=== PATIENT | female | born 1945 | race Caucasian/White ===

== ENCOUNTER → 2017-03-03 | Outpatient (CLI) | payer MEDICARE, BC ==
--- NOTE | 2017-03-04 10:37 | MM ---
Reason for exam: screening (asymptomatic). Last mammogram was performed 1 year and 1 month ago. History: Patient is postmenopausal and is nulliparous. Family history of breast cancer in mother. Physical Findings: A clinical breast exam by your physician is recommended on an annual basis and results should be correlated with mammographic findings. MG 3D Screening Mammo W/Cad Bilateral CC and MLO view(s) were taken. Prior study comparison: January 29, 2016, bilateral MG 3d screening mammo w/cad. August 22, 2009, bilateral diagnostic digital mammog. The breast tissue is heterogeneously dense. This may lower the sensitivity of mammography. Finding: There are typically benign linear calcifications in both breasts. There is no discrete abnormality. ASSESSMENT: Benign, BI-RAD 2 RECOMMENDATION: Routine screening mammogram of both breasts in 1 year.
== END | disposition home or self-care (01) ==
LOC: RADMAMWWP 10:02
PROVIDERS: ATTEND Family Medicine
DX: Z12.31 Encounter for screening mammogram for malignant neoplasm of breast (principal)
CPT/HCPCS: 77063; 77067

== ENCOUNTER → 2017-07-25 | Outpatient (CLI) | payer MEDICARE, BC ==
--- NOTE | 2017-07-27 12:07 | PE ---
EXAMINATION TYPE: PET CT fusion skull to thigh DATE OF EXAM: 07/25/2017 COMPARISON: Prior PET/CT March 15, 2016 and older studies HISTORY: GIST progress study suspected recurrence on biopsy July 20, 2017. TECHNIQUE: Following the intravenous administration of 13.74 mCi of F-18 FDG, whole body images are performed from the top of skull to the midthigh. Images are reviewed on the computer in the coronal, axial, and sagittal planes. Reconstructed rotating images are created on independent workstation an d reviewed on the computer. A noncontrast CT is performed in conjunction with the PET scan. SCAN: Subsequent Scan FINDINGS: SKULL BASE AND NECK: There is hypermetabolic right occipital scalp lesion measuring 2.5 x 0.6 cm axi al image 13, max SUV is 11.69. There is hypermetabolic approaching 1 cm focus axial image 82 posterior left thyroid, max SUV is 3.2. CHEST, MEDIASTINUM, AND HILAR REGION: No additional suspicious hypermetabolic uptake is identified. E xternal contamination suspected right lateral chest wall axial image 97. ABDOMEN AND PELVIS: There is severe right-sided hydronephrosis with right ureter stent in place. No s uspicious hypermetabolic uptake is present. OSSEOUS STRUCTURES: No suspicious hypermetabolic uptake is seen. OTHER CT: Heterogeneous thyroid gland is present. Cardiomegaly with is identified. Three-vessel coronary artery calcification is seen. There is tiny pe ricardial effusion. Lobulated partially calcified fibroid uterus is felt present. There are few diverticula in the sigmoid colon. There are surgical sutures seen in left mid bowel loo p axial image 162. There is facet arthropathy lower lumbar levels. IMPRESSION: No suspicious focal hypermetabolic uptake in stomach 2 correlate with history of recent b iopsy identified. Unusual high right occipital hypermetabolic scalp subcutaneous lesion in which jeannie ot exclude metastatic focus though unusual location, consider surgical excision to investigate. Advis e thyroid ultrasound to further assess slightly hypermetabolic posterior lower pole left thyroid nodu le.
== END | disposition home or self-care (01) ==
LOC: RADPETMAIN 07:17
PROVIDERS: ATTEND Internal Medicine Hematology & Oncology
DX: C49.A3 Gastrointestinal stromal tumor of small intestine (principal); E04.1 Nontoxic single thyroid nodule; L98.9 Disorder of the skin and subcutaneous tissue, unspecified
CPT/HCPCS: 78815; A9552

== ENCOUNTER 2017-09-12 10:44 | Emergency (ER) | payer MEDICARE, BC ==
--- NOTE | 2017-09-12 11:55 | ED ---
General Adult HPI - General Chief complaint: Skin/Abscess/Foreign Body Stated complaint: Basal cell cancer burst during the night/Bleeding Time Seen by Provider: 09/12/17 11:51 Source: patient, RN notes reviewed, old records reviewed Mode of arrival: ambulatory Limitations: no limitations - History of Present Illness Initial comments: This is a 71-year-old female the ER for evaluation of wound. Patient has no history of basal cell carcinoma on her scalp. She is been followed by dermatology has scheduled surgery in 2 months. Patient was seen today and the [facility] office for follow-up appointment, sent are very to maggots being in the wound. Patient states she does shower regularly. She denies any specific pain or complaint - Related Data Home Medications Medication Instructions Recorded Confirmed Atorvastatin [Lipitor] 10 mg PO HS 09/11/14 01/19/15 Calcium Carbonate/Vitamin D3 600 mg PO BID 09/11/14 01/19/15 [Calcium 600 + Vit D Tablet] Metoprolol Tartrate [Lopressor] 25 mg PO BID 09/11/14 01/19/15 Ranitidine HCl 150 mg PO HS 09/11/14 01/19/15 Potassium Chloride [K-Tab ER] 20 meq PO BID 10/10/14 01/19/15 Allopurinol [Zyloprim] 100 mg PO BID 01/17/15 01/19/15 Furosemide [Lasix] 40 mg PO QAM 01/17/15 01/19/15 Gleevec 100 mg PO BID 01/17/15 01/19/15 Spironolactone [Aldactone] 25 mg PO HS 01/17/15 01/19/15 Previous Rx's Medication Instructions Recorded Hydrocodone/Acetaminophen [Golden 1 - 2 each PO Q4HR PRN #30 tab 01/19/15 5-325] Allergies Allergy/AdvReac Type Severity Reaction Status Date / Time No Known Allergies Allergy Verified 01/17/15 17:37 Review of Systems ROS Statement: Those systems with pertinent positive or pertinent negative responses have been documented in the HPI. ROS Other: All systems not noted in ROS Statement are negative. Past Medical History Past Medical History: Cancer, Hyperlipidemia, Hypertension, Renal Disease Additional Past Medical History / Comment(s): GETTING PERITONEAL CATHETER IN ANTICIPATION OF CAPD. HIGH URIC ACID LEVELS. HX POLYP BURST IN SMALL INTETSTINE 2010 (CANCER PER PATIENT). History of Any Multi-Drug Resistant Organisms: None Reported Past Surgical History: Bowel Resection, Orthopedic Surgery, Tonsillectomy Additional Past Surgical History / Comment(s): LAPARATOMY. PARATHYROID SURGERY. ORIF LEFT ANKLE., biopsy of scalp 07/27 Past Anesthesia/Blood Transfusion Reactions: No Reported Reaction Past Psychological History: No Psychological Hx Reported Smoking Status: Never smoker Past Alcohol Use History: None Reported Past Drug Use History: None Reported - Past Family History Mother Family Medical History: Cancer, Coronary Artery Disease (CAD) Father Family Medical History: Coronary Artery Disease (CAD) Brother(s) Family Medical History: Coronary Artery Disease (CAD) General Exam - General Exam Comments Initial Comments: Devin Pace size lesion to posterior scalp, positive maggots Limitations: no limitations General appearance: alert, in no apparent distress Head exam: Present: atraumatic, normocephalic, normal inspection Eye exam: Present: normal appearance, PERRL, EOMI. Absent: scleral icterus, conjunctival injection, periorbital swelling ENT exam: Present: normal exam, mucous membranes moist Neck exam: Present: normal inspection. Absent: tenderness, meningismus, lymphadenopathy Respiratory exam: Present: normal lung sounds bilaterally. Absent: respiratory distress, wheezes, rales, rhonchi, stridor Cardiovascular Exam: Present: regular rate, normal rhythm, normal heart sounds. Absent: systolic murmur, diastolic murmur, rubs, gallop, clicks GI/Abdominal exam: Present: soft, normal bowel sounds. Absent: distended, tenderness, guarding, rebound, rigid Extremities exam: Present: normal inspection, full ROM, normal capillary refill. Absent: tenderness, pedal edema, joint swelling, calf tenderness Back exam: Present: normal inspection Neurological exam: Present: alert, oriented X3, CN II-XII intact Psychiatric exam: Present: normal affect, normal mood Skin exam: Present: warm, dry, intact, normal color. Absent: rash Course Vital Signs 09/12/17 10:53 Temperature 97.5 F L Pulse Rate 67 Respiratory 16 Rate Blood Pressure 168/68 O2 Sat by Pulse 98 Oximetry - Reevaluation(s) Reevaluation #1: 09/12/17 14:21 Wound is a ride maggots removed, cleaned Medical Decision Making - Medical Decision Making 71 female the ER with wound breathing maggots, maggots removed here in the emergency room, patient will be discharged home Disposition Clinical Impression: Visit for wound check, Infestation, maggots Disposition: HOME SELF-CARE Condition: Good Instructions: Acute Wound Care (ED) Is patient prescribed a controlled substance at d/c from ED?: No Referrals: Tori Pena III, MD [Primary Care Provider] - 1-2 days
[2017-09-12 14:39] VITALS: BP 157/72; PULSE 66; RESP 18; TEMP 97.8
== END 2017-09-12 14:36 | disposition home or self-care (01) ==
LOC: EC 10:44
DX: B87.1 Wound myiasis (principal); E78.5 Hyperlipidemia, unspecified; I10 Essential (primary) hypertension; Z79.899 Other long term (current) drug therapy; Z85.828 Personal history of other malignant neoplasm of skin
CPT/HCPCS: 99283

== ENCOUNTER → 2017-12-01 | Outpatient (CLI) | payer MEDICARE, BC ==
--- NOTE | 2017-12-01 12:53 | US ---
EXAMINATION TYPE: US kidneys/renal and bladder DATE OF EXAM: 12/01/2017 COMPARISON: 07/25/2017 CLINICAL HISTORY: N18.4 chronic kidney disease stage 4. Right renal stent, history of right hydroneph rosis EXAM MEASUREMENTS: Right Kidney: 10.8 x 5.0 x 4.1 cm Left Kidney: 9.0 x 4.8 x 4.6 cm Right Kidney: Redemonstration of similar-appearing right-sided hydronephrosis visualized. Echogenic f ocus visualized with posterior shadowing measuring 0.5 cm Left Kidney: Left sided pelvic prominence is seen without hydronephrosis. Bladder: Stent visualized, wnl Bilateral Jets seen: Left jet visualized IMPRESSION: 1. Redemonstration of similar-appearing severe right hydronephrosis despite ureteral stent placement. 2. No vera left-sided hydronephrosis is seen. 3. 5 mm nonobstructing right renal calculus.
== END | disposition home or self-care (01) ==
LOC: RADUSWWP 10:48
PROVIDERS: ATTEND Internal Medicine Nephrology
DX: N13.2 Hydronephrosis with renal and ureteral calculous obstruction (principal); N18.4 Chronic kidney disease, stage 4 (severe)
CPT/HCPCS: 76770

== ENCOUNTER → 2018-03-06 | Outpatient (CLI) | payer MEDICARE, BC ==
--- NOTE | 2018-03-08 08:04 | PE ---
EXAMINATION TYPE: PET CT fusion skull to thigh DATE OF EXAM: 03/07/2018 CLINICAL HISTORY: 72-year-old female with malignant gastrointestinal tumor, restaging. TECHNIQUE: Following the intravenous administration of 14.0 mCi of F-18 FDG, whole body images are performed from the skull base to the midthigh. Images are reviewed on the computer in the coronal, a xial, and sagittal planes. Reconstructed rotating images are created on independent workstation and reviewed on the computer. A localization and attenuation correction CT is performed in conjunction with the PET scan. Glucose level: 107 mg/dL CTDI: 3.71 mGy DLP: 286.12 mGy/cm COMPARISON: 07/25/2017 FINDINGS: PET: The previous high right posterior scalp region of hypermetabolic uptake is excluded from view on the current exam. However, there is intensely hypermetabolic scalp mass now seen along the right posterio r skull base, new from prior measuring 2.8 cm, max SUV 11.7. New intensely hypermetabolic, centrally necrotic right supraclavicular mass measuring 5.4 cm, max SUV 10.3. There is slightly decreased, now mild uptake within the thyroid gland, max SUV 2.7 versus 3.2, previo usly, possibly physiologic. Correlation can be made with thyroid ultrasound and thyroid function test ing as indicated. Otherwise, physiologic FDG uptake within the chest. Average liver SUV 2.5. Focal borderline moderate uptake at the level of the descending colon shows no clear CT correlate and could be physiologic. Additional scattered mild to moderate physiologic bowel activity is present th roughout. Redemonstrated small bowel resection and anastomotic staple line in the left midabdomen. No suspiciou s hypermetabolism in this region. Otherwise, physiologic FDG uptake within the abdomen and pelvis. Additional mild increased uptake at the bilateral gluteal insertions suggesting insertional tendinopa thy. ATTENUATION CORRECTION CT: Visualized paranasal sinuses are clear. Hypoplastic right mastoid air cells. Heart mildly enlarged without pericardial effusion. Coronary vessel calcifications. Bovine configurat ion to the aortic arch. No thoracic lymphadenopathy. Evaluation of the lungs show strandy areas of at electasis and some mild biapical pleural parenchymal scarring and mild underlying emphysema. No conso lidation or pleural effusion. Right-sided nephrolithiasis measuring 1.3 cm and 9 mm with persistent hydronephrosis despite the righ t ureteral stent. No dilated small bowel, free fluid, or free air. Small hiatal hernia. No mesenteric or retroperitoneal lymphadenopathy identified. Redemonstrated bulky fibroid uterus. No abnormal fluid collection in the pelvis or pelvic lymphadenop athy. 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 Accentuated lumbar lordosis and accentuated thoracic kyphosis. Trace grade 1 anterolisthesis at L5-S1 and L4-L5. No osseous destructive process. IMPRESSION: 1. Disease progression. Note that the previous high right posterior scalp lesion is not evaluated as it is outside the field of view. However, there is a new hypermetabolic 2.8 cm subcutaneous soft tiss ue mass along the posterior right skull base and a new centrally necrotic right supraclavicular mass measuring 5.4 cm. 2. Focal uptake at the level of the lower descending colon shows no CT correlate and is probably phys iologic muscular uptake. Correlate with direct visualization if the patient is not undergoing routine screening colonoscopy. 3. Incidental: Bulky fibroid uterus, small hiatal hernia, cardiomegaly, CAD, right-sided nephrolithia sis and persistent right-sided hydronephrosis despite the ureteral stent.
== END | disposition home or self-care (01) ==
LOC: RADPETMAIN 07:20
PROVIDERS: ATTEND Internal Medicine Hematology & Oncology
DX: C49.A0 Gastrointestinal stromal tumor, unspecified site (principal); M79.89 Other specified soft tissue disorders; R22.31 Localized swelling, mass and lump, right upper limb; D25.9 Leiomyoma of uterus, unspecified; K44.9 Diaphragmatic hernia without obstruction or gangrene; I51.7 Cardiomegaly; I25.10 Atherosclerotic heart disease of native coronary artery without angina pectoris; N20.0 Calculus of kidney; N13.30 Unspecified hydronephrosis; Z96.0 Presence of urogenital implants
CPT/HCPCS: 78815; A9552

== ENCOUNTER 2018-03-09 09:15 | Day surgery (SDC) | payer BC, MEDICARE ==
[2018-03-09 09:28] VITALS: TEMP 98.2
[2018-03-09 10:18] VITALS: BP 153/67; PULSE 61; RESP 16
--- NOTE | 2018-03-09 10:41 | US ---
ULTRASOUND GUIDED FNA AND CORE BIOPSY RIGHT NECK MASS BIOPSY: CLINICAL HISTORY: Large right necrotic neck mass FINDINGS: The procedure was explained to the patient. The risks, complications, benefits and alternatives were discussed and any questions were answered. Informed consent was obtained. Patient was placed supin e on the ultrasound table and prepped and draped in the usual sterile fashion. Utilizing a 25 gauge needle, two passes were made into the right neck mass. Additionally 3 18-gauge core samples were obt ained. Patient was stable throughout the procedure. Pathology is pending. All elements of maximal barrier and sterile technique were utilized. IMPRESSION: 1. Successful ultrasound guided FNA and core biopsy right neck mass. Note is made the mass was large ly necrotic. This may lower diagnostic yield of the core biopsy.
== END 2018-03-09 10:30 | disposition home or self-care (01) ==
LOC: RADPROMAIN 09:15
PROVIDERS: ATTEND Internal Medicine Hematology & Oncology
DX: C77.0 Secondary and unspecified malignant neoplasm of lymph nodes of head, face and neck (principal)
CPT/HCPCS: 10005; 38505; 76942; 88173; 88305; 88341; 88342

== ENCOUNTER → 2018-11-27 | Outpatient (CLI) | payer MEDICARE ==
--- NOTE | 2018-11-29 10:02 | PE ---
Nuclear medicine PET/CT HISTORY: Malignant neoplasm of connective and soft tissue, gastrointestinal stromal tumor, subsequent Patient received 11.6 mCi F-18 FDG intravenously in delayed scanning was performed from the skull bas e to the mid thighs. Localization and attenuation correction CT scan was performed. Correlation to prior nuclear medicine PET/CT 03/06/2018. Neck and chest: The large low dense focus at the posterior right neck is again seen measuring 5.7 cm in AP dimension, there is peripheral rim of soft tissue similar to prior exam however the previously noted hypermetabolic uptake at this level as well as circumferential mild uptake, SUV is approximatel y 2.2. The posterior right skull base previously identified focus of hypermetabolic uptake is no rocío elizabeth seen, question postop change at this level, focal scalp defect is present. At the aorticopulmonar y window there is a node with SUV 3.6, retrocaval pretracheal node shows SUV 2.7. There is no evident lung mass. No pleural or pericardial effusion. Heart is enlarged, there are coronary artery calcific ations present. ABDOMEN: No evident liver mass. No retroperitoneal adenopathy. Right-sided hydronephrosis is present and has progressed with a double-J catheter in place. There are right-sided renal calculi. There is p ostop change noted in the left hemiabdomen, some wall thickening is present at the site of patient's prior surgery and areas an air-fluid level present. There is some associated hypermetabolic uptake in this level, SUV is 8.8. There is no ascites. Lobular enlarged uterus likely due to fibroids. Osseous structures: Similar findings, large Tarlov cyst noted within the sacrum. Degenerative disc ch anges and facet arthropathy noted in the lumbar spine. IMPRESSION: Interval improvement in hypermetabolic uptake in the large focus of soft tissue in the po sterior right neck as described. There is hypermetabolic uptake involving the surgical site as descri bed in the left hemiabdomen, local recurrence is difficult to exclude. Question interval surgery. Add itional findings above.
== END | disposition home or self-care (01) ==
LOC: RADPETMAIN 08:52
PROVIDERS: ATTEND Internal Medicine Hematology & Oncology
DX: I51.7 Cardiomegaly (principal); I25.10 Atherosclerotic heart disease of native coronary artery without angina pectoris; N13.30 Unspecified hydronephrosis; Z96.0 Presence of urogenital implants; N20.0 Calculus of kidney; Z98.890 Other specified postprocedural states; N85.2 Hypertrophy of uterus; M53.3 Sacrococcygeal disorders, not elsewhere classified; M47.816 Spondylosis without myelopathy or radiculopathy, lumbar region; M46.96 Unspecified inflammatory spondylopathy, lumbar region; C49.A0 Gastrointestinal stromal tumor, unspecified site
CPT/HCPCS: 78815; A9552

== ENCOUNTER → 2019-05-27 | Outpatient (CLI) | payer MEDICARE ==
--- NOTE | 2019-05-30 08:54 | PE ---
EXAMINATION TYPE: PET CT fusion skull to thigh DATE OF EXAM: 05/27/2019 COMPARISON: Prior PET/CT November 27, 2018 and older PET CTs HISTORY: Head and neck cancer progress study. Surgery September 2018 in head/neck . Completed chemother apy April 28, 2019. TECHNIQUE: Following the intravenous administration of 8.4 mCi of F-18 FDG, whole body images are pe rformed from the skull base to the midthigh. Images are reviewed on the computer in the coronal, axi al, and sagittal planes. Reconstructed rotating images are created on independent workstation and re viewed on the computer. A noncontrast CT is performed in conjunction with the PET scan. SCAN: Subsequent Scan FINDINGS: SKULL BASE AND NECK: Persistent surgical change posterior right cerebellar scalp region near axial i mage 36 without definitive recurrent hypermetabolic soft tissue mass. The right supraclavicular low dense lesion now has more ovoid versus rounded shape measuring 3.5 x 2. 4 cm axial image 61 and is currently ametabolic. No new areas of abnormal hypermetabolic uptake. CHEST, MEDIASTINUM, AND HILAR REGION: No new areas of abnormal hypermetabolic uptake. No definitive a bnormal hypermetabolic thoracic lymph nodes on current study. ABDOMEN AND PELVIS: Persistent severe right-sided hydronephrosis despite right double-J ureter stent. Nonspecific areas of mild bowel uptake. Normal excretion. No new areas of suspicious hypermetabolic uptake. No residual hypermetabolic uptake near sutures left upper to mid abdomen excellent 137 on cu rrent study. OSSEOUS STRUCTURES: Mild uptake left shoulder level presumed inflammatory. No new areas of suspicious hypermetabolic uptake. OTHER CT: Mild emphysematous changes are present. Cardiomegaly with moderate three-vessel coronary ar lisa calcification redemonstrated. Occasional calcifications throughout the liver and spleen, findings consistent with product of old gr anulomatous disease. Heterogeneous enlarged uterus with lobulation probable fibroid uterus. Small umb ilical hernia below umbilicus image 167. Exaggerated kyphosis in the spine. Multilevel spurring in the spine. 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 IMPRESSION: No active hypermetabolic neoplasm currently. Persistent low dense right supraclavicular l esion more elongated in appearance currently ametabolic. Persistent severe right-sided hydronephrosis despite double-J ureter stent. No new areas of suspicious hypermetabolic uptake.
== END | disposition home or self-care (01) ==
LOC: RADPETMAIN 13:15
PROVIDERS: ATTEND Internal Medicine Hematology & Oncology
DX: M75.91 Shoulder lesion, unspecified, right shoulder (principal); N13.30 Unspecified hydronephrosis; C44.82 Squamous cell carcinoma of overlapping sites of skin; Z92.21 Personal history of antineoplastic chemotherapy
CPT/HCPCS: 78815; A9552

== ENCOUNTER → 2019-08-04 | Outpatient (CLI) | payer MEDICARE ==
--- NOTE | 2019-08-04 13:39 | BD ---
EXAMINATION TYPE: Axial Bone Density DATE OF EXAM: 08/04/2019 COMPARISON: 01.29.2016 CLINICAL HISTORY: 73 YR OLD FEMALE....ICD-10 CODE: M81.0 AGE RELATED OSTEOPOROSIS Height: 58.5 Weight: 140 FRAX RISK QUESTIONS: Secondary Osteoporosis: YES 2. Hyperthyroidism: HYPERPARATHYROIDISM 3. Menopause before 45: YES AT AGE 40 RISK FACTORS HISTORY OF: Postmenopausal woman: YES AT ABOUT 40 YRS OLD NATURALLY Lost more than 2 inches in height since high school: YES Hyperparathyroidism: YES Adrenal Insufficiency: NO MEDICATIONS: Thyroid Medications: YES, SYNTHROID FOR ABOUT 1 YR Osteoporosis Medications: YES, FOSAMAX FOR ABOUT 10 YRS, OFF NOW FOR 4-5 YRS Additional Medications: HX OF CHEMO, SKIN CA, HX OF RADIATION, REFLUX MEDS, CHOLESTEROL MEDS, VIT D, BP MEDS, Additional History: HX OF SKIN CANCER, HYPERTENSION, REFLUX AND CHOLESTEROL EXAM MEASUREMENTS: Bone mineral densitometry was performed using the [employer] System. Bone mineral density as measured about the Lumbar spine is: ----- L1-L4(G/cm2): 1.136 T Score Values are as follows: ----- L1: -0.2 ----- L2: -1.5 ----- L3: -1.5 ----- L4: 2.8 ----- L1-L4: -0.4 Bone mineral density has: Increased 7.0% since study of: 01.29.2016 Bone mineral density about the R hip (g/cm2): 0.933 Bone mineral density about the L hip (g/cm2): 0.891 T Score values are as follows: -----R Neck: -1.3 -----L Neck: -1.9 -----R Total: -0.6 -----L Total: -0.9 Bone mineral density has: Decreased -0.7% since study of: 01.29.2016 FRAX%s: THERE IS A 12.4% CHANCE FOR A MAJOR OSTEOPOROTIC FX AND A 2.9% FOR A HIP......PROBABILITY FOR FX IN 10 YRS TIME IMPRESSION: Osteopenia (T Score between -2.5 and -1). There is slightly increased risk of fracture and the patient may be considered for treatment. Re-Screen 2-5 years. NOTE: T-SCORE=SD OF THE YOUNG ADULT MEAN.
== END | disposition home or self-care (01) ==
LOC: RADBDWWP 09:53
PROVIDERS: ATTEND Family Medicine
DX: M81.0 Age-related osteoporosis without current pathological fracture (principal)
CPT/HCPCS: 77080

== ENCOUNTER → 2020-01-13 | Outpatient (CLI) | payer MEDICARE ==
--- NOTE | 2020-01-16 06:27 | PE ---
EXAMINATION TYPE: PET CT fusion skull to thigh DATE OF EXAM: 01/13/2020 COMPARISON: Prior PET/CT May 27, 2019 HISTORY: Squamous cell cancer progress study. Originally diagnosed posterior scalp on excision 2018. Completed chemotherapy January 03 2020. TECHNIQUE: Following the intravenous administration of 8.37 mCi of F-18 FDG, whole body images are p erformed from the mid skull to the midthigh. Images are reviewed on the computer in the coronal, axi al, and sagittal planes. Reconstructed rotating images are created on independent workstation and re viewed on the computer. A localization and attenuation correction CT is performed in conjunction wi th the PET scan. Dedicated PET/CT imaging of the neck is performed. SCAN: Subsequent Scan FINDINGS: SKULL BASE AND NECK: Persistent surgical change posterior right cerebellar scalp region near axial i mage 34 without definitive recurrent hypermetabolic soft tissue mass. Right upper cervical posterior deep paraspinal musculature presumed postinflammatory near axial image 42. The right supraclavicular low dense lesion now has more ovoid versus rounded shape measuring 3.5 x 2. 4 cm axial image 61 and remains ametabolic. No new areas of abnormal hypermetabolic uptake. CHEST, MEDIASTINUM, AND HILAR REGION: No new areas of abnormal hypermetabolic uptake. Mild hypermetab olic uptake right proximal upper extremity muscle presumed inflammatory. No definitive abnormal hyper metabolic thoracic lymph nodes on current study. ABDOMEN AND PELVIS: Persistent severe right-sided hydronephrosis despite right double-J ureter stent. Nonspecific areas of mild bowel uptake. No new areas of suspicious hypermetabolic uptake. No residu al hypermetabolic uptake near sutures left upper to mid abdomen axial image 148 on current study. OSSEOUS STRUCTURES: No new areas of suspicious hypermetabolic uptake. OTHER CT: Mild emphysematous changes are present. Cardiomegaly with moderate three-vessel coronary ar lisa calcification redemonstrated. Occasional punctate calcifications throughout the liver and spleen, findings consistent with product of old granulomatous disease. Heterogeneous enlarged partially calcified uterus with lobulation proba ble fibroid uterus. Small ventral wall hernia below umbilicus axial image 178. Exaggerated kyphosis in the spine. Multilevel spurring in the spine. 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 IMPRESSION: No active hypermetabolic neoplasm currently. Stable low dense right supraclavicular lesio n remains ametabolic. Persistent severe right-sided hydronephrosis despite double-J ureter stent. No new areas of suspicious hypermetabolic uptake.
== END | disposition home or self-care (01) ==
LOC: RADPETMAIN 10:59
PROVIDERS: ATTEND Internal Medicine Hematology & Oncology
DX: C44.82 Squamous cell carcinoma of overlapping sites of skin (principal); N13.30 Unspecified hydronephrosis; M89.8X8 Other specified disorders of bone, other site; Z96.0 Presence of urogenital implants; Z92.21 Personal history of antineoplastic chemotherapy
CPT/HCPCS: 78815; A9552

== ENCOUNTER → 2020-04-24 | Outpatient (CLI) | payer MEDICARE ==
--- NOTE | 2020-04-25 10:36 | MM ---
Reason for exam: screening (asymptomatic). Last mammogram was performed 3 years and 2 months ago. History: Patient is postmenopausal, history of other cancer, and is nulliparous. Family history of breast cancer in mother. Physical Findings: A clinical breast exam by your physician is recommended on an annual basis and results should be correlated with mammographic findings. MG 3D Screening Mammo W/Cad Bilateral CC and MLO view(s) were taken. Prior study comparison: March 03, 2017, bilateral MG 3d screening mammo w/cad. January 29, 2016, bilateral MG 3d screening mammo w/cad. The breast tissue is heterogeneously dense. This may lower the sensitivity of mammography. There are benign appearing linear calcifications bilaterally. There is no discrete abnormality. ASSESSMENT: Benign, BI-RAD 2 RECOMMENDATION: Routine screening mammogram of both breasts in 1 year.
== END ==
LOC: RADMAMWWP 13:52
PROVIDERS: ATTEND Family Medicine
DX: Z12.31 Encounter for screening mammogram for malignant neoplasm of breast (principal); Z78.0 Asymptomatic menopausal state; Z80.3 Family history of malignant neoplasm of breast
CPT/HCPCS: 77063; 77067

== ENCOUNTER 2020-06-15 07:42 | Day surgery (SDC) | payer MEDICARE ==
[2020-06-13 13:18] VITALS: BMI 26.4
[~2020-06-15 07:42] MED LIST: LACTATED RINGERS 1,000 ML IV SCH
[2020-06-15 08:40] VITALS: RESP 16; TEMP 97
[2020-06-15] MEDS ORDERED: LIDOCAINE 1% INJ 10MG/ML (20 ML MDV) ONE (09:42)
[2020-06-15] MEDS ORDERED: PROPOFOL 10 MG/ML 20 ML VIAL IV ONE (09:42)
--- NOTE | 2020-06-15 09:58 | P.PCN ---
Date of Procedure: 06/15/20 Procedure(s) Performed: BRIEF HISTORY: Patient is a 74-year-old pleasant 8 female scheduled for an elective colonoscopy as a part of positive cologuard. Her last colonoscopy was 15 years ago. PROCEDURE PERFORMED: Colonoscopy with snare polypectomy . PREOPERATIVE DIAGNOSIS: Positive:cologuard. IV sedation per Anesthesia. PROCEDURE: After informed consent was obtained, the patient, was brought into the endoscopy unit. IV sedation was administered by Anesthesia under continuous monitoring. Digital rectal examination was normal. Initially the Olympus CF-160 flexible video colonoscope was then inserted in the rectum, gradually advanced into the cecum without any difficulty. Careful examination was performed as the scope was gradually being withdrawn. Ileocecal valve and the appendiceal orifice were visualized and appeared normal. Prep was excellent. Mucosa of the cecum, ascending colon, transverse colon, descending colon, appeared normal. In the proximal sigmoid colon at 40 cm to the anal was there was a 1.5 cm pedunculated polyp that was removed by snare polypectomy. Scattered sigmoid diverticulosis seen. Rest of the sigmoid colon, and rectum appeared normal. Retroflexion was performed in the rectua 2 internal hemorrhoids were seen. The patient tolerated the procedure well. IMPRESSION: 1.5 cm pedunculated sigmoid colon polyp status post polypectomy Scattered sigmoid diverticulosis Small internal hemorrhoids RECOMMENDATIONS: Findings of this examination were discussed with thpatient as well as her family. She was advised to follow with the biopsy results. If the biopsy reveals adenoma she can have a repeat colonoscopy in 3 years.
[2020-06-15 10:20] VITALS: BP 127/61; PULSE 62
== END 2020-06-15 10:47 | disposition home or self-care (01) ==
LOC: ORWHC2ENDO 07:42
PROVIDERS: ATTEND Internal Medicine Gastroenterology
DX: K63.5 Polyp of colon (principal); K57.30 Diverticulosis of large intestine without perforation or abscess without bleeding; K64.8 Other hemorrhoids; I10 Essential (primary) hypertension; N28.9 Disorder of kidney and ureter, unspecified; K21.9 Gastro-esophageal reflux disease without esophagitis; Z90.49 Acquired absence of other specified parts of digestive tract; E89.2 Postprocedural hypoparathyroidism; Z90.89 Acquired absence of other organs; Z79.899 Other long term (current) drug therapy; Z79.890 Hormone replacement therapy
CPT/HCPCS: 88305; 45385; J2001; J2704

== ENCOUNTER → 2020-07-20 | Outpatient (CLI) | payer MEDICARE ==
--- NOTE | 2020-07-23 09:36 | PE ---
EXAMINATION TYPE: PET CT fusion skull to thigh DATE OF EXAM: 07/20/2020 COMPARISON: Prior PET/CT January 13, 2020 and older studies. HISTORY: Squamous cell cancer progress study. Originally diagnosed posterior scalp on excision 2018. Completed chemotherapy January 03 2020. TECHNIQUE: Following the intravenous administration of 8.98 mCi of F-18 FDG, whole body images are p erformed from the skull base to the midthigh. Images are reviewed on the computer in the coronal, ax ial, and sagittal planes. Reconstructed rotating images are created on independent workstation and r eviewed on the computer. A localization and attenuation correction CT is performed in conjunction w ith the PET scan. Dedicated PET/CT imaging of the neck. Blood glucose level equals 111. SCAN: Subsequent Scan FINDINGS: SKULL BASE AND NECK: Persistent surgical change posterior right cerebellar scalp region near axial i mage 1 only partially imaged on this study. The right supraclavicular low dense lesion now has is more defined measuring 3 0.8 x 1.4 cm 4 cm axia l image 52 current study and remains ametabolic. No new areas of abnormal hypermetabolic uptake. CHEST, MEDIASTINUM, AND HILAR REGION: No new areas of abnormal hypermetabolic uptake. Mild hypermetab olic uptake right proximal upper extremity muscle presumed postinflammatory similar to prior. No defi nitive abnormal hypermetabolic thoracic lymph nodes on current study. ABDOMEN AND PELVIS: Persistent severe right-sided hydronephrosis despite right double-J ureter stent. Nonspecific areas of mild bowel uptake. No new areas of suspicious hypermetabolic uptake. Mild hypermetabolic uptake near sutures left upper to mid abdomen axial image 141 on current study without definitive soft tissue lesion. Nonspecific finding. OSSEOUS STRUCTURES: No new areas of suspicious hypermetabolic uptake. OTHER CT: Mild emphysematous changes are present. Cardiomegaly with moderate three-vessel coronary ar lisa calcification redemonstrated. Occasional punctate calcifications throughout the liver and spleen, findings consistent with product of old granulomatous disease. Heterogeneous enlarged partially calcified uterus with lobulation proba ble fibroid uterus. Small ventral wall hernia below umbilicus axial image 169. Exaggerated kyphosis in the spine. Multilevel spurring in the spine. 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 IMPRESSION: Diminished size right supraclavicular lesion remains ametabolic. Persistent severe right -sided hydronephrosis despite double-J ureter stent. No new areas of suspicious hypermetabolic uptake .
== END | disposition home or self-care (01) ==
LOC: RADPETMAIN 09:24
PROVIDERS: ATTEND Internal Medicine Hematology & Oncology
DX: C44.92 Squamous cell carcinoma of skin, unspecified (principal); N13.30 Unspecified hydronephrosis
CPT/HCPCS: 78815; A9552

== ENCOUNTER → 2021-03-28 | Outpatient (CLI) | payer MEDICARE ==
--- NOTE | 2021-03-28 10:03 | US ---
EXAMINATION TYPE: US kidneys/renal and bladder DATE OF EXAM: 03/28/2021 COMPARISON: PET/CT 07/20/2020 CLINICAL HISTORY: 75-year-old female N18.4 chronic kidney stage 4. TECHNIQUE: Multiple sonographic images of the kidneys and bladder are obtained. FINDINGS: EXAM MEASUREMENTS: Right Kidney: 11.4 x 3.8 x 5.9 cm Left Kidney: 8.2 x 4.9 x 3.1 cm Right Kidney: Anechoic area of fluid mid pole seen measuring 6.8 x 4.3 x 6.8 cm with echogenic areas measuring up to 5 mm likely portions of the right ureteral stent. Left Kidney: Anechoic area centrally measuring 2.8 x 1.8 x 2.7 cm probably extrarenal pelvis. No emir ceal dilatation to suggest hydronephrosis. Bladder: Distal loop of the ureteral stent visualized. Bilateral Jets seen: yes The urinary bladder is anechoic. Bilateral ureteral jets are seen. IMPRESSION: 1. Unchanged pronounced dilatation of the right renal collecting system. 2. Distal loop of the patient's right ureteral stent seen within the bladder. 3. Unchanged extra renal pelvis left kidney.
== END | disposition home or self-care (01) ==
LOC: RADUSWWP 08:56
PROVIDERS: ATTEND Internal Medicine Nephrology
DX: N18.4 Chronic kidney disease, stage 4 (severe) (principal); N28.89 Other specified disorders of kidney and ureter
CPT/HCPCS: 76770

== ENCOUNTER → 2021-07-19 | Outpatient (CLI) | payer MEDICARE ==
--- NOTE | 2021-07-22 10:21 | PE ---
Nuclear medicine PET/CT HISTORY: Head and neck cancer, subsequent, C 44.82 squamous cell carcinoma Patient received 8.3 mCi F-18 FDG intravenously and delayed scanning was performed from the skull bas e to the mid thighs. A localization and attenuation correction CT scan was performed. Small field-of- view images obtained through the head and neck. Correlation to prior nuclear medicine PET/CT 07/20/2020 Average mediastinal uptake SUV 2.6, average liver uptake SUV 3.3 Head and neck: There is no cervical or supraclavicular adenopathy. No suspicious uptake. chest: No pleural or pericardial effusion. No evident lung mass. No suspicious uptake. Some interstit ial changes are suspected within the lungs. Coronary artery calcifications are present. There is meta llic density at the root of aorta. Heart is enlarged. ABDOMEN: There likely indicative of underlying fibroids. Double-J stent is present within the right k idney and ureter extending into the bladder. There are calcifications which are nonobstructive within the right kidney, possible extrarenal pelvis bilaterally. Postop changes are noted to the bowel. The re is no evident liver mass. No ascites. No retroperitoneal adenopathy or suspicious uptake. There is a bulky appearance of the uterus is some associated calcification. Mild uptake noted within what may be a large fibroid on the left, indeterminate, SUV 3.2. Osseous structures: No suspicious uptake. IMPRESSION: Possible uptake within left fibroid but indeterminate
== END | disposition home or self-care (01) ==
LOC: RADXRMAIN 10:24
PROVIDERS: ATTEND Internal Medicine Hematology & Oncology
DX: C44.82 Squamous cell carcinoma of overlapping sites of skin (principal)
CPT/HCPCS: 78815; A9552

== ENCOUNTER 2022-04-21 11:05 | Inpatient (IN) | payer MEDICARE ==
[2022-04-21 12:12] LABS: Anisocytosis Slight; Basophils # (A) 0.1 k/uL (0-0.2); Basophils % (A) 1 %; Eosinophils # (A) 0.1 k/uL (0-0.7); Eosinophils % (A) 1 %; HCT 50.1 % (34.0-46.0); HGB 16.5 gm/dL (11.4-16.0); Lymphocytes # (A) 0.5 k/uL (1.0-4.8); Lymphocytes % (A) 5 %; MCH 30.9 pg (25.0-35.0); MCHC 32.9 g/dL (31.0-37.0); MCV 93.8 fL (80.0-100.0); Mean Platelet Volume 8.5; Monocytes # (A) 0.3 k/uL (0-1.0); Monocytes % (A) 3 %; Neutrophils # (A) 9.1 k/uL (1.3-7.7); Neutrophils % (A) 88 %; Platelet Count 198 k/uL (150-450); RBC 5.34 m/uL (3.80-5.40); RDW 17.2 % (11.5-15.5); WBC 10.2 k/uL (3.8-10.6)
--- NOTE | 2022-04-21 12:26 | XR ---
EXAMINATION TYPE: XR chest 2V DATE OF EXAM: 04/21/2022 12:22 PM COMPARISON: Head CT 07/19/2021, chest radiograph 07/31/2010 TECHNIQUE: XR chest 2V Frontal and lateral views of the chest. CLINICAL INDICATION:Female, 76 years old with history of difficulty breathing; FINDINGS: Lungs/Pleura: Hyperinflation. Blunting of the right costophrenic angle. Pulmonary vascular congestion . No pneumothorax. Heart/mediastinum: Cardiomediastinal silhouette is enlarged and stable. Atherosclerotic calcificatio ns are seen in the aorta. Musculoskeletal: No acute osseous pathology. Increased kyphotic curvature of thoracic spine. IMPRESSION: 1. Cardiomegaly, pulmonary vascular congestion and small right pleural effusions. Correlate with BNP for congestive heart failure. 2. COPD changes.
[2022-04-21 13:14] LABS: VBG PH 7.41 (7.31-7.41)
[2022-04-21 13:59] LABS: INR 1.1 (<1.2); Prothrombin Time 11.4 sec (9.0-12.0)
[2022-04-21 14:13] LABS: Calcium 9.7 mg/dL (8.4-10.2); Magnesium 2.5 mg/dL (1.6-2.3); Potassium 5.2 mmol/L (3.5-5.1); Total Bilirubin 1.7 mg/dL (0.2-1.3); Total Protein 8.4 g/dL (6.3-8.2)
[2022-04-21] MEDS ORDERED: FUROSEMIDE 10 MG/ML 4 ML VIAL IV STA (14:41)
[2022-04-21] MEDS ORDERED: ASPIRIN 81 MG PO STA (14:43)
--- NOTE | 2022-04-21 14:44 | ED ---
General Adult HPI - General Chief complaint: Shortness of Breath Stated complaint: hypoxemia Time Seen by Provider: 04/21/22 11:35 Source: patient, RN notes reviewed, old records reviewed Mode of arrival: wheelchair Limitations: no limitations - History of Present Illness Initial comments: Patient is a 76 year old female with past medical history remarkable for stomach cancer, skin cancer, hypertension, thyroid disease, CK D who presents emergency Department complaining of shortness of breath that is progressively been getting worse over the last month. States it is worse with exertion. In presents with rest. Somewhat worse when laying down and in the middle night she does get up to go sit in a recliner. Denies any paroxysmal nocturnal dyspnea. Does endorse some chronic lower extremity swelling, and is on Lasix but only takes it as she feels she needs it. States she does not take it often. Denies any fevers, cough. Denies any chest pain. Denies any abdominal pain, nausea, vomiting. No history of blood clots. Both legs are both equally swollen. Presents for further evaluation at this time. - Related Data Home Medications Medication Instructions Recorded Confirmed Atorvastatin [Lipitor] 10 mg PO HS 09/11/14 04/21/22 Metoprolol Tartrate [Lopressor] 25 mg PO BID 09/11/14 04/21/22 allopurinoL [Zyloprim] 100 mg PO BID 01/17/15 04/21/22 Ferrous Sulfate [Feosol] 325 mg PO BID 03/03/18 04/21/22 Folic Acid 0.8 mg PO DAILY 03/03/18 04/21/22 Magnesium 400 mg PO HS 03/03/18 04/21/22 Cholecalciferol [Vitamin D3 (25 25 mcg PO DAILY 06/13/20 04/21/22 Mcg = 1000 Iu)] Famotidine 20 mg PO HS 06/13/20 04/21/22 Furosemide [Lasix] 20 mg PO Q2D PRN 04/21/22 04/21/22 Levothyroxine Sodium [Synthroid] 75 mcg PO DAILY 04/21/22 04/21/22 amLODIPine [Norvasc] 7.5 mg PO DAILY 04/21/22 04/21/22 calcitrioL [Calcitriol] 0.25 mcg PO MOWEFR 04/21/22 04/21/22 Allergies Allergy/AdvReac Type Severity Reaction Status Date / Time No Known Allergies Allergy Verified 04/21/22 12:26 Review of Systems ROS Statement: Those systems with pertinent positive or pertinent negative responses have been documented in the HPI. Review of Systems: CONST: Denies fever EYES: Denies blurry vision ENT: Denies nasal congestion C/V: Denies Chest pain RESP: Endorse's shortness of breath GI: Denies abdominal pain : Denies dysuria SKIN: Denies rash. MSK: Denies joint pain. NEURO: Denies headache ROS Other: All systems not noted in ROS Statement are negative. Past Medical History Past Medical History: Cancer, GERD/Reflux, Hyperlipidemia, Hypertension, Renal Disease, Thyroid Disorder Additional Past Medical History / Comment(s): stage 4 kidney disease-has not needed dialysis yet 2 point away of stage 3, still has urine production, anemia, HIGH URIC ACID LEVELS. HX CANCEROUS POLYP BURST IN SMALL INTESTINE 2010-being tx. w/chemo, skin cancer scalp July 2017 History of Any Multi-Drug Resistant Organisms: None Reported Past Surgical History: Bowel Resection, Orthopedic Surgery, Tonsillectomy Additional Past Surgical History / Comment(s): LAPARATOMY, PARATHYROID SURGERY, ORIF LEFT ANKLE., biopsy of scalp 07/27,AV fistula left arm,peritoneal dialysis attempt Past Anesthesia/Blood Transfusion Reactions: No Reported Reaction Past Psychological History: No Psychological Hx Reported Smoking Status: Never smoker - Past Family History Mother Family Medical History: Cancer, Coronary Artery Disease (CAD) Father Family Medical History: Coronary Artery Disease (CAD) Brother(s) Family Medical History: Coronary Artery Disease (CAD) General Exam - General Exam Comments Initial Comments: General: Appears in no acute distress. HEAD: Normal with no signs of head trauma. EYES: PERRLA, EOMI, conjunctiva normal, no discharge. ENT: Hearing grossly intact, normal oropharynx. RESPIRATORY: Positive clear breath sounds bilaterally without any obvious wheezes or rhonchi. Hypoxic on room air to 82%. Improved on 2-4 L nasal cannula at 292-95%. Mildly increased work of breathing. C/V: Regular rate and rhythm. S1 and S2 auscultated, bilateral symmetrical abhijit ing edema in lower extremities. Peripheral pulses 2+ and intact throughout ABD: Abd is soft, nontender, nondistended EXT: Normal range of motion, no obvious deformity SKIN: No rashes or lesions observed on exposed skin. NEURO: Alert and oriented 4. Limitations: no limitations Course Vital Signs 04/21/22 04/21/22 04/21/22 11:30 13:00 13:30 Temperature 97.4 F L Pulse Rate 60 54 L 53 L Respiratory 24 19 20 Rate Blood Pressure 120/72 135/79 135/79 O2 Sat by Pulse 84 L 95 94 L Oximetry 04/21/22 04/21/22 04/21/22 14:00 14:30 16:00 Temperature Pulse Rate 49 L 57 L 53 L Respiratory 19 20 18 Rate Blood Pressure 144/73 141/76 153/85 O2 Sat by Pulse 95 95 95 Oximetry Medical Decision Making - Medical Decision Making Was pt. sent in by a medical professional or institution (, PA, YARDAGE CONTROL CLERK, urgent care, hospital, or long term...) When possible be specific @ -Yes, sent from cancer facility for hypoxia Did you speak to anyone other than the patient for history (EMS, parent, family, police, friend...)? What history was obtained from this source @ -No Did you review nursing and triage notes (agree or disagree)? Why? @ -I reviewed and agree with nursing and triage notes Were old charts reviewed (outside hosp., previous admission, EMS record, old EKG, old radiological studies, urgent care reports/EKG's, long term records)? Report findings @ -No old charts were reviewed Differential Diagnosis (chest pain, altered mental status, abdominal pain women, abdominal pain men, vaginal bleeding, weakness, fever, dyspnea, syncope, headache, dizziness, GI bleed, back pain, seizure, CVA, palpatations, mental health, musculoskeletal)? @ -Differential Dyspnea: Coronary syndrome, arrhythmia, tamponade, asthma, COPD, pulmonary embolism, pneumonia, pneumothorax, pulmonary effusion, anaphylaxis, diabetic ketoacidosis, flailed chest, pulmonary contusion, diaphragmatic rupture, anemia, neuromuscular, this is not meant to be an all-inclusive list. EKG interpreted by me (3pts min.). @ -As above X-rays interpreted by me (1pt min.). @ -Chest x-ray reveals cardiomegaly and pulmonary vascular congestion concerning for CHF. CT interpreted by me (1pt min.). @ -None done U/S interpreted by me (1pt. min.). @ -None done What testing was considered but not performed or refused? (CT, X-rays, U/S, labs)? Why? @ -None What meds were considered but not given or refused? Why? @ -None Did you discuss the management of the patient with other professionals (professionals i.e. , PA, YARDAGE CONTROL CLERK, lab, RT, psych nurse, social service coordinator, medical technologist microbiology, teacher, artillery officer, pillowcase cleaner)? Give summary @ -No Was smoking cessation discussed for >3mins.? @ -No Was critical care preformed (if so, how long)? @ -No Were there social determinants of health that impacted care today? How? ( Homelessness, low income, unemployed, alcoholism, drug addiction, transportation, low edu. Level, literacy, decrease access to med. care, fdc, rehab)? @ -No Was there de-escalation of care discussed even if they declined (Discuss DNR or withdrawal of care, Hospice)? DNR status @ -No What co-morbidities impacted this encounter? (DM, HTN, Smoking, COPD, CAD, Cancer, CVA, ARF, Chemo, Hep., AIDS, mental health diagnosis, sleep apnea, morbid obesity)? @ -CK D Was patient admitted / discharged? Hospital course, mention meds given and route, prescriptions, significant lab abnormalities, going to OR and other pertinent info. @ -Based on the patient's presentation and physical exam, I'm concerned for cardiopulmonary etiology for her current dyspnea. Differential includes possible PE versus CHF. Patient does have worsening orthopnea, exertional dyspnea, lower extremity swelling. She is on Lasix but does not take it often. Patient has hypoxic respiratory failure. We will obtain a pulmonary labs, chest x-ray, EKG. Screening d-dimer also be obtained. She was in agreement with this plan. Vital signs within acceptable limits on 2-4 L nasal cannula oxygen. She was given an aspirin 324 mg. EKG shows T-wave inversions about an STD in the inferior and lateral leads with mild ST segment depressions in leads III and aVF. No prior EKG for comparison. Chest x-ray shows findings concerning for CHF. Laboratory studies are remarkable for a normal d-dimer of 0.3. BNP is elevated to 12,700. Troponin is indeterminate. Remainder of the labs are within acceptable limits for the patient and she does have a history of CK D appears to be at her baseline. I discussed the results with the patient. I would like to admit the hospital over concern for CHF. She was in agreement this plan. She was started on IV Lasix. Echo was ordered. Cardiology was consulted. I spoke with the admitting physician, Dr. Mcallister who accepted the patient. She is resting comfortably at time of admission. Undiagnosed new problem with uncertain prognosis? @ -No Drug Therapy requiring intensive monitoring for toxicity (Heparin, Nitro, Insulin, Cardizem)? @ -No Were any procedures done? @ -No Diagnosis/symptom? @ -Hypoxic respiratory failure secondary to CHF Acute, or Chronic, or Acute on Chronic? @ -Acute Uncomplicated (without systemic symptoms) or Complicated (systemic symptoms)? @ -Complicated Side effects of treatment? @ -No Exacerbation, Progression, or Severe Exacerbation? @ -No Poses a threat to life or bodily function? How? (Chest pain, USA, DC, pneumonia, PE, COPD, DKA, ARF, appy, cholecystitis, CVA, Diverticulitis, Homicidal, Suicidal, threat to staff... and all critical care pts) @ -Yes, if untreated can result in significant morbidity and mortality Diagnosis/symptom? @ -CK D Acute, or Chronic, or Acute on Chronic? @ -Chronic Uncomplicated (without systemic symptoms) or Complicated (systemic symptoms)? @ -Uncomplicated Side effects of treatment? @ -none Exacerbation, Progression, or Severe Exacerbation] @ -no Poses a threat to life or bodily function? @ -no - Lab Data Result diagrams: 04/21/22 11:42 04/21/22 13:42 Lab Results 04/21/22 04/21/22 04/21/22 Range/Units 11:42 11:42 11:42 WBC 10.2 (3.8-10.6) k/uL RBC 5.34 (3.80-5.40) m/uL Hgb 16.5 H (11.4-16.0) gm/dL Hct 50.1 H (34.0-46.0) % MCV 93.8 (80.0-100.0) fL MCH 30.9 (25.0-35.0) pg MCHC 32.9 (31.0-37.0) g/dL RDW 17.2 H (11.5-15.5) % Plt Count 198 (150-450) k/uL MPV 8.5 Neutrophils % 88 % Lymphocytes % 5 % Monocytes % 3 % Eosinophils % 1 % Basophils % 1 % Neutrophils # 9.1 H (1.3-7.7) k/uL Lymphocytes # 0.5 L (1.0-4.8) k/uL Monocytes # 0.3 (0-1.0) k/uL Eosinophils # 0.1 (0-0.7) k/uL Basophils # 0.1 (0-0.2) k/uL Anisocytosis Slight PT (9.0-12.0) sec INR (<1.2) APTT (22.0-30.0) sec D-Dimer (<0.60) mg/L FEU VBG pH (7.31-7.41) VBG pCO2 (37-51) mmHg VBG HCO3 (24-28) mmol/L Sodium (137-145) mmol/L Potassium (3.5-5.1) mmol/L Chloride (98-107) mmol/L Carbon Dioxide (22-30) mmol/L Anion Gap mmol/L BUN (7-17) mg/dL Creatinine (0.52-1.04) mg/dL Est GFR (CKD-EPI)AfAm (>60 ml/min/1.73 sqM) Est GFR (CKD-EPI)NonAf (>60 ml/min/1.73 sqM) Glucose (74-99) mg/dL Calcium (8.4-10.2) mg/dL Magnesium (1.6-2.3) mg/dL Total Bilirubin (0.2-1.3) mg/dL AST (14-36) U/L ALT (4-34) U/L Alkaline Phosphatase (38-126) U/L Troponin I (0.000-0.034) ng/mL NT-Pro-B Natriuret Pep 89317 pg/mL Total Protein (6.3-8.2) g/dL Albumin (3.5-5.0) g/dL Influenza Type A (PCR) Not Detected (Not Detectd) Influenza Type B (PCR) Not Detected (Not Detectd) RSV (PCR) Not Detected (Not Detectd) SARS-CoV-2 (PCR) Not Detected (Not Detectd) 04/21/22 04/21/22 04/21/22 Range/Units 12:53 13:42 13:42 WBC (3.8-10.6) k/uL RBC (3.80-5.40) m/uL Hgb (11.4-16.0) gm/dL Hct (34.0-46.0) % MCV (80.0-100.0) fL MCH (25.0-35.0) pg MCHC (31.0-37.0) g/dL RDW (11.5-15.5) % Plt Count (150-450) k/uL MPV Neutrophils % % Lymphocytes % % Monocytes % % Eosinophils % % Basophils % % Neutrophils # (1.3-7.7) k/uL Lymphocytes # (1.0-4.8) k/uL Monocytes # (0-1.0) k/uL Eosinophils # (0-0.7) k/uL Basophils # (0-0.2) k/uL Anisocytosis PT (9.0-12.0) sec INR (<1.2) APTT (22.0-30.0) sec D-Dimer (<0.60) mg/L FEU VBG pH 7.41 (7.31-7.41) VBG pCO2 30 L (37-51) mmHg VBG HCO3 19 L (24-28) mmol/L Sodium 141 (137-145) mmol/L Potassium 5.2 H (3.5-5.1) mmol/L Chloride 108 H (98-107) mmol/L Carbon Dioxide 20 L (22-30) mmol/L Anion Gap 13 mmol/L BUN 34 H (7-17) mg/dL Creatinine 1.97 H (0.52-1.04) mg/dL Est GFR (CKD-EPI)AfAm 28 (>60 ml/min/1.73 sqM) Est GFR (CKD-EPI)NonAf 24 (>60 ml/min/1.73 sqM) Glucose 105 H (74-99) mg/dL Calcium 9.7 (8.4-10.2) mg/dL Magnesium 2.5 H (1.6-2.3) mg/dL Total Bilirubin 1.7 H (0.2-1.3) mg/dL AST 34 (14-36) U/L ALT 35 H (4-34) U/L Alkaline Phosphatase 68 (38-126) U/L Troponin I 0.017 (0.000-0.034) ng/mL NT-Pro-B Natriuret Pep pg/mL Total Protein 8.4 H (6.3-8.2) g/dL Albumin 5.0 (3.5-5.0) g/dL Influenza Type A (PCR) (Not Detectd) Influenza Type B (PCR) (Not Detectd) RSV (PCR) (Not Detectd) SARS-CoV-2 (PCR) (Not Detectd) 04/21/22 Range/Units 13:42 WBC (3.8-10.6) k/uL RBC (3.80-5.40) m/uL Hgb (11.4-16.0) gm/dL Hct (34.0-46.0) % MCV (80.0-100.0) fL MCH (25.0-35.0) pg MCHC (31.0-37.0) g/dL RDW (11.5-15.5) % Plt Count (150-450) k/uL MPV Neutrophils % % Lymphocytes % % Monocytes % % Eosinophils % % Basophils % % Neutrophils # (1.3-7.7) k/uL Lymphocytes # (1.0-4.8) k/uL Monocytes # (0-1.0) k/uL Eosinophils # (0-0.7) k/uL Basophils # (0-0.2) k/uL Anisocytosis PT 11.4 (9.0-12.0) sec INR 1.1 (<1.2) APTT 24.0 (22.0-30.0) sec D-Dimer 0.30 (<0.60) mg/L FEU VBG pH (7.31-7.41) VBG pCO2 (37-51) mmHg VBG HCO3 (24-28) mmol/L Sodium (137-145) mmol/L Potassium (3.5-5.1) mmol/L Chloride (98-107) mmol/L Carbon Dioxide (22-30) mmol/L Anion Gap mmol/L BUN (7-17) mg/dL Creatinine (0.52-1.04) mg/dL Est GFR (CKD-EPI)AfAm (>60 ml/min/1.73 sqM) Est GFR (CKD-EPI)NonAf (>60 ml/min/1.73 sqM) Glucose (74-99) mg/dL Calcium (8.4-10.2) mg/dL Magnesium (1.6-2.3) mg/dL Total Bilirubin (0.2-1.3) mg/dL AST (14-36) U/L ALT (4-34) U/L Alkaline Phosphatase (38-126) U/L Troponin I (0.000-0.034) ng/mL NT-Pro-B Natriuret Pep pg/mL Total Protein (6.3-8.2) g/dL Albumin (3.5-5.0) g/dL Influenza Type A (PCR) (Not Detectd) Influenza Type B (PCR) (Not Detectd) RSV (PCR) (Not Detectd) SARS-CoV-2 (PCR) (Not Detectd) - EKG Data -: EKG Interpreted by Me EKG Comments: 12-lead Electrocardiogram Interpretation Note EKG was reviewed and interpreted by myself. 12-lead ECG performed at 1144 is interpreted by me as revealing normal sinus rhythm at a rate of 58 beats per minute. Left axis deviation. TX interval is 184 ms, QRS duration is 109 ms, QTc is 474 ms.. There are T-wave inversions in the inferior lateral distribution which are of unknown chronicity as we do not have prior EKGs for comparison. Mild ST segment depressions in lead aVF and III as well. No reciprocal changes.. R wave progression across the precordium was satisfactory. This EKG is concerning for some ischemia as the patient has T-wave inversion seen in the inferior lateral distribution of unknown can see. Disposition Clinical Impression: Acute respiratory failure with hypoxia, Congestive heart failure, CKD (chronic kidney disease) Disposition: ADMITTED IP TO THIS HOSP Condition: Serious Time of Disposition: 14:10
[2022-04-21] MEDS ORDERED: NALOXONE 0.4 MG/ML 1 ML VIAL IV PRN (15:44)
[2022-04-21 18:21] LABS: Appearance,Urine Clear (Clear); Bilirubin,Urine Negative (Negative); Blood,Urine Large (Negative); Color,Urine Light Yellow; Glucose,Urine (UA) Negative (Negative); Ketones,Urine Negative (Negative); Leukocyte Esterase,Urine Trace (Negative); Mucus,Urine Rare /hpf; Nitrite,Urine Negative (Negative); Protein,Urine 1+ (Negative); RBC,Urine 152 /hpf (0-5); Specific Gravity,Urine 1.009 (1.001-1.035); Squamous Epithelial Cell,Urine 1 /hpf (0-4); Urobilinogen,Urine <2.0 mg/dL (<2.0); WBC,Urine 9 /hpf (0-5)
[2022-04-21] MEDS: MAGNESIUM OXIDE 400 MG TAB PO SCH (22:29)
[2022-04-21] MEDS: ATORVASTATIN 10 MG TAB PO SCH (22:32)
[2022-04-21] MEDS: HEPARIN SODIUM,PORCINE/PF 5,000 UNIT/0.5 ML SYRINGE SQ SCH (22:32)
[2022-04-21] MEDS: FUROSEMIDE 10 MG/ML 4 ML VIAL IV SCH (22:32)
[2022-04-21] MEDS: FERROUS SULFATE 325 MG TAB PO SCH (22:33)
[2022-04-21] MEDS: allopurinoL 100 MG TAB PO SCH (22:33)
[2022-04-21] MEDS: FAMOTIDINE 20 MG TAB PO SCH (22:33)
[2022-04-21] MEDS: METOPROLOL TARTRATE 25 MG TAB PO SCH ×2 (22:33→22:37)
--- NOTE | 2022-04-22 00:06 | P.HPIM ---
History of Present Illness H&P Date: 04/21/22 Chief Complaint: Hypoxia Patient is a 76-year-old female with a known history of hypertension, hyperlipidemia, hypothyroidism, chronic kidney disease stage IV, history of ale sosa cancer, history of skin cancer status postchemotherapy about 2 years ago and other medical problems was sent to ER from Dr. Lacy's office. Patient went to clinic and was found to be hypoxic and was sent to ER for evaluation. Patient is also having shortness of breath getting worse for the past 1 month. Worsens with exertion and also lying flat. Patient sometimes goes to recliner in the mi ddle of the night. Patient does have chronic bilateral lower extremity swelling is also on Lasix as needed. No complaints of cough or sputum production. No fever no chills. No nausea vomiting abdominal pain or diarrhea. Chest x-ray showed cardiomegaly, pulmonary vascular congestion and small right pleural effusions. Correlate with BNP for congestive heart failure. COPD changes. EKG showed sinus bradycardia with heart rate 58. Laboratory data showed WBC 10.2 hemoglobin 16.5 and platelets 198 and neutrophils 9.1 D-dimer is not elevated at 0.30 Sodium 141 potassium 5.2 with slight hemolysis, chloride 108 bicarb is 20 BUN 34 and creatinine 1.97. Total bilirubin level is 1.7 AST 34 ALT 35 alk phos 68 and troponin x2 [place] [address] Urinalysis showed large blood nitrite negative and trace leukocyte esterase with elevated RBCs. Influenza A, B and PCR and COVID-19 not detected. Review of Systems Constitutional: Patient denies any fever or chills . No generalized weakness or weight loss. Abdomen: Patient denied nausea vomiting and diarrhea and abdominal pain. Cardiovascular: Patient denies any chest pain. Does have short of breath no palpitations. Respiratory: patient denied any cough is from production. Patient does have shortness of breath Neurologic: Patient denied any numbness or tingling headache. Musculoskeletal: Patient denies any complaints of joint swelling or deformity. Skin: Negative Psychiatric: Negative Endocrine: No heat or cold intolerance. No recent weight gain. Genitourinary: No dysuria or hematuria. All other 14 point ROS negative except the above Past Medical History Past Medical History: Cancer, GERD/Reflux, Hyperlipidemia, Hypertension, Renal Disease, Thyroid Disorder Additional Past Medical History / Comment(s): stage 4 kidney disease-has not needed dialysis yet 2 point away of stage 3, still has urine production, anemia, HIGH URIC ACID LEVELS. HX CANCEROUS POLYP BURST IN SMALL INTESTINE 2010-being tx. w/chemo, skin cancer scalp July 2017 History of Any Multi-Drug Resistant Organisms: None Reported Past Surgical History: Bowel Resection, Orthopedic Surgery, Tonsillectomy Additional Past Surgical History / Comment(s): LAPARATOMY, PARATHYROID SURGERY, ORIF LEFT ANKLE., biopsy of scalp 07/27,AV fistula left arm,peritoneal dialysis attempt Past Anesthesia/Blood Transfusion Reactions: No Reported Reaction Past Psychological History: No Psychological Hx Reported Smoking Status: Never smoker Past Alcohol Use History: None Reported Past Drug Use History: None Reported - Past Family History Mother Family Medical History: Cancer, Coronary Artery Disease (CAD) Father Family Medical History: Coronary Artery Disease (CAD) Brother(s) Family Medical History: Coronary Artery Disease (CAD) Medications and Allergies Home Medications Medication Instructions Recorded Confirmed Type Atorvastatin [Lipitor] 10 mg PO HS 09/11/14 04/21/22 History Metoprolol Tartrate [Lopressor] 25 mg PO BID 09/11/14 04/21/22 History allopurinoL [Zyloprim] 100 mg PO BID 01/17/15 04/21/22 History Ferrous Sulfate [Feosol] 325 mg PO BID 03/03/18 04/21/22 History Folic Acid 0.8 mg PO DAILY 03/03/18 04/21/22 History Magnesium 400 mg PO HS 03/03/18 04/21/22 History Cholecalciferol [Vitamin D3 (25 25 mcg PO DAILY 06/13/20 04/21/22 History Mcg = 1000 Iu)] Famotidine 20 mg PO HS 06/13/20 04/21/22 History Furosemide [Lasix] 20 mg PO Q2D PRN 04/21/22 04/21/22 History Levothyroxine Sodium [Synthroid] 75 mcg PO DAILY 04/21/22 04/21/22 History amLODIPine [Norvasc] 7.5 mg PO DAILY 04/21/22 04/21/22 History calcitrioL [Calcitriol] 0.25 mcg PO MOWEFR 04/21/22 04/21/22 History Allergies Allergy/AdvReac Type Severity Reaction Status Date / Time No Known Allergies Allergy Verified 04/21/22 12:26 Physical Exam Vitals: Vital Signs Temp Pulse Pulse Resp BP BP Pulse Ox 04/21/22 18:27 98.0 F 55 L 18 133/71 92 L 04/21/22 16:00 53 L 18 153/85 95 04/21/22 14:30 57 L 20 141/76 95 04/21/22 14:00 49 L 19 144/73 95 04/21/22 13:30 53 L 20 135/79 94 L 04/21/22 13:00 54 L 19 135/79 95 04/21/22 11:30 97.4 F L 60 24 120/72 84 L Intake and Output 04/21/22 04/21/22 04/21/22 06:59 14:59 22:59 Other: Weight 58.06 kg 58.06 kg PHYSICAL EXAMINATION: Patient is lying in the bed comfortably, no acute distress, awake alert and oriented.. HEENT: Normocephalic. Neck is supple. Pupils reactive. Nostrils clear. Oral cavity is moist. Neck reveals no JVD, carotid bruits, or thyromegaly. CHEST EXAMINATION: Trachea is central. Symmetrical expansion. Bibasilar dementia sounds. No wheezing or rhonchi.. CARDIAC: Normal S1, S2 with no gallops. No murmurs ABDOMEN: Soft. Bowel sounds normal. No organomegaly. No abdominal bruits. Extremities: Bilateral lower extremity 2+ edema. No clubbing or cyanosis Neurologically awake, alert, oriented x3 with well-coordinated movements. No focal deficits noted Skin: No rash or skin lesions. Psychiatric: Coperative. Nonsuicidal Musculoskeletal: No joint swelling or deformity. Normal range of motion. Results CBC & Chem 7: 04/22/22 06:45 04/22/22 06:45 Labs: Abnormal Lab Results - Last 24 Hours (Table) 04/21/22 04/21/22 04/21/22 Range/Units 11:42 12:53 13:42 Hgb 16.5 H (11.4-16.0) gm/dL Hct 50.1 H (34.0-46.0) % RDW 17.2 H (11.5-15.5) % Neutrophils # 9.1 H (1.3-7.7) k/uL Lymphocytes # 0.5 L (1.0-4.8) k/uL VBG pCO2 30 L (37-51) mmHg VBG HCO3 19 L (24-28) mmol/L Potassium 5.2 H (3.5-5.1) mmol/L Chloride 108 H (98-107) mmol/L Carbon Dioxide 20 L (22-30) mmol/L BUN 34 H (7-17) mg/dL Creatinine 1.97 H (0.52-1.04) mg/dL Glucose 105 H (74-99) mg/dL Magnesium 2.5 H (1.6-2.3) mg/dL Total Bilirubin 1.7 H (0.2-1.3) mg/dL ALT 35 H (4-34) U/L Total Protein 8.4 H (6.3-8.2) g/dL Urine Protein (Negative) Urine Blood (Negative) Ur Leukocyte Esterase (Negative) Urine RBC (0-5) /hpf Urine WBC (0-5) /hpf Urine Mucus (None) /hpf 04/21/22 Range/Units 17:40 Hgb (11.4-16.0) gm/dL Hct (34.0-46.0) % RDW (11.5-15.5) % Neutrophils # (1.3-7.7) k/uL Lymphocytes # (1.0-4.8) k/uL VBG pCO2 (37-51) mmHg VBG HCO3 (24-28) mmol/L Potassium (3.5-5.1) mmol/L Chloride (98-107) mmol/L Carbon Dioxide (22-30) mmol/L BUN (7-17) mg/dL Creatinine (0.52-1.04) mg/dL Glucose (74-99) mg/dL Magnesium (1.6-2.3) mg/dL Total Bilirubin (0.2-1.3) mg/dL ALT (4-34) U/L Total Protein (6.3-8.2) g/dL Urine Protein 1+ H (Negative) Urine Blood Large H (Negative) Ur Leukocyte Esterase Trace H (Negative) Urine RBC 152 H (0-5) /hpf Urine WBC 9 H (0-5) /hpf Urine Mucus Rare H (None) /hpf Thrombosis Risk Factor Assmnt - DVT/VTE Prophylaxis DVT/VTE Prophylaxis: Pharmacologic Prophylaxis ordered - Choose All That Apply Any of the Below Risk Factors Present?: No Other Risk Factors: Yes Each Risk Factor Represents 3 Points: Age 75 years or older Other congenital or acquired thrombophilia - If yes, enter type in comment: No Thrombosis Risk Factor Assessment Total Risk Factor Score: 3 Thrombosis Risk Factor Assessment Level: Moderate Risk Assessment and Plan Assessment: Acute hypoxic respiratory failure due to CHF/volume overload. Requiring oxygen at 4 L via nasal cannula. Acute CHF. New onset. Ejection fraction not known. Chronic kidney disease stage IV. Patient had fistula placement. History of skin cancer. Status postchemotherapy 2 years ago History of gastric cancer status post surgery Hypertension Hyperlipidemia Hypothyroidism GI and DVT prophylaxis with Pepcid and heparin subcu Plan: Patient will be continued on oxygen supplementation. Continue with IV Lasix 40 mg twice daily and monitor renal function closely. Continue with home medications. 2D echocardiogram was ordered. Cardiology and nephrology will be consulted. Prognosis is guarded with multiple medical problems and comorbid conditions. Time with Patient: Greater than 30
[2022-04-22] MEDS ORDERED: LEVOTHYROXINE 75 MCG TAB PO SCH (06:30)
[2022-04-22 07:17] LABS: Anisocytosis Slight; Basophils # (A) 0.1 k/uL (0-0.2); Basophils % (A) 1 %; Eosinophils # (A) 0.1 k/uL (0-0.7); Eosinophils % (A) 2 %; HCT 50.7 % (34.0-46.0); HGB 16.1 gm/dL (11.4-16.0); Lymphocytes # (A) 0.5 k/uL (1.0-4.8); Lymphocytes % (A) 6 %; MCH 30.4 pg (25.0-35.0); MCHC 31.7 g/dL (31.0-37.0); MCV 95.9 fL (80.0-100.0); Mean Platelet Volume 8.2; Monocytes # (A) 0.5 k/uL (0-1.0); Monocytes % (A) 6 %; Neutrophils # (A) 6.6 k/uL (1.3-7.7); Neutrophils % (A) 84 %; Platelet Count 187 k/uL (150-450); RBC 5.29 m/uL (3.80-5.40); RDW 16.6 % (11.5-15.5); WBC 7.9 k/uL (3.8-10.6)
[2022-04-22 07:25] LABS: African American GFR (CKD) 27 (>60 ml/min/1.73 sqM); Anion Gap 11 mmol/L; Blood Urea Nitrogen 37 mg/dL (7-17); Calcium 9.4 mg/dL (8.4-10.2); Carbon Dioxide 23 mmol/L (22-30); Chloride 105 mmol/L (98-107); Glucose 100 mg/dL (74-99); Non-African American GFR(CKD) 24 (>60 ml/min/1.73 sqM); Potassium 4.2 mmol/L (3.5-5.1); Sodium 139 mmol/L (137-145)
[2022-04-22] MEDS: FUROSEMIDE 10 MG/ML 4 ML VIAL IV SCH ×2 (09:00→19:54)
[2022-04-22] MEDS: HEPARIN SODIUM,PORCINE/PF 5,000 UNIT/0.5 ML SYRINGE SQ SCH ×2 (09:00→19:55)
[2022-04-22] MEDS: amLODIPine 2.5 MG TAB PO SCH (09:01)
[2022-04-22] MEDS: FERROUS SULFATE 325 MG TAB PO SCH ×2 (09:02→19:54)
[2022-04-22] MEDS: allopurinoL 100 MG TAB PO SCH ×2 (09:02→19:54)
[2022-04-22] MEDS: CHOLECALCIFEROL 25 MCG (1000 IU) TABLET PO SCH (09:02)
[2022-04-22] MEDS: METOPROLOL TARTRATE 25 MG TAB PO SCH (09:02)
--- NOTE | 2022-04-22 10:20 | CA ---
Transthoracic Echo Report Name: Lcuia Omalley Age: 76 Gender: F : 1945 Exam Date: 04/21/2022 15:04 Exam Location: [facility] Ht (in): 60 Wt (lb): 128 Ordering Physician: Catracho Tse MD Attending/Referring Phys: [employer] Abundio Murphy RDCS Procedure CPT: Indications: chf exacerbation Cardiac Hx: Technical Quality: Poor Contrast 1: Lumason Total Dose (mL): 4 Contrast 2: Total Dose (mL): MEASUREMENTS (Male / Female) Normal Values 2D ECHO LV Diastolic Diameter PLAX 3.6 cm 4.2 - 5.9 / 3.9 - 5.3 cm LV Systolic Diameter PLAX 2.8 cm IVS Diastolic Thickness 1.2 cm 0.6 - 1.0 / 0.6 - 0.9 cm LVPW Diastolic Thickness 1.2 cm 0.6 - 1.0 / 0.6 - 0.9 cm LV Relative Wall Thickness 0.7 RV Internal Dim ED PLAX 2.6 cm LVOT Diameter 1.9 cm LA Systolic Diameter LX 3.2 cm 3.0 - 4.0 / 2.7 - 3.8 cm LV Diastolic Volume MOD BP 98.2 cm??? 67 - 155 / 56 - 104 cm??? LV Systolic Volume MOD BP 52.0 cm??? 22 - 58 / 19 - 49 cm??? LV Ejection Fraction MOD BP 47.0 % >= 55 % LV Diastolic Volume MOD 4C 75.5 cm??? LV Systolic Volume MOD 4C 41.9 cm??? LV Ejection Fraction MOD 4C 44.5 % LV Diastolic Length 4C 7.2 cm LV Systolic Length 4C 5.8 cm LV Diastolic Volume MOD 2C 109.2 cm??? LV Systolic Volume MOD 2C 58.6 cm??? LV Ejection Fraction MOD 2C 46.3 % LV Diastolic Length 2C 8.5 cm LV Systolic Length 2C 6.4 cm M-MODE Aortic Root Diameter MM 2.5 cm LA Systolic Diameter MM 3.4 cm LA Ao Ratio MM 1.4 AV Cusp Separation MM 1.5 cm DOPPLER AV Peak Velocity 142.2 cm/s AV Peak Gradient 8.1 mmHg MV Peak Velocity 113.2 cm/s MV Peak Gradient 5.1 mmHg MV Mean Velocity 64.8 cm/s MV Mean Gradient 2.0 mmHg MV Velocity Time Integral 40.7 cm Mitral E Point Velocity 56.2 cm/s Mitral A Point Velocity 100.5 cm/s Mitral E to A Ratio 0.6 MV Deceleration Time 180.2 ms MV E' Velocity 6.4 cm/s Mitral E to MV E' Ratio 8.8 TR Peak Velocity 449.4 cm/s TR Peak Gradient 80.8 mmHg Right Ventricular Systolic Press 88.8 mmHg PV Peak Velocity 69.2 cm/s PV Peak Gradient 1.9 mmHg FINDINGS Left Ventricle Left ventricular ejection fraction is estimated at 50%. Mild concentric left ventricular hypertrophy. Grade 1 diastolic dysfunction. Right Ventricle Mild right ventricular dilatation. RVSP- 88 mm Hg Right Atrium Mild right atrial dilatation. Left Atrium Normal left atrial size. Mitral Valve Mitral valve thickened. Mitral annular calcification. Minimal mitral stenosis. Trace mitral regurgitation. Aortic Valve Trileaflet aortic valve. Diffuse thickening (sclerosis) of the aortic valve cusps without reduced excursion. Tricuspid Valve Moderate tricuspid regurgitation. Pulmonic Valve Mild pulmonic regurgitation. Pericardium Normal pericardium. No pericardial effusion. Aorta Normal size aortic root and proximal ascending aorta. CONCLUSIONS Technically very difficult study for interpretation Low normal left ventricular systolic function was EF around 50% Previewed by: Dr. Nolan Kaye MD (Electronically Signed) Final Date: 22 April 2022 10:19
[2022-04-22 10:27] LABS: T4, Free (Free Thyroxine) 1.18 ng/dL (0.78-2.19)
--- NOTE | 2022-04-22 13:39 | CONS ---
CONSULTATION HISTORY OF PRESENT ILLNESS: This is a lady who has a known history of hypothyroidism, hyperlipidemia, chronic kidney disease, who came into the hospital with increasing shortness of breath. She was hospitalized mainly with concern that she may have some congestive heart failure. She states that she has progressively worsening fatigue and shortness of breath and for the last month, she has not been taking her Synthroid. She also complains of palpitations. She has no chest discomfort to suggest angina. Her activity is actually quite limited. She has a history of some renal dysfunction, had a shunt placed in the left arm and had a couple of times of dialysis but since then has done well. She has advanced kidney disease, probably stage 4. However, she has not required additional dialysis after initial 1 or 2 episodes. She does have history of hypertension, hypothyroidism and chronic kidney disease. At the time of my evaluation, she is resting comfortably without symptoms. Her TSH is more than 70. PAST MEDICAL HISTORY: Remarkable for hypertension, hyperlipidemia, chronic kidney disease, hypothyroidism and also a dialysis that was done for a couple of times. She is status post parathyroid surgery, orthopedic surgery as well. MEDICATIONS: Medications at home include Levothroid 75 mcg daily but she has not been taking for 3 to 4 weeks, amlodipine 7.5 mg daily, iron supplements, folic acid, Lasix 20 mg every other day, atorvastatin 10 mg daily, vitamin D supplements. LABORATORY DATA: Suggests her troponins are normal. TSH is about 70, creatinine is about 1.97. Her BNP is 12,700. PHYSICAL EXAMINATION: VITAL SIGNS: On examination, blood pressure is 118/70, pulse rate is about 55 per minute. NECK: Supple. There is no JVD. I do not hear any carotid bruit. HEART: Reveals S1, S2 heard normally. There are no significant murmurs. LUNGS: Reveal bilateral decent air entry. ABDOMEN: Soft, nontender. MUSCULOSKELETAL: Lower extremities reveal diminished pulses. CENTRAL NERVOUS SYSTEM: Grossly no focal deficits but there is mild generalized weakness. DIAGNOSTIC DATA: EKG, however, revealed sinus mechanism with precordial nonspecific ST and T-wave changes. IMPRESSION: 1. Severe hypothyroidism. 2. Elevated BNP could be related to multiple factors but cannot exclude mild congestive heart failure. The patient is not clinically in congestive heart failure. 3. Hypertension. 4. Chronic kidney disease. RECOMMENDATIONS: I recommend the increase of Synthroid to 100 mcg daily, advised to be compliant with it. Decrease the aspirin to 81 mg daily, reduce the metoprolol to 25 mg in the morning only. Check echocardiogram. Increase activity. If she has no further symptoms, we can discharge her tomorrow. I discussed my thoughts in detail with the patient. I explained to her the importance of taking her thyroid supplements regularly. MMODL / IJN: [id number] /
[2022-04-22] MEDS: FAMOTIDINE 20 MG TAB PO SCH (19:54)
[2022-04-22] MEDS: ATORVASTATIN 10 MG TAB PO SCH (19:54)
[2022-04-22] MEDS: MAGNESIUM OXIDE 400 MG TAB PO SCH ×2 (19:57→20:04)
[2022-04-23] MEDS: LEVOTHYROXINE 100 MCG TAB PO SCH (06:13)
--- NOTE | 2022-04-23 06:53 | XR ---
EXAMINATION TYPE: XR chest 1V DATE OF EXAM: 04/23/2022 CLINICAL HISTORY: Difficulty breathing and CHF progress study. TECHNIQUE: Single AP portable upright view of the chest is obtained. COMPARISON: Chest x-ray from 2 days earlier FINDINGS: Diminished inspiration on current study. Persistent cardiomegaly with mild central vascula r congestion. No new focal airspace opacity, pleural effusion, or pneumothorax seen. Underlying scoli osis centered in the lumbar spine is redemonstrated. IMPRESSION: Chronic changes and cardiomegaly with mild central vascular congestion remains present. N o new focal infiltrate.
[2022-04-23] MEDS: CHOLECALCIFEROL 25 MCG (1000 IU) TABLET PO SCH (07:59)
[2022-04-23] MEDS: HEPARIN SODIUM,PORCINE/PF 5,000 UNIT/0.5 ML SYRINGE SQ SCH ×2 (07:59→20:35)
[2022-04-23] MEDS: amLODIPine 2.5 MG TAB PO SCH (07:59)
[2022-04-23] MEDS: FERROUS SULFATE 325 MG TAB PO SCH ×2 (07:59→20:35)
[2022-04-23] MEDS: ASPIRIN 81 MG PO SCH (07:59)
[2022-04-23] MEDS: allopurinoL 100 MG TAB PO SCH ×2 (07:59→20:35)
[2022-04-23] MEDS: METOPROLOL TARTRATE 25 MG TAB PO SCH (07:59)
[2022-04-23] MEDS ORDERED: FUROSEMIDE 40 MG TAB PO SCH (09:00)
[2022-04-23 10:37] LABS: Anisocytosis Slight; Basophils # (A) 0.1 k/uL (0-0.2); Basophils % (A) 0 %; Eosinophils # (A) 0.1 k/uL (0-0.7); Eosinophils % (A) 1 %; HGB 16.5 gm/dL (11.4-16.0); Lymphocytes # (A) 0.6 k/uL (1.0-4.8); Lymphocytes % (A) 5 %; MCH 30.7 pg (25.0-35.0); MCHC 31.8 g/dL (31.0-37.0); MCV 96.5 fL (80.0-100.0); Macrocytosis Slight; Mean Platelet Volume 8.6; Monocytes # (A) 0.4 k/uL (0-1.0); Monocytes % (A) 4 %; Neutrophils % (A) 88 %; Platelet Count 185 k/uL (150-450); RBC 5.39 m/uL (3.80-5.40); RDW 16.9 % (11.5-15.5); WBC 11.4 k/uL (3.8-10.6)
[2022-04-23 10:51] LABS: Potassium 3.9 mmol/L (3.5-5.1)
--- NOTE | 2022-04-23 10:55 | P.NPCON ---
History of Present Illness - Reason for Consult chronic renal failure - History of Present Illness Patient is a 76-year-old female with history of chronic kidney disease NKF stage IV with baseline creatinine around 2 mg/dL secondary to nephrosclerosis. Patient is admitted to the hospital with complaints of increased shortness of breath and increased lower extremity swelling. Patient states that she had not been taking her diuretics regularly as she had been working much more than her usual and was unable to take the diuretics. Patient denied any history of fever chills nausea vomiting or diarrhea or cough. Chest x-ray on admission showed evidence of CHF and pulmonary vascular congestion and pleural effusions. Patient has been diuresed. Lasix currently switched to oral. Patient states she is feeling better Serum creatinine is at baseline staying at 1.9-2 mg/dL. Currently with an external catheter. 24 hour urine output at 1300 mL Review of Systems As per HPI Past Medical History Past Medical History: Cancer, GERD/Reflux, Hyperlipidemia, Hypertension, Renal Disease, Thyroid Disorder Additional Past Medical History / Comment(s): stage 4 kidney disease-has not needed dialysis yet 2 point away of stage 3, still has urine production, anemia, HIGH URIC ACID LEVELS. HX CANCEROUS POLYP BURST IN SMALL INTESTINE 2010-being tx. w/chemo, skin cancer scalp July 2017 History of Any Multi-Drug Resistant Organisms: None Reported Past Surgical History: Bowel Resection, Orthopedic Surgery, Tonsillectomy Additional Past Surgical History / Comment(s): LAPARATOMY, PARATHYROID SURGERY, ORIF LEFT ANKLE., biopsy of scalp 07/27,AV fistula left arm,peritoneal dialysis attempt Past Anesthesia/Blood Transfusion Reactions: No Reported Reaction Past Psychological History: No Psychological Hx Reported Smoking Status: Never smoker Past Alcohol Use History: None Reported Past Drug Use History: None Reported - Past Family History Mother Family Medical History: Cancer, Coronary Artery Disease (CAD) Father Family Medical History: Coronary Artery Disease (CAD) Brother(s) Family Medical History: Coronary Artery Disease (CAD) Medications and Allergies Home Medications Medication Instructions Recorded Confirmed Type Atorvastatin [Lipitor] 10 mg PO HS 09/11/14 04/21/22 History Metoprolol Tartrate [Lopressor] 25 mg PO BID 09/11/14 04/21/22 History allopurinoL [Zyloprim] 100 mg PO BID 01/17/15 04/21/22 History Ferrous Sulfate [Feosol] 325 mg PO BID 03/03/18 04/21/22 History Folic Acid 0.8 mg PO DAILY 03/03/18 04/21/22 History Magnesium 400 mg PO HS 03/03/18 04/21/22 History Cholecalciferol [Vitamin D3 (25 25 mcg PO DAILY 06/13/20 04/21/22 History Mcg = 1000 Iu)] Famotidine 20 mg PO HS 06/13/20 04/21/22 History Furosemide [Lasix] 20 mg PO Q2D PRN 04/21/22 04/21/22 History Levothyroxine Sodium [Synthroid] 75 mcg PO DAILY 04/21/22 04/21/22 History amLODIPine [Norvasc] 7.5 mg PO DAILY 04/21/22 04/21/22 History calcitrioL [Calcitriol] 0.25 mcg PO MOWEFR 04/21/22 04/21/22 History Allergies Allergy/AdvReac Type Severity Reaction Status Date / Time No Known Allergies Allergy Verified 04/21/22 12:26 Physical Exam Vitals: Vital Signs Temp Pulse Resp BP Pulse Ox 04/23/22 10:23 18 93 L 04/23/22 10:20 18 83 L 04/23/22 07:56 16 04/23/22 07:55 97.7 F 56 L 16 107/57 93 L 04/23/22 04:00 97.8 F 54 L 16 119/62 93 L 04/23/22 02:00 52 L 16 04/23/22 00:00 52 L 16 110/64 94 L 04/22/22 20:00 97.5 F L 54 L 18 111/68 93 L 04/22/22 17:02 97.7 F 53 L 16 125/58 94 L 04/22/22 11:41 97.3 F L 50 L 16 118/54 94 L Intake and Output 04/22/22 04/23/22 04/23/22 22:59 06:59 14:59 Intake Total 128 Output Total 700 600 300 Balance -572 -600 -300 Intake: IV 10 Invasive Line 1 10 Oral 118 Output: Urine 700 600 300 Other: Voiding Method External Catheter External Catheter External Catheter Weight 55 kg Patient is awake, comfortable, no acute distress Examination of the heart S1 and S2 Left upper arm AV fistula is intact Examination of the lungs bilateral breath sounds are heard with decreased breath sounds at the bases Abdomen is soft nontender Examination of the lower extremities shows chronic skin changes recent decrease in chronic edema with some wrinkling of the skin noted. GRAPE GROWER exam grossly intact Results - Lab Results Most recent lab results Calcium 9.4 mg/dL (8.4-10.2) 04/22/22 06:45 Magnesium 2.5 mg/dL (1.6-2.3) H 04/21/22 13:42 04/23/22 10:27 04/22/22 06:45 Assessment and Plan Assessment: 1. Chronic kidney disease NKF stage IV secondary to nephrosclerosis with baseline creatinine around 1.9-2 mg/dL 2. Volume overload currently improved 3. CK D mineral bone disorder maintained on calcitriol, calcium is 9.4 4. Hyperkalemia associated with chronic kidney disease currently improved with diuresis. 5. CHF with preserved ejection fraction, echocardiogram shows ejection fraction at 50% with moderate tricuspid regurgitation. Plan: Continue to diurese patient Check bladder scan to rule out. Urine retention Continue calcitriol
--- NOTE | 2022-04-23 11:48 | PN ---
PROGRESS NOTE SUBJECTIVE: This is a lady with severe hypothyroidism who came in with nondescript symptoms. She has chronic kidney disease as well. Her troponin profile does not suggest myocardial injury. Although BNP is elevated, she is not in overt heart failure. I am recommending that we can continue current medications, and after further input from Nephrology, the patient can be discharged and follow up with her PCP. She is comfortable, resting, has no chest pain, shortness of breath, or palpitation at the time of my evaluation. Chest x-ray this morning revealed mostly chronic changes with some mild vascular congestion. Her Synthroid dose has been increased to 100 mcg, she is advised to be compliant with the medication. Echo revealed fairly well preserved systolic function with ejection fraction in the 50% range. No significant abnormality on the Doppler. We will continue current medications, and patient can be discharged. I will see her as needed from a cardiac standpoint. MMODL / IJN: [id number] /
[2022-04-23] MEDS: ATORVASTATIN 10 MG TAB PO SCH (20:35)
[2022-04-23] MEDS: FAMOTIDINE 20 MG TAB PO SCH (20:35)
[2022-04-23] MEDS: MAGNESIUM OXIDE 400 MG TAB PO SCH (20:35)
--- NOTE | 2022-04-23 23:36 | P.PN ---
Subjective Progress Note Date: 04/22/22 Patient is a 76-year-old female with a known history of hypertension, hyperlipidemia, hypothyroidism, chronic kidney disease stage IV, history of gastric cancer, history of skin cancer status postchemotherapy about 2 years ago and other medical problems was sent to ER from Dr. Lacy's office. Patient went to clinic and was found to be hypoxic and was sent to ER for evaluation. Patient is also having shortness of breath getting worse for the past 1 month. Worsens with exertion and also lying flat. Patient sometimes goes to recliner in the middle of the night. Patient does have chronic bilateral lower extremity swelling is also on Lasix as needed. No complaints of cough or sputum production. No fever no chills. No nausea vomiting abdominal pain or diarrhea. Chest x-ray showed cardiomegaly, pulmonary vascular congestion and small right pleural effusions. Correlate with BNP for congestive heart failure. COPD changes. EKG showed sinus bradycardia with heart rate 58. Laboratory data showed WBC 10.2 hemoglobin 16.5 and platelets 198 and neutrophils 9.1 D-dimer is not elevated at 0.30 Sodium 141 potassium 5.2 with slight hemolysis, chloride 108 bicarb is 20 BUN 34 and creatinine 1.97. Total bilirubin level is 1.7 AST 34 ALT 35 alk phos 68 and troponin x2 [place] [address] Urinalysis showed large blood nitrite negative and trace leukocyte esterase with elevated RBCs. Influenza A, B and PCR and COVID-19 not detected. 04/22/2022 Patient is currently resting in bed today awake alert and oriented x3. Requiring 4 L oxygen via nasal cannula. No complaints of chest pain or worsening shortness of breath. Patient is being continued on Lasix IV 40 mg twice daily. Otherwise patient was found to have elevated TSH level and free T4 level is within normal limits. Levothyroxine dose increased to 10 0 mcg daily. Other laboratory data showed BUN 37 creatinine 2.01. Nephrology was consulted. Cardiology is on board. 2D echocardiogram was done which showed low normal left ventricular systolic function with ejection fraction 50%. Current medications reviewed. Objective - Vital Signs Vital signs: Vital Signs Temp 97.7 F 04/22/22 17:02 Pulse 53 L 04/22/22 17:02 Resp 16 04/22/22 17:02 BP 125/58 04/22/22 17:02 Pulse Ox 94 L 04/22/22 17:02 FiO2 Intake & Output 04/22/22 04/22/22 04/23/22 06:59 18:59 06:59 Intake Total 364 Output Total 1250 700 Balance -1250 -336 Weight 55.5 kg Intake: IV 10 Invasive Line 1 10 Oral 354 Output: Urine 1250 700 Other: Voiding Method External Catheter External Catheter - Exam PHYSICAL EXAMINATION: Patient is lying in the bed comfortably, no acute distress, awake alert and oriented.. HEENT: Normocephalic. Neck is supple. Pupils reactive. Nostrils clear. Oral cavity is moist. Neck reveals no JVD, carotid bruits, or thyromegaly. CHEST EXAMINATION: Trachea is central. Symmetrical expansion. Bibasilar dementia sounds. No wheezing or rhonchi.. CARDIAC: Normal S1, S2 with no gallops. No murmurs ABDOMEN: Soft. Bowel sounds normal. No organomegaly. No abdominal bruits. Extremities: Bilateral lower extremity 2+ edema. No clubbing or cyanosis Neurologically awake, alert, oriented x3 with well-coordinated movements. No focal deficits noted Skin: No rash or skin lesions. Psychiatric: Coperative. Nonsuicidal Musculoskeletal: No joint swelling or deformity. Normal range of motion. - Labs CBC & Chem 7: 04/23/22 10:27 04/23/22 10:27 Labs: Abnormal Lab Results - Last 24 Hours (Table) 04/21/22 04/22/22 04/22/22 Range/Units 22:31 06:45 06:45 Hgb 16.1 H (11.4-16.0) gm/dL Hct 50.7 H (34.0-46.0) % RDW 16.6 H (11.5-15.5) % Lymphocytes # 0.5 L (1.0-4.8) k/uL Potassium 5.7 H (3.5-5.1) mmol/L BUN 37 H (7-17) mg/dL Creatinine 2.01 H (0.52-1.04) mg/dL Glucose 100 H (74-99) mg/dL TSH 70.000 H (0.465-4.680) mIU/L Assessment and Plan Assessment: Acute hypoxic respiratory failure due to CHF/volume overload. Requiring oxygen at 4 L via nasal cannula. Mild acute CHF with ejection fraction slightly reduced at 50%. Hypothyroidism with TSH level 70 and free T4 level is 1.18 Chronic kidney disease stage IV. Patient had fistula placement. History of skin cancer. Status postchemotherapy 2 years ago History of gastric cancer status post surgery Hypertension Hyperlipidemia GI and DVT prophylaxis with Pepcid and heparin subcu Plan: Patient will be continued on oxygen supplementation. Continue with IV Lasix 40 mg twice daily and monitor renal function closely. Continue with home medications. 2D echocardiogram showed EF 50%. Cardiology and nephrology was consulted. Prognosis is guarded with multiple medical problems and comorbid conditions. Time with Patient: Greater than 30
[2022-04-23] MEDS ORDERED: DEXTROSE 50% SYRINGE 50 ML IVP PRN ×2 (23:38)
--- NOTE | 2022-04-23 23:40 | P.PN ---
Subjective Progress Note Date: 04/23/22 Patient is a 76-year-old female with a known history of hypertension, hyperlipidemia, hypothyroidism, chronic kidney disease stage IV, history of gastric cancer, history of skin cancer status postchemotherapy about 2 years ago and other medical problems was sent to ER from Dr. Lacy's office. Patient went to clinic and was found to be hypoxic and was sent to ER for evaluation. Patient is also having shortness of breath getting worse for the past 1 month. Worsens with exertion and also lying flat. Patient sometimes goes to recliner in the middle of the night. Patient does have chronic bilateral lower extremity swelling is also on Lasix as needed. No complaints of cough or sputum production. No fever no chills. No nausea vomiting abdominal pain or diarrhea. Chest x-ray showed cardiomegaly, pulmonary vascular congestion and small right pleural effusions. Correlate with BNP for congestive heart failure. COPD changes. EKG showed sinus bradycardia with heart rate 58. Laboratory data showed WBC 10.2 hemoglobin 16.5 and platelets 198 and neutrophils 9.1 D-dimer is not elevated at 0.30 Sodium 141 potassium 5.2 with slight hemolysis, chloride 108 bicarb is 20 BUN 34 and creatinine 1.97. Total bilirubin level is 1.7 AST 34 ALT 35 alk phos 68 and troponin x2 [place] [id number] Urinalysis showed large blood nitrite negative and trace leukocyte esterase with elevated RBCs. Influenza A, B and PCR and COVID-19 not detected. 04/22/2022 Patient is currently resting in bed today awake alert and oriented x3. Requiring 4 L oxygen via nasal cannula. No complaints of chest pain or worsening shortness of breath. Patient is being continued on Lasix IV 40 mg twice daily. Otherwise patient was found to have elevated TSH level and free T4 level is within normal limits. Levothyroxine dose increased to 10 0 mcg daily. Other laboratory data showed BUN 37 creatinine 2.01. Nephrology was consulted. Cardiology is on board. 2D echocardiogram was done which showed low normal left ventricular systolic function with ejection fraction 50%. 04/23/2022 Patient is currently able to walk to the bathroom with assistance. No complaints of chest pain or worsening shortness of breath. Still on 4 L oxygen via nasal cannula. Continue with IV diuresis and titrate down oxygen. Patient may need home oxygen evaluation tomorrow. Chest x-ray showed chronic changes and cardiomegaly with mild central vascular congestion remains present. No new infiltrate. Otherwise denies any complaints of chest pain. No fever no chills. No nausea vomiting abdominal pain or diarrhea. Cardiology and nephrology is on board. Laboratory data showed WBC 11.4 hemoglobin 16.5 and platelets 185 sodium 137 potassium 3.9 chloride 101 bicarb is 23 BUN 49 and creatinine 2.3. Blood sugar is 215 Current medications reviewed. Objective - Vital Signs Vital signs: Vital Signs Temp 97.5 F L 04/23/22 20:33 Pulse 56 L 04/23/22 20:33 Resp 18 04/23/22 20:33 BP 105/58 04/23/22 20:33 Pulse Ox 92 L 04/23/22 20:33 FiO2 Intake & Output 04/23/22 04/23/22 04/24/22 06:59 18:59 06:59 Intake Total 10 500 Output Total 600 300 Balance -590 200 Weight 55 kg Intake: IV 10 Invasive Line 1 10 Oral 500 Output: Urine 600 300 Other: Voiding Method External Catheter External Catheter External Catheter # Voids 1 1 - Exam PHYSICAL EXAMINATION: Patient is lying in the bed comfortably, no acute distress, awake alert and oriented.. HEENT: Normocephalic. Neck is supple. Pupils reactive. Nostrils clear. Oral cavity is moist. Neck reveals no JVD, carotid bruits, or thyromegaly. CHEST EXAMINATION: Trachea is central. Symmetrical expansion. Bibasilar dementia sounds. No wheezing or rhonchi.. CARDIAC: Normal S1, S2 with no gallops. No murmurs ABDOMEN: Soft. Bowel sounds normal. No organomegaly. No abdominal bruits. Extremities: Bilateral lower extremity 2+ edema. No clubbing or cyanosis Neurologically awake, alert, oriented x3 with well-coordinated movements. No focal deficits noted Skin: No rash or skin lesions. Psychiatric: Coperative. Nonsuicidal Musculoskeletal: No joint swelling or deformity. Normal range of motion. - Labs CBC & Chem 7: 04/23/22 10:27 04/23/22 10:27 Labs: Abnormal Lab Results - Last 24 Hours (Table) 04/23/22 04/23/22 Range/Units 10:27 10:27 WBC 11.4 H (3.8-10.6) k/uL Hgb 16.5 H (11.4-16.0) gm/dL Hct 52.0 H (34.0-46.0) % RDW 16.9 H (11.5-15.5) % Neutrophils # 10.0 H (1.3-7.7) k/uL Lymphocytes # 0.6 L (1.0-4.8) k/uL BUN 49 H (7-17) mg/dL Creatinine 2.30 H (0.52-1.04) mg/dL Glucose 215 H (74-99) mg/dL Assessment and Plan Assessment: Acute hypoxic respiratory failure due to CHF/volume overload. Requiring oxygen at 4 L via nasal cannula. Mild acute CHF with ejection fraction slightly reduced at 50%. Hypothyroidism with TSH level 70 and free T4 level is 1.18 Chronic kidney disease stage IV. Patient had fistula placement. History of skin cancer. Status postchemotherapy 2 years ago History of gastric cancer status post surgery Hypertension Hyperlipidemia GI and DVT prophylaxis with Pepcid and heparin subcu Plan: Patient will be continued on oxygen supplementation.Titrate down oxygen Home oxygen evaluation. Continue with IV Lasix 40 mg daily and monitor renal function closely. Continue with home medications. 2D echocardiogram showed EF 50%. Cardiology and nephrology is on board. Prognosis is guarded with multiple medical problems and comorbid conditions. Time with Patient: Greater than 30
[2022-04-24] MEDS: LEVOTHYROXINE 100 MCG TAB PO SCH (05:31)
[2022-04-24] MEDS: INSULIN ASPART (NovoLOG) 100 UNIT/ML VIAL SQ SCH ×2 (06:37→12:26)
[2022-04-24 06:38] LABS: Glucose,Whole Blood 112 mg/dL (70-110)
[2022-04-24 08:05] LABS: Anisocytosis Slight; Basophils # (A) 0.1 k/uL (0-0.2); Basophils % (A) 1 %; Eosinophils # (A) 0.1 k/uL (0-0.7); Eosinophils % (A) 1 %; HCT 50.8 % (34.0-46.0); HGB 16.1 gm/dL (11.4-16.0); Lymphocytes # (A) 0.8 k/uL (1.0-4.8); Lymphocytes % (A) 8 %; MCH 30.4 pg (25.0-35.0); MCHC 31.7 g/dL (31.0-37.0); Mean Platelet Volume 8.8; Monocytes # (A) 0.6 k/uL (0-1.0); Monocytes % (A) 6 %; Neutrophils # (A) 8.3 k/uL (1.3-7.7); Neutrophils % (A) 83 %; Platelet Count 182 k/uL (150-450); RBC 5.29 m/uL (3.80-5.40); RDW 16.4 % (11.5-15.5)
[2022-04-24 08:28] LABS: Calcium 8.8 mg/dL (8.4-10.2); Potassium 4.3 mmol/L (3.5-5.1)
[2022-04-24] MEDS ORDERED: FUROSEMIDE 10 MG/ML 4 ML VIAL IV SCH (09:00)
[2022-04-24] MEDS: amLODIPine 2.5 MG TAB PO SCH (09:17)
[2022-04-24] MEDS: ASPIRIN 81 MG PO SCH (09:17)
[2022-04-24] MEDS: CHOLECALCIFEROL 25 MCG (1000 IU) TABLET PO SCH (09:18)
[2022-04-24] MEDS: METOPROLOL TARTRATE 25 MG TAB PO SCH (09:18)
[2022-04-24] MEDS: FERROUS SULFATE 325 MG TAB PO SCH (09:18)
[2022-04-24] MEDS: HEPARIN SODIUM,PORCINE/PF 5,000 UNIT/0.5 ML SYRINGE SQ SCH (09:18)
[2022-04-24] MEDS: allopurinoL 100 MG TAB PO SCH (09:18)
[2022-04-24 09:24] VITALS: PULSE 60; TEMP 98
[2022-04-24 11:42] LABS: Glucose,Whole Blood 116 mg/dL (70-110)
[2022-04-24 12:15] VITALS: BP 112/61; RESP 16
--- NOTE | 2022-04-24 12:39 | P.PN ---
Subjective Patient is seen for follow-up for chronic kidney disease and volume overload. Overall patient states she is feeling better. She has been diuresed. Renal function is stable. There are plans for possible discharge today. Objective - Vital Signs Vital signs: Vital Signs Temp 98.0 F 04/24/22 09:23 Pulse 60 04/24/22 12:15 Resp 16 04/24/22 12:15 BP 112/61 04/24/22 12:15 Pulse Ox 91 L 04/24/22 12:15 FiO2 Intake & Output 04/23/22 04/24/22 04/24/22 18:59 06:59 18:59 Intake Total 500 10 Output Total 300 Balance 200 10 Weight 56.7 kg Intake: IV 10 Invasive Line 1 10 Oral 500 Output: Urine 300 Other: Voiding Method External Catheter External Catheter External Catheter # Voids 1 1 1 # Bowel Movements 1 - Exam Patient is awake, comfortable, no acute distress Examination of the heart S1 and S2 Examination of the lungs decreased breath sounds at the bases Abdomen is soft nontender Examination of the lower extremity shows trace edema bilaterally [employer] exam grossly intact - Labs CBC & Chem 7: 04/24/22 07:51 04/24/22 07:51 Labs: Abnormal Lab Results - Last 24 Hours (Table) 04/24/22 04/24/22 04/24/22 Range/Units 06:36 07:51 07:51 Hgb 16.1 H (11.4-16.0) gm/dL Hct 50.8 H (34.0-46.0) % RDW 16.4 H (11.5-15.5) % Neutrophils # 8.3 H (1.3-7.7) k/uL Lymphocytes # 0.8 L (1.0-4.8) k/uL BUN 55 H (7-17) mg/dL Creatinine 2.36 H (0.52-1.04) mg/dL Glucose 124 H (74-99) mg/dL POC Glucose (mg/dL) 112 H (70-110) mg/dL Hemoglobin A1c (0.0-6.0) % 04/24/22 04/24/22 Range/Units 07:54 11:37 Hgb (11.4-16.0) gm/dL Hct (34.0-46.0) % RDW (11.5-15.5) % Neutrophils # (1.3-7.7) k/uL Lymphocytes # (1.0-4.8) k/uL BUN (7-17) mg/dL Creatinine (0.52-1.04) mg/dL Glucose (74-99) mg/dL POC Glucose (mg/dL) 116 H (70-110) mg/dL Hemoglobin A1c 6.5 H (0.0-6.0) % Assessment and Plan Assessment: 1. Chronic kidney disease NKF stage IV secondary to nephrosclerosis with baseline creatinine around 1.9-2 mg/dL 2. Volume overload currently improved 3. CK D mineral bone disorder maintained on calcitriol, calcium is 9.4 4. Hyperkalemia associated with chronic kidney disease currently improved with diuresis. 5. CHF with preserved ejection fraction, echocardiogram shows ejection fraction at 50% with moderate tricuspid regurgitation. Plan: Continue to diurese patient Okay to discharge on home dose of diuretics Continue calcitriol
== END 2022-04-24 14:33 | disposition home or self-care (01) | DRG 291 ==
LOC: EC 11:05 → 3SCARD 15:45
PROVIDERS: ADMIT Internal Medicine; ATTEND Internal Medicine
DX: I13.0 Hypertensive heart and chronic kidney disease with heart failure and stage 1 through stage 4 chronic kidney disease, or unspecified chronic kidney disease (principal); I50.31 Acute diastolic (congestive) heart failure; J96.01 Acute respiratory failure with hypoxia; N18.4 Chronic kidney disease, stage 4 (severe); T50.1X6A Underdosing of loop [high-ceiling] diuretics, initial encounter; T38.1X6A Underdosing of thyroid hormones and substitutes, initial encounter; Z91.128 Patient's intentional underdosing of medication regimen for other reason; Z20.822 Contact with and (suspected) exposure to COVID-19; M89.8X9 Other specified disorders of bone, unspecified site; R00.1 Bradycardia, unspecified; I77.0 Arteriovenous fistula, acquired; J44.9 Chronic obstructive pulmonary disease, unspecified; I07.1 Rheumatic tricuspid insufficiency; E87.5 Hyperkalemia; E78.5 Hyperlipidemia, unspecified; K21.9 Gastro-esophageal reflux disease without esophagitis; E03.9 Hypothyroidism, unspecified; Z85.828 Personal history of other malignant neoplasm of skin; Z85.028 Personal history of other malignant neoplasm of stomach; Z79.899 Other long term (current) drug therapy; Z79.890 Hormone replacement therapy; Z92.21 Personal history of antineoplastic chemotherapy
CPT/HCPCS: 36415; 71045; 71046; 80048; 80053; 81001; 82803; 83036; 83735; 83880; 84132; 84439; 84443; 84484; 85025; 85379; 85610; 85730; 87636; 93005; 93306; 94760; 96374; 96376; 99285

== ENCOUNTER 2022-07-03 14:29 | Inpatient (IN) | payer MEDICARE ==
--- NOTE | 2022-07-03 15:50 | ED ---
SOB HPI - General Chief Complaint: Shortness of Breath Stated Complaint: bilateral leg wound Time Seen by Provider: 07/03/22 15:48 Source: patient, RN notes reviewed, old records reviewed, Caregiver Mode of arrival: wheelchair Limitations: no limitations - History of Present Illness Initial Comments: This is a 76 show female to the emergency department today. Patient does present for evaluation regards to multiple complaints significant shortness of breath hypoxia here in the emergency department oxygen in the low to mid 80s despite supportive supplemental oxygen. Patient also complaining of significant lower extremity swelling and edema. No current chest pain, likely more significantly swollen than normal with significant redness of the left lower extremity. No change in medications or other complaint. MD Complaint: shortness of breath, cough -: days(s) Severity: moderate Severity scale (1-10): 7 Quality: throbbing Improves With: oxygen, rest, upright position Worsens With: lying flat, exertion, movement Known History Of: congestive heart failure Context: recent URI, recent illness Associated Symptoms: chest pain (No chest pain), orthopnea, lower abdominal swelling (Bilateral) Treatments Prior to Arrival: none, oxygen (Patient is on home O2) - Related Data Home Medications Medication Instructions Recorded Confirmed Atorvastatin [Lipitor] 10 mg PO HS 09/11/14 07/03/22 allopurinoL [Zyloprim] 100 mg PO BID 01/17/15 07/03/22 Ferrous Sulfate [Iron (65 MG 325 mg PO BID 03/03/18 07/03/22 Elemental)] Folic Acid 0.8 mg PO DAILY 03/03/18 07/03/22 Magnesium 400 mg PO HS 03/03/18 07/03/22 Cholecalciferol [Vitamin D3 (25 25 mcg PO DAILY 06/13/20 07/03/22 Mcg = 1000 Iu)] Famotidine 20 mg PO HS 06/13/20 07/03/22 Furosemide [Lasix] 20 mg PO Q2D PRN 04/21/22 07/03/22 amLODIPine [Norvasc] 7.5 mg PO DAILY 04/21/22 07/03/22 calcitrioL [Calcitriol] 0.25 mcg PO MOWEFR 04/21/22 07/03/22 Levothyroxine Sodium [Synthroid] 100 mcg PO AC-BRKFST 07/03/22 07/03/22 Metoprolol Tartrate [Lopressor] 25 mg PO BID 07/03/22 07/03/22 Previous Rx's Medication Instructions Recorded Aspirin 81 mg PO DAILY #30 tab 04/24/22 Allergies Allergy/AdvReac Type Severity Reaction Status Date / Time No Known Allergies Allergy Verified 07/03/22 17:31 Review of Systems ROS Statement: Those systems with pertinent positive or pertinent negative responses have been documented in the HPI. ROS Other: All systems not noted in ROS Statement are negative. Past Medical History Past Medical History: Cancer, GERD/Reflux, Hyperlipidemia, Hypertension, Renal Disease, Thyroid Disorder Additional Past Medical History / Comment(s): stage 4 kidney disease-has not needed dialysis yet 2 point away of stage 3, still has urine production, anemia, HIGH URIC ACID LEVELS. HX CANCEROUS POLYP BURST IN SMALL INTESTINE 2010-being tx. w/chemo, skin cancer scalp July 2017 History of Any Multi-Drug Resistant Organisms: None Reported Past Surgical History: Bowel Resection, Orthopedic Surgery, Tonsillectomy Additional Past Surgical History / Comment(s): LAPARATOMY, PARATHYROID SURGERY, ORIF LEFT ANKLE., biopsy of scalp 07/27,AV fistula left arm,peritoneal dialysis attempt Past Anesthesia/Blood Transfusion Reactions: No Reported Reaction Past Psychological History: No Psychological Hx Reported Smoking Status: Never smoker Past Alcohol Use History: None Reported Past Drug Use History: None Reported - Past Family History Mother Family Medical History: Cancer, Coronary Artery Disease (CAD) Father Family Medical History: Coronary Artery Disease (CAD) Brother(s) Family Medical History: Coronary Artery Disease (CAD) General Exam Limitations: no limitations General appearance: alert, in no apparent distress, anxious, in distress Head exam: Present: atraumatic, normocephalic, normal inspection Eye exam: Present: normal appearance, PERRL, EOMI. Absent: scleral icterus, conjunctival injection, periorbital swelling ENT exam: Present: normal exam, mucous membranes moist Neck exam: Present: normal inspection. Absent: tenderness, meningismus, lymphadenopathy Respiratory exam: Present: normal lung sounds bilaterally, respiratory distress, rales, rhonchi, accessory muscle use, decreased breath sounds, prolonged expi ratory. Absent: wheezes, stridor Cardiovascular Exam: Present: regular rate, normal rhythm, normal heart sounds. Absent: systolic murmur, diastolic murmur, rubs, gallop, clicks GI/Abdominal exam: Present: soft, normal bowel sounds. Absent: distended, tenderness, guarding, rebound, rigid Extremities exam: Present: full ROM, normal capillary refill, other (3+ pitting edema). Absent: normal inspection (Significant bilateral lower extremity edema left lower extremity cellulitis erythema or redness and warmth), tenderness, pedal edema, joint swelling, calf tenderness Back exam: Present: normal inspection Neurological exam: Present: alert, oriented X3, CN II-XII intact Psychiatric exam: Present: normal affect, normal mood Skin exam: Present: warm, dry, intact, normal color. Absent: rash Course Vital Signs 07/03/22 07/03/22 07/03/22 15:10 17:00 18:00 Temperature 96.7 F L Pulse Rate 50 L 51 L 52 L Respiratory 22 20 14 Rate Blood Pressure 104/64 126/112 116/71 O2 Sat by Pulse 91 L 90 L 88 L Oximetry 07/03/22 07/03/22 07/03/22 18:47 19:50 20:17 Temperature 97.5 F L Pulse Rate 52 L 55 L Respiratory 20 16 Rate Blood Pressure 104/63 O2 Sat by Pulse 88 L 87 L 94 L Oximetry 07/03/22 07/03/22 07/04/22 22:01 23:17 00:36 Temperature Pulse Rate 54 L 51 L 54 L Respiratory 15 16 17 Rate Blood Pressure 104/63 117/99 O2 Sat by Pulse 93 L 92 L Oximetry 07/04/22 07/04/22 07/04/22 02:56 05:00 06:54 Temperature Pulse Rate 51 L 52 L 52 L Respiratory 15 15 13 Rate Blood Pressure 120/66 103/66 111/72 O2 Sat by Pulse 95 93 L 94 L Oximetry 07/04/22 07/04/22 08:59 11:07 Temperature 98 F Pulse Rate 58 L 58 L Respiratory 18 18 Rate Blood Pressure 111/72 113/61 O2 Sat by Pulse 93 L 94 L Oximetry - Reevaluation(s) Reevaluation #1: 07/03/22 19:24 Medical records reviewed Reevaluation #2: 07/03/22 19:24 Patient symptoms are worsening here in the ER with lower oxygen currently than when she started Reevaluation #3: 07/03/22 19:24 Patient informed results questions answered Reevaluation #4: 07/03/22 19:24 Was pt. sent in by a medical professional or institution? @ -no Did you speak to anyone other than the patient for history? @ -no Did you review nursing and triage notes? @ -agree Were old charts reviewed? @ -Yes prior ER visits as well as inpatient hospitalizations, echo Differential Diagnosis? @ -prior EKG interpreted by me (3pts min.)? @ -yes X-rays interpreted by me (1pt min.)? @ -yes CT interpreted by me (1pt min.)? @ -no U/S interpreted by me (1pt. min.)? @ -no What testing was considered but not performed? (CT, X-rays, U/S, labs)? Why? @ -no What meds were considered but not given? Why? @ -no Did you discuss the management of the patient with other professionals? @ -no Did you reconcile home meds? @ -no Was smoking cessation discussed for >3mins.? @ -no Was critical care preformed (if so, how long)? @ -no Were there social determinants of health that impacted care today? How? (Homelessness, low income, unemployed, alcoholism, drug addiction, transportation, low edu. Level, literacy, decrease access to med. care, senior living, rehab)? @ -no Was there de-escalation of care discussed even if they declined? (Discuss DNR or withdrawal of care, Hospice)? @ -no What co-morbidities impacted this encounter? (DM, HTN, Smoking, COPD, CAD, Cancer, CVA, Hep., AIDS, mental health diagnosis, sleep apnea, morbid obesity)? @ -none Was patient admitted / discharged? @ -76 female to the emergency department with hypoxia and pleural effusions respiratory failure, patient be admitted for supportive care Admitted Undiagnosed new problem with uncertain prognosis? @ -no Drug Therapy requiring intensive monitoring for toxicity (Heparin, Nitro, Insulin, Cardizem)? @ -no Were any procedures done? @ -no Diagnosis/symptom? @ -Hypoxia from respiratory failure Acute, or Chronic, or Acute on Chronic? @ -Acute on chronic Uncomplicated (without systemic symptoms) or Complicated (systemic symptoms)? @ -uncomplicated Side effects of treatment? @ -no Exacerbation, Progression, or Severe Exacerbation] @ -no Poses a threat to life or bodily function? @ -yes hypoxia Reevaluation #5: 05/25/23 19:24 Differential Dyspnea: Coronary syndrome, arrhythmia, tamponade, asthma, COPD, pulmonary embolism, pneumonia, pneumothorax, pulmonary effusion, anaphylaxis, diabetic ketoacidosis, flailed chest, pulmonary contusion, diaphragmatic rupture, anemia, neuromuscular, this is not meant to be an all-inclusive list. - Consultations Consultation #1: Spoke with patient's admitting physicians who agree to admit the patient Medical Decision Making - Medical Decision Making 76 female to the emergency department for evaluation. Patient has significant CHF with pleural effusions bilateral lower extremity edema left lower Shorty fay lulitis elevated troponin and acute kidney injury, patient will be admitted for supportive care cardiology and nephrology consultation. - Lab Data Result diagrams: 07/17/22 04:02 07/17/22 04:02 Lab Results 07/03/22 07/03/22 07/03/22 Range/Units 15:30 15:30 15:30 WBC 7.2 (3.8-10.6) k/uL RBC 5.55 H (3.80-5.40) m/uL Hgb 16.6 H (11.4-16.0) gm/dL Hct 53.9 H (34.0-46.0) % MCV 97.2 (80.0-100.0) fL MCH 29.9 (25.0-35.0) pg MCHC 30.7 L (31.0-37.0) g/dL RDW 19.5 H (11.5-15.5) % Plt Count 176 (150-450) k/uL MPV 9.2 Neutrophils % 84 % Lymphocytes % 9 % Monocytes % 5 % Eosinophils % 1 % Basophils % 0 % Neutrophils # 6.1 (1.3-7.7) k/uL Lymphocytes # 0.6 L (1.0-4.8) k/uL Monocytes # 0.3 (0-1.0) k/uL Eosinophils # 0.0 (0-0.7) k/uL Basophils # 0.0 (0-0.2) k/uL Hypochromasia Moderate Anisocytosis Slight Macrocytosis Slight PT 12.3 H (9.0-12.0) sec INR 1.2 H (<1.2) APTT 23.5 (22.0-30.0) sec Sodium 134 L (137-145) mmol/L Potassium 5.2 H (3.5-5.1) mmol/L Chloride 99 (98-107) mmol/L Carbon Dioxide 20 L (22-30) mmol/L Anion Gap 15 mmol/L BUN 76 H (7-17) mg/dL Creatinine 3.03 H (0.52-1.04) mg/dL Est GFR (CKD-EPI)AfAm 17 (>60 ml/min/1.73 sqM) Est GFR (CKD-EPI)NonAf 14 (>60 ml/min/1.73 sqM) Glucose 127 H (74-99) mg/dL Lactic Ac Sepsis Rflx Plasma Lactic Acid Emir (0.7-2.0) mmol/L Calcium 9.4 (8.4-10.2) mg/dL Phosphorus 5.2 H (2.5-4.5) mg/dL Magnesium 2.9 H (1.6-2.3) mg/dL Total Bilirubin 1.5 H (0.2-1.3) mg/dL AST 30 (14-36) U/L ALT 35 H (4-34) U/L Alkaline Phosphatase 86 (38-126) U/L Troponin I (0.000-0.034) ng/mL NT-Pro-B Natriuret Pep pg/mL Total Protein 7.3 (6.3-8.2) g/dL Albumin 4.4 (3.5-5.0) g/dL 07/03/22 07/03/22 07/03/22 Range/Units 15:30 15:30 15:30 WBC (3.8-10.6) k/uL RBC (3.80-5.40) m/uL Hgb (11.4-16.0) gm/dL Hct (34.0-46.0) % MCV (80.0-100.0) fL MCH (25.0-35.0) pg MCHC (31.0-37.0) g/dL RDW (11.5-15.5) % Plt Count (150-450) k/uL MPV Neutrophils % % Lymphocytes % % Monocytes % % Eosinophils % % Basophils % % Neutrophils # (1.3-7.7) k/uL Lymphocytes # (1.0-4.8) k/uL Monocytes # (0-1.0) k/uL Eosinophils # (0-0.7) k/uL Basophils # (0-0.2) k/uL Hypochromasia Anisocytosis Macrocytosis PT (9.0-12.0) sec INR (<1.2) APTT (22.0-30.0) sec Sodium (137-145) mmol/L Potassium (3.5-5.1) mmol/L Chloride (98-107) mmol/L Carbon Dioxide (22-30) mmol/L Anion Gap mmol/L BUN (7-17) mg/dL Creatinine (0.52-1.04) mg/dL Est GFR (CKD-EPI)AfAm (>60 ml/min/1.73 sqM) Est GFR (CKD-EPI)NonAf (>60 ml/min/1.73 sqM) Glucose (74-99) mg/dL Lactic Ac Sepsis Rflx Plasma Lactic Acid Emir 2.5 H* (0.7-2.0) mmol/L Calcium (8.4-10.2) mg/dL Phosphorus (2.5-4.5) mg/dL Magnesium (1.6-2.3) mg/dL Total Bilirubin (0.2-1.3) mg/dL AST (14-36) U/L ALT (4-34) U/L Alkaline Phosphatase (38-126) U/L Troponin I 0.125 H* (0.000-0.034) ng/mL NT-Pro-B Natriuret Pep 91681 pg/mL Total Protein (6.3-8.2) g/dL Albumin (3.5-5.0) g/dL 07/03/ Range/Units 16:30 WBC (3.8-10.6) k/uL RBC (3.80-5.40) m/uL Hgb (11.4-16.0) gm/dL Hct (34.0-46.0) % MCV (80.0-100.0) fL MCH (25.0-35.0) pg MCHC (31.0-37.0) g/dL RDW (11.5-15.5) % Plt Count (150-450) k/uL MPV Neutrophils % % Lymphocytes % % Monocytes % % Eosinophils % % Basophils % % Neutrophils # (1.3-7.7) k/uL Lymphocytes # (1.0-4.8) k/uL Monocytes # (0-1.0) k/uL Eosinophils # (0-0.7) k/uL Basophils # (0-0.2) k/uL Hypochromasia Anisocytosis Macrocytosis PT (9.0-12.0) sec INR (<1.2) APTT (22.0-30.0) sec Sodium (137-145) mmol/L Potassium (3.5-5.1) mmol/L Chloride (98-107) mmol/L Carbon Dioxide (22-30) mmol/L Anion Gap mmol/L BUN (7-17) mg/dL Creatinine (0.52-1.04) mg/dL Est GFR (CKD-EPI)AfAm (>60 ml/min/1.73 sqM) Est GFR (CKD-EPI)NonAf (>60 ml/min/1.73 sqM) Glucose (74-99) mg/dL Lactic Ac Sepsis Rflx Y Plasma Lactic Acid Emir (0.7-2.0) mmol/L Calcium (8.4-10.2) mg/dL Phosphorus (2.5-4.5) mg/dL Magnesium (1.6-2.3) mg/dL Total Bilirubin (0.2-1.3) mg/dL AST (14-36) U/L ALT (4-34) U/L Alkaline Phosphatase (38-126) U/L Troponin I (0.000-0.034) ng/mL NT-Pro-B Natriuret Pep pg/mL Total Protein (6.3-8.2) g/dL Albumin (3.5-5.0) g/dL - EKG Data -: EKG Interpreted by Me (EKG shows sinus bradycardia 50 NE 193 QRS 104 QTC 452) - Radiology Data Radiology results: report reviewed (Chest x-rays positive for significant bilateral pleural effusions, pulmonary edema), image reviewed Critical Care Time Critical Care Time: Yes Total Critical Care Time: 31 Disposition Clinical Impression: Congestive heart failure, CKD (chronic kidney disease), AG (acute kidney injury), NSTEMI (non-ST elevated myocardial infarction), Bilateral leg edema, Acute pulmonary edema, Acute respiratory failure with hypoxia, Bilateral lower leg cellulitis Disposition: ADMITTED IP TO THIS HOSP Condition: Serious Is patient prescribed a controlled substance at d/c from ED?: No Time of Disposition: 17:20
[2022-07-03 16:11] LABS: Anisocytosis Slight; Basophils % (A) 0 %; Eosinophils % (A) 1 %; HCT 53.9 % (34.0-46.0); HGB 16.6 gm/dL (11.4-16.0); Hypochromasia Moderate; Lymphocytes # (A) 0.6 k/uL (1.0-4.8); Lymphocytes % (A) 9 %; MCH 29.9 pg (25.0-35.0); MCHC 30.7 g/dL (31.0-37.0); MCV 97.2 fL (80.0-100.0); Macrocytosis Slight; Mean Platelet Volume 9.2; Monocytes # (A) 0.3 k/uL (0-1.0); Monocytes % (A) 5 %; Neutrophils # (A) 6.1 k/uL (1.3-7.7); Neutrophils % (A) 84 %; Platelet Count 176 k/uL (150-450); RBC 5.55 m/uL (3.80-5.40); RDW 19.5 % (11.5-15.5); WBC 7.2 k/uL (3.8-10.6)
[2022-07-03 16:19] LABS: INR 1.2 (<1.2); Partial Thromboplastin Time 23.5 sec (22.0-30.0); Prothrombin Time 12.3 sec (9.0-12.0)
[2022-07-03 16:26] LABS: Albumin 4.4 g/dL (3.5-5.0); Calcium 9.4 mg/dL (8.4-10.2); Magnesium 2.9 mg/dL (1.6-2.3); Phosphorus 5.2 mg/dL (2.5-4.5); Potassium 5.2 mmol/L (3.5-5.1); Total Bilirubin 1.5 mg/dL (0.2-1.3); Total Protein 7.3 g/dL (6.3-8.2)
[2022-07-03] MEDS ORDERED: MORPHINE SULFATE 4 MG/ML SYRINGE IV PRN (17:17)
[2022-07-03] MEDS ORDERED: NALOXONE 0.4 MG/ML 1 ML VIAL IV PRN (17:17)
[2022-07-03] MEDS ORDERED: ONDANSETRON 4 MG/2 ML VIAL IVP PRN (17:17)
[2022-07-03] MEDS ORDERED: FUROSEMIDE 10 MG/ML 10 ML VIAL IV STA (17:22)
--- NOTE | 2022-07-03 23:47 | XR ---
EXAMINATION TYPE: XR chest 2V DATE OF EXAM: 07/03/2022 COMPARISON: 04/23/2022 INDICATION: Difficulty breathing TECHNIQUE: Frontal and lateral views of the chest are obtained. Prior dictation could not be located . FINDINGS: The heart size is enlarged. The pulmonary vasculature is normal. Posterior right pleural effusion is present.. Mild subsegmental atelectasis may be at the left base. Minimal posterior left pleural effusion may be present. IMPRESSION: 1. Cardiomegaly. 2. Small posterior right and minimal left pleural effusions. 3. Some minimal subsegmental atelectasis left base may be present. Mild subsegmental atelectasis at t he right base.
[2022-07-04 08:36] LABS: Anisocytosis Slight; Basophils % (A) 0 %; Eosinophils # (A) 0.1 k/uL (0-0.7); Eosinophils % (A) 1 %; HCT 46.3 % (34.0-46.0); HGB 14.3 gm/dL (11.4-16.0); Hypochromasia Moderate; Lymphocytes # (A) 0.8 k/uL (1.0-4.8); Lymphocytes % (A) 9 %; MCH 30.3 pg (25.0-35.0); MCHC 30.9 g/dL (31.0-37.0); MCV 98.2 fL (80.0-100.0); Macrocytosis Slight; Mean Platelet Volume 9.7; Monocytes # (A) 0.5 k/uL (0-1.0); Monocytes % (A) 6 %; Neutrophils % (A) 82 %; Platelet Count 165 k/uL (150-450); RBC 4.71 m/uL (3.80-5.40); RDW 19.2 % (11.5-15.5); WBC 8.6 k/uL (3.8-10.6)
[2022-07-04 08:56] LABS: Albumin 3.7 g/dL (3.5-5.0); Calcium 8.9 mg/dL (8.4-10.2); Magnesium 2.6 mg/dL (1.6-2.3); Phosphorus 5.6 mg/dL (2.5-4.5); Potassium 4.8 mmol/L (3.5-5.1); Total Bilirubin 1.4 mg/dL (0.2-1.3); Total Protein 6.3 g/dL (6.3-8.2)
--- NOTE | 2022-07-04 10:39 | P.CRDCN ---
History of Present Illness Consult date: 07/04/22 Consult reason: non-Q-wave [place] History of present illness: History of present illness: This is a 76-year-old female patient of Dr. ALISHA Obregon with past medical history of hypertension, hyperlipidemia, hypothyroidism, chronic kidney disease, family history of early coronary artery disease, chronic diastolic heart failure. She was last seen in the office on 05/13/2022 with plan for patient to be scheduled for Lexiscan stress test down the road following pulmonary evaluation. We have been asked to evaluate the patient for non-ST elevated myocardial infarction. Patient states that she came in the hospital due to bilateral lower extremity redness and weeping. She states she is a little short of breath and has orthopnea. No chest pain. She denies lightheadedness, dizziness, syncopal episodes. She has a little bit of a cough that has resolved. No fever or chills. Patient is seen today in the emergency center as she is waiting for a bed on the cardiac stepdown unit. Patient is status post 1 dose of IV Lasix 80 mg and 1 dose of IV ceftriaxone. EKG sinus bradycardia at 50 bpm Chest x-ray: Cardiomegaly. Small posterior right and minimal left pleural effusions. Some minimal subsegmental atelectasis left base may represent mild subsegmental atelectasis at the right base. WBC 8.6, hemoglobin 14.3, platelet count 165. Sodium 135, potassium 4.8, BUN 77 creatinine 2.99 patient presented with a BUN is 76 and creatinine of 3.03. T roponin 0.125, 0.105, 0.116. Lactic acid 2.5. Phosphorus 5.6, magnesium 2.6, total bilirubin 1. or otherwise liver function tests are normal. Home cardiac medications: Amlodipine 7.5 mg daily, aspirin 81 mg daily, atorvastatin 10 mg at bedtime, Lasix 20 mg every 2 days as needed, Lopressor 25 mg twice daily, levothyroxine 100 g daily Echocardiogram performed 04/2022 revealed a difficult study, EF 50%, aortic sclerosis, mild mitral and moderate tricuspid insufficiency. Review Of Systems: At the time of my evaluation: Constitutional: No fever, no chills. No weakness, fatigue or lethargy. EENT: No headache. No dizziness. Lungs: Reports mild shortness of breath, cough, no sputum production. No wheezing. Cardiovascular: No chest pain, reports significant lower extremity edema. No palpitations. No paroxysmal nocturnal dyspnea. Reports orthopnea. No lightheadedness or dizziness. No syncopal episodes. Abdominal: No abdominal pain. No nausea, vomiting. No diarrhea. No constipat ion. No bloody or tarry stools. Musculoskeletal: No myalgias. No muscle weakness, no frequent falls. Integumentary: Lower extremity redness and weeping. Neurologic: No aphasia. No facial droop. No change in mentation. No head injury. No headache. Physical examination: Gen: This is a frail-appearing 76-year-old female. She is resting on the ER stretcher head of the bed is up 90 she appears to be comfortable at rest. VS: reviewed HEENT: Head is atraumatic, normocephalic. Pupils equal, round. Sclerae is anicteric. NECK: Supple. + JVD. LUNGS: Crackles at bilateral bases. No intercostal retractions. HEART: Regular rate and rhythm. No murmur. ABDOMEN: Soft No tenderness. EXTREMITIES: 23 plus edema to the bilateral lower extremities with erythema. NEUROLOGICAL: Patient is awake, alert and oriented x3. Assessment: Acute on chronic diastolic heart failure Acute cellulitis bilateral lower extremities Hypertension Hyperlipidemia Hypothyroidism Acute kidney injury Chronic kidney disease stage IV Plan: Start patient on Lasix 40 mg IV daily Resume patient's home cardiac medications Obtain limited echocardiogram Monitor I&O, daily weights, electrolytes and renal function Treatment for cellulitis managed by attending Further recommendations to follow based upon clinical course Thank you kindly for this consultation. Nurse practitioner note has been reviewed, I agree with documented findings and plan of care. Patient was seen and examined. Past Medical History Past Medical History: Cancer, GERD/Reflux, Hyperlipidemia, Hypertension, Renal Disease, Thyroid Disorder Additional Past Medical History / Comment(s): stage 4 kidney disease-has not needed dialysis yet 2 point away of stage 3, still has urine production, anemia, HIGH URIC ACID LEVELS. HX CANCEROUS POLYP BURST IN SMALL INTESTINE 2010-being tx. w/chemo, skin cancer scalp July 2017 History of Any Multi-Drug Resistant Organisms: None Reported Past Surgical History: Bowel Resection, Orthopedic Surgery, Tonsillectomy Additional Past Surgical History / Comment(s): LAPARATOMY, PARATHYROID SURGERY, ORIF LEFT ANKLE., biopsy of scalp 07/27,AV fistula left arm,peritoneal dialysis attempt Past Anesthesia/Blood Transfusion Reactions: No Reported Reaction Past Psychological History: No Psychological Hx Reported Smoking Status: Never smoker Past Alcohol Use History: None Reported Past Drug Use History: None Reported - Past Family History Mother Family Medical History: Cancer, Coronary Artery Disease (CAD) Father Family Medical History: Coronary Artery Disease (CAD) Brother(s) Family Medical History: Coronary Artery Disease (CAD) Medications and Allergies Home Medications Medication Instructions Recorded Confirmed Type Atorvastatin [Lipitor] 10 mg PO HS 09/11/14 07/03/22 History allopurinoL [Zyloprim] 100 mg PO BID 01/17/15 07/03/22 History Ferrous Sulfate [Iron (65 MG 325 mg PO BID 03/03/18 07/03/22 History Elemental)] Folic Acid 0.8 mg PO DAILY 03/03/18 07/03/22 History Magnesium 400 mg PO HS 03/03/18 07/03/22 History Cholecalciferol [Vitamin D3 (25 25 mcg PO DAILY 06/13/20 07/03/22 History Mcg = 1000 Iu)] Famotidine 20 mg PO HS 06/13/20 07/03/22 History Furosemide [Lasix] 20 mg PO Q2D PRN 04/21/22 07/03/22 History amLODIPine [Norvasc] 7.5 mg PO DAILY 04/21/22 07/03/22 History calcitrioL [Calcitriol] 0.25 mcg PO MOWEFR 04/21/22 07/03/22 History Aspirin 81 mg PO DAILY #30 tab 04/24/22 07/03/22 Rx Levothyroxine Sodium [Synthroid] 100 mcg PO AC-BRKFST 07/03/22 07/03/22 History Metoprolol Tartrate [Lopressor] 25 mg PO BID 07/03/22 07/03/22 History Allergies Allergy/AdvReac Type Severity Reaction Status Date / Time No Known Allergies Allergy Verified 07/03/22 17:31 Physical Exam Vitals: Vital Signs Temp Pulse Resp BP Pulse Ox 07/04/22 08:59 58 L 18 111/72 93 L 07/04/22 06:54 52 L 13 111/72 94 L 07/04/22 05:00 52 L 15 103/66 93 L 07/04/22 02:56 51 L 15 120/66 95 07/04/22 00:36 54 L 17 117/99 92 L 07/03/22 23:17 51 L 16 07/03/22 22:01 54 L 15 104/63 93 L 07/03/22 20:17 94 L 07/03/22 19:50 55 L 16 104/63 87 L 07/03/22 18:47 97.5 F L 52 L 20 88 L 07/03/22 18:00 52 L 14 116/71 88 L 07/03/22 17:00 51 L 20 126/112 90 L 07/03/22 15:10 96.7 F L 50 L 22 104/64 91 L Intake and Output 07/03/22 07/04/22 07/04/22 22:59 06:59 14:59 Other: Weight 60.781 kg Results 07/04/22 08:19 07/04/22 08:19 Cardiac Enzymes 07/03/22 07/03/22 07/03/22 Range/Units 15:30 15:30 18:20 AST 30 (14-36) U/L Troponin I 0.125 H* 0.105 H* (0.000-0.034) ng/mL 07/03/22 07/04/22 Range/Units 21:39 08:19 AST 25 (14-36) U/L Troponin I 0.116 H* (0.000-0.034) ng/mL Coagulation 07/03/22 Range/Units 15:30 PT 12.3 H (9.0-12.0) sec APTT 23.5 (22.0-30.0) sec CBC 07/03/22 07/04/22 Range/Units 15:30 08:19 WBC 7.2 8.6 (3.8-10.6) k/uL RBC 5.55 H 4.71 (3.80-5.40) m/uL Hgb 16.6 H 14.3 (11.4-16.0) gm/dL Hct 53.9 H 46.3 H (34.0-46.0) % Plt Count 176 165 (150-450) k/uL Comprehensive Metabolic Panel 07/03/22 07/04/22 Range/Units 15:30 08:19 Sodium 134 L 135 L (137-145) mmol/L Potassium 5.2 H 4.8 (3.5-5.1) mmol/L Chloride 99 103 (98-107) mmol/L Carbon Dioxide 20 L 20 L (22-30) mmol/L BUN 76 H 77 H (7-17) mg/dL Creatinine 3.03 H 2.99 H (0.52-1.04) mg/dL Glucose 127 H 103 H (74-99) mg/dL Calcium 9.4 8.9 (8.4-10.2) mg/dL AST 30 25 (14-36) U/L ALT 35 H 29 (4-34) U/L Alkaline Phosphatase 86 75 (38-126) U/L Total Protein 7.3 6.3 (6.3-8.2) g/dL Albumin 4.4 3.7 (3.5-5.0) g/dL Current Medications Generic Name Dose Route Start Last Admin Trade Name Freq PRN Reason Stop Dose Admin Ceftriaxone Sodium 2 gm/ 50 mls @ 100 mls/hr 07/04/22 18:00 Sodium Chloride IVPB Q24H MARIAH Protocol Morphine Sulfate 4 mg 07/03/22 17:17 Morphine Sulfate 4 Mg/Ml Syringe IV Q4HR PRN Severe Pain (Scale 7 to 10) Naloxone HCl 0.2 mg 07/03/22 17:17 Naloxone 0.4 Mg/Ml 1 Ml Vial IV Q2M PRN Opioid Reversal Ondansetron HCl 4 mg 07/03/22 17:17 Ondansetron 4 Mg/2 Ml Vial IVP Q8HR PRN Nausea And Vomiting Intake and Output 07/03/22 07/04/22 07/04/22 22:59 06:59 14:59 Other: Weight 60.781 kg 07/04/22 08:19 07/04/22 08:19
[2022-07-04] MEDS ORDERED: FUROSEMIDE 10 MG/ML 4 ML VIAL IV SCH (10:45)
--- NOTE | 2022-07-04 10:50 | P.NPCON ---
History of Present Illness - Reason for Consult chronic renal failure - History of Present Illness Patient is a 76-year-old female with history of chronic kidney disease NKF stage IV secondary to nephrosclerosis with baseline creatinine around 2.3 mg/dL. Patient is admitted to the hospital with worsening shortness of breath over the past few weeks with increased lower extremity swelling. Patient states she's tried to increase her Lasix at home but her shortness of breath continued to worsen. No history of fever chills cough chest pain. No history of nausea vomiting or diarrhea. Serum creatinine at 2.9 mg/dL. Patient states she is voiding. Systolic blood pressure around 104-1 16 mmHg. Review of Systems As per HPI Past Medical History Past Medical History: Cancer, GERD/Reflux, Hyperlipidemia, Hypertension, Renal Disease, Thyroid Disorder Additional Past Medical History / Comment(s): stage 4 kidney disease-has not needed dialysis yet 2 point away of stage 3, still has urine production, anemia, HIGH URIC ACID LEVELS. HX CANCEROUS POLYP BURST IN SMALL INTESTINE 2010-being tx. w/chemo, skin cancer scalp July 2017 History of Any Multi-Drug Resistant Organisms: None Reported Past Surgical History: Bowel Resection, Orthopedic Surgery, Tonsillectomy Additional Past Surgical History / Comment(s): LAPARATOMY, PARATHYROID SURGERY, ORIF LEFT ANKLE., biopsy of scalp 07/27,AV fistula left arm,peritoneal dialysis attempt Past Anesthesia/Blood Transfusion Reactions: No Reported Reaction Past Psychological History: No Psychological Hx Reported Smoking Status: Never smoker Past Alcohol Use History: None Reported Past Drug Use History: None Reported - Past Family History Mother Family Medical History: Cancer, Coronary Artery Disease (CAD) Father Family Medical History: Coronary Artery Disease (CAD) Brother(s) Family Medical History: Coronary Artery Disease (CAD) Medications and Allergies Home Medications Medication Instructions Recorded Confirmed Type Atorvastatin [Lipitor] 10 mg PO HS 09/11/14 07/03/22 History allopurinoL [Zyloprim] 100 mg PO BID 01/17/15 07/03/22 History Ferrous Sulfate [Iron (65 MG 325 mg PO BID 03/03/18 07/03/22 History Elemental)] Folic Acid 0.8 mg PO DAILY 03/03/18 07/03/22 History Magnesium 400 mg PO HS 03/03/18 07/03/22 History Cholecalciferol [Vitamin D3 (25 25 mcg PO DAILY 06/13/20 07/03/22 History Mcg = 1000 Iu)] Famotidine 20 mg PO HS 06/13/20 07/03/22 History Furosemide [Lasix] 20 mg PO Q2D PRN 04/21/22 07/03/22 History amLODIPine [Norvasc] 7.5 mg PO DAILY 04/21/22 07/03/22 History calcitrioL [Calcitriol] 0.25 mcg PO MOWEFR 04/21/22 07/03/22 History Aspirin 81 mg PO DAILY #30 tab 04/24/22 07/03/22 Rx Levothyroxine Sodium [Synthroid] 100 mcg PO AC-BRKFST 07/03/22 07/03/22 History Metoprolol Tartrate [Lopressor] 25 mg PO BID 07/03/22 07/03/22 History Allergies Allergy/AdvReac Type Severity Reaction Status Date / Time No Known Allergies Allergy Verified 07/03/22 17:31 Physical Exam Vitals: Vital Signs Temp Pulse Resp BP Pulse Ox 07/04/22 08:59 58 L 18 111/72 93 L 07/04/22 06:54 52 L 13 111/72 94 L 07/04/22 05:00 52 L 15 103/66 93 L 07/04/22 02:56 51 L 15 120/66 95 07/04/22 00:36 54 L 17 117/99 92 L 07/03/22 23:17 51 L 16 07/03/22 22:01 54 L 15 104/63 93 L 07/03/22 20:17 94 L 07/03/22 19:50 55 L 16 104/63 87 L 07/03/22 18:47 97.5 F L 52 L 20 88 L 07/03/22 18:00 52 L 14 116/71 88 L 07/03/22 17:00 51 L 20 126/112 90 L 07/03/22 15:10 96.7 F L 50 L 22 104/64 91 L Intake and Output 07/03/22 07/04/22 07/04/22 22:59 06:59 14:59 Other: Weight 60.781 kg Patient is awake, comfortable, in no acute distress mildly short of breath Examination of the heart S1 and S2 Examination lungs bilateral breath sounds are heard. Basal crackles are heard Abdomen is soft nontender Examination of the lower extremities shows 3+ edema bilaterally with erythema of the skin noted bilaterally and [place] [employer] exam grossly intact Results - Lab Results Most recent lab results Calcium 8.9 mg/dL (8.4-10.2) 07/04/22 08:19 Phosphorus 5.6 mg/dL (2.5-4.5) H 07/04/22 08:19 Magnesium 2.6 mg/dL (1.6-2.3) H 07/04/22 08:19 07/04/22 08:19 07/04/22 08:19 Assessment and Plan Assessment: 1. Chronic kidney disease NKF stage IV secondary to nephrosclerosis NKF stage IV with baseline creatinine around 2 mg/dL 2. Acute kidney injury cardiorenal 3. Volume overload 4. CK D mineral bone disorder maintained on calcitriol was serum calcium 8.9 5. Acute on chronic CHF exacerbation with preserved ejection fraction. Echocardiogram on 04/22/2022 shows EF of 50% with moderate tricuspid regurgitation. 6. Hypervolemic hyponatremia Plan: Diurese patient Increase Lasix Repeat labs in a.m. Accurate I's and O's with daily weights DC [facility] as blood pressure is borderline next Thank you for the consultation. We will continue to follow the patient with you during her hospitalization.
--- NOTE | 2022-07-04 11:58 | CA ---
Transthoracic Echo Report Name: Lucia Omalley Age: 76 Gender: F : 1945 Exam Date: 07/04/2022 08:01 Exam Location: [facility] Ht (in): 60 Wt (lb): 134 Ordering Physician: Dara Tobar Attending/Referring Phys: Storage Receipt Poster Shona De Leon RDCS Procedure CPT: Indications: LVH Cardiac Hx: Technical Quality: Fair Contrast 1: Total Dose (mL): Contrast 2: Total Dose (mL): MEASUREMENTS (Male / Female) Normal Values 2D ECHO LV Diastolic Diameter PLAX 3.2 cm 4.2 - 5.9 / 3.9 - 5.3 cm LV Systolic Diameter PLAX 1.7 cm IVS Diastolic Thickness 1.4 cm 0.6 - 1.0 / 0.6 - 0.9 cm LVPW Diastolic Thickness 1.2 cm 0.6 - 1.0 / 0.6 - 0.9 cm LV Relative Wall Thickness 0.8 DOPPLER TR Peak Velocity 416.9 cm/s TR Peak Gradient 69.5 mmHg Right Ventricular Systolic Press 71.5 mmHg FINDINGS Left Ventricle Limited study. Moderately increased left ventricular wall thickness. Preserved LV systolic function. Left ventricular ejection fraction is estimated at 50 %. Flattened septum in systole and diastole consistent with right ventricle pressure and volume overload. Right Ventricle Right ventricular dilatation. Severe pulmonary hypertension. Right ventricular systolic pressure estimated at 72 mm hg. Right Atrium Left Atrium Mitral Valve Aortic Valve Tricuspid Valve Severe tricuspid regurgitation. Pulmonic Valve Pericardium No pericardial effusion. Aorta CONCLUSIONS Right ventricular enlargement with severe right ventricular hypertrophy with global RV hypokinesis Compressed left ventricle on account of elevated right-sided pressures Flattening of the interventricular septum insistent with severe pulmonary hypertension Left ventricular ejection fraction 50% Previewed by: Dr. Celestino Liang MD (Electronically Signed) Final Date: 04 Jul 2022 11:57
[2022-07-04] MEDS: FUROSEMIDE 10 MG/ML 4 ML VIAL IV SCH ×2 (15:24→20:17)
[2022-07-04] MEDS: ASPIRIN 81 MG PO SCH (15:24)
[2022-07-04] MEDS: FAMOTIDINE 20 MG TAB PO SCH (20:18)
[2022-07-04] MEDS: FERROUS SULFATE 325 MG TAB PO SCH (20:18)
[2022-07-04] MEDS: ATORVASTATIN 10 MG TAB PO SCH (20:18)
[2022-07-04] MEDS: METOPROLOL TARTRATE 25 MG TAB PO SCH (20:18)
[2022-07-04] MEDS: MAGNESIUM OXIDE 400 MG TAB PO SCH (20:18)
[2022-07-04] MEDS: allopurinoL 100 MG TAB PO SCH (20:18)
[2022-07-05] MEDS: LEVOTHYROXINE 100 MCG TAB PO SCH (06:14)
[2022-07-05] MEDS: CHOLECALCIFEROL 25 MCG (1000 IU) TABLET PO SCH (08:31)
[2022-07-05] MEDS: FOLIC ACID 1 MG TAB PO SCH (08:31)
[2022-07-05] MEDS: METOPROLOL TARTRATE 25 MG TAB PO SCH ×2 (08:31→19:54)
[2022-07-05] MEDS: FERROUS SULFATE 325 MG TAB PO SCH ×2 (08:31→19:54)
[2022-07-05] MEDS: FUROSEMIDE 10 MG/ML 4 ML VIAL IV SCH (08:31)
[2022-07-05] MEDS: ASPIRIN 81 MG PO SCH (08:31)
[2022-07-05] MEDS: allopurinoL 100 MG TAB PO SCH ×2 (08:31→19:53)
[2022-07-05] MEDS ORDERED: amLODIPine 2.5 MG TAB PO SCH (09:00)
[2022-07-05 09:27] LABS: Calcium 8.7 mg/dL (8.4-10.2)
--- NOTE | 2022-07-05 10:05 | P.PN ---
Subjective Progress Note Date: 07/05/22 Principal diagnosis: This is a 76-year-old female seen in consultation because of chronic kidney disease stage IV secondary to nephrosclerosis came in because of shortness of breath and is on Lasix She continues to have shortness of breath but improved she has 3+ edema with some significant erythema of her left leg has no pain. Her appetite is fair no dizziness. With 40 mg of IV Lasix, she had urine output of 105 0 mL. Objective - Vital Signs Vital signs: Vital Signs Temp 97.3 F L 07/05/22 08:26 Pulse 59 L 07/05/22 08:26 Resp 22 07/05/22 08:26 BP 107/58 07/05/22 08:26 Pulse Ox 92 L 07/05/22 08:26 FiO2 Intake & Output 07/04/22 07/05/22 07/05/22 18:59 06:59 18:59 Intake Total 240 20 120 Output Total 450 600 Balance -210 -580 120 Weight 60.781 kg 63.5 kg Intake: IV 20 20 10 Invasive Line 1 20 20 10 Oral 220 110 Output: Urine 450 600 Other: Voiding Method Toilet Toilet Toilet Bedside Commode Bedside Commode Bedside Commode # Voids 300 Examination she is awake alert oriented but short of breath A chin exam no JVP noted neck is supple no facial asymmetry Lungs are clear to auscultation fair air entry Heart sounds unremarkable. Abdomen slightly protuberant and nontender Extremity exam 3+ edema with redness and erythema of the left leg. Neurologically awake alert oriented - Labs CBC & Chem 7: 07/04/22 08:19 07/05/22 08:34 Labs: Abnormal Lab Results - Last 24 Hours (Table) 07/05/22 Range/Units 08:34 Carbon Dioxide 20 L (22-30) mmol/L BUN 77 H (7-17) mg/dL Creatinine 2.75 H (0.52-1.04) mg/dL Glucose 186 H (74-99) mg/dL Microbiology - Last 24 Hours (Table) 07/03/22 18:05 Blood Culture - Preliminary Blood 07/03/22 18:21 Blood Culture - Preliminary Blood Assessment and Plan Assessment: Impression 1. Chronic kidney disease stage IV secondary to nephrosclerosis stage IV, baseline creatinine 2.3 on 04/24/2022, 1.97 on 04/21/2022 2. Admitted with acute kidney injury with creatinine of 3.03 on admission secondary to volume overload and improved to 2.75 this morning. 3. Significant edema and shortness of breath on Lasix 40 every 8 with an inadequate urine output Recommendation 1. Will increase her Lasix to 80 twice a day IV. 2. Pending labs and watch blood pressure
[2022-07-05] MEDS: FUROSEMIDE 10 MG/ML 10 ML VIAL IV SCH ×2 (11:03→19:53)
--- NOTE | 2022-07-05 12:14 | P.PN ---
Subjective Progress Note Date: 07/05/22 This is Alejandro Forbes NP, I'm dictating on behalf of Dr. Liang's H&P and A&P. Patient was interviewed and examined. Patient is a pleasant 76-year-old female who presented to the hospital with leg swelling and weeping as well as shortness of breath. Patient was found to be in acute exacerbation of congestive heart failure. Patient reports that she is breathing better today, the swelling in her lower legs is improved. Patient continues to demonstrate 2+ pitting edema in her bilateral lower extremities. However her lungs are clear at this time. She has no complaints of chest pain, shortness of breath, or heart palpitations. Limited echo completed demonstrates a right ventricular enlargement with severe right ventricular hypertrophy with global RV hypokinesis, compressed left ventricle on account of elevated right- sided pressures, flattening of interventricular septum and consistent with severe pulmonary hypertension, and a left ventricular ejection fraction of 50%. Ejection fraction is consistent with prior studies. GENERAL: Well-appearing, well-nourished and in no acute distress. NECK: Supple without JVD or thyromegaly. LUNGS: Breath sounds clear to auscultation bilaterally. Respiration equal and unlabored. No wheezes, rales or rhonchi. HEART: Regular rate and rhythm without murmurs, rubs or gallops. S1 and S2 heard. EXTREMITIES: Normal range of motion, 2+ pitting edema in the bilateral lower extremities, below the knee. No clubbing or cyanosis. Peripheral pulses intact and strong. VITALS: Temp 97.3, pulse 59, respirations 22, blood pressure 107/58, O2 saturation 92% on 8 L TELEMETRY: Normal sinus rhythm LABS: Sodium 137, potassium 4.0, B1 77, creatinine 2.75, calcium 8.7 IMPRESSION: 1. Acute on chronic diastolic heart failure 2. Acute cellulitis bilateral lower extremities 3. Hypertension 4. Hyperlipidemia 5. Hypothyroidism 6. Acute kidney injury 7. Chronic kidney disease stage IV PLAN: Continue Lasix at 80 mg IV push twice a day. If creatinine continues to worsen, will consider decrease. Continue intake and output, daily weights, electrolytes and renal function testing. Further recommendations based on patient's clinical course. Objective - Vital Signs Vital signs: Vital Signs Temp 97.4 F L 07/05/22 11:06 Pulse 57 L 07/05/22 11:06 Resp 22 07/05/22 11:06 BP 106/59 07/05/22 11:06 Pulse Ox 93 L 07/05/22 11:06 FiO2 Intake & Output 07/04/22 07/05/22 07/05/22 18:59 06:59 18:59 Intake Total 240 20 120 Output Total 450 600 Balance -210 -580 120 Weight 60.781 kg 63.5 kg Intake: IV 20 20 10 Invasive Line 1 20 20 10 Oral 220 110 Output: Urine 450 600 Other: Voiding Method Toilet Toilet Toilet Bedside Commode Bedside Commode Bedside Commode # Voids 300 - Labs CBC & Chem 7: 07/04/22 08:19 07/05/22 08:34 Labs: Abnormal Lab Results - Last 24 Hours (Table) 07/05/22 Range/Units 08:34 Carbon Dioxide 20 L (22-30) mmol/L BUN 77 H (7-17) mg/dL Creatinine 2.75 H (0.52-1.04) mg/dL Glucose 186 H (74-99) mg/dL Microbiology - Last 24 Hours (Table) 07/03/22 18:05 Blood Culture - Preliminary Blood 07/03/22 18:21 Blood Culture - Preliminary Blood
--- NOTE | 2022-07-05 17:38 | P.HPIM ---
History of Present Illness H&P Date: 07/04/22 Chief Complaint: Shortness of breath/has bilateral lower extremities 76 show female DF today. Patient Dese for evaluation regards to multiple complaints significant shortness of breath hypoxia here in the emergency department oxygen in the low to mid 80s despite supportive supplemental oxygen. Patient also complaining of significant lower extremity swelling and edema. No current chest pain, likely more significantly swollen than normal with significant redness of the left lower extremity. No change in medications or other complaint. EKG sinus bradycardia at 50 bpm Chest x-ray: Cardiomegaly. Small posterior right and minimal left pleural effusions. Some minimal subsegmental atelectasis left base may represent mild subsegmental atelectasis at the right base. WBC 8.6, hemoglobin 14.3, platelet count 165. Sodium 135, potassium 4.8, BUN 77 creatinine 2.99 patient presented with a BUN is 76 and creatinine of 3.03. Troponin 0.125, 0.105, 0.116. Lactic acid 2.5. Phosphorus 5.6, magnesium 2.6, total bilirubin 1. or otherwise liver function tests are normal. Home cardiac medications: Amlodipine 7.5 mg daily, aspirin 81 mg daily, atorvastatin 10 mg at bedtime, Lasix 20 mg every 2 days as needed, Lopressor 25 mg twice daily, levothyroxine 100 g daily Echocardiogram performed 04/2022 revealed a difficult study, EF 50%, aortic sclerosis, mild mitral and moderate tricuspid insufficiency. Review of Systems Constitutional: No fever, no chills. No weakness, fatigue or lethargy. EENT: No headache. No dizziness. Lungs: Reports mild shortness of breath, cough, no sputum production. No wheezing. Cardiovascular: No chest pain, reports significant lower extremity edema. No palpitations. No paroxysmal nocturnal dyspnea. Reports orthopnea. No lightheadedness or dizziness. No syncopal episodes. Abdominal: No abdominal pain. No nausea, vomiting. No diarrhea. No constipation. No bloody or tarry stools. Musculoskeletal: No myalgias. No muscle weakness, no frequent falls. Integumentary: Lower extremity redness and weeping. Neurologic: No aphasia. No facial droop. No change in mentation. No head injury. No headache. Past Medical History Past Medical History: Cancer, GERD/Reflux, Hyperlipidemia, Hypertension, Renal Disease, Thyroid Disorder Additional Past Medical History / Comment(s): stage 4 kidney disease-has not needed dialysis yet 2 point away of stage 3, still has urine production, anemia, HIGH URIC ACID LEVELS. HX CANCEROUS POLYP BURST IN SMALL INTESTINE 2010-being tx. w/chemo, skin cancer scalp July 2017 History of Any Multi-Drug Resistant Organisms: None Reported Past Surgical History: Bowel Resection, Orthopedic Surgery, Tonsillectomy Additional Past Surgical History / Comment(s): LAPARATOMY, PARATHYROID SURGERY, ORIF LEFT ANKLE., biopsy of scalp 07/27,AV fistula left arm,peritoneal dialysis attempt Past Anesthesia/Blood Transfusion Reactions: No Reported Reaction Past Psychological History: No Psychological Hx Reported Smoking Status: Never smoker Past Alcohol Use History: None Reported Past Drug Use History: None Reported - Past Family History Mother Family Medical History: Cancer, Coronary Artery Disease (CAD) Father Family Medical History: Coronary Artery Disease (CAD) Brother(s) Family Medical History: Coronary Artery Disease (CAD) Medications and Allergies Home Medications Medication Instructions Recorded Confirmed Type Atorvastatin [Lipitor] 10 mg PO HS 09/11/14 07/03/22 History allopurinoL [Zyloprim] 100 mg PO BID 01/17/15 07/03/22 History Ferrous Sulfate [Iron (65 MG 325 mg PO BID 03/03/18 07/03/22 History Elemental)] Folic Acid 0.8 mg PO DAILY 03/03/18 07/03/22 History Magnesium 400 mg PO HS 03/03/18 07/03/22 History Cholecalciferol [Vitamin D3 (25 25 mcg PO DAILY 06/13/20 07/03/22 History Mcg = 1000 Iu)] Famotidine 20 mg PO HS 06/13/20 07/03/22 History Furosemide [Lasix] 20 mg PO Q2D PRN 04/21/22 07/03/22 History amLODIPine [Norvasc] 7.5 mg PO DAILY 04/21/22 07/03/22 History calcitrioL [Calcitriol] 0.25 mcg PO MOWEFR 04/21/22 07/03/22 History Aspirin 81 mg PO DAILY #30 tab 04/24/22 07/03/22 Rx Levothyroxine Sodium [Synthroid] 100 mcg PO AC-BRKFST 07/03/22 07/03/22 History Metoprolol Tartrate [Lopressor] 25 mg PO BID 07/03/22 07/03/22 History Allergies Allergy/AdvReac Type Severity Reaction Status Date / Time No Known Allergies Allergy Verified 07/03/22 17:31 Physical Exam Vitals: Vital Signs Temp Pulse Resp BP Pulse Ox 07/04/22 11:07 98 F 58 L 18 113/61 94 L 07/04/22 08:59 58 L 18 111/72 93 L 07/04/22 06:54 52 L 13 111/72 94 L 07/04/22 05:00 52 L 15 103/66 93 L 07/04/22 02:56 51 L 15 120/66 95 07/04/22 00:36 54 L 17 117/99 92 L 07/03/22 23:17 51 L 16 07/03/22 22:01 54 L 15 104/63 93 L 07/03/22 20:17 94 L 07/03/22 19:50 55 L 16 104/63 87 L 07/03/22 18:47 97.5 F L 52 L 20 88 L 07/03/22 18:00 52 L 14 116/71 88 L 07/03/22 17:00 51 L 20 126/112 90 L 07/03/22 15:10 96.7 F L 50 L 22 104/64 91 L Intake and Output 07/03/22 07/04/22 07/04/22 22:59 06:59 14:59 Other: Weight 60.781 kg Gen: This is a frail-appearing 76-year-old female. She is resting on the ER stretcher head of the bed is up 90 she appears to be comfortable at rest. VS: reviewed HEENT: Head is atraumatic, normocephalic. Pupils equal, round. Sclerae is anicteric. NECK: Supple. + JVD. LUNGS: Crackles at bilateral bases. No intercostal retractions. HEART: Regular rate and rhythm. No murmur. ABDOMEN: Soft No tenderness. EXTREMITIES: 23 plus edema to the bilateral lower extremities with erythema. NEUROLOGICAL: Patient is awake, alert and oriented x3. Results CBC & Chem 7: 07/04/22 08:19 07/05/22 08:34 Labs: Abnormal Lab Results - Last 24 Hours (Table) 07/03/22 07/03/22 07/03/22 Range/Units 15:30 15:30 15:30 RBC 5.55 H (3.80-5.40) m/uL Hgb 16.6 H (11.4-16.0) gm/dL Hct 53.9 H (34.0-46.0) % MCHC 30.7 L (31.0-37.0) g/dL RDW 19.5 H (11.5-15.5) % Lymphocytes # 0.6 L (1.0-4.8) k/uL PT 12.3 H (9.0-12.0) sec INR 1.2 H (<1.2) Sodium 134 L (137-145) mmol/L Potassium 5.2 H (3.5-5.1) mmol/L Carbon Dioxide 20 L (22-30) mmol/L BUN 76 H (7-17) mg/dL Creatinine 3.03 H (0.52-1.04) mg/dL Glucose 127 H (74-99) mg/dL Plasma Lactic Acid Emir (0.7-2.0) mmol/L Phosphorus 5.2 H (2.5-4.5) mg/dL Magnesium 2.9 H (1.6-2.3) mg/dL Total Bilirubin 1.5 H (0.2-1.3) mg/dL ALT 35 H (4-34) U/L Troponin I (0.000-0.034) ng/mL 07/03/22 07/03/22 07/03/22 Range/Units 15:30 15:30 18:20 RBC (3.80-5.40) m/uL Hgb (11.4-16.0) gm/dL Hct (34.0-46.0) % MCHC (31.0-37.0) g/dL RDW (11.5-15.5) % Lymphocytes # (1.0-4.8) k/uL PT (9.0-12.0) sec INR (<1.2) Sodium (137-145) mmol/L Potassium (3.5-5.1) mmol/L Carbon Dioxide (22-30) mmol/L BUN (7-17) mg/dL Creatinine (0.52-1.04) mg/dL Glucose (74-99) mg/dL Plasma Lactic Acid Emir 2.5 H* (0.7-2.0) mmol/L Phosphorus (2.5-4.5) mg/dL Magnesium (1.6-2.3) mg/dL Total Bilirubin (0.2-1.3) mg/dL ALT (4-34) U/L Troponin I 0.125 H* 0.105 H* (0.000-0.034) ng/mL 07/03/22 07/04/22 07/04/22 Range/Units 21:39 08:19 08:19 RBC (3.80-5.40) m/uL Hgb (11.4-16.0) gm/dL Hct 46.3 H (34.0-46.0) % MCHC 30.9 L (31.0-37.0) g/dL RDW 19.2 H (11.5-15.5) % Lymphocytes # 0.8 L (1.0-4.8) k/uL PT (9.0-12.0) sec INR (<1.2) Sodium 135 L (137-145) mmol/L Potassium (3.5-5.1) mmol/L Carbon Dioxide 20 L (22-30) mmol/L BUN 77 H (7-17) mg/dL Creatinine 2.99 H (0.52-1.04) mg/dL Glucose 103 H (74-99) mg/dL Plasma Lactic Acid Emir (0.7-2.0) mmol/L Phosphorus 5.6 H (2.5-4.5) mg/dL Magnesium 2.6 H (1.6-2.3) mg/dL Total Bilirubin 1.4 H (0.2-1.3) mg/dL ALT (4-34) U/L Troponin I 0.116 H* (0.000-0.034) ng/mL Assessment and Plan Assessment: Acute on chronic diastolic heart failure Acute cellulitis bilateral lower extremities Hypertension Hyperlipidemia Hypothyroidism Acute kidney injury Chronic kidney disease stage IV Plan: Start patient on Lasix 40 mg IV daily Resume patient's home cardiac medications Obtain limited echocardiogram Monitor I&O, daily weights, electrolytes and renal function -- Patient has been placed on IV Rocephin for cellulitis bilateral lower extremities; blood cultures and ordered and pending - We will continue with current home medication therapy - Consult ID
--- NOTE | 2022-07-05 17:39 | P.PN ---
Subjective Progress Note Date: 07/05/22 76 show female DF today. Patient Dese for evaluation regards to multiple complaints significant shortness of breath hypoxia here in the emergency department oxygen in the low to mid 80s despite supportive supplemental oxygen. Patient also complaining of significant lower extremity swelling and edema. No current chest pain, likely more significantly swollen than normal with significant redness of the left lower extremity. No change in medications or other complaint. EKG sinus bradycardia at 50 bpm Chest x-ray: Cardiomegaly. Small posterior right and minimal left pleural effusions. Some minimal subsegmental atelectasis left base may represent mild subsegmental atelectasis at the right base. WBC 8.6, hemoglobin 14.3, platelet count 165. Sodium 135, potassium 4.8, BUN 77 creatinine 2.99 patient presented with a BUN is 76 and creatinine of 3.03. Troponin 0.125, 0.105, 0.116. Lactic acid 2.5. Phosphorus 5.6, magnesium 2.6, total bilirubin 1. or otherwise liver function tests are normal. Home cardiac medications: Amlodipine 7.5 mg daily, aspirin 81 mg daily, atorvastatin 10 mg at bedtime, Lasix 20 mg every 2 days as needed, Lopressor 25 mg twice daily, levothyroxine 100 g daily Echocardiogram performed 04/2022 revealed a difficult study, EF 50%, aortic sclerosis, mild mitral and moderate tricuspid insufficiency. Objective - Vital Signs Vital signs: Vital Signs Temp 97.4 F L 07/05/22 11:06 Pulse 57 L 07/05/22 11:06 Resp 22 07/05/22 11:06 BP 106/59 07/05/22 11:06 Pulse Ox 93 L 07/05/22 11:06 FiO2 Intake & Output 07/04/22 07/05/22 07/05/22 18:59 06:59 18:59 Intake Total 240 20 120 Output Total 450 600 Balance -210 -580 120 Weight 60.781 kg 63.5 kg Intake: IV 20 20 10 Invasive Line 1 20 20 10 Oral 220 110 Output: Urine 450 600 Other: Voiding Method Toilet Toilet Toilet Bedside Commode Bedside Commode Bedside Commode # Voids 300 - Exam Gen: This is a frail-appearing 76-year-old female. She is resting on the ER stretcher head of the bed is up 90 she appears to be comfortable at rest. VS: reviewed HEENT: Head is atraumatic, normocephalic. Pupils equal, round. Sclerae is anicteric. NECK: Supple. + JVD. LUNGS: Crackles at bilateral bases. No intercostal retractions. HEART: Regular rate and rhythm. No murmur. ABDOMEN: Soft No tenderness. EXTREMITIES: 23 plus edema to the bilateral lower extremities with erythema. NEUROLOGICAL: Patient is awake, alert and oriented x3. - Labs CBC & Chem 7: 07/04/22 08:19 07/05/22 08:34 Labs: Abnormal Lab Results - Last 24 Hours (Table) 07/05/22 Range/Units 08:34 Carbon Dioxide 20 L (22-30) mmol/L BUN 77 H (7-17) mg/dL Creatinine 2.75 H (0.52-1.04) mg/dL Glucose 186 H (74-99) mg/dL Microbiology - Last 24 Hours (Table) 07/03/22 18:05 Blood Culture - Preliminary Blood 07/03/22 18:21 Blood Culture - Preliminary Blood Assessment and Plan Assessment: Acute on chronic diastolic heart failure Acute cellulitis bilateral lower extremities Hypertension Hyperlipidemia Hypothyroidism Acute kidney injury Chronic kidney disease stage IV Plan: Start patient on Lasix 40 mg IV daily Resume patient's home cardiac medications Obtain limited echocardiogram Monitor I&O, daily weights, electrolytes and renal function -- Patient has been placed on IV Rocephin for cellulitis bilateral lower extremities; blood cultures and ordered and pending - We will continue with current home medication therapy - Consult ID
[2022-07-05] MEDS: MAGNESIUM OXIDE 400 MG TAB PO SCH (19:54)
[2022-07-05] MEDS: ATORVASTATIN 10 MG TAB PO SCH (19:54)
[2022-07-05] MEDS: FAMOTIDINE 20 MG TAB PO SCH (19:54)
[2022-07-06] MEDS: LEVOTHYROXINE 100 MCG TAB PO SCH (06:28)
[2022-07-06 08:33] LABS: Anisocytosis Slight; HCT 45.7 % (34.0-46.0); HGB 14.1 gm/dL (11.4-16.0); Hypochromasia Moderate; MCH 30.4 pg (25.0-35.0); MCHC 30.9 g/dL (31.0-37.0); MCV 98.3 fL (80.0-100.0); Macrocytosis Slight; Mean Platelet Volume 9.3; Platelet Count 149 k/uL (150-450); RBC 4.65 m/uL (3.80-5.40); RDW 19.5 % (11.5-15.5); WBC 8.3 k/uL (3.8-10.6)
[2022-07-06 08:57] LABS: Calcium 8.8 mg/dL (8.4-10.2); Potassium 3.9 mmol/L (3.5-5.1)
[2022-07-06] MEDS: FERROUS SULFATE 325 MG TAB PO SCH ×2 (09:08→20:48)
[2022-07-06] MEDS: ASPIRIN 81 MG PO SCH (09:08)
[2022-07-06] MEDS: FUROSEMIDE 10 MG/ML 10 ML VIAL IV SCH (09:08)
[2022-07-06] MEDS: allopurinoL 100 MG TAB PO SCH ×2 (09:08→20:48)
[2022-07-06] MEDS: METOPROLOL TARTRATE 25 MG TAB PO SCH ×2 (09:08→20:48)
[2022-07-06] MEDS: CHOLECALCIFEROL 25 MCG (1000 IU) TABLET PO SCH (09:08)
[2022-07-06] MEDS: FOLIC ACID 1 MG TAB PO SCH (09:08)
--- NOTE | 2022-07-06 09:39 | P.PN ---
Subjective Progress Note Date: 07/06/22 Principal diagnosis: This is a 76-year-old female seen in consultation because of chronic kidney disease stage IV secondary to nephrosclerosis came in because of shortness of breath and is on Lasix She continues to have shortness of breath but improved she has 3+ edema with some significant erythema of her left leg has no pain. Her appetite is fair no dizziness. Her Lasix dose was increased yesterday to 80 twice a day as on 40 mg of IV Lasix, as herurine output was 1050 mL. urine output remains only thousand cc in spite of this. Blood pressure in the 90s to 105/61, she is on metoprolol 25 twice a day Echocardiogram shows ejection fraction about 50%, right ventricular hypertrophy with likely pulmonary hypertension. With the extra dose of Lasix she feels little less short of breath and feels her urine output has improved, and her creatinine improved from 3.03-2.65 this morning She does have significant edema bilaterally, currently on nasal cannula oxygen which she uses at home as Objective - Vital Signs Vital signs: Vital Signs Temp 96.7 F L 07/06/22 07:33 Pulse 57 L 07/06/22 07:33 Resp 22 07/06/22 07:33 BP 105/61 07/06/22 09:07 Pulse Ox 88 L 07/06/22 07:33 FiO2 Intake & Output 07/05/22 07/06/22 07/06/22 18:59 06:59 18:59 Intake Total 350 20 10 Output Total 400 600 Balance -50 -580 10 Weight 62.9 kg Intake: IV 20 20 10 Invasive Line 1 20 20 10 Oral 330 Output: Urine 400 600 Other: Voiding Method Toilet Toilet Toilet Bedside Commode Bedside Commode Bedside Commode # Voids 1 # Bowel Movements 1 1 On oxygen nasal cannula is slightly short of breath HEENT exam no JVP neck is supple no facial asymmetry Heart sounds unremarkable. Lungs are clear to auscultation fair air entry Abdomen soft nontender Extremity exam was 3+ edema with some redness Neurologically awake alert oriented - Labs CBC & Chem 7: 07/06/22 07:22 07/06/22 07:22 Labs: Abnormal Lab Results - Last 24 Hours (Table) 07/06/22 07/06/22 Range/Units 07:22 07:22 MCHC 30.9 L (31.0-37.0) g/dL RDW 19.5 H (11.5-15.5) % Plt Count 149 L (150-450) k/uL Carbon Dioxide 21 L (22-30) mmol/L BUN 74 H (7-17) mg/dL Creatinine 2.65 H (0.52-1.04) mg/dL Glucose 108 H (74-99) mg/dL Microbiology - Last 24 Hours (Table) 07/03/22 18:05 Blood Culture - Preliminary Blood 07/03/22 18:21 Blood Culture - Preliminary Blood Assessment and Plan Assessment: Impression 1. Chronic kidney disease stage IV secondary to nephrosclerosis stage IV, baseline creatinine 2.3 on 04/24/2022, 1.97 on 04/21/2022 2. Admitted with acute kidney injury with creatinine of 3.03 on admission secondary to volume overload and improved to 2.65 this morning, on Lasix 80 every 12 hours. 3. Significant edema and shortness of breath on Lasix 80 every 12 IV 4. Mild degree of gap acidosis bicarb is 21, gap is 16, etiology is acute ki dney injury and chronic kidney disease Recommendation 1. Will maintain her Lasix to 80 twice a day IV. 2. Pending labs and watch blood pressure
--- NOTE | 2022-07-06 11:58 | P.PN ---
Subjective Progress Note Date: 07/06/22 The patient is a 76-year-old female who presented to the hospital with shortness of breath and lower extremity edema. She was found to be in acute exacerbation of congestive heart failure. Over the course of her admission she was diuresed with high doses of IV Lasix. Limited echocardiogram shows LV function of 50%. RV enlargement with severe right ventricular hypertrophy. RVSP 72 mmHg She states her breathing today is better. She states she was avoiding at least 3 times overnight, however only once this morning with her IV dose of Lasix. No chest pain or chest pressure. GENERAL: Well-appearing, well-nourished and in no acute distress. NECK: Supple without JVD or thyromegaly. LUNGS: Breath sounds diminished to auscultation bilaterally. Respiration equal. Mildly labored No wheezes, rales or rhonchi. HEART: Regular rate and rhythm without murmurs, rubs or gallops. S1 and S2 heard. EXTREMITIES: Normal range of motion, mild edema. No clubbing or cyanosis. Peripheral pulses intact and strong. TELEMETRY: Sinus rhythm overnight IMPRESSION: Acute on chronic diastolic heart failure Acute cellulitis bilateral lower extremities Hypertension Hyperlipidemia Hypothyroidism Acute kidney injury Chronic kidney disease stage IV PLAN: Transitioned to oral Lasix Consider adding Aldactone tomorrow Strict I's and O's Continue electrolyte monitoring Further recommendations. Based on clinical course I am dictating on behalf of Dr Celestino Liang's history/physical and assessment/plan. Objective - Vital Signs Vital signs: Vital Signs Temp 96.7 F L 07/06/22 07:33 Pulse 57 L 07/06/22 07:33 Resp 22 07/06/22 07:33 BP 105/61 07/06/22 09:07 Pulse Ox 91 L 07/06/22 09:37 FiO2 Intake & Output 07/05/22 07/06/22 07/06/22 18:59 06:59 18:59 Intake Total 350 20 370 Output Total 400 600 Balance -50 -580 370 Weight 62.9 kg Intake: IV 20 20 10 Invasive Line 1 20 20 10 Oral 330 360 Output: Urine 400 600 Other: Voiding Method Toilet Toilet Toilet Bedside Commode Bedside Commode Bedside Commode # Voids 1 # Bowel Movements 1 1 - Labs CBC & Chem 7: 07/06/22 07:22 07/06/22 07:22 Labs: Abnormal Lab Results - Last 24 Hours (Table) 07/06/22 07/06/22 Range/Units 07:22 07:22 MCHC 30.9 L (31.0-37.0) g/dL RDW 19.5 H (11.5-15.5) % Plt Count 149 L (150-450) k/uL Carbon Dioxide 21 L (22-30) mmol/L BUN 74 H (7-17) mg/dL Creatinine 2.65 H (0.52-1.04) mg/dL Glucose 108 H (74-99) mg/dL Microbiology - Last 24 Hours (Table) 07/03/22 18:05 Blood Culture - Preliminary Blood 07/03/22 18:21 Blood Culture - Preliminary Blood
[2022-07-06] MEDS: FUROSEMIDE 80 MG TAB PO SCH (15:22)
--- NOTE | 2022-07-06 17:00 | P.PN ---
Subjective Progress Note Date: 07/06/22 76 show female DF today. Patient Dese for evaluation regards to multiple complaints significant shortness of breath hypoxia here in the emergency department oxygen in the low to mid 80s despite supportive supplemental oxygen. Patient also complaining of significant lower extremity swelling and edema. No current chest pain, likely more significantly swollen than normal with significant redness of the left lower extremity. No change in medications or other complaint. EKG sinus bradycardia at 50 bpm Chest x-ray: Cardiomegaly. Small posterior right and minimal left pleural effusions. Some minimal subsegmental atelectasis left base may represent mild subsegmental atelectasis at the right base. WBC 8.6, hemoglobin 14.3, platelet count 165. Sodium 135, potassium 4.8, BUN 77 creatinine 2.99 patient presented with a BUN is 76 and creatinine of 3.03. Troponin 0.125, 0.105, 0.116. Lactic acid 2.5. Phosphorus 5.6, magnesium 2.6, total bilirubin 1. or otherwise liver function tests are normal. Home cardiac medications: Amlodipine 7.5 mg daily, aspirin 81 mg daily, atorvastatin 10 mg at bedtime, Lasix 20 mg every 2 days as needed, Lopressor 25 mg twice daily, levothyroxine 100 g daily Echocardiogram performed 04/2022 revealed a difficult study, EF 50%, aortic sclerosis, mild mitral and moderate tricuspid insufficiency. 24 hour interval change 07/06/2022 Patient is seen and evaluated in room at bedside; reports feeling better today; denies any complaint of chest shortness of breath Over the course of her admission she was diuresed with high doses of IV Lasix. Limited echocardiogram shows LV function of 50%. RV enlargement with severe right ventricular hypertrophy. RVSP 72 mmHg -- Cardiology on board and recommending to transition to oral Lasix with plans to add Aldactone tomorrow if patient able to tolerate -- Continue to monitor strict JERRY's, daily weights, low salt and fluid restricted diet - Patient has been evaluated by ID for lower extremity cellulitis; has been/from IV Rocephin to sepsis or 2 g IV every 12 hours; we will continue to monitor CBC, CRP and pro-calcitonin Objective - Vital Signs Vital signs: Vital Signs Temp 96.7 F L 07/06/22 07:33 Pulse 55 L 07/06/22 12:00 Resp 22 07/06/22 12:00 BP 93/57 07/06/22 12:00 Pulse Ox 92 L 07/06/22 12:00 FiO2 Intake & Output 07/05/22 07/06/22 07/06/22 18:59 06:59 18:59 Intake Total 350 20 430 Output Total 400 600 Balance -50 -580 430 Weight 62.9 kg Intake: IV 20 20 20 Invasive Line 1 20 20 20 Intake, IV Titration 50 Amount ceFAZolin 2 gm In Sodium 50 Chloride 0.9% 50 ml @ 100 mls/hr IVPB Q12HR [facility] Rx #:[id number] Oral 330 360 Output: Urine 400 600 Other: Voiding Method Toilet Toilet Toilet Bedside Commode Bedside Commode Bedside Commode # Voids 1 # Bowel Movements 1 1 1 - Exam Gen: This is a frail-appearing 76-year-old female. She is resting on the ER stretcher head of the bed is up 90 she appears to be comfortable at rest. VS: reviewed HEENT: Head is atraumatic, normocephalic. Pupils equal, round. Sclerae is anicteric. NECK: Supple. + JVD. LUNGS: Crackles at bilateral bases. No intercostal retractions. HEART: Regular rate and rhythm. No murmur. ABDOMEN: Soft No tenderness. EXTREMITIES: 23 plus edema to the bilateral lower extremities with erythema. NEUROLOGICAL: Patient is awake, alert and oriented x3. - Labs CBC & Chem 7: 07/06/22 07:22 07/06/22 07:22 Labs: Abnormal Lab Results - Last 24 Hours (Table) 07/06/22 07/06/22 Range/Units 07:22 07:22 MCHC 30.9 L (31.0-37.0) g/dL RDW 19.5 H (11.5-15.5) % Plt Count 149 L (150-450) k/uL Carbon Dioxide 21 L (22-30) mmol/L BUN 74 H (7-17) mg/dL Creatinine 2.65 H (0.52-1.04) mg/dL Glucose 108 H (74-99) mg/dL Microbiology - Last 24 Hours (Table) 07/03/22 18:05 Blood Culture - Preliminary Blood 07/03/22 18:21 Blood Culture - Preliminary Blood Assessment and Plan Assessment: Acute on chronic diastolic heart failure Acute cellulitis bilateral lower extremities Hypertension Hyperlipidemia Hypothyroidism Acute kidney injury Chronic kidney disease stage IV Plan: Start patient on Lasix 40 mg IV daily Resume patient's home cardiac medications Obtain limited echocardiogram Monitor I&O, daily weights, electrolytes and renal function -- Patient has been placed on IV Rocephin for cellulitis bilateral lower extremities; blood cultures and ordered and pending - We will continue with current home medication therapy - Consult ID
--- NOTE | 2022-07-06 20:38 | P.CONS ---
History of Present Illness - Reason for Consult Consult date: 07/06/22 - History of Present Illness Patient is a 76-year-old female with a past medical history significant for hypertension hyperlipidemia chronic renal insufficiency presenting to the hospital 07/03/2022 for evaluation of increasing shortness of breath symptom has been going on for last few days patient denies having any chest pain or cough did have evidence of increasing bilateral lower extremity swelling along with the redness patient did have some dull aching pain 3-4 out of 10 no radiation no obvious open wound or any drainage on presentation to the hospital patient was afebrile and no fever has been recorded subsequently patient was hypoxic requiring supplemental oxygen currently on 13 L high flow oxygen patient did have a normal white count creatinine was mildly elevated troponins was mildly elevated, patient was started on Rocephin infectious disease was consulted for further management of antibiotic therapy Past Medical History Past Medical History: Cancer, GERD/Reflux, Hyperlipidemia, Hypertension, Renal Disease, Thyroid Disorder Additional Past Medical History / Comment(s): stage 4 kidney disease-has not needed dialysis yet 2 point away of stage 3, still has urine production, anemia, HIGH URIC ACID LEVELS. HX CANCEROUS POLYP BURST IN SMALL INTESTINE 2010-being tx. w/chemo, skin cancer scalp July 2017 History of Any Multi-Drug Resistant Organisms: None Reported Past Surgical History: Bowel Resection, Orthopedic Surgery, Tonsillectomy Additional Past Surgical History / Comment(s): LAPARATOMY, PARATHYROID SURGERY, ORIF LEFT ANKLE., biopsy of scalp 07/27,AV fistula left arm,peritoneal dialysis attempt Past Anesthesia/Blood Transfusion Reactions: No Reported Reaction Past Psychological History: No Psychological Hx Reported Smoking Status: Never smoker Past Alcohol Use History: None Reported Past Drug Use History: None Reported - Past Family History Mother Family Medical History: Cancer, Coronary Artery Disease (CAD) Father Family Medical History: Coronary Artery Disease (CAD) Brother(s) Family Medical History: Coronary Artery Disease (CAD) Medications and Allergies Home Medications Medication Instructions Recorded Confirmed Type Atorvastatin [Lipitor] 10 mg PO HS 09/11/14 07/03/22 History allopurinoL [Zyloprim] 100 mg PO BID 01/17/15 07/03/22 History Ferrous Sulfate [Iron (65 MG 325 mg PO BID 03/03/18 07/03/22 History Elemental)] Folic Acid 0.8 mg PO DAILY 03/03/18 07/03/22 History Magnesium 400 mg PO HS 03/03/18 07/03/22 History Cholecalciferol [Vitamin D3 (25 25 mcg PO DAILY 06/13/20 07/03/22 History Mcg = 1000 Iu)] Famotidine 20 mg PO HS 06/13/20 07/03/22 History Furosemide [Lasix] 20 mg PO Q2D PRN 04/21/22 07/03/22 History amLODIPine [Norvasc] 7.5 mg PO DAILY 04/21/22 07/03/22 History calcitrioL [Calcitriol] 0.25 mcg PO MOWEFR 04/21/22 07/03/22 History Aspirin 81 mg PO DAILY #30 tab 04/24/22 07/03/22 Rx Levothyroxine Sodium [Synthroid] 100 mcg PO AC-[id number] 07/03/22 07/03/22 History Metoprolol Tartrate [Lopressor] 25 mg PO BID 07/03/22 07/03/22 History Allergies Allergy/AdvReac Type Severity Reaction Status Date / Time No Known Allergies Allergy Verified 07/03/22 17:31 Physical Exam Vitals: Vital Signs Temp Pulse Resp BP Pulse Ox 07/06/22 09:37 91 L 07/06/22 09:07 105/61 07/06/22 07:33 96.7 F L 57 L 22 98/57 88 L 07/06/22 06:25 93 L 07/06/22 04:02 90 L 07/06/22 04:00 97.9 F 52 L 21 109/62 87 L 07/05/22 23:57 97.9 F 58 L 19 117/70 90 L 07/05/22 20:00 97.9 F 59 L 19 110/66 90 L 07/05/22 15:13 55 L 24 98/62 90 L 07/05/22 11:06 97.4 F L 57 L 22 106/59 93 L Intake and Output 07/05/22 07/06/22 07/06/22 22:59 06:59 14:59 Intake Total 120 10 370 Output Total 500 300 Balance -380 -290 370 Intake: IV 10 10 10 Invasive Line 1 10 10 10 Oral 110 360 Output: Urine 500 300 Other: Voiding Method Toilet Toilet Toilet Bedside Commode Bedside Commode Bedside Commode # Voids 1 # Bowel Movements 1 Weight 62.9 kg Results CBC & Chem 7: 07/06/22 07:22 07/06/22 07:22 Labs: Abnormal Lab Results - Last 24 Hours (Table) 07/06/22 07/06/22 Range/Units 07:22 07:22 MCHC 30.9 L (31.0-37.0) g/dL RDW 19.5 H (11.5-15.5) % Plt Count 149 L (150-450) k/uL Carbon Dioxide 21 L (22-30) mmol/L BUN 74 H (7-17) mg/dL Creatinine 2.65 H (0.52-1.04) mg/dL Glucose 108 H (74-99) mg/dL Microbiology - Last 24 Hours (Table) 07/03/22 18:05 Blood Culture - Preliminary Blood 07/03/22 18:21 Blood Culture - Preliminary Blood Assessment and Plan Plan: 1patient with bilateral lower extremity cellulitis in this patient admitted to the hospital with the fluid overload did have diffuse swelling to bilateral lower extremity likely from gram-positive skin shailesh such as strep, patient with renal insufficiency high risk of nephrotoxicity 2-marked area of the redness 3-apply Jimbo wrap from just above the toe to below the knee 4-discontinue Rocephin 5-start empiric cefazolin 2 g every 12 dose adjusted to kidney function We will follow on clinical condition and cultures to further adjust medication if needed Thank you for this consultation we will follow the patient along with you Time with Patient: Greater than 30
[2022-07-06] MEDS: MAGNESIUM OXIDE 400 MG TAB PO SCH (20:48)
[2022-07-06] MEDS: FAMOTIDINE 20 MG TAB PO SCH (20:48)
[2022-07-06] MEDS: ATORVASTATIN 10 MG TAB PO SCH (20:48)
[2022-07-07] MEDS: LEVOTHYROXINE 100 MCG TAB PO SCH (06:21)
[2022-07-07] MEDS: FERROUS SULFATE 325 MG TAB PO SCH ×2 (08:38→20:16)
[2022-07-07] MEDS: FOLIC ACID 1 MG TAB PO SCH (08:38)
[2022-07-07] MEDS: ASPIRIN 81 MG PO SCH (08:38)
[2022-07-07] MEDS: CHOLECALCIFEROL 25 MCG (1000 IU) TABLET PO SCH (08:38)
[2022-07-07] MEDS: allopurinoL 100 MG TAB PO SCH ×2 (08:38→20:16)
[2022-07-07] MEDS: FUROSEMIDE 80 MG TAB PO SCH (08:38)
[2022-07-07] MEDS: METOPROLOL TARTRATE 25 MG TAB PO SCH ×2 (08:39→20:16)
--- NOTE | 2022-07-07 09:17 | P.PN ---
Subjective Progress Note Date: 07/07/22 Principal diagnosis: This is a 76-year-old female seen in consultation because of acute kidney injury secondary to congestive heart failure cardiorenal syndrome as well as chronic kidney disease stage IV secondary to nephrosclerosis came in because of shortness of breath. She was started on Lasix 80 IV every 12 hours with urine output only in the 1000 range. Today she was started on Lasix 80 mg by mouth twice a day and this may not be adequate. I'll change it to torsemide 100 mg today and see if we sufficient Echocardiogram shows ejection fraction about 50%, right ventricular hypertrophy with likely pulmonary hypertension. She continues to have shortness of breath but improved she has 3+ edema with some significant erythema of her left leg has no pain. Her appetite is fair no dizziness. Objective - Vital Signs Vital signs: Vital Signs Temp 97.1 F L 07/07/22 03:51 Pulse 54 L 07/07/22 03:51 Resp 20 07/07/22 03:51 BP 116/57 07/07/22 03:51 Pulse Ox 92 L 07/07/22 08:33 FiO2 Intake & Output 07/06/22 07/07/22 07/07/22 18:59 06:59 18:59 Intake Total 790 360 Output Total 1250 Balance 790 -1250 360 Weight 62.8 kg Intake: IV 20 Invasive Line 1 20 Intake, IV Titration 50 Amount ceFAZolin 2 gm In Sodium 50 Chloride 0.9% 50 ml @ 100 mls/hr IVPB Q12HR [facility] Rx #:[id number] Oral 720 360 Output: Urine 1250 Other: Voiding Method Toilet Bedside Commode Bedside Commode # Voids 1 # Bowel Movements 1 On oxygen nasal cannula is slightly short of breath HEENT exam no JVP neck is supple no facial asymmetry Heart sounds unremarkable. Lungs are clear to auscultation fair air entry Abdomen soft nontender Extremity exam was 3+ edema with some redness Neurologically awake alert oriented - Labs CBC & Chem 7: 07/06/22 07:22 07/06/22 07:22 Labs: Microbiology - Last 24 Hours (Table) 07/03/22 18:05 Blood Culture - Preliminary Blood 07/03/22 18:21 Blood Culture - Preliminary Blood Assessment and Plan Assessment: Impression 1. Chronic kidney disease stage IV secondary to nephrosclerosis stage IV, baseline creatinine 2.3 on 04/24/2022, 1.97 on 04/21/2022 2. Admitted with acute kidney injury with creatinine of 3.03 on admission secondary to volume overload and improved to 2.65 yesterday morning, on Lasix 80 every 12 hours. Change to by mouth Lasix this morning but because her diuretic response was in adequate on a 80 mg intravenous Lasix I will change it to torsemide 100 mg a day as well as add Zaroxolyn 5 mg a day. 3. Significant edema and shortness of breath 4. Mild degree acidosis, etiology is acute kidney injury and chronic kidney disease Recommendation 1. Will change to by mouth Lasix that was started this morning to torsemide 100 mg daily as well as Zaroxolyn 5 mg a day 2. Pending labs and watch blood pressure
[2022-07-07] MEDS: metOLazone 5 MG TAB PO SCH (11:04)
[2022-07-07] MEDS: TORSEMIDE 20 MG TAB PO SCH (11:04)
--- NOTE | 2022-07-07 11:58 | P.PN ---
Subjective Progress Note Date: 07/07/22 The patient is a 76-year-old female who presented to the hospital with shortness of breath and lower extremity edema. She was found to be in acute exacerbation of congestive heart failure. Over the course of her admission she was diuresed with high doses of IV Lasix. Limited echocardiogram shows LV function of 50%. RV enlargement with severe right ventricular hypertrophy. RVSP 72 mmHg She states her breathing continues to gradually get better. Yesterday she was transitioned to oral diuretics. No chest pain or chest pressure. GENERAL: Well-appearing, well-nourished and in no acute distress. NECK: Supple without JVD or thyromegaly. LUNGS: Breath sounds diminished to auscultation bilaterally. Respiration equal. Mildly labored. No wheezes, rales or rhonchi. HEART: Regular rate and rhythm without murmurs, rubs or gallops. S1 and S2 heard. EXTREMITIES: Normal range of motion, mild edema. No clubbing or cyanosis. Peripheral pulses intact and strong. TELEMETRY: Sinus rhythm overnight IMPRESSION: Acute on chronic diastolic heart failure Acute cellulitis bilateral lower extremities Hypertension Hyperlipidemia Hypothyroidism Acute kidney injury Chronic kidney disease stage IV PLAN: Continue current medication regimen Strict I's and O's Continue electrolyte monitoring Further recommendations to be based on clinical course I am dictating on behalf of Dr Celestino Liang's history/physical and assessment/plan. Objective - Vital Signs Vital signs: Vital Signs Temp 97.8 F 07/07/22 11:53 Pulse 57 L 07/07/22 11:53 Resp 20 07/07/22 11:53 BP 103/63 07/07/22 11:53 Pulse Ox 91 L 07/07/22 11:53 FiO2 Intake & Output 07/06/22 07/07/22 07/07/22 18:59 06:59 18:59 Intake Total 790 360 Output Total 1250 Balance 790 -1250 360 Weight 62.8 kg Intake: IV 20 Invasive Line 1 20 Intake, IV Titration 50 Amount ceFAZolin 2 gm In Sodium 50 Chloride 0.9% 50 ml @ 100 mls/hr IVPB Q12HR [facility] Rx #:[id number] Oral 720 360 Output: Urine 1250 Other: Voiding Method Toilet Bedside Commode Bedside Commode Bedside Commode # Voids 1 # Bowel Movements 1 - Labs CBC & Chem 7: 07/06/22 07:22 07/06/22 07:22 Labs: Microbiology - Last 24 Hours (Table) 07/03/22 18:21 Blood Culture - Preliminary Blood 07/03/22 18:05 Blood Culture - Preliminary Blood
[2022-07-07 12:22] LABS: Calcium 8.6 mg/dL (8.4-10.2)
--- NOTE | 2022-07-07 13:13 | P.PN ---
Subjective Progress Note Date: 07/07/22 Principal diagnosis: Bilateral lower extremity cellulitis Patient is a 76-year-old female with a past medical history significant for hypertension hyperlipidemia chronic renal insufficiency presenting to the hospital 07/03/2022 for evaluation of increasing shortness of b reath, patient was have diffuse swelling and erythema to bilateral extremities concerning for cellulitis. On today's evaluation had that is 07/07/2022, the patient denies having any fever or chills, the patient is breathing slightly comfortably no chest pain some discomfort lower extremity however swelling redness is slightly decreased denies having any drainage no vomiting or diarrhea Objective - Vital Signs Vital signs: Vital Signs Temp 97.8 F 07/07/22 11:53 Pulse 57 L 07/07/22 11:53 Resp 20 07/07/22 11:53 BP 103/63 07/07/22 11:53 Pulse Ox 91 L 07/07/22 11:53 FiO2 Intake & Output 07/06/22 07/07/22 07/07/22 18:59 06:59 18:59 Intake Total 790 600 Output Total 1250 200 Balance 790 -1250 400 Weight 62.8 kg Intake: IV 20 Invasive Line 1 20 Intake, IV Titration 50 Amount ceFAZolin 2 gm In Sodium 50 Chloride 0.9% 50 ml @ 100 mls/hr IVPB Q12HR [facility] Rx #:[id number] Oral 720 600 Output: Urine 1250 200 Other: Voiding Method Toilet Bedside Commode Bedside Commode Bedside Commode # Voids 1 # Bowel Movements 1 - Exam GENERAL DESCRIPTION: An elderly female up in the chair in no distress RESPIRATORY SYSTEM: Unlabored breathing , decreased breath sounds at bases HEART: S1 S2 regular rate and rhythm , ABDOMEN: Soft , no tenderness EXTREMITIES: Diffuse swelling to bilateral lower extremity erythema has slightly decreased no drainage - Labs CBC & Chem 7: 07/06/22 07:22 07/07/22 11:35 Labs: Abnormal Lab Results - Last 24 Hours (Table) 07/07/22 Range/Units 11:35 BUN 73 H (7-17) mg/dL Creatinine 2.44 H (0.52-1.04) mg/dL Glucose 188 H (74-99) mg/dL Microbiology - Last 24 Hours (Table) 07/03/22 18:21 Blood Culture - Preliminary Blood 07/03/22 18:05 Blood Culture - Preliminary Blood Assessment and Plan (1) Bilateral lower leg cellulitis Current Visit: Yes Status: Acute Code(s): L03.116 - CELLULITIS OF LEFT LOWER LIMB; L03.115 - CELLULITIS OF RIGHT LOWER LIMB SNOMED Code(s): 907488475 Plan: 1patient with bilateral lower extremity cellulitis in this patient admitted to the hospital with the fluid overload did have diffuse swelling to bilateral lower extremity likely from gram-positive skin shailesh such as strep, patient with renal insufficiency high risk of nephrotoxicity 2Patient to continue with Jimbo wrap from just above the toe to below the knee, to keep the swelling down 3patient to continue with cefazolin 2 g every 12 and monitor clinical course closely Time with Patient: Less than 30
--- NOTE | 2022-07-07 15:32 | P.PN ---
Subjective Progress Note Date: 07/07/22 Principal diagnosis: Acute on chronic diastolic CHF Acute cellulitis bilateral lower extremities Acute on chronic kidney disease 76 show female DF today. Patient Dese for evaluation regards to multiple complaints significant shortness of breath hypoxia here in the emergency department oxygen in the low to mid 80s despite supportive supplemental oxygen. Patient also complaining of significant lower extremity swelling and edema. No current chest pain, likely more significantly swollen than normal with significant redness of the left lower extremity. No change in medications or other complaint. EKG sinus bradycardia at 50 bpm Chest x-ray: Cardiomegaly. Small posterior right and minimal left pleural effusions. Some minimal subsegmental atelectasis left base may represent mild subsegmental atelectasis at the right base. WBC 8.6, hemoglobin 14.3, platelet count 165. Sodium 135, potassium 4.8, BUN 77 creatinine 2.99 patient presented with a BUN is 76 and creatinine of 3.03. Troponin 0.125, 0.105, 0.116. Lactic acid 2.5. Phosphorus 5.6, magnesium 2.6, total bilirubin 1. or otherwise liver function tests are normal. Home cardiac medications: Amlodipine 7.5 mg daily, aspirin 81 mg daily, atorvastatin 10 mg at bedtime, Lasix 20 mg every 2 days as needed, Lopressor 25 mg twice daily, levothyroxine 100 g daily Echocardiogram performed 04/2022 revealed a difficult study, EF 50%, aortic sclerosis, mild mitral and moderate tricuspid insufficiency. 24 hour interval change 07/07/2022 Patient is seen and evaluated in room at bedside; reports feeling better today; denies any complaint of chest shortness of breath Over the course of her admission she was diuresed with high doses of IV Lasix. Limited echocardiogram shows LV function of 50%. RV enlargement with severe right ventricular hypertrophy. RVSP 72 mmHg -- Cardiology on board and recommending to transition to oral Lasix with plans to add Aldactone tomorrow if patient able to tolerate -- Continue to monitor strict JERRY's, daily weights, low salt and fluid restricted diet patient with bilateral lower extremity cellulitis in this patient admitted to the hospital with the fluid overload did have diffuse swelling to bilateral lower extremity likely from gram-positive skin shailesh such as strep, patient with renal insufficiency high risk of nephrotoxicity Patient to continue with Jimbo wrap from just above the toe to below the knee, to keep the swelling down patient to continue with cefazolin 2 g every 12 and monitor clinical course closely Objective - Vital Signs Vital signs: Vital Signs Temp 97.1 F L 07/07/22 03:51 Pulse 54 L 07/07/22 03:51 Resp 20 07/07/22 03:51 BP 116/57 07/07/22 03:51 Pulse Ox 92 L 07/07/22 08:33 FiO2 Intake & Output 07/06/22 07/07/22 07/07/22 18:59 06:59 18:59 Intake Total 790 360 Output Total 1250 Balance 790 -1250 360 Weight 62.8 kg Intake: IV 20 Invasive Line 1 20 Intake, IV Titration 50 Amount ceFAZolin 2 gm In Sodium 50 Chloride 0.9% 50 ml @ 100 mls/hr IVPB Q12HR [facility] Rx #:[id number] Oral 720 360 Output: Urine 1250 Other: Voiding Method Toilet Bedside Commode Bedside Commode # Voids 1 # Bowel Movements 1 - Exam Gen: This is a frail-appearing 76-year-old female. She is resting on the ER stretcher head of the bed is up 90 she appears to be comfortable at rest. VS: reviewed HEENT: Head is atraumatic, normocephalic. Pupils equal, round. Sclerae is anicteric. NECK: Supple. + JVD. LUNGS: Crackles at bilateral bases. No intercostal retractions. HEART: Regular rate and rhythm. No murmur. ABDOMEN: Soft No tenderness. EXTREMITIES: 23 plus edema to the bilateral lower extremities with erythema. NEUROLOGICAL: Patient is awake, alert and oriented x3. - Labs CBC & Chem 7: 07/06/22 07:22 07/07/22 11:35 Labs: Microbiology - Last 24 Hours (Table) 07/03/22 18:05 Blood Culture - Preliminary Blood 07/03/22 18:21 Blood Culture - Preliminary Blood Assessment and Plan Assessment: Acute on chronic diastolic heart failure Acute cellulitis bilateral lower extremities Hypertension Hyperlipidemia Hypothyroidism Acute kidney injury Chronic kidney disease stage IV Plan: Start patient on Lasix 40 mg IV daily Resume patient's home cardiac medications Obtain limited echocardiogram Monitor I&O, daily weights, electrolytes and renal function -- Patient has been placed on IV Rocephin for cellulitis bilateral lower extremities; blood cultures and ordered and pending - We will continue with current home medication therapy - Consult ID
[2022-07-07] MEDS: MAGNESIUM OXIDE 400 MG TAB PO SCH (20:16)
[2022-07-07] MEDS: ATORVASTATIN 10 MG TAB PO SCH (20:16)
[2022-07-07] MEDS: FAMOTIDINE 20 MG TAB PO SCH (20:16)
[2022-07-08] MEDS: LEVOTHYROXINE 100 MCG TAB PO SCH (06:08)
[2022-07-08] MEDS: metOLazone 5 MG TAB PO SCH (08:24)
[2022-07-08] MEDS: METOPROLOL TARTRATE 25 MG TAB PO SCH ×2 (08:24→21:14)
[2022-07-08] MEDS: FERROUS SULFATE 325 MG TAB PO SCH ×2 (08:24→21:14)
[2022-07-08] MEDS: FOLIC ACID 1 MG TAB PO SCH (08:24)
[2022-07-08] MEDS: TORSEMIDE 20 MG TAB PO SCH (08:24)
[2022-07-08] MEDS: CHOLECALCIFEROL 25 MCG (1000 IU) TABLET PO SCH (08:24)
[2022-07-08] MEDS: allopurinoL 100 MG TAB PO SCH ×2 (08:24→21:14)
[2022-07-08] MEDS: ASPIRIN 81 MG PO SCH (08:24)
--- NOTE | 2022-07-08 10:49 | P.PN ---
Subjective Patient is seen in follow-up for acute kidney injury on chronic kidney disease. Renal function improving. Maintained on oral torsemide. Has external catheter. Nonoliguric. Currently on high flow nasal cannula. No vomiting or diarrhea. Denies chest pain or shortness of breath. Vital signs are stable. General: No acute distress. HEENT: Head exam is unremarkable. On high flow cannula. LUNGS: No audible rhonchi or wheezes. HEART: Rate and Rhythm are regular. ABDOMEN: Soft, nontender. EXTREMITITES: 2+ edema. Lower extremities wrapped. Left upper extremity AV fistula thrill noted. Objective - Vital Signs Vital signs: Vital Signs Temp 96.5 F L 07/08/22 08:00 Pulse 55 L 07/08/22 08:00 Resp 22 07/08/22 08:10 BP 96/61 07/08/22 08:00 Pulse Ox 92 L 07/08/22 08:10 FiO2 Intake & Output 07/07/22 07/08/22 07/08/22 18:59 06:59 18:59 Intake Total 1318 240 Output Total 1100 150 400 Balance 218 -150 -160 Weight 63.5 kg Intake: Oral 1318 240 Output: Urine 1100 150 400 Other: Voiding Method Bedside Commode Bedside Commode External Catheter # Voids 2 - Labs CBC & Chem 7: 07/06/22 07:22 07/07/22 11:35 Labs: Abnormal Lab Results - Last 24 Hours (Table) 07/07/22 Range/Units 11:35 BUN 73 H (7-17) mg/dL Creatinine 2.44 H (0.52-1.04) mg/dL Glucose 188 H (74-99) mg/dL Microbiology - Last 24 Hours (Table) 07/03/22 18:05 Blood Culture - Preliminary Blood 07/03/22 18:21 Blood Culture - Preliminary Blood Assessment and Plan Plan: Assessment: 1. Acute kidney injury secondary to ATN secondary to cardiorenal syndrome. Renal function gradually improving. Creatinine 2.44 today. 2. Chronic kidney disease stage IV with baseline creatinine near 2. Etiology is nephrosclerosis and cardiorenal syndrome. 3. Volume overload. 4. Severe pulmonary hypertension. 5. Chronic kidney disease mineral bone disease maintained on calcitriol. 6. Metabolic acidosis secondary to acute kidney injury/chronic kidney disease. Better. Plan: Maintain oral torsemide and Zaroxolyn. Low-salt diet and 1500 mL fluid restriction. Continue to monitor renal function and urine output. Patient has a left upper extremity AV fistula that can be used for renal replacement therapy if needed. Continue to assess on a daily basis.
--- NOTE | 2022-07-08 12:55 | P.PN ---
Subjective Progress Note Date: 07/08/22 Principal diagnosis: Bilateral lower extremity cellulitis Patient is a 76-year-old female with a past medical history significant for hypertension hyperlipidemia chronic renal insufficiency presenting to the hospital 07/03/2022 for evaluation of increasing shortness of b reath, patient was have diffuse swelling and erythema to bilateral extremities concerning for cellulitis. On today's evaluation had that is 07/08/2022, the patient remains to be afebrile, the patient mentioned did have a problem with breathing last night however is breathing slightly comfortably this morning, no chest pain some discomfort lower extremity however swelling redness is slightly decreased denies having any drainage no vomiting or diarrhea Objective - Vital Signs Vital signs: Vital Signs Temp 96.5 F L 07/08/22 08:00 Pulse 55 L 07/08/22 08:00 Resp 22 07/08/22 08:10 BP 96/61 07/08/22 08:00 Pulse Ox 92 L 07/08/22 08:10 FiO2 Intake & Output 07/07/22 07/08/22 07/08/22 18:59 06:59 18:59 Intake Total 1318 240 Output Total 1100 150 400 Balance 218 -150 -160 Weight 63.5 kg Intake: Oral 1318 240 Output: Urine 1100 150 400 Other: Voiding Method Bedside Commode Bedside Commode External Catheter # Voids 2 - Exam GENERAL DESCRIPTION: An elderly female up in the chair in no distress RESPIRATORY SYSTEM: Unlabored breathing , decreased breath sounds at bases HEART: S1 S2 regular rate and rhythm , ABDOMEN: Soft , no tenderness EXTREMITIES: Diffuse swelling to bilateral lower extremity erythema has slightly decreased no drainage - Labs CBC & Chem 7: 07/06/22 07:22 07/07/22 11:35 Labs: Abnormal Lab Results - Last 24 Hours (Table) 07/07/22 Range/Units 11:35 BUN 73 H (7-17) mg/dL Creatinine 2.44 H (0.52-1.04) mg/dL Glucose 188 H (74-99) mg/dL Microbiology - Last 24 Hours (Table) 07/03/22 18:05 Blood Culture - Preliminary Blood 07/03/22 18:21 Blood Culture - Preliminary Blood Assessment and Plan (1) Bilateral lower leg cellulitis Current Visit: Yes Status: Acute Code(s): L03.116 - CELLULITIS OF LEFT LOWER LIMB; L03.115 - CELLULITIS OF RIGHT LOWER LIMB SNOMED Code(s): 816956855 Plan: 1patient with bilateral lower extremity cellulitis in this patient admitted to the hospital with the fluid overload did have diffuse swelling to bilateral lower extremity likely from gram-positive skin shailesh such as strep, patient with renal insufficiency high risk of nephrotoxicity 2Patient to continue with Jimbo wrap from just above the toe to below the knee, to keep the swelling down 3patient did have a minimal clinical improvement as for his cellulitis and will continue with cefazolin and monitor clinical course closely Time with Patient: Less than 30
[2022-07-08 14:10] VITALS: BMI 27.3
--- NOTE | 2022-07-08 14:19 | P.PN ---
Subjective HISTORY OF PRESENT ILLNESS: Patient examined this morning at the bedside. Patient is admitted to the hospital secondary to CHF exacerbation. Patient continues to report shortness of breath. She is on 12 L high flow nasal cannula. She denies chest pain or pressure. She is receiving Demadex 80 mg daily along with Zaroxolyn 5 mg daily. She is being followed by nephrology. Patient's creatinine yesterday was 2.44 which is improving from admission at 3.03. Vital signs are stable. PHYSICAL EXAM: VITAL SIGNS: Reviewed. GENERAL: Well-developed in no acute distress. NECK: Supple. No JVD or thyromegaly LUNGS: Respirations even and unlabored. Lungs diminished bilaterally HEART: Regular rate and rhythm. S1 and S2 heard. EXTREMITIES: Normal range of motion. No clubbing or cyanosis. Peripheral pulses intact. 2+ bilateral lower extremity edema with erythema noted. Jimbo wraps noted to bilateral lower extremities. ASSESSMENT: Shortness of breath Acute exacerbation of congestive heart failure with preserved EF, 50% Bilateral lower extremity cellulitis Acute hypoxic respiratory failure requiring supplemental oxygen Hypertension Hyperlipidemia Acute kidney injury Chronic kidney disease PLAN: Continue current cardiac medications Continue oral diuretics per nephrology Continue to monitor kidney function Further recommendations pending patient's course Nurse practitioner note has been reviewed by physician. Signing provider agrees with the documented findings, assessment, and plan of care. Objective - Vital Signs Vital signs: Vital Signs Temp 96.4 F L 07/08/22 12:00 Pulse 53 L 07/08/22 12:00 Resp 20 07/08/22 13:31 BP 103/60 07/08/22 12:00 Pulse Ox 95 07/08/22 13:31 FiO2 Intake & Output 07/07/22 07/08/22 07/08/22 18:59 06:59 18:59 Intake Total 1318 600 Output Total 1100 150 750 Balance 218 -150 -150 Weight 63.5 kg 63.5 kg Intake: Oral 1318 600 Output: Urine 1100 150 750 Other: Voiding Method Bedside Commode Bedside Commode External Catheter # Voids 2 - Labs CBC & Chem 7: 07/06/22 07:22 07/07/22 11:35 Labs: Microbiology - Last 24 Hours (Table) 07/03/22 18:05 Blood Culture - Preliminary Blood 07/03/22 18:21 Blood Culture - Preliminary Blood
[2022-07-08] MEDS: MAGNESIUM OXIDE 400 MG TAB PO SCH (21:14)
[2022-07-08] MEDS: FAMOTIDINE 20 MG TAB PO SCH (21:14)
[2022-07-08] MEDS: ATORVASTATIN 10 MG TAB PO SCH (21:14)
--- NOTE | 2022-07-08 22:25 | P.PN ---
Subjective 76 show female DF today. Patient Dese for evaluation regards to multiple complaints significant shortness of breath hypoxia here in the emergency d epartment oxygen in the low to mid 80s despite supportive supplemental oxygen. Patient also complaining of significant lower extremity swelling and edema. No current chest pain, likely more significantly swollen than normal with significant redness of the left lower extremity. No change in medications or other complaint. EKG sinus bradycardia at 50 bpm Chest x-ray: Cardiomegaly. Small posterior right and minimal left pleural effusions. Some minimal subsegmental atelectasis left base may represent mild subsegmental atelectasis at the right base. WBC 8.6, hemoglobin 14.3, platelet count 165. Sodium 135, potassium 4.8, BUN 77 creatinine 2.99 patient presented with a BUN is 76 and creatinine of 3.03. Troponin 0.125, 0.105, 0.116. Lactic acid 2.5. Phosphorus 5.6, magnesium 2.6, total bilirubin 1. or otherwise liver function tests are normal. Home cardiac medications: Amlodipine 7.5 mg daily, aspirin 81 mg daily, atorvastatin 10 mg at bedtime, Lasix 20 mg every 2 days as needed, Lopressor 25 mg twice daily, levothyroxine 100 g daily Echocardiogram performed 04/2022 revealed a difficult study, EF 50%, aortic sclerosis, mild mitral and moderate tricuspid insufficiency. 24 hour interval change 07/07/2022 Patient is seen and evaluated in room at bedside; reports feeling better today; denies any complaint of chest shortness of breath Over the course of her admission she was diuresed with high doses of IV Lasix. Limited echocardiogram shows LV function of 50%. RV enlargement with severe right ventricular hypertrophy. RVSP 72 mmHg -- Cardiology on board and recommending to transition to oral Lasix with plans to add Aldactone tomorrow if patient able to tolerate -- Continue to monitor strict JERRY's, daily weights, low salt and fluid restricted diet patient with bilateral lower extremity cellulitis in this patient admitted to the hospital with the fluid overload did have diffuse swelling to bilateral lower extremity likely from gram-positive skin shailesh such as strep, patient with renal insufficiency high risk of nephrotoxicity Patient to continue with Jimbo wrap from just above the toe to below the knee, to keep the swelling down patient to continue with cefazolin 2 g every 12 and monitor clinical course closely Resume the care of the patient on 07/08/2022 Patient is a pleasant 76 years old female was admitted with diastolic CHF and a cute hypoxic respiratory failure, her oxygen requirement went up significantly today to 15 L/m however through the day that came down to 12 L/m because of her significant hypoxia we consulted pulmonary, however clinically she looks not that bad, she is sitting up in bed and able to complicated with no difficulty talking due to hypoxia, she is mildly tachypneic with no use of accessory muscles. She is currently on Demadex as well as metolazone. She's continued on cefazolin for bilateral leg cellulitis, both legs with Jimbo wrap, they are slightly improved as per patient. We will keep monitoring Check chest x-ray in the morning Objective - Vital Signs Vital signs: Vital Signs Temp 96.4 F L 07/08/22 12:00 Pulse 53 L 07/08/22 12:00 Resp 20 07/08/22 13:31 BP 103/60 07/08/22 12:00 Pulse Ox 95 07/08/22 13:31 FiO2 Intake & Output 07/07/22 07/08/22 07/08/22 18:59 06:59 18:59 Intake Total 1318 600 Output Total 1100 150 750 Balance 218 -150 -150 Weight 63.5 kg Intake: Oral 1318 600 Output: Urine 1100 150 750 Other: Voiding Method Bedside Commode Bedside Commode External Catheter # Voids 2 - Exam GENERAL: The patient is alert and oriented x3, not in any acute distress. Well developed, well nourished. HEENT: Pupils are round and equally reacting to light. EOMI. No scleral icterus. No conjunctival pallor. Normocephalic, atraumatic. No pharyngeal erythema. No thyromegaly. CARDIOVASCULAR: S1 and S2 present. No murmurs, rubs, or gallops. -PULMONARY: Chest is clear to auscultation, no wheezing . Mild bilateral basal crackles. ABDOMEN: Soft, nontender, nondistended, normoactive bowel sounds. No palpable organomegaly. MUSCULOSKELETAL: No joint swelling or deformity. -EXTREMITIES: No cyanosis, clubbing, or pedal edema. Bilateral leg redness and swellin suspicious for cellulitis and fluid retention NEUROLOGICAL: Gross neurological examination did not reveal any focal deficits. SKIN: No rashes. no petechiae. - Labs CBC & Chem 7: 05/28/23 07:22 07/07/22 11:35 Labs: Microbiology - Last 24 Hours (Table) 07/03/22 18:05 Blood Culture - Preliminary Blood 07/03/22 18:21 Blood Culture - Preliminary Blood Assessment and Plan Assessment: Acute on chronic diastolic heart failure Acute cellulitis bilateral lower extremities Hypertension Hyperlipidemia Hypothyroidism Acute kidney injury Chronic kidney disease stage IV Plan: Continue with Imitrex and torsemide Continue with cefazolin Continue with oxygen and titrated down slowly Several consultants on the case including handstitching machine armhole feller, infectious disease and retail account executive We'll consult pulmonary services Labs and medication were reviewed.. Continue same treatment. Continue with symptomatic treatment. Resume home medication. Monitor labs and vitals. DVT and GI prophylaxis. Further recommendations as per clinical course of the patient DVT prophylaxis: Subcutaneous heparin GI Prophylaxis: Pepcid PT/OT: Pending Prognosis is guarded
[2022-07-08] MEDS: HEPARIN SODIUM,PORCINE/PF 5,000 UNIT/0.5 ML SYRINGE SQ SCH (23:01)
--- NOTE | 2022-07-09 01:31 | P.CNPUL ---
History of Present Illness Consult date: 07/09/22 Requesting physician: Bob Trivedi Reason for consult: dyspnea Chief complaint: Nancy breath and increased lower extremity swelling History of present illness: I am seeing this patient in new consultation today 07/09/2022 for acute hypoxic respiratory failure likely secondary to exacerbation of congestive heart failure. Patient is a 76-year-old white female with past medical history signif icant for recent admission for congestive heart failure back in April of this year, chronic kidney disease stage IV with left-sided fistula, hypertension, hyperlipidemia, hypothyroidism, metastatic squamous cell skin cancer status post chemotherapy. Denies any significant history of lung disease, and denies ever smoking. Patient presented to the emergency room back on July 03 with chief complaint of shortness of breath, significant lower extremity edema, and redness. Patient denies any fever, chills, cough, chest pain. She does state that she suffers for chronic lower extremity edema, and takes Lasix on an as- needed basis at home. She has been oxygen dependent on 4 L/m nasal cannula sin ce her recent hospital stay in April for exacerbation of congestive heart failure. Chest x-ray on arrival showed cardiomegaly, small right pleural effusion and trace left pleural, there was also some minimal subsegmental atelectasis bilaterally. She has been treated for heart failure over the last couple days. She is currently on Demadex and Zaroxolyn. Patient does still produce urine, and has a -780 mL fluid balance over last 24 hours. She is on a fluid restriction of 1500 ML's per 24 hours. She also has extensive bilateral lower extremity erythema which is outlined. Legs are wrapped with compression bandages. Suspected cellulitis is being treated with cefazolin. Patient is currently lying in bed, on 12 L high flow cannula, and not much distress. No repeat chest x-ray since admission. Echocardiogram this admission shows right ventricular dilation with severe pulmonary hypertension and RVSP of 72. Ejection fraction was estimated at 50%. Most recent CBC shows a WBC count 3.3, hemoglobin 14, hematocrit 45, platelets 149. Most recent BMP shows a sodium 138, potassium 4, chloride 103, serum CO2 22, BUN 73, creatinine 2.44, glucose 188. Troponins were also elevated on admission 0.125, 0.105, 0.116 respectively. No acute ischemic changes seen on ECG. NT proBNP was 47,500. Vital signs are stable. Review of Systems REVIEW OF SYSTEMS: CONSTITUTIONAL: Denies any recent significant weight loss or weight gain. EYES: Denies change in vision. EARS, NOSE, MOUTH, THROAT: Denies headaches, denies sore throat. CARDIOVASCULAR: Denies chest pain, palpitations or syncopal episodes. Admits orthopnea RESPIRATORY: See HPI GASTROINTESTINAL: Denies change in appetite, abdominal pain, nausea and vomiting, or diarrhea GENITOURINARY: Denies hematuria, denies infections. MUSKULOSKELETAL: Denies pain. admits increased lower extremity swelling INTEGUMENTARY: Denies rash, denies eczema. Admits lower extremity redness NEUROLOGICAL: Denies recent memory loss, no recent seizure activity. PSYCHIATRIC: Denies anxiety, denies depression. HEMATOLOGIC/LYMPHATIC: Denies anemia, denies enlarged lymph node Past Medical History Past Medical History: Cancer, GERD/Reflux, Hyperlipidemia, Hypertension, Renal Disease, Thyroid Disorder Additional Past Medical History / Comment(s): stage 4 kidney disease-has not needed dialysis yet 2 point away of stage 3, still has urine production, anemia, HIGH URIC ACID LEVELS. HX CANCEROUS POLYP BURST IN SMALL INTESTINE 2010-being tx. w/chemo, skin cancer scalp July 2017 History of Any Multi-Drug Resistant Organisms: None Reported Past Surgical History: Bowel Resection, Orthopedic Surgery, Tonsillectomy Additional Past Surgical History / Comment(s): LAPARATOMY, PARATHYROID SURGERY, ORIF LEFT ANKLE., biopsy of scalp 07/27,AV fistula left arm,peritoneal dialysis attempt Past Anesthesia/Blood Transfusion Reactions: No Reported Reaction Past Psychological History: No Psychological Hx Reported Smoking Status: Never smoker Past Alcohol Use History: None Reported Past Drug Use History: None Reported - Past Family History Mother Family Medical History: Cancer, Coronary Artery Disease (CAD) Father Family Medical History: Coronary Artery Disease (CAD) Brother(s) Family Medical History: Coronary Artery Disease (CAD) Medications and Allergies Home Medications Medication Instructions Recorded Confirmed Type Atorvastatin [Lipitor] 10 mg PO HS 09/11/14 07/03/22 History allopurinoL [Zyloprim] 100 mg PO BID 01/17/15 07/03/22 History Ferrous Sulfate [Iron (65 MG 325 mg PO BID 03/03/18 07/03/22 History Elemental)] Folic Acid 0.8 mg PO DAILY 03/03/18 07/03/22 History Magnesium 400 mg PO HS 03/03/18 07/03/22 History Cholecalciferol [Vitamin D3 (25 25 mcg PO DAILY 06/13/20 07/03/22 History Mcg = 1000 Iu)] Famotidine 20 mg PO HS 06/13/20 07/03/22 History Furosemide [Lasix] 20 mg PO Q2D PRN 04/21/22 07/03/22 History amLODIPine [Norvasc] 7.5 mg PO DAILY 04/21/22 07/03/22 History calcitrioL [Calcitriol] 0.25 mcg PO MOWEFR 04/21/22 07/03/22 History Aspirin 81 mg PO DAILY #30 tab 04/24/22 07/03/22 Rx Levothyroxine Sodium [Synthroid] 100 mcg PO AC-BRKFST 07/03/22 07/03/22 History Metoprolol Tartrate [Lopressor] 25 mg PO BID 07/03/22 07/03/22 History Allergies Allergy/AdvReac Type Severity Reaction Status Date / Time No Known Allergies Allergy Verified 07/03/22 17:31 Physical Exam Vitals: Vital Signs Temp Pulse Resp BP Pulse Ox 07/08/22 23:05 97.6 F 55 L 20 90/58 91 L 07/08/22 19:44 96.9 F L 58 L 106/64 91 L 07/08/22 16:00 96.7 F L 20 105/65 92 L 07/08/22 13:31 20 95 07/08/22 12:10 20 94 L 07/08/22 12:00 96.4 F L 53 L 20 103/60 95 07/08/22 08:10 22 92 L 07/08/22 08:00 96.5 F L 55 L 22 96/61 97 07/08/22 04:21 92 L 07/08/22 04:00 58 L 18 104/58 86 L 07/08/22 02:00 57 L 22 Intake and Output 07/08/22 07/08/22 07/09/22 14:59 22:59 06:59 Intake Total 600 120 50 Output Total 750 400 400 Balance -150 -280 -350 Intake: Intake, IV Titration 50 Amount ceFAZolin 2 gm In Sodium 50 Chloride 0.9% 50 ml @ 100 mls/hr IVPB Q12HR [facility] Rx #:[id number] Oral 600 120 Output: Urine 750 400 400 Other: Voiding Method External Catheter External Catheter Weight 63.5 kg GENERAL EXAM: Alert, 76-year-old white female, comfortable in no apparent distress. HEAD: Normocephalic and atraumatic EYES: Normal reaction of pupils, equal size. NOSE: Clear with pink turbinates. THROAT: No erythema or exudates. NECK: No masses, no JVD. CHEST: No chest wall deformity. LUNGS: Equal air entry with no crackles, wheeze, rhonchi or dullness. On 12 L high flow cannula. No conversational dyspnea or accessory muscle use.. CVS: S1 and S2 normal with no audible murmur, regular rhythm. No extra heart sounds ABDOMEN: No hepatosplenomegaly, active bowel sounds, no guarding or rigidity. SPINE: No scoliosis or deformity SKIN: Bilateral lower extremity erythema outlined CENTRAL NERVOUS SYSTEM: No focal deficits, tone is normal in all 4 extremities. EXTREMITIES: There is moderate lower extremity edema, currently wrapped in compression bandages. No clubbing, or cyanosis. Peripheral pulses are intact. Results - Laboratory Findings CBC and BMP: 07/09/22 07:14 07/09/22 07:14 PT/INR, D-dimer PT 12.3 sec (9.0-12.0) H 07/03/22 15:30 INR 1.2 (<1.2) H 07/03/22 15:30 Abnormal lab findings: Abnormal Labs 07/03/22 07/03/22 07/03/22 15:30 15:30 15:30 RBC 5.55 H Hgb 16.6 H Hct 53.9 H MCHC 30.7 L RDW 19.5 H Plt Count Lymphocytes # 0.6 L PT 12.3 H INR 1.2 H Sodium 134 L Potassium 5.2 H Carbon Dioxide 20 L BUN 76 H Creatinine 3.03 H Glucose 127 H Plasma Lactic Acid Emir Phosphorus 5.2 H Magnesium 2.9 H Total Bilirubin 1.5 H ALT 35 H Troponin I 07/03/22 07/03/22 07/03/22 15:30 15:30 18:20 RBC Hgb Hct MCHC RDW Plt Count Lymphocytes # PT INR Sodium Potassium Carbon Dioxide BUN Creatinine Glucose Plasma Lactic Acid Emir 2.5 H* Phosphorus Magnesium Total Bilirubin ALT Troponin I 0.125 H* 0.105 H* 07/03/22 07/04/22 07/04/22 21:39 08:19 08:19 RBC Hgb Hct 46.3 H MCHC 30.9 L RDW 19.2 H Plt Count Lymphocytes # 0.8 L PT INR Sodium 135 L Potassium Carbon Dioxide 20 L BUN 77 H Creatinine 2.99 H Glucose 103 H Plasma Lactic Acid Emir Phosphorus 5.6 H Magnesium 2.6 H Total Bilirubin 1.4 H ALT Troponin I 0.116 H* 07/05/22 07/06/22 07/06/22 08:34 07:22 07:22 RBC Hgb Hct MCHC 30.9 L RDW 19.5 H Plt Count 149 L Lymphocytes # PT INR Sodium Potassium Carbon Dioxide 20 L 21 L BUN 77 H 74 H Creatinine 2.75 H 2.65 H Glucose 186 H 108 H Plasma Lactic Acid Emir Phosphorus Magnesium Total Bilirubin ALT Troponin I 07/07/22 11:35 RBC Hgb Hct MCHC RDW Plt Count Lymphocytes # PT INR Sodium Potassium Carbon Dioxide BUN 73 H Creatinine 2.44 H Glucose 188 H Plasma Lactic Acid Emir Phosphorus Magnesium Total Bilirubin ALT Troponin I - Diagnostic Findings Chest x-ray: image reviewed Assessment and Plan Assessment: Acute hypoxemic respiratory failure likely related to an exacerbation of diastolic congestive heart failure. Chest x-ray on arrival showed cardiomegaly, small right pleural effusion and trace left pleural, there was also some minimal subsegmental atelectasis bilaterally. Currently on a combination of Demadex and Zaroxolyn. Also, on 1500 ML fluid restriction per 24 hours. Fluid balance -780 ML's over last 24 hours. Severe pulmonary hypertension Elevated troponins, possibly related to supply demand mismatch Suspected bilateral lower extremity cellulitis Chronic kidney disease stage IV with left arm fistula, not currently receiving hemodialysis Chronic lower extremity edema Hypertension Hyperlipidemia Hypothyroidism Never smoker Plan: Patient's medications, labs, chest x-ray reviewed Continue supplemental oxygen Continue diuretics Continue fluid restrictions Repeat chest x-ray Repeat labs in the morning Cefazolin for suspected cellulitis We will continue to follow I have personally seen and examined the patient, performed the documentation and the assessment and plan as written. Number of minutes spent on the visit:20 This is a joint evaluation that was done along with the nurse practitioner. I performed a separate consultation on this patient. The patient is currently on a combination of Demadex and Zaroxolyn. We'll continue the diuresis. Gradually wean down FiO2. Agree on the current antibiotic coverage. Please refer to the other details of stated above. The situation was done along with the nurse practitioner more than 30 minutes. Time with Patient: Greater than 30
[2022-07-09] MEDS: LEVOTHYROXINE 100 MCG TAB PO SCH (06:31)
--- NOTE | 2022-07-09 07:58 | XR ---
EXAMINATION TYPE: XR chest 1V DATE OF EXAM: 07/09/2022 CLINICAL HISTORY: Difficulty breathing progress study. TECHNIQUE: Single AP portable upright view of the chest is obtained. COMPARISON: Chest x-ray from July 03, 2022 FINDINGS: Osseous structures remain demineralized. Persistent cardiomegaly with atherosclerotic thor acic aorta. Low lung volumes with increased central opacities bilaterally. Persistent right basilar i ncreased opacity. IMPRESSION: Mild cardiomegaly with mild central vascular congestion along with small right pleural ef fusion and bibasilar atelectasis and/or infiltrate all redemonstrated. No significant change from mos t recent study.
[2022-07-09 08:36] LABS: Anisocytosis Slight; Basophils % (A) 1 %; Eosinophils # (A) 0.1 k/uL (0-0.7); Eosinophils % (A) 1 %; HCT 46.5 % (34.0-46.0); HGB 14.3 gm/dL (11.4-16.0); Hypochromasia Moderate; Lymphocytes # (A) 0.6 k/uL (1.0-4.8); Lymphocytes % (A) 6 %; MCH 29.9 pg (25.0-35.0); MCHC 30.7 g/dL (31.0-37.0); MCV 97.3 fL (80.0-100.0); Macrocytosis Slight; Mean Platelet Volume 9.3; Monocytes # (A) 0.6 k/uL (0-1.0); Monocytes % (A) 6 %; Neutrophils # (A) 7.9 k/uL (1.3-7.7); Neutrophils % (A) 85 %; Platelet Count 140 k/uL (150-450); RBC 4.78 m/uL (3.80-5.40); RDW 19.2 % (11.5-15.5); WBC 9.4 k/uL (3.8-10.6)
[2022-07-09 09:07] LABS: Calcium 8.7 mg/dL (8.4-10.2)
[2022-07-09 09:42] LABS: Potassium 3.5 mmol/L (3.5-5.1)
[2022-07-09] MEDS: HEPARIN SODIUM,PORCINE/PF 5,000 UNIT/0.5 ML SYRINGE SQ SCH ×2 (09:45→20:36)
[2022-07-09] MEDS: METOPROLOL TARTRATE 25 MG TAB PO SCH ×2 (09:45→20:37)
[2022-07-09] MEDS: TORSEMIDE 20 MG TAB PO SCH (09:45)
[2022-07-09] MEDS: CHOLECALCIFEROL 25 MCG (1000 IU) TABLET PO SCH (09:46)
[2022-07-09] MEDS: FOLIC ACID 1 MG TAB PO SCH (09:46)
[2022-07-09] MEDS: ASPIRIN 81 MG PO SCH (09:46)
[2022-07-09] MEDS: allopurinoL 100 MG TAB PO SCH ×2 (09:46→20:37)
[2022-07-09] MEDS: metOLazone 5 MG TAB PO SCH (09:46)
[2022-07-09] MEDS: FERROUS SULFATE 325 MG TAB PO SCH ×2 (09:46→20:37)
--- NOTE | 2022-07-09 10:08 | P.CNPUL ---
History of Present Illness Consult date: 07/08/22 Reason for consult: hypoxemia History of present illness: 76-year-old female patient hospitalized for shortness of breath and lower extremity edema and decompensated heart failure. The patient is known to have diastolic failure with right sided failure and pulmonary hypertension. The patient also was noted to have increased lower oximetry cellulitis along with edema. Other comorbid conditions include hypertension, hyperlipidemia, stage IV chronic kidney disease and hypothyroidism. The patient is being seen by various consultants including cardiology and nephrology and a pulmonary consultation was also requested as the patient oxygen requirements progressively went up and the patient is currently on 15 L high flow oxygen. Note that last week, the patient was only at 8 L of oxygen by nasal cannula. The patient also has not had a recent chest x-ray. Most recent chest x-rays from 07/03/2022 showing thyromegaly and bilateral pleural effusion, more so on the right and minimal posterior left-sided pleural effusion is also present. The patient is currently on IV cefazolin Re: Bass the cellulitis. The patient is also on Zaroxolyn 5 mg by mouth daily and Demadex 80 mg by mouth daily. The blood work shows a WBC count of 8.3, hemoglobin 14 and platelet count of 149, BUN is 70 with a creatinine of 2.4 and a sodium level is at 138. Review of Systems Constitutional: No fever, no chills. No weakness, fatigue or lethargy. EENT: No headache. No dizziness. Lungs: Reports mild shortness of breath, cough, no sputum production. No wheezing. Cardiovascular: No chest pain, reports significant lower extremity edema. No palpitations. No paroxysmal nocturnal dyspnea. Reports orthopnea. No ligh theadedness or dizziness. No syncopal episodes. Abdominal: No abdominal pain. No nausea, vomiting. No diarrhea. No constipation. No bloody or tarry stools. Musculoskeletal: No myalgias. No muscle weakness, no frequent falls. Integumentary: Lower extremity redness and weeping. Neurologic: No aphasia. No facial droop. No change in mentation. No head injury. No headache. Past Medical History Past Medical History: Cancer, GERD/Reflux, Hyperlipidemia, Hypertension, Renal Disease, Thyroid Disorder Additional Past Medical History / Comment(s): stage 4 kidney disease-has not needed dialysis yet 2 point away of stage 3, still has urine production, anemia, HIGH URIC ACID LEVELS. HX CANCEROUS POLYP BURST IN SMALL INTESTINE 2010-being tx. w/chemo, skin cancer scalp July 2017 History of Any Multi-Drug Resistant Organisms: None Reported Past Surgical History: Bowel Resection, Orthopedic Surgery, Tonsillectomy Additional Past Surgical History / Comment(s): LAPARATOMY, PARATHYROID SURGERY, ORIF LEFT ANKLE., biopsy of scalp 07/27,AV fistula left arm,peritoneal dialysis attempt Past Anesthesia/Blood Transfusion Reactions: No Reported Reaction Past Psychological History: No Psychological Hx Reported Smoking Status: Never smoker Past Alcohol Use History: None Reported Past Drug Use History: None Reported - Past Family History Mother Family Medical History: Cancer, Coronary Artery Disease (CAD) Father Family Medical History: Coronary Artery Disease (CAD) Brother(s) Family Medical History: Coronary Artery Disease (CAD) Medications and Allergies Home Medications Medication Instructions Recorded Confirmed Type Atorvastatin [Lipitor] 10 mg PO HS 09/11/14 07/03/22 History allopurinoL [Zyloprim] 100 mg PO BID 01/17/15 07/03/22 History Ferrous Sulfate [Iron (65 MG 325 mg PO BID 03/03/18 07/03/22 History Elemental)] Folic Acid 0.8 mg PO DAILY 03/03/18 07/03/22 History Magnesium 400 mg PO HS 03/03/18 07/03/22 History Cholecalciferol [Vitamin D3 (25 25 mcg PO DAILY 06/13/20 07/03/22 History Mcg = 1000 Iu)] Famotidine 20 mg PO HS 06/13/20 07/03/22 History Furosemide [Lasix] 20 mg PO Q2D PRN 04/21/22 07/03/22 History amLODIPine [Norvasc] 7.5 mg PO DAILY 04/21/22 07/03/22 History calcitrioL [Calcitriol] 0.25 mcg PO MOWEFR 04/21/22 07/03/22 History Aspirin 81 mg PO DAILY #30 tab 04/24/22 07/03/22 Rx Levothyroxine Sodium [Synthroid] 100 mcg PO AC-BRKFST 07/03/22 07/03/22 History Metoprolol Tartrate [Lopressor] 25 mg PO BID 07/03/22 07/03/22 History Allergies Allergy/AdvReac Type Severity Reaction Status Date / Time No Known Allergies Allergy Verified 07/03/22 17:31 Physical Exam Vitals: Vital Signs Temp Pulse Resp BP Pulse Ox 07/08/22 08:10 22 92 L 07/08/22 08:00 96.5 F L 55 L 22 96/61 97 07/08/22 04:21 92 L 07/08/22 04:00 58 L 18 104/58 86 L 07/08/22 02:00 57 L 22 07/08/22 00:00 57 L 22 101/65 94 L 07/07/22 20:00 98 F 59 L 26 H 96/56 90 L 07/07/22 16:00 97.2 F L 57 L 20 103/57 91 L Intake and Output 07/07/22 07/08/22 07/08/22 22:59 06:59 14:59 Intake Total 600 360 Output Total 800 150 400 Balance -200 -150 -40 Intake: Oral 600 360 Output: Urine 800 150 400 Other: Voiding Method Bedside Commode Bedside Commode External Catheter # Voids 2 Weight 63.5 kg Gen: This is a frail-appearing 76-year-old female. She is resting , the patient is currently on 15 L of oxygen nasal cannula Head exam was generally normal. There was no scleral icterus or corneal arcus. Mucous membranes were moist. HEENT: Head is atraumatic, normocephalic. Pupils equal, round. Sclerae is anicteric. NECK: Supple. + JVD. LUNGS: Crackles at bilateral bases. No intercostal retractions. There is diminished breath on lung base bilaterally HEART: Regular rate and rhythm. No murmur. There is accentuation of the second heart sounds consistent with pulmonary hypertension. ABDOMEN: Abdominal exam revealed normal bowel sounds. The abdomen was soft, non- tender, and without masses, organomegaly, or appreciable enlargement of the abdominal aorta. EXTREMITIES: 23 plus edema to the bilateral lower extremities with erythema. NEUROLOGICAL: Neurologically, the patient is awake and alert and the patient does not have any focal neurological deficit. Cranial nerves are essentially intact. Results - Laboratory Findings CBC and BMP: 07/06/22 07:22 07/07/22 11:35 PT/INR, D-dimer PT 12.3 sec (9.0-12.0) H 07/03/22 15:30 INR 1.2 (<1.2) H 07/03/22 15:30 Abnormal lab findings: Abnormal Labs 07/03/22 07/03/22 07/03/22 15:30 15:30 15:30 RBC 5.55 H Hgb 16.6 H Hct 53.9 H MCHC 30.7 L RDW 19.5 H Plt Count Lymphocytes # 0.6 L PT 12.3 H INR 1.2 H Sodium 134 L Potassium 5.2 H Carbon Dioxide 20 L BUN 76 H Creatinine 3.03 H Glucose 127 H Plasma Lactic Acid Emir Phosphorus 5.2 H Magnesium 2.9 H Total Bilirubin 1.5 H ALT 35 H Troponin I 07/03/22 07/03/22 07/03/22 15:30 15:30 18:20 RBC Hgb Hct MCHC RDW Plt Count Lymphocytes # PT INR Sodium Potassium Carbon Dioxide BUN Creatinine Glucose Plasma Lactic Acid Emir 2.5 H* Phosphorus Magnesium Total Bilirubin ALT Troponin I 0.125 H* 0.105 H* 07/03/22 07/04/22 07/04/22 21:39 08:19 08:19 RBC Hgb Hct 46.3 H MCHC 30.9 L RDW 19.2 H Plt Count Lymphocytes # 0.8 L PT INR Sodium 135 L Potassium Carbon Dioxide 20 L BUN 77 H Creatinine 2.99 H Glucose 103 H Plasma Lactic Acid Emir Phosphorus 5.6 H Magnesium 2.6 H Total Bilirubin 1.4 H ALT Troponin I 0.116 H* 07/05/22 07/06/22 07/06/22 08:34 07:22 07:22 RBC Hgb Hct MCHC 30.9 L RDW 19.5 H Plt Count 149 L Lymphocytes # PT INR Sodium Potassium Carbon Dioxide 20 L 21 L BUN 77 H 74 H Creatinine 2.75 H 2.65 H Glucose 186 H 108 H Plasma Lactic Acid Emir Phosphorus Magnesium Total Bilirubin ALT Troponin I 07/07/22 11:35 RBC Hgb Hct MCHC RDW Plt Count Lymphocytes # PT INR Sodium Potassium Carbon Dioxide BUN 73 H Creatinine 2.44 H Glucose 188 H Plasma Lactic Acid Emir Phosphorus Magnesium Total Bilirubin ALT Troponin I - Diagnostic Findings Chest x-ray: image reviewed Assessment and Plan Plan: Acute on chronic hypoxic respiratory failure, currently on 15 L of oxygen by nasal cannula Chronic diastolic heart failure with right-sided heart failure the patient has severe pulmonary hypertension with chronic lower extremity edema cellulitis of the lower extremities Chronic kidney disease, stage IV with acute kidney injury, the patient is known to chronic hydronephrosis with previous double J ureteral stent insertion on the right Hypertension Hyperlipidemia Hypothyroidism History of skin cancer Squamous cell carcinoma of the head and neck
--- NOTE | 2022-07-09 11:37 | P.PN ---
Subjective Progress Note Date: 07/09/22 HISTORY OF PRESENT ILLNESS: Patient examined this morning at the bedside. Patient is admitted to the hospital secondary to CHF exacerbation. Patient continues to report shortness of breath. She is on 12 L high flow nasal cannula. She denies chest pain or pressure. She is receiving Demadex 80 mg daily along with Zaroxolyn 5 mg daily. She is being followed by nephrology. Patient's creatinine yesterday was 2.44 which is improving from admission at 3.03. Vital signs are stable. 07/09/2022 Patient examined this morning to bedside. Patient denies chest pain or pressure. She currently denies shortness of breath. She remains on 10 L high flow nasal cannula. She reports improvement in her lower extremity edema. She remains on oral diuretics. Creatinine remained stable at 2.40. PHYSICAL EXAM: VITAL SIGNS: Reviewed. GENERAL: Well-developed in no acute distress. NECK: Supple. No JVD or thyromegaly LUNGS: Respirations even and unlabored. Lungs diminished bilaterally HEART: Regular rate and rhythm. S1 and S2 heard. EXTREMITIES: Normal range of motion. No clubbing or cyanosis. Peripheral pulses intact. 1-2+ bilateral lower extremity edema with erythema noted. Jimbo wraps noted to bilateral lower extremities. ASSESSMENT: Shortness of breath Acute exacerbation of congestive heart failure with preserved EF, 50% Bilateral lower extremity cellulitis Acute hypoxic respiratory failure requiring supplemental oxygen Hypertension Hyperlipidemia Acute kidney injury Chronic kidney disease PLAN: Continue current cardiac medications Continue oral diuretics per nephrology Continue to monitor kidney function Stable from a cardiac standpoint Further recommendations pending patient's course Nurse practitioner note has been reviewed by physician. Signing provider agrees with the documented findings, assessment, and plan of care. Objective - Vital Signs Vital signs: Vital Signs Temp 97.3 F L 07/09/22 08:43 Pulse 56 L 07/09/22 08:43 Resp 20 07/09/22 08:43 BP 94/61 07/09/22 08:43 Pulse Ox 94 L 07/09/22 08:43 FiO2 Intake & Output 07/08/22 07/09/22 07/09/22 18:59 06:59 18:59 Intake Total 720 50 236 Output Total 1150 1400 500 Balance -673 -0977 -321 Weight 63.5 kg 64.5 kg Intake: Intake, IV Titration 50 Amount ceFAZolin 2 gm In Sodium 50 Chloride 0.9% 50 ml @ 100 mls/hr IVPB Q12HR [facility] Rx #:[id number] Oral 720 0 236 Output: Urine 1150 1400 500 Other: Voiding Method External Catheter External Catheter External Catheter - Labs CBC & Chem 7: 07/09/22 07:14 07/09/22 07:14 Labs: Abnormal Lab Results - Last 24 Hours (Table) 07/09/22 07/09/22 07/09/22 Range/Units 01:53 07:14 07:14 Hct (34.0-46.0) % MCHC (31.0-37.0) g/dL RDW (11.5-15.5) % Plt Count (150-450) k/uL Neutrophils # (1.3-7.7) k/uL Lymphocytes # (1.0-4.8) k/uL D-Dimer 0.64 H (<0.60) mg/L FEU Sodium 135 L (137-145) mmol/L Chloride 95 L (98-107) mmol/L BUN 79 H (7-17) mg/dL Creatinine 2.40 H (0.52-1.04) mg/dL Glucose 130 H (74-99) mg/dL Magnesium 2.4 H (1.6-2.3) mg/dL 07/09/22 Range/Units 07:14 Hct 46.5 H (34.0-46.0) % MCHC 30.7 L (31.0-37.0) g/dL RDW 19.2 H (11.5-15.5) % Plt Count 140 L (150-450) k/uL Neutrophils # 7.9 H (1.3-7.7) k/uL Lymphocytes # 0.6 L (1.0-4.8) k/uL D-Dimer (<0.60) mg/L FEU Sodium (137-145) mmol/L Chloride (98-107) mmol/L BUN (7-17) mg/dL Creatinine (0.52-1.04) mg/dL Glucose (74-99) mg/dL Magnesium (1.6-2.3) mg/dL Microbiology - Last 24 Hours (Table) 07/03/22 18:05 Blood Culture - Preliminary Blood 07/03/22 18:21 Blood Culture - Preliminary Blood
--- NOTE | 2022-07-09 12:09 | P.PN ---
Subjective Progress Note Date: 07/09/22 76-year-old female patient hospitalized for shortness of breath and lower extremity edema and decompensated heart failure. The patient is known to have diastolic failure with right sided failure and pulmonary hypertension. The patient also was noted to have increased lower oximetry cellulitis along with edema. Other comorbid conditions include hypertension, hyperlipidemia, stage IV chronic kidney disease and hypothyroidism. The patient is being seen by various consultants including cardiology and nephrology and a pulmonary consultation was also requested as the patient oxygen requirements progressively went up and the patient is currently on 15 L high flow oxygen. Note that last week, the patient was only at 8 L of oxygen by nasal cannula. The patient also has not had a recent chest x-ray. Most recent chest x-rays from 07/03/2022 showing thyromegaly and bilateral pleural effusion, more so on the right and minimal posterior left-sided pleural effusion is also present. The patient is currently on IV cefazolin Re: Bass the cellulitis. The patient is also on Zaroxolyn 5 mg by mouth daily and Demadex 80 mg by mouth daily. The blood work shows a WBC count of 8.3, hemoglobin 14 and platelet count of 149, BUN is 70 with a creatinine of 2.4 and a sodium level is at 138. On today's evaluation of 07/09/2021, the patient is still being diuresed. The patient is on 12 L of oxygen by nasal cannula with a pulse ox 94%. Urine output is adequate the renal function stable with a creatinine of 2.4. The ends of 79. Sodium levels of 135. The patient's white cell cause of 9.4 with a hemoglobin of 14.3. The patient is on IV cefazolin Re: Lower oximetry cellulitis. The patient is on Zaroxolyn 5 mg by mouth daily and Demadex 50 mg by mouth daily. Repeat chest x-ray showed cardiomegaly with mild pulmonary vessel congestion and some atelectasis of the lung bases. The patient is on subcu heparin for DVT prophylaxis. D-dimer level was at 0.64. Objective - Vital Signs Vital signs: Vital Signs Temp 97.3 F L 07/09/22 08:43 Pulse 56 L 07/09/22 08:43 Resp 20 07/09/22 08:43 BP 94/61 07/09/22 08:43 Pulse Ox 94 L 07/09/22 08:43 FiO2 Intake & Output 07/08/22 07/09/22 07/09/22 18:59 06:59 18:59 Intake Total 720 50 236 Output Total 1150 1400 Balance -430 -1350 236 Weight 63.5 kg 64.5 kg Intake: Intake, IV Titration 50 Amount ceFAZolin 2 gm In Sodium 50 Chloride 0.9% 50 ml @ 100 mls/hr IVPB Q12HR [facility] Rx #:[id number] Oral 720 0 236 Output: Urine 1150 1400 Other: Voiding Method External Catheter External Catheter - Exam Gen: This is a frail-appearing 76-year-old female. She is resting , the patient is currently on 12 L of oxygen nasal cannula Head exam was generally normal. There was no scleral icterus or corneal arcus. Mucous membranes were moist. HEENT: Head is atraumatic, normocephalic. Pupils equal, round. Sclerae is anicteric. NECK: Supple. + JVD. LUNGS: Crackles at bilateral bases. No intercostal retractions. There is diminished breath on lung base bilaterally HEART: Regular rate and rhythm. No murmur. There is accentuation of the second heart sounds consistent with pulmonary hypertension. ABDOMEN: Abdominal exam revealed normal bowel sounds. The abdomen was soft, non- tender, and without masses, organomegaly, or appreciable enlargement of the abdominal aorta. EXTREMITIES: 23 plus edema to the bilateral lower extremities with erythema. NEUROLOGICAL: Neurologically, the patient is awake and alert and the patient does not have any focal neurological deficit. Cranial nerves are essentially intact. - Labs CBC & Chem 7: 07/09/22 07:14 07/09/22 07:14 Labs: Abnormal Lab Results - Last 24 Hours (Table) 07/09/22 07/09/22 07/09/22 Range/Units 01:53 07:14 07:14 Hct (34.0-46.0) % MCHC (31.0-37.0) g/dL RDW (11.5-15.5) % Plt Count (150-450) k/uL Neutrophils # (1.3-7.7) k/uL Lymphocytes # (1.0-4.8) k/uL D-Dimer 0.64 H (<0.60) mg/L FEU Sodium 135 L (137-145) mmol/L Chloride 95 L (98-107) mmol/L BUN 79 H (7-17) mg/dL Creatinine 2.40 H (0.52-1.04) mg/dL Glucose 130 H (74-99) mg/dL Magnesium 2.4 H (1.6-2.3) mg/dL 07/09/22 Range/Units 07:14 Hct 46.5 H (34.0-46.0) % MCHC 30.7 L (31.0-37.0) g/dL RDW 19.2 H (11.5-15.5) % Plt Count 140 L (150-450) k/uL Neutrophils # 7.9 H (1.3-7.7) k/uL Lymphocytes # 0.6 L (1.0-4.8) k/uL D-Dimer (<0.60) mg/L FEU Sodium (137-145) mmol/L Chloride (98-107) mmol/L BUN (7-17) mg/dL Creatinine (0.52-1.04) mg/dL Glucose (74-99) mg/dL Magnesium (1.6-2.3) mg/dL Microbiology - Last 24 Hours (Table) 07/03/22 18:05 Blood Culture - Preliminary Blood 07/03/22 18:21 Blood Culture - Preliminary Blood Assessment and Plan Plan: Acute on chronic hypoxic respiratory failure, currently on 15 L of oxygen by nasal cannula, clinically stable and the FiO2 has been weaned down to 12 L and should be further down to 10 L along of the pulse ox remained above 90%. The patient is on diuresis and the patient is receiving a combination of Demadex and Zaroxolyn. Chronic diastolic heart failure with right-sided heart failure the patient has severe pulmonary hypertension with chronic lower extremity edema cellulitis of the lower extremities, currently on IV cefazolin Chronic kidney disease, stage IV with acute kidney injury, the patient is known to chronic hydronephrosis with previous double J ureteral stent insertion on the right, renal function is stable while the patient is feeling diuresis Hypertension Hyperlipidemia Hypothyroidism History of skin cancer Squamous cell carcinoma of the head and neck Plan D-dimer level is low Continue Demadex and continue the Zaroxolyn Monitor urine output Wean down FiO2 as tolerated to [facility] about 90% Continue IV cefazolin We'll continue to follow. Provide the patient incentive spirometer.
--- NOTE | 2022-07-09 12:57 | P.PN ---
Subjective 76 show female DF today. Patient Dese for evaluation regards to multiple complaints significant shortness of breath hypoxia here in the emergency d epartment oxygen in the low to mid 80s despite supportive supplemental oxygen. Patient also complaining of significant lower extremity swelling and edema. No current chest pain, likely more significantly swollen than normal with significant redness of the left lower extremity. No change in medications or other complaint. EKG sinus bradycardia at 50 bpm Chest x-ray: Cardiomegaly. Small posterior right and minimal left pleural effusions. Some minimal subsegmental atelectasis left base may represent mild subsegmental atelectasis at the right base. WBC 8.6, hemoglobin 14.3, platelet count 165. Sodium 135, potassium 4.8, BUN 77 creatinine 2.99 patient presented with a BUN is 76 and creatinine of 3.03. Troponin 0.125, 0.105, 0.116. Lactic acid 2.5. Phosphorus 5.6, magnesium 2.6, total bilirubin 1. or otherwise liver function tests are normal. Home cardiac medications: Amlodipine 7.5 mg daily, aspirin 81 mg daily, atorvastatin 10 mg at bedtime, Lasix 20 mg every 2 days as needed, Lopressor 25 mg twice daily, levothyroxine 100 g daily Echocardiogram performed 04/2022 revealed a difficult study, EF 50%, aortic sclerosis, mild mitral and moderate tricuspid insufficiency. 24 hour interval change 07/07/2022 Patient is seen and evaluated in room at bedside; reports feeling better today; denies any complaint of chest shortness of breath Over the course of her admission she was diuresed with high doses of IV Lasix. Limited echocardiogram shows LV function of 50%. RV enlargement with severe right ventricular hypertrophy. RVSP 72 mmHg -- Cardiology on board and recommending to transition to oral Lasix with plans to add Aldactone tomorrow if patient able to tolerate -- Continue to monitor strict JERRY's, daily weights, low salt and fluid restricted diet patient with bilateral lower extremity cellulitis in this patient admitted to the hospital with the fluid overload did have diffuse swelling to bilateral lower extremity likely from gram-positive skin shailesh such as strep, patient with renal insufficiency high risk of nephrotoxicity Patient to continue with Jimbo wrap from just above the toe to below the knee, to keep the swelling down patient to continue with cefazolin 2 g every 12 and monitor clinical course closely Resume the care of the patient on 07/08/2022 Patient is a pleasant 76 years old female was admitted with diastolic CHF and a cute hypoxic respiratory failure, her oxygen requirement went up significantly today to 15 L/m however through the day that came down to 12 L/m because of her significant hypoxia we consulted pulmonary, however clinically she looks not that bad, she is sitting up in bed and able to complicated with no difficulty talking due to hypoxia, she is mildly tachypneic with no use of accessory muscles. She is currently on Demadex as well as metolazone. She's continued on cefazolin for bilateral leg cellulitis, both legs with Jimbo wrap, they are slightly improved as per patient. We will keep monitoring Check chest x-ray in the morning 07/09/2022 Patient still hypoxic, improving slowly, today is on 12 L/m of oxygen via high flow nasal cannula. She still have significant leg swelling and cellulitis improving slowly as well Chest x-ray showing fluid overload but is improving she remains on torsemide and metolazone She remains on cefazolin Objective - Vital Signs Vital signs: Vital Signs Temp 96.7 F L 07/09/22 12:28 Pulse 54 L 07/09/22 12:28 Resp 18 07/09/22 12:28 BP 93/49 07/09/22 12:28 Pulse Ox 90 L 07/09/22 12:28 FiO2 Intake & Output 07/08/22 07/09/22 07/09/22 18:59 06:59 18:59 Intake Total 720 50 236 Output Total 1150 1400 500 Balance -430 -6450 -264 Weight 63.5 kg 64.5 kg Intake: Intake, IV Titration 50 Amount ceFAZolin 2 gm In Sodium 50 Chloride 0.9% 50 ml @ 100 mls/hr IVPB Q12HR [facility] Rx #:[id number] Oral 720 0 236 Output: Urine 1150 1400 500 Other: Voiding Method External Catheter External Catheter External Catheter - Exam GENERAL: The patient is alert and oriented x3, not in any acute distress. Well developed, well nourished. HEENT: Pupils are round and equally reacting to light. EOMI. No scleral icterus. No conjunctival pallor. Normocephalic, atraumatic. No pharyngeal erythema. No thyromegaly. CARDIOVASCULAR: S1 and S2 present. No murmurs, rubs, or gallops. -PULMONARY: Chest is clear to auscultation, no wheezing . Mild bilateral basal crackles. ABDOMEN: Soft, nontender, nondistended, normoactive bowel sounds. No palpable organomegaly. MUSCULOSKELETAL: No joint swelling or deformity. -EXTREMITIES: No cyanosis, clubbing, or pedal edema. Bilateral leg redness and swellin suspicious for cellulitis and fluid retention NEUROLOGICAL: Gross neurological examination did not reveal any focal deficits. SKIN: No rashes. no petechiae. - Labs CBC & Chem 7: 07/09/22 07:14 07/09/22 07:14 Labs: Abnormal Lab Results - Last 24 Hours (Table) 07/09/22 07/09/22 07/09/22 Range/Units 01:53 07:14 07:14 Hct (34.0-46.0) % MCHC (31.0-37.0) g/dL RDW (11.5-15.5) % Plt Count (150-450) k/uL Neutrophils # (1.3-7.7) k/uL Lymphocytes # (1.0-4.8) k/uL D-Dimer 0.64 H (<0.60) mg/L FEU Sodium 135 L (137-145) mmol/L Chloride 95 L (98-107) mmol/L BUN 79 H (7-17) mg/dL Creatinine 2.40 H (0.52-1.04) mg/dL Glucose 130 H (74-99) mg/dL Magnesium 2.4 H (1.6-2.3) mg/dL 07/09/22 Range/Units 07:14 Hct 46.5 H (34.0-46.0) % MCHC 30.7 L (31.0-37.0) g/dL RDW 19.2 H (11.5-15.5) % Plt Count 140 L (150-450) k/uL Neutrophils # 7.9 H (1.3-7.7) k/uL Lymphocytes # 0.6 L (1.0-4.8) k/uL D-Dimer (<0.60) mg/L FEU Sodium (137-145) mmol/L Chloride (98-107) mmol/L BUN (7-17) mg/dL Creatinine (0.52-1.04) mg/dL Glucose (74-99) mg/dL Magnesium (1.6-2.3) mg/dL Microbiology - Last 24 Hours (Table) 07/03/22 18:05 Blood Culture - Final Blood 07/03/22 18:21 Blood Culture - Final Blood Assessment and Plan Assessment: Acute on chronic diastolic heart failure Acute cellulitis bilateral lower extremities Hypertension Hyperlipidemia Hypothyroidism Acute kidney injury Chronic kidney disease stage IV Plan: Continue with Imitrex and torsemide Continue with cefazolin Continue with oxygen and titrated down slowly Several consultants on the case including barber tool sharpener, infectious disease and batch mixing truck driver We'll consult pulmonary services Labs and medication were reviewed.. Continue same treatment. Continue with symptomatic treatment. Resume home medication. Monitor labs and vitals. DVT and GI prophylaxis. Further recommendations as per clinical course of the patient DVT prophylaxis: Subcutaneous heparin GI Prophylaxis: Pepcid PT/OT: Pending Prognosis is guarded
[2022-07-09] MEDS ORDERED: POTASSIUM CHLORIDE ER 20 MEQ TAB.ER PO STA (13:33)
--- NOTE | 2022-07-09 13:34 | P.PN ---
Subjective Patient is seen in follow-up for acute kidney injury on chronic kidney disease. Renal function stable. Maintained on oral torsemide. Has external catheter. Nonoliguric. Currently on high flow nasal cannula. No vomiting or diarrhea. Denies chest pain or shortness of breath. Vital signs are stable. General: No acute distress. HEENT: Head exam is unremarkable. On high flow cannula. LUNGS: No audible rhonchi or wheezes. HEART: Rate and Rhythm are regular. ABDOMEN: Soft, nontender. EXTREMITITES: 1+ edema. Lower extremities wrapped. Left upper extremity AV fistula thrill noted. Objective - Vital Signs Vital signs: Vital Signs Temp 96.7 F L 07/09/22 12:28 Pulse 54 L 07/09/22 12:28 Resp 18 07/09/22 12:28 BP 93/49 07/09/22 12:28 Pulse Ox 90 L 07/09/22 12:28 FiO2 Intake & Output 07/08/22 07/09/22 07/09/22 18:59 06:59 18:59 Intake Total 720 50 236 Output Total 1150 1400 500 Balance -430 -1350 -264 Weight 63.5 kg 64.5 kg Intake: Intake, IV Titration 50 Amount ceFAZolin 2 gm In Sodium 50 Chloride 0.9% 50 ml @ 100 mls/hr IVPB Q12HR [facility] Rx #:[id number] Oral 720 0 236 Output: Urine 1150 1400 500 Other: Voiding Method External Catheter External Catheter External Catheter - Labs CBC & Chem 7: 07/09/22 07:14 07/09/22 07:14 Labs: Abnormal Lab Results - Last 24 Hours (Table) 07/09/22 07/09/22 07/09/22 Range/Units 01:53 07:14 07:14 Hct (34.0-46.0) % MCHC (31.0-37.0) g/dL RDW (11.5-15.5) % Plt Count (150-450) k/uL Neutrophils # (1.3-7.7) k/uL Lymphocytes # (1.0-4.8) k/uL D-Dimer 0.64 H (<0.60) mg/L FEU Sodium 135 L (137-145) mmol/L Chloride 95 L (98-107) mmol/L BUN 79 H (7-17) mg/dL Creatinine 2.40 H (0.52-1.04) mg/dL Glucose 130 H (74-99) mg/dL Magnesium 2.4 H (1.6-2.3) mg/dL 07/09/22 Range/Units 07:14 Hct 46.5 H (34.0-46.0) % MCHC 30.7 L (31.0-37.0) g/dL RDW 19.2 H (11.5-15.5) % Plt Count 140 L (150-450) k/uL Neutrophils # 7.9 H (1.3-7.7) k/uL Lymphocytes # 0.6 L (1.0-4.8) k/uL D-Dimer (<0.60) mg/L FEU Sodium (137-145) mmol/L Chloride (98-107) mmol/L BUN (7-17) mg/dL Creatinine (0.52-1.04) mg/dL Glucose (74-99) mg/dL Magnesium (1.6-2.3) mg/dL Microbiology - Last 24 Hours (Table) 07/03/22 18:05 Blood Culture - Final Blood 07/03/22 18:21 Blood Culture - Final Blood Assessment and Plan Plan: Assessment: 1. Acute kidney injury secondary to ATN secondary to cardiorenal syndrome. Renal function stable. Creatinine 2.4 today. 2. Chronic kidney disease stage IV with baseline creatinine near 2. Etiology is nephrosclerosis and cardiorenal syndrome. 3. Volume overload. Improved with diuresis. 4. Severe pulmonary hypertension. 5. Chronic kidney disease mineral bone disease maintained on calcitriol. 6. Metabolic acidosis secondary to acute kidney injury/chronic kidney disease. Resolved. 7. Hypokalemia from diuresis. Magnesium normal. Plan: Maintain oral torsemide and Zaroxolyn. Low-salt diet and 1500 mL fluid restriction. Continue to monitor renal function and urine output. Patient has a left upper extremity AV fistula that can be used for renal replacement therapy if needed. Continue to assess on a daily basis. Replace potassium.
--- NOTE | 2022-07-09 13:55 | P.PN ---
Subjective Progress Note Date: 07/09/22 Principal diagnosis: Bilateral lower extremity cellulitis Patient is a 76-year-old female with a past medical history significant for hypertension hyperlipidemia chronic renal insufficiency presenting to the hospital 07/03/2022 for evaluation of increasing shortness of b reath, patient was have diffuse swelling and erythema to bilateral extremities concerning for cellulitis. On today's evaluation had that is 07/09/2022, the patient continues to be afebrile, the patient is breathing slightly comfortably however still required high flow nasal cannula oxygen at 12L, the patient denies chest pain some discomfort lower extremity however swelling redness is slightly decreased denies having any drainage no vomiting or diarrhea Objective - Vital Signs Vital signs: Vital Signs Temp 97.3 F L 07/09/22 08:43 Pulse 56 L 07/09/22 08:43 Resp 20 07/09/22 08:43 BP 94/61 07/09/22 08:43 Pulse Ox 94 L 07/09/22 08:43 FiO2 Intake & Output 07/08/22 07/09/22 07/09/22 18:59 06:59 18:59 Intake Total 720 50 236 Output Total 1150 1400 500 Balance -337 -9681 -896 Weight 63.5 kg 64.5 kg Intake: Intake, IV Titration 50 Amount ceFAZolin 2 gm In Sodium 50 Chloride 0.9% 50 ml @ 100 mls/hr IVPB Q12HR [facility] [place] Rx #:[id number] Oral 720 0 236 Output: Urine 1150 1400 500 Other: Voiding Method External Catheter External Catheter External Catheter - Exam GENERAL DESCRIPTION: An elderly female up in the chair in no distress RESPIRATORY SYSTEM: Unlabored breathing , decreased breath sounds at bases HEART: S1 S2 regular rate and rhythm , ABDOMEN: Soft , no tenderness EXTREMITIES: Diffuse swelling to bilateral lower extremity erythema has slightly decreased no drainage - Labs CBC & Chem 7: 07/09/22 07:14 07/09/22 07:14 Labs: Abnormal Lab Results - Last 24 Hours (Table) 07/09/22 07/09/22 07/09/22 Range/Units 01:53 07:14 07:14 Hct (34.0-46.0) % MCHC (31.0-37.0) g/dL RDW (11.5-15.5) % Plt Count (150-450) k/uL Neutrophils # (1.3-7.7) k/uL Lymphocytes # (1.0-4.8) k/uL D-Dimer 0.64 H (<0.60) mg/L FEU Sodium 135 L (137-145) mmol/L Chloride 95 L (98-107) mmol/L BUN 79 H (7-17) mg/dL Creatinine 2.40 H (0.52-1.04) mg/dL Glucose 130 H (74-99) mg/dL Magnesium 2.4 H (1.6-2.3) mg/dL 07/09/22 Range/Units 07:14 Hct 46.5 H (34.0-46.0) % MCHC 30.7 L (31.0-37.0) g/dL RDW 19.2 H (11.5-15.5) % Plt Count 140 L (150-450) k/uL Neutrophils # 7.9 H (1.3-7.7) k/uL Lymphocytes # 0.6 L (1.0-4.8) k/uL D-Dimer (<0.60) mg/L FEU Sodium (137-145) mmol/L Chloride (98-107) mmol/L BUN (7-17) mg/dL Creatinine (0.52-1.04) mg/dL Glucose (74-99) mg/dL Magnesium (1.6-2.3) mg/dL Microbiology - Last 24 Hours (Table) 07/03/22 18:05 Blood Culture - Final Blood 07/03/22 18:21 Blood Culture - Final Blood Assessment and Plan (1) Bilateral lower leg cellulitis Current Visit: Yes Status: Acute Code(s): L03.116 - CELLULITIS OF LEFT LOWER LIMB; L03.115 - CELLULITIS OF RIGHT LOWER LIMB SNOMED Code(s): 150028821 Plan: 1patient with bilateral lower extremity cellulitis in this patient admitted to the hospital with the fluid overload did have diffuse swelling to bilateral lower extremity likely from gram-positive skin shailesh such as strep, patient with renal insufficiency high risk of nephrotoxicity 2Patient to continue with Jimbo wrap from just above the toe to below the knee, to keep the swelling down 3patient remains to be afebrile and white count is normal, the patient will continue with cefazolin and monitor clinical course closely Time with Patient: Less than 30
[2022-07-09] MEDS: FAMOTIDINE 20 MG TAB PO SCH (20:36)
[2022-07-09] MEDS: MAGNESIUM OXIDE 400 MG TAB PO SCH (20:36)
[2022-07-09] MEDS: ATORVASTATIN 10 MG TAB PO SCH (20:37)
[2022-07-10] MEDS: LEVOTHYROXINE 100 MCG TAB PO SCH (06:18)
[2022-07-10] MEDS: HEPARIN SODIUM,PORCINE/PF 5,000 UNIT/0.5 ML SYRINGE SQ SCH ×2 (08:22→20:17)
[2022-07-10] MEDS: allopurinoL 100 MG TAB PO SCH ×2 (08:23→20:17)
[2022-07-10] MEDS: ASPIRIN 81 MG PO SCH (08:23)
[2022-07-10] MEDS: FOLIC ACID 1 MG TAB PO SCH (08:23)
[2022-07-10] MEDS: CHOLECALCIFEROL 25 MCG (1000 IU) TABLET PO SCH (08:23)
[2022-07-10] MEDS: FERROUS SULFATE 325 MG TAB PO SCH ×2 (08:23→20:17)
[2022-07-10 09:00] LABS: Calcium 8.9 mg/dL (8.4-10.2)
[2022-07-10 09:18] LABS: Magnesium 2.4 mg/dL (1.6-2.3); Potassium 3.3 mmol/L (3.5-5.1)
[2022-07-10] MEDS ORDERED: Potassium Replacement Protocol 1 EACH MISC MISCELLANE PRN (10:30)
--- NOTE | 2022-07-10 11:42 | P.PN ---
Subjective Patient is seen in follow-up for acute kidney injury on chronic kidney disease. Renal function stable. Maintained on oral torsemide. Has external catheter. Nonoliguric. Currently on high flow nasal cannula. No vomiting or diarrhea. Denies chest pain or shortness of breath. No changes overnight. Vital signs are stable. General: No acute distress. HEENT: Head exam is unremarkable. On high flow cannula. LUNGS: No audible rhonchi or wheezes. HEART: Rate and Rhythm are regular. ABDOMEN: Soft, nontender. EXTREMITITES: 1+ edema. Lower extremities wrapped. Left upper extremity AV fistula thrill noted. Objective - Vital Signs Vital signs: Vital Signs Temp 97.2 F L 07/10/22 08:05 Pulse 53 L 07/10/22 08:05 Resp 18 07/10/22 08:05 BP 97/54 07/10/22 08:29 Pulse Ox 90 L 07/10/22 08:38 FiO2 Intake & Output 07/09/22 07/10/22 07/10/22 18:59 06:59 18:59 Intake Total 604 250 Output Total 500 1700 Balance 104 -1700 250 Weight 63.5 kg Intake: Oral 604 250 Output: Urine 500 1700 Other: Voiding Method External Catheter External Catheter External Catheter - Labs CBC & Chem 7: 07/09/22 07:14 07/10/22 08:09 Labs: Abnormal Lab Results - Last 24 Hours (Table) 07/10/22 Range/Units 08:09 Sodium 134 L (137-145) mmol/L Potassium 3.3 L (3.5-5.1) mmol/L Chloride 93 L (98-107) mmol/L BUN 82 H (7-17) mg/dL Creatinine 2.36 H (0.52-1.04) mg/dL Glucose 166 H (74-99) mg/dL Magnesium 2.4 H (1.6-2.3) mg/dL Microbiology - Last 24 Hours (Table) 07/03/22 18:05 Blood Culture - Final Blood 07/03/22 18:21 Blood Culture - Final Blood Assessment and Plan Plan: Assessment: 1. Acute kidney injury secondary to ATN secondary to cardiorenal syndrome. Renal function stable. Creatinine 2.36 today. 2. Chronic kidney disease stage IV with baseline creatinine near 2. Etiology is nephrosclerosis and cardiorenal syndrome. 3. Volume overload. Improved with diuresis. 4. Severe pulmonary hypertension. 5. Chronic kidney disease mineral bone disease maintained on calcitriol. 6. Metabolic acidosis secondary to acute kidney injury/chronic kidney disease. Resolved. 7. Hypokalemia from diuresis. Magnesium normal. Plan: Maintain oral torsemide and Zaroxolyn. Low-salt diet and 1500 mL fluid restriction. Continue to monitor renal function and urine output. Patient has a left upper extremity AV fistula that can be used for renal replacement therapy if needed. Continue to assess on a daily basis. Replace potassium.
[2022-07-10] MEDS: POTASSIUM CHLORIDE ER 20 MEQ TAB.ER PO SCH ×3 (12:01→18:25)
--- NOTE | 2022-07-10 12:48 | P.PN ---
Subjective 76 show female DF today. Patient Dese for evaluation regards to multiple complaints significant shortness of breath hypoxia here in the emergency d epartment oxygen in the low to mid 80s despite supportive supplemental oxygen. Patient also complaining of significant lower extremity swelling and edema. No current chest pain, likely more significantly swollen than normal with significant redness of the left lower extremity. No change in medications or other complaint. EKG sinus bradycardia at 50 bpm Chest x-ray: Cardiomegaly. Small posterior right and minimal left pleural effusions. Some minimal subsegmental atelectasis left base may represent mild subsegmental atelectasis at the right base. WBC 8.6, hemoglobin 14.3, platelet count 165. Sodium 135, potassium 4.8, BUN 77 creatinine 2.99 patient presented with a BUN is 76 and creatinine of 3.03. Troponin 0.125, 0.105, 0.116. Lactic acid 2.5. Phosphorus 5.6, magnesium 2.6, total bilirubin 1. or otherwise liver function tests are normal. Home cardiac medications: Amlodipine 7.5 mg daily, aspirin 81 mg daily, atorvastatin 10 mg at bedtime, Lasix 20 mg every 2 days as needed, Lopressor 25 mg twice daily, levothyroxine 100 g daily Echocardiogram performed 04/2022 revealed a difficult study, EF 50%, aortic sclerosis, mild mitral and moderate tricuspid insufficiency. 24 hour interval change 07/07/2022 Patient is seen and evaluated in room at bedside; reports feeling better today; denies any complaint of chest shortness of breath Over the course of her admission she was diuresed with high doses of IV Lasix. Limited echocardiogram shows LV function of 50%. RV enlargement with severe right ventricular hypertrophy. RVSP 72 mmHg -- Cardiology on board and recommending to transition to oral Lasix with plans to add Aldactone tomorrow if patient able to tolerate -- Continue to monitor strict JERRY's, daily weights, low salt and fluid restricted diet patient with bilateral lower extremity cellulitis in this patient admitted to the hospital with the fluid overload did have diffuse swelling to bilateral lower extremity likely from gram-positive skin shailesh such as strep, patient with renal insufficiency high risk of nephrotoxicity Patient to continue with Jimbo wrap from just above the toe to below the knee, to keep the swelling down patient to continue with cefazolin 2 g every 12 and monitor clinical course closely Resume the care of the patient on 07/08/2022 Patient is a pleasant 76 years old female was admitted with diastolic CHF and a cute hypoxic respiratory failure, her oxygen requirement went up significantly today to 15 L/m however through the day that came down to 12 L/m because of her significant hypoxia we consulted pulmonary, however clinically she looks not that bad, she is sitting up in bed and able to complicated with no difficulty talking due to hypoxia, she is mildly tachypneic with no use of accessory muscles. She is currently on Demadex as well as metolazone. She's continued on cefazolin for bilateral leg cellulitis, both legs with Jimbo wrap, they are slightly improved as per patient. We will keep monitoring Check chest x-ray in the morning 07/09/2022 Patient still hypoxic, improving slowly, today is on 12 L/m of oxygen via high flow nasal cannula. She still have significant leg swelling and cellulitis improving slowly as well Chest x-ray showing fluid overload but is improving she remains on torsemide and metolazone She remains on cefazolin 07/10/2022 Patient is hypoxic with oxygen saturation 12 L/m and saturation 90%, not much improvement and she is becoming hypotensive this morning which is as symptomatic I discussed with the bedside nurse to hold her diuretics and beta larry and to contact division roadmaster for further recommendation -Patient has elements of COPD exacerbation although she never smoked however she has secondary smoking circumstances are her used to smoke in-house about half pack per day. There is limitation of air entry. There is no much this recommendation. I will start patient on Symbicort.. We will defer systemic steroids to the pulmonary team Creatinine 2.3. She remains on cefazolin Objective - Vital Signs Vital signs: Vital Signs Temp 97.2 F L 07/10/22 08:05 Pulse 53 L 07/10/22 08:05 Resp 18 07/10/22 08:05 BP 97/54 07/10/22 08:29 Pulse Ox 90 L 07/10/22 08:38 FiO2 Intake & Output 07/09/22 07/10/22 07/10/22 18:59 06:59 18:59 Intake Total 604 250 Output Total 500 1700 Balance 104 -1700 250 Weight 63.5 kg Intake: Oral 604 250 Output: Urine 500 1700 Other: Voiding Method External Catheter External Catheter External Catheter - Exam GENERAL: The patient is alert and oriented x3, not in any acute distress. Well developed, well nourished. HEENT: Pupils are round and equally reacting to light. EOMI. No scleral icterus. No conjunctival pallor. Normocephalic, atraumatic. No pharyngeal erythema. No thyromegaly. CARDIOVASCULAR: S1 and S2 present. No murmurs, rubs, or gallops. -PULMONARY: Chest is clear to auscultation, no wheezing . Mild bilateral basal crackles. ABDOMEN: Soft, nontender, nondistended, normoactive bowel sounds. No palpable organomegaly. MUSCULOSKELETAL: No joint swelling or deformity. -EXTREMITIES: No cyanosis, clubbing, or pedal edema. Bilateral leg redness and swellin suspicious for cellulitis and fluid retention NEUROLOGICAL: Gross neurological examination did not reveal any focal deficits. SKIN: No rashes. no petechiae. - Labs CBC & Chem 7: 07/09/22 07:14 07/10/22 08:09 Labs: Abnormal Lab Results - Last 24 Hours (Table) 07/10/22 Range/Units 08:09 Sodium 134 L (137-145) mmol/L Potassium 3.3 L (3.5-5.1) mmol/L Chloride 93 L (98-107) mmol/L BUN 82 H (7-17) mg/dL Creatinine 2.36 H (0.52-1.04) mg/dL Glucose 166 H (74-99) mg/dL Magnesium 2.4 H (1.6-2.3) mg/dL Microbiology - Last 24 Hours (Table) 07/03/22 18:05 Blood Culture - Final Blood 07/03/22 18:21 Blood Culture - Final Blood Assessment and Plan Assessment: Acute COPD exacerbation secondary to secondary smoking Acute on chronic diastolic heart failure Acute cellulitis bilateral lower extremities Hypertension Hyperlipidemia Hypothyroidism Acute kidney injury Chronic kidney disease stage IV Plan: Symbicort is a started. Patient may benefit from systemic steroids and is referred to pulmonary team We defer management of her tic Imitrex and torsemide and blood pressure medications division roadmaster team approach team Continue with cefazolin Continue with oxygen and titrated down slowly Several consultants on the case including division roadmaster, infectious disease and correctional cook We'll consult pulmonary services Labs and medication were reviewed.. Continue same treatment. Continue with symptomatic treatment. Resume home medication. Monitor labs and vitals. DVT and GI prophylaxis. Further recommendations as per clinical course of the patient DVT prophylaxis: Subcutaneous heparin GI Prophylaxis: Pepcid PT/OT: Pending Prognosis is guarded
[2022-07-10] MEDS: SYMBICORT 160-4.5 MCG INHALER INHALATION SCH ×2 (13:10→20:47)
--- NOTE | 2022-07-10 13:30 | P.PN ---
Subjective Progress Note Date: 07/10/22 HISTORY OF PRESENT ILLNESS: Patient examined this morning at the bedside. Patient is admitted to the hospital secondary to CHF exacerbation. Patient continues to report shortness of breath. She is on 12 L high flow nasal cannula. She denies chest pain or pressure. She is receiving Demadex 80 mg daily along with Zaroxolyn 5 mg daily. She is being followed by nephrology. Patient's creatinine yesterday was 2.44 which is improving from admission at 3.03. Vital signs are stable. 07/09/2022 Patient examined this morning to bedside. Patient denies chest pain or pressure. She currently denies shortness of breath. She remains on 10 L high flow nasal cannula. She reports improvement in her lower extremity edema. She remains on oral diuretics. Creatinine remained stable at 2.40. 07/10/2022 Patient examined this morning at the bedside. Patient denies chest pain or pres sure. She currently denies shortness of breath. Patient is still requiring high flow nasal cannula to maintain oxygen saturations greater than 92%. Her lower extremity edema is improving. She remains on oral diuretics. Creatinine today is 2.36. PHYSICAL EXAM: VITAL SIGNS: Reviewed. GENERAL: Well-developed in no acute distress. NECK: Supple. No JVD or thyromegaly LUNGS: Respirations even and unlabored. Lungs diminished bilaterally HEART: Regular rate and rhythm. S1 and S2 heard. EXTREMITIES: Normal range of motion. No clubbing or cyanosis. Peripheral pulses intact. 1+ bilateral lower extremity edema with erythema noted. Jimbo wraps noted to bilateral lower extremities. ASSESSMENT: Shortness of breath Acute exacerbation of congestive heart failure with preserved EF, 50% Bilateral lower extremity cellulitis Acute hypoxic respiratory failure requiring supplemental oxygen Hypertension Hyperlipidemia Acute kidney injury Chronic kidney disease PLAN: Continue current cardiac medications Continue oral diuretics per nephrology Continue to monitor kidney function Stable from a cardiac standpoint Further recommendations pending patient's course Nurse practitioner note has been reviewed by physician. Signing provider agrees with the documented findings, assessment, and plan of care. Objective - Vital Signs Vital signs: Vital Signs Temp 97.2 F L 07/10/22 08:05 Pulse 53 L 07/10/22 08:05 Resp 18 07/10/22 08:05 BP 97/54 07/10/22 08:29 Pulse Ox 90 L 07/10/22 08:38 FiO2 Intake & Output 07/09/22 07/10/22 07/10/22 18:59 06:59 18:59 Intake Total 604 250 Output Total 500 1700 Balance 104 -1700 250 Weight 63.5 kg Intake: Oral 604 250 Output: Urine 500 1700 Other: Voiding Method External Catheter External Catheter External Catheter - Labs CBC & Chem 7: 07/09/22 07:14 07/10/22 08:09 Labs: Abnormal Lab Results - Last 24 Hours (Table) 07/10/22 Range/Units 08:09 Sodium 134 L (137-145) mmol/L Potassium 3.3 L (3.5-5.1) mmol/L Chloride 93 L (98-107) mmol/L BUN 82 H (7-17) mg/dL Creatinine 2.36 H (0.52-1.04) mg/dL Glucose 166 H (74-99) mg/dL Magnesium 2.4 H (1.6-2.3) mg/dL Microbiology - Last 24 Hours (Table) 07/03/22 18:05 Blood Culture - Final Blood 07/03/22 18:21 Blood Culture - Final Blood
[2022-07-10] MEDS: METOPROLOL TARTRATE 25 MG TAB PO SCH ×2 (14:44→22:17)
[2022-07-10] MEDS: metOLazone 5 MG TAB PO SCH (14:44)
[2022-07-10] MEDS: TORSEMIDE 20 MG TAB PO SCH (14:44)
--- NOTE | 2022-07-10 14:44 | CT ---
EXAMINATION TYPE: CT chest wo con DATE OF EXAM: 07/10/2022 COMPARISON: PET/CT 07/19/2021 HISTORY: 76-year-old female unexplained hypoxia TECHNIQUE: Contiguous axial scanning of the chest without IV contrast. Coronal and sagittal reconstru ctions performed. CT DLP: 232.6 mGycm Automated exposure control for dose reduction was used. FINDINGS: Marked generalized anasarca, severe along the thoracoabdominal junction and abdomen. Heart is moderately enlarged with small anterior basilar pericardial effusion. Three-vessel coronary calcifications are present. Mild aortic valvular calcifications. Mild atherosclerotic arch calcifications with conventional arch vessel branching anatomy. No thoracic lymphadenopathy by CT size criteria. There are small right and trace left pleural effusions. Mild septal lines. Diffuse hazy groundglass d ensities throughout the lungs. There is partial collapse and consolidation of the basilar segments of the right lower lobe adjacent to the pleural effusion. Mild emphysematous change. Biapical pleural-p arenchymal scarring. Tiny hiatal hernia. Calcified granuloma posterior right liver lobe. Mild upper abdominal ascites par tially visualized. Bones: Accentuated midthoracic kyphosis. IMPRESSION: 1. MODERATE CARDIOMEGALY. MODERATE TO SEVERE BODY WALL ANASARCA CHANGE ESPECIALLY AT THE THORACOABDOM INAL JUNCTION AND MORE INFERIORLY. MILD UPPER ABDOMINAL ASCITES. CORRELATE FOR FLUID OVERLOAD STATE/T HIRD SPACING. 2. SMALL RIGHT AND TRACE LEFT PLEURAL EFFUSIONS. DIFFUSE HAZY DENSITIES THROUGHOUT THE LUNGS, POSSIBL E PULMONARY VASCULAR CONGESTION. CORRELATE TO EXCLUDE INTERSTITIAL PNEUMONITIS OR ATYPICAL PNEUMONIAS . 3. PROMINENT CONSOLIDATION AND COLLAPSE OF THE BASILAR SEGMENTS OF THE RIGHT LOWER LOBE. UNDERLYING C OPD.
--- NOTE | 2022-07-10 15:39 | P.PN ---
Subjective Progress Note Date: 07/10/22 76-year-old female patient hospitalized for shortness of breath and lower extremity edema and decompensated heart failure. The patient is known to have diastolic failure with right sided failure and pulmonary hypertension. The patient also was noted to have increased lower oximetry cellulitis along with edema. Other comorbid conditions include hypertension, hyperlipidemia, stage IV chronic kidney disease and hypothyroidism. The patient is being seen by various consultants including cardiology and nephrology and a pulmonary consultation was also requested as the patient oxygen requirements progressively went up and the patient is currently on 15 L high flow oxygen. Note that last week, the patient was only at 8 L of oxygen by nasal cannula. The patient also has not had a recent chest x-ray. Most recent chest x-rays from 07/03/2022 showing thyromegaly and bilateral pleural effusion, more so on the right and minimal posterior left-sided pleural effusion is also present. The patient is currently on IV cefazolin Re: Bass the cellulitis. The patient is also on Zaroxolyn 5 mg by mouth daily and Demadex 80 mg by mouth daily. The blood work shows a WBC count of 8.3, hemoglobin 14 and platelet count of 149, BUN is 70 with a creatinine of 2.4 and a sodium level is at 138. On today's evaluation of 07/09/2021, the patient is still being diuresed. The patient is on 12 L of oxygen by nasal cannula with a pulse ox 94%. Urine output is adequate the renal function stable with a creatinine of 2.4. The ends of 79. Sodium levels of 135. The patient's white cell cause of 9.4 with a hemoglobin of 14.3. The patient is on IV cefazolin Re: Lower oximetry cellulitis. The patient is on Zaroxolyn 5 mg by mouth daily and Demadex 50 mg by mouth daily. Repeat chest x-ray showed cardiomegaly with mild pulmonary vessel congestion and some atelectasis of the lung bases. The patient is on subcu heparin for DVT prophylaxis. D-dimer level was at 0.64. On 07/10/2022, the patient is still hypoxic despite having a relatively clear lungs. The patient is currently on 12 L of O2 nasal cannula. The patient is on a combination of diuretics and the patient is currently on torsemide and Z aroxolyn. The patient is producing adequate amount of urine output. The BUN is at 82 with a creatinine of 2.3 and a sodium level is at 134. Potassium levels at 3.3. The patient otherwise is being treated for a left lower extremities. She continues to have some edema in the legs. She is on IV cefazolin. No other issues for now. No chest pain. No altered mentation. Based on her ongoing hyp oxemia, I ordered a CAT scan of the chest that was completed today and it showed moderate cardiomegaly with moderate to severe body wall anasarca mainly in the thoracoabdominal junction and in the upper abdominal area. There is obvious third spacing. There is a small right and trace left-sided pleural effusion. Diffuse haziness throughout the lungs probably related to pulmonary vessel congestion. As such, the clinical picture is consistent with CHF. I also ordered a Doppler of the lower extremities and the results of the pending for now. Objective - Vital Signs Vital signs: Vital Signs Temp 97.2 F L 07/10/22 08:05 Pulse 53 L 07/10/22 08:05 Resp 18 07/10/22 08:05 BP 97/54 07/10/22 08:29 Pulse Ox 90 L 07/10/22 08:38 FiO2 Intake & Output 07/09/22 07/10/22 07/10/22 18:59 06:59 18:59 Intake Total 604 250 Output Total 500 1700 Balance 104 -1700 250 Weight 63.5 kg Intake: Oral 604 250 Output: Urine 500 1700 Other: Voiding Method External Catheter External Catheter External Catheter - Exam Gen: This is a frail-appearing 76-year-old female. She is resting , the patient is currently on 12 L of oxygen nasal cannula Head exam was generally normal. There was no scleral icterus or corneal arcus. Mucous membranes were moist. HEENT: Head is atraumatic, normocephalic. Pupils equal, round. Sclerae is anicteric. NECK: Supple. + JVD. LUNGS: Crackles at bilateral bases. No intercostal retractions. There is diminished breath on lung base bilaterally HEART: Regular rate and rhythm. No murmur. There is accentuation of the second heart sounds consistent with pulmonary hypertension. ABDOMEN: Abdominal exam revealed normal bowel sounds. The abdomen was soft, non- tender, and without masses, organomegaly, or appreciable enlargement of the abdominal aorta. EXTREMITIES: 23 plus edema to the bilateral lower extremities with erythema. NEUROLOGICAL: Neurologically, the patient is awake and alert and the patient does not have any focal neurological deficit. Cranial nerves are essentially intact. - Labs CBC & Chem 7: 07/09/22 07:14 07/10/22 08:09 Labs: Abnormal Lab Results - Last 24 Hours (Table) 07/10/22 Range/Units 08:09 Sodium 134 L (137-145) mmol/L Potassium 3.3 L (3.5-5.1) mmol/L Chloride 93 L (98-107) mmol/L BUN 82 H (7-17) mg/dL Creatinine 2.36 H (0.52-1.04) mg/dL Glucose 166 H (74-99) mg/dL Magnesium 2.4 H (1.6-2.3) mg/dL Microbiology - Last 24 Hours (Table) 07/03/22 18:05 Blood Culture - Final Blood 07/03/22 18:21 Blood Culture - Final Blood Assessment and Plan Plan: Acute on chronic hypoxic respiratory failure, currently on 15 L of oxygen by nasal cannula, clinically stable and the FiO2 has been weaned down to 12 L and should be further down to 10 L along of the pulse ox remained above 90%. The patient is on diuresis and the patient is receiving a combination of Demadex and Zaroxolyn. The CAT scan of the chest shows abdominal wall edema and anasarca and small pleural effusions and the patient had diffuse haziness bilaterally consistent with CHF. The patient remains hypoxic on 12 L of oxygen by nasal cannula Chronic diastolic heart failure with right-sided heart failure the patient has severe pulmonary hypertension with chronic lower extremity edema cellulitis of the lower extremities, currently on IV cefazolin Chronic kidney disease, stage IV with acute kidney injury, the patient is known to chronic hydronephrosis with previous double J ureteral stent insertion on the right, renal function is stable while the patient is being diuresed Hypertension Hyperlipidemia Hypothyroidism History of skin cancer Squamous cell carcinoma of the head and neck Plan D-dimer level is low, awaiting Dopplers of the lower extremities CAT scan of the chest was noted Continue Demadex and continue the Zaroxolyn, may need to consider an IV form of diuretics. This will be discussed with nephrology. Monitor urine output Wean down FiO2 as tolerated to [facility] about 90% Continue IV cefazolin We'll continue to follow. Provide the patient incentive spirometer.
--- NOTE | 2022-07-10 15:56 | US ---
EXAMINATION TYPE: US venous doppler duplex LE DATE OF EXAM: 07/10/2022 3:40 PM COMPARISON: NONE CLINICAL INDICATION: Female, 76 years old with history of rule out DVT; Edema bilateral legs SIDE PERFORMED: bilateral TECHNIQUE: The lower extremity deep venous system is examined utilizing real time linear array sonog yeimy with graded compression, doppler sonography and color-flow sonography. VESSELS IMAGED: Common Femoral Vein Deep Femoral Vein Greater Saphenous Vein * Femoral Vein Popliteal Vein Small Saphenous Vein * Proximal Calf Veins (* superficial vessels) Right Leg: No evidence of DVT as visualized Left Leg: No evidence of DVT as visualized IMPRESSION: Grayscale, color doppler, spectral doppler imaging performed of the deep veins of the lo wer extremities. There is normal flow, compressibility, vascular waveforms.
[2022-07-10] MEDS: FAMOTIDINE 20 MG TAB PO SCH (20:17)
[2022-07-10] MEDS: MAGNESIUM OXIDE 400 MG TAB PO SCH (20:17)
[2022-07-10] MEDS: ATORVASTATIN 10 MG TAB PO SCH (20:17)
[2022-07-11] MEDS: LEVOTHYROXINE 100 MCG TAB PO SCH (06:14)
[2022-07-11] MEDS: allopurinoL 100 MG TAB PO SCH ×2 (08:23→21:42)
[2022-07-11] MEDS: HEPARIN SODIUM,PORCINE/PF 5,000 UNIT/0.5 ML SYRINGE SQ SCH ×2 (08:23→21:42)
[2022-07-11] MEDS: FERROUS SULFATE 325 MG TAB PO SCH ×2 (08:23→21:42)
[2022-07-11] MEDS: ASPIRIN 81 MG PO SCH (08:23)
[2022-07-11] MEDS: POTASSIUM CHLORIDE ER 20 MEQ TAB.ER PO SCH (08:24)
[2022-07-11] MEDS: metOLazone 5 MG TAB PO SCH (08:24)
[2022-07-11] MEDS: TORSEMIDE 20 MG TAB PO SCH (08:25)
[2022-07-11] MEDS: METOPROLOL TARTRATE 25 MG TAB PO SCH ×2 (08:25→21:42)
[2022-07-11] MEDS: FOLIC ACID 1 MG TAB PO SCH (08:25)
[2022-07-11] MEDS: CHOLECALCIFEROL 25 MCG (1000 IU) TABLET PO SCH (08:25)
[2022-07-11] MEDS: SYMBICORT 160-4.5 MCG INHALER INHALATION SCH ×2 (09:22→21:49)
--- NOTE | 2022-07-11 10:40 | P.PN ---
Subjective Patient is seen in follow-up for acute kidney injury on chronic kidney disease. Renal function stable as of yesterday. Maintained on oral torsemide. Nonoliguric. Currently on high flow nasal cannula. No vomiting or diarrhea. Denies chest pain or shortness of breath. No changes overnight. Vital signs are stable. General: No acute distress. HEENT: Head exam is unremarkable. On high flow cannula. LUNGS: No audible rhonchi or wheezes. HEART: Rate and Rhythm are regular. ABDOMEN: Soft, nontender. EXTREMITITES: 1+ edema. Lower extremities wrapped. Left upper extremity AV fistula thrill noted. Objective - Vital Signs Vital signs: Vital Signs Temp 97.3 F L 07/11/22 08:31 Pulse 55 L 07/11/22 08:31 Resp 20 07/11/22 08:31 BP 104/56 07/11/22 08:31 Pulse Ox 91 L 07/11/22 09:25 FiO2 Intake & Output 07/10/22 07/11/22 07/11/22 18:59 06:59 18:59 Intake Total 490 118 Balance 490 118 Intake: Oral 490 118 Other: Voiding Method External Catheter External Catheter External Catheter # Voids 1 # Bowel Movements 1 - Labs CBC & Chem 7: 07/09/22 07:14 07/10/22 08:09 Assessment and Plan Plan: Assessment: 1. Acute kidney injury secondary to ATN secondary to cardiorenal syndrome. Renal function stable. Creatinine 2.36 yesterday. 2. Chronic kidney disease stage IV with baseline creatinine near 2. Etiology is nephrosclerosis and cardiorenal syndrome. 3. Volume overload. Improved with diuresis. 4. Severe pulmonary hypertension. 5. Chronic kidney disease mineral bone disease maintained on calcitriol. 6. Metabolic acidosis secondary to acute kidney injury/chronic kidney disease. Resolved. 7. Hypokalemia from diuresis. Magnesium normal. Replaced. Plan: Maintain oral torsemide and Zaroxolyn. Low-salt diet and 1500 mL fluid restriction. Continue to monitor renal function and urine output. Patient has a left upper extremity AV fistula that can be used for renal replacement therapy if needed. Continue to assess on a daily basis.
--- NOTE | 2022-07-11 11:08 | P.PN ---
Subjective Progress Note Date: 07/11/22 HISTORY OF PRESENT ILLNESS: Patient examined this morning at the bedside. Patient is admitted to the hospital secondary to CHF exacerbation. Patient continues to report shortness of breath. She is on 12 L high flow nasal cannula. She denies chest pain or pressure. She is receiving Demadex 80 mg daily along with Zaroxolyn 5 mg daily. She is being followed by nephrology. Patient's creatinine yesterday was 2.44 which is improving from admission at 3.03. Vital signs are stable. 07/09/2022 Patient examined this morning to bedside. Patient denies chest pain or pressure. She currently denies shortness of breath. She remains on 10 L high flow nasal cannula. She reports improvement in her lower extremity edema. She remains on oral diuretics. Creatinine remained stable at 2.40. 07/10/2022 Patient examined this morning at the bedside. Patient denies chest pain or pres sure. She currently denies shortness of breath. Patient is still requiring high flow nasal cannula to maintain oxygen saturations greater than 92%. Her lower extremity edema is improving. She remains on oral diuretics. Creatinine today is 2.36. 07/11/2022 Patient examined this morning at the bedside. Patient denies chest pain or pressure. She denies shortness of breath. She remains on oral diuretics. Kidney function remained stable. She is still requiring high flow nasal cannula to maintain oxygen saturations greater than 92%. PHYSICAL EXAM: VITAL SIGNS: Reviewed. GENERAL: Well-developed in no acute distress. NECK: Supple. No JVD or thyromegaly LUNGS: Respirations even and unlabored. Lungs diminished bilaterally HEART: Regular rate and rhythm. S1 and S2 heard. EXTREMITIES: Normal range of motion. No clubbing or cyanosis. Peripheral pulses intact. 1+ bilateral lower extremity edema with erythema noted. Jimbo wraps noted to bilateral lower extremities. ASSESSMENT: Shortness of breath Acute exacerbation of congestive heart failure with preserved EF, 50% Bilateral lower extremity cellulitis Acute hypoxic respiratory failure requiring supplemental oxygen Hypertension Hyperlipidemia Acute kidney injury Chronic kidney disease PLAN: Continue current cardiac medications Continue oral diuretics per nephrology Continue to monitor kidney function Stable from a cardiac standpoint Further recommendations pending patient's course Nurse practitioner note has been reviewed by physician. Signing provider agrees with the documented findings, assessment, and plan of care. Objective - Vital Signs Vital signs: Vital Signs Temp 97.3 F L 07/11/22 08:31 Pulse 55 L 07/11/22 08:31 Resp 20 07/11/22 08:31 BP 104/56 07/11/22 08:31 Pulse Ox 91 L 07/11/22 09:25 FiO2 Intake & Output 07/10/22 07/11/22 07/11/22 18:59 06:59 18:59 Intake Total 490 118 Balance 490 118 Intake: Oral 490 118 Other: Voiding Method External Catheter External Catheter External Catheter # Voids 1 # Bowel Movements 1 - Labs CBC & Chem 7: 07/09/22 07:14 07/10/22 08:09
--- NOTE | 2022-07-11 14:00 | P.PN ---
Subjective Progress Note Date: 07/11/22 76-year-old female patient hospitalized for shortness of breath and lower extremity edema and decompensated heart failure. The patient is known to have diastolic failure with right sided failure and pulmonary hypertension. The patient also was noted to have increased lower oximetry cellulitis along with edema. Other comorbid conditions include hypertension, hyperlipidemia, stage IV chronic kidney disease and hypothyroidism. The patient is being seen by various consultants including cardiology and nephrology and a pulmonary consultation was also requested as the patient oxygen requirements progressively went up and the patient is currently on 15 L high flow oxygen. Note that last week, the patient was only at 8 L of oxygen by nasal cannula. The patient also has not had a recent chest x-ray. Most recent chest x-rays from 07/03/2022 showing thyromegaly and bilateral pleural effusion, more so on the right and minimal posterior left-sided pleural effusion is also present. The patient is currently on IV cefazolin Re: Bass the cellulitis. The patient is also on Zaroxolyn 5 mg by mouth daily and Demadex 80 mg by mouth daily. The blood work shows a WBC count of 8.3, hemoglobin 14 and platelet count of 149, BUN is 70 with a creatinine of 2.4 and a sodium level is at 138. On today's evaluation of 07/09/2021, the patient is still being diuresed. The patient is on 12 L of oxygen by nasal cannula with a pulse ox 94%. Urine output is adequate the renal function stable with a creatinine of 2.4. The ends of 79. Sodium levels of 135. The patient's white cell cause of 9.4 with a hemoglobin of 14.3. The patient is on IV cefazolin Re: Lower oximetry cellulitis. The patient is on Zaroxolyn 5 mg by mouth daily and Demadex 50 mg by mouth daily. Repeat chest x-ray showed cardiomegaly with mild pulmonary vessel congestion and some atelectasis of the lung bases. The patient is on subcu heparin for DVT prophylaxis. D-dimer level was at 0.64. On 07/10/2022, the patient is still hypoxic despite having a relatively clear lungs. The patient is currently on 12 L of O2 nasal cannula. The patient is on a combination of diuretics and the patient is currently on torsemide and Z aroxolyn. The patient is producing adequate amount of urine output. The BUN is at 82 with a creatinine of 2.3 and a sodium level is at 134. Potassium levels at 3.3. The patient otherwise is being treated for a left lower extremities. She continues to have some edema in the legs. She is on IV cefazolin. No other issues for now. No chest pain. No altered mentation. Based on her ongoing hyp oxemia, I ordered a CAT scan of the chest that was completed today and it showed moderate cardiomegaly with moderate to severe body wall anasarca mainly in the thoracoabdominal junction and in the upper abdominal area. There is obvious third spacing. There is a small right and trace left-sided pleural effusion. Diffuse haziness throughout the lungs probably related to pulmonary vessel congestion. As such, the clinical picture is consistent with CHF. I also ordered a Doppler of the lower extremities and the results of the pending for now. On today's evaluation of 2022, the patient remains on 12 L of oxygen by nasal cannula. I reviewed the CAT scan of the chest and was consistent with CHF and fluid overload. Based on that, the patient was started on diuretics and On diuretics and the patient remains on a combination of torsemide and Zaroxolyn. The Patient Remains in Negative Fluid Balance. Doppler of the Lower Extremities was completed yesterday and the results were negative. The patient remains on IV cefazolin Re: Brock the cellulitis. She is using the incentive sandy meter. She does have a chronic kidney disease and the creatinine remains unchanged at 2.3 with a BUN of 82 and a sodium level is at 134 with a potassium level of 3.3. Glucose at 166. Awake and alert. Tolerating diet. No other new complaints otherwise for now. Objective - Vital Signs Vital signs: Vital Signs Temp 97.6 F 07/11/22 11:22 Pulse 51 L 07/11/22 11:22 Resp 20 07/11/22 11:22 BP 109/62 07/11/22 11:22 Pulse Ox 94 L 07/11/22 11:22 FiO2 Intake & Output 07/10/22 07/11/22 07/11/22 18:59 06:59 18:59 Intake Total 490 118 Balance 490 118 Intake: Oral 490 118 Other: Voiding Method External Catheter External Catheter External Catheter # Voids 1 # Bowel Movements 1 - Exam Gen: This is a frail-appearing 76-year-old female. She is resting , the patient is currently on 12 L of oxygen nasal cannula Head exam was generally normal. There was no scleral icterus or corneal arcus. Mucous membranes were moist. HEENT: Head is atraumatic, normocephalic. Pupils equal, round. Sclerae is anicteric. NECK: Supple. + JVD. LUNGS: Crackles at bilateral bases. No intercostal retractions. There is diminished breath on lung base bilaterally HEART: Regular rate and rhythm. No murmur. There is accentuation of the second heart sounds consistent with pulmonary hypertension. ABDOMEN: Abdominal exam revealed normal bowel sounds. The abdomen was soft, non- tender, and without masses, organomegaly, or appreciable enlargement of the abdominal aorta. EXTREMITIES: 23 plus edema to the bilateral lower extremities with erythema. NEUROLOGICAL: Neurologically, the patient is awake and alert and the patient does not have any focal neurological deficit. Cranial nerves are essentially intact. - Labs CBC & Chem 7: 07/09/22 07:14 07/10/22 08:09 Assessment and Plan Plan: Acute on chronic hypoxic respiratory failure, essentially related to CHF and fluid overload. The patient is on diuresis and the patient is receiving a combination of Demadex and Zaroxolyn. The CAT scan of the chest shows abdominal wall edema and anasarca and small pleural effusions and the patient had diffuse haziness bilaterally consistent with CHF. The patient remains hypoxic on 12 L of oxygen by nasal cannula, clinically unchanged compared to yesterday and remains on 12 L of oxygen by nasal cannula. CAT scan of the chest was noted. Doppler of the lower extremity showed no evidence of any DVTs. Chronic diastolic heart failure with right-sided heart failure the patient has severe pulmonary hypertension with chronic lower extremity edema cellulitis of the lower extremities, currently on IV cefazolin Chronic kidney disease, stage IV with acute kidney injury, the patient is known to chronic hydronephrosis with previous double J ureteral stent insertion on the right, renal function is stable while the patient is being diuresed Hypertension Hyperlipidemia Hypothyroidism History of skin cancer Squamous cell carcinoma of the head and neck Plan D-dimer level is low, and the Doppler of the lower extremity was negative CAT scan of the chest was noted, essentially consistent with anasarca and fluid overload and CHF Continue Demadex and continue the Zaroxolyn, may need to consider an IV form of diuretics. This will be discussed with nephrology. Monitor urine output Wean down FiO2 as tolerated to mental institution about 90% Continue IV cefazolin We'll continue to follow. Provide the patient incentive spirometer.
--- NOTE | 2022-07-11 15:17 | P.PN ---
Subjective Progress Note Date: 07/10/22 Principal diagnosis: Bilateral lower extremity cellulitis Patient is a 76-year-old female with a past medical history significant for hypertension hyperlipidemia chronic renal insufficiency presenting to the hospital 07/03/2022 for evaluation of increasing shortness of b reath, patient was have diffuse swelling and erythema to bilateral extremities concerning for cellulitis. On today's evaluation had that is 07/10/2022, the patient remains to be afebrile, the patient is breathing slightly comfortably however still required high flow nasal cannula oxygen currently at 12L, the patient denies chest pain and no cough or sputum production, the patient lower extremity however swelling redness has decreased denies having any drainage no vomiting or diarrhea Objective - Vital Signs Vital signs: Vital Signs Temp 97.2 F L 07/10/22 08:05 Pulse 53 L 07/10/22 08:05 Resp 18 07/10/22 08:05 BP 97/54 07/10/22 08:29 Pulse Ox 90 L 07/10/22 08:38 FiO2 Intake & Output 07/09/22 07/10/22 07/10/22 18:59 06:59 18:59 Intake Total 604 250 Output Total 500 1700 Balance 104 -1700 250 Weight 63.5 kg Intake: Oral 604 250 Output: Urine 500 1700 Other: Voiding Method External Catheter External Catheter External Catheter - Exam GENERAL DESCRIPTION: An elderly female up in the chair in no distress RESPIRATORY SYSTEM: Unlabored breathing , decreased breath sounds at bases HEART: S1 S2 regular rate and rhythm , ABDOMEN: Soft , no tenderness EXTREMITIES: Bilateral lower extremity swelling redness has decreased - Labs CBC & Chem 7: 07/09/22 07:14 07/10/22 08:09 Labs: Abnormal Lab Results - Last 24 Hours (Table) 07/10/22 Range/Units 08:09 Sodium 134 L (137-145) mmol/L Potassium 3.3 L (3.5-5.1) mmol/L Chloride 93 L (98-107) mmol/L BUN 82 H (7-17) mg/dL Creatinine 2.36 H (0.52-1.04) mg/dL Glucose 166 H (74-99) mg/dL Magnesium 2.4 H (1.6-2.3) mg/dL Microbiology - Last 24 Hours (Table) 07/03/22 18:05 Blood Culture - Final Blood 07/03/22 18:21 Blood Culture - Final Blood Assessment and Plan (1) Bilateral lower leg cellulitis Current Visit: Yes Status: Acute Code(s): L03.116 - CELLULITIS OF LEFT LOWER LIMB; L03.115 - CELLULITIS OF RIGHT LOWER LIMB SNOMED Code(s): 721748262 Plan: 1patient with bilateral lower extremity cellulitis in this patient admitted to the hospital with the fluid overload did have diffuse swelling to bilateral lower extremity likely from gram-positive skin shailesh such as strep, patient with renal insufficiency high risk of nephrotoxicity 2Patient to continue with Jimbo wrap from just above the toe to below the knee, to keep the swelling down 3patient remains to be afebrile and white count is normal, 4-the patient will continue with cefazolin in view of clinical improvement and monitor clinical course closely Time with Patient: Less than 30
--- NOTE | 2022-07-11 15:18 | P.PN ---
Subjective Progress Note Date: 07/11/22 Principal diagnosis: Bilateral lower extremity cellulitis Patient is a 76-year-old female with a past medical history significant for hypertension hyperlipidemia chronic renal insufficiency presenting to the hospital 07/03/2022 for evaluation of increasing shortness of b reath, patient was have diffuse swelling and erythema to bilateral extremities concerning for cellulitis. On today's evaluation had that is 07/11/2022, the patient continues to be afebrile, the patient denies any worsening shortness of breath however still required high flow nasal cannula oxygen currently at 14L, the patient denies chest pain and no cough or sputum production, the patient lower extremity however swelling redness has decreased in intensity, the patient denies having any drainage no vomiting or diarrhea Objective - Vital Signs Vital signs: Vital Signs Temp 97.6 F 07/11/22 11:22 Pulse 51 L 07/11/22 11:22 Resp 20 07/11/22 11:22 BP 109/62 07/11/22 11:22 Pulse Ox 94 L 07/11/22 11:22 FiO2 Intake & Output 07/10/22 07/11/22 07/11/22 18:59 06:59 18:59 Intake Total 490 118 Balance 490 118 Intake: Oral 490 118 Other: Voiding Method External Catheter External Catheter External Catheter # Voids 1 # Bowel Movements 1 - Exam GENERAL DESCRIPTION: An elderly female up in the chair in no distress RESPIRATORY SYSTEM: Unlabored breathing , decreased breath sounds at bases HEART: S1 S2 regular rate and rhythm , ABDOMEN: Soft , no tenderness EXTREMITIES: Bilateral lower extremity wrapped in Jimbo wrap no drainage on the dressing - Labs CBC & Chem 7: 07/09/22 07:14 07/10/22 08:09 Assessment and Plan (1) Bilateral lower leg cellulitis Current Visit: Yes Status: Acute Code(s): L03.116 - CELLULITIS OF LEFT LOWER LIMB; L03.115 - CELLULITIS OF RIGHT LOWER LIMB SNOMED Code(s): 724857170 Plan: 1patient with bilateral lower extremity cellulitis in this patient admitted to the hospital with the fluid overload did have diffuse swelling to bilateral lower extremity likely from gram-positive skin shailesh such as strep, patient with renal insufficiency high risk of nephrotoxicity 2Patient to continue with Jimbo wrap from just above the toe to below the knee, to keep the swelling down 3patient remains to be afebrile and white count is normal, 4-the patient seems to have clinical improvement as for his lower extremity cellulitis is concerned and will continue with cefazolin , monitor clinical course closely Time with Patient: Less than 30
[2022-07-11] MEDS: MAGNESIUM OXIDE 400 MG TAB PO SCH (21:42)
[2022-07-11] MEDS: ATORVASTATIN 10 MG TAB PO SCH (21:42)
[2022-07-11] MEDS: FAMOTIDINE 20 MG TAB PO SCH (21:42)
--- NOTE | 2022-07-11 23:00 | P.PN ---
Subjective 76 show female DF today. Patient Dese for evaluation regards to multiple complaints significant shortness of breath hypoxia here in the emergency d epartment oxygen in the low to mid 80s despite supportive supplemental oxygen. Patient also complaining of significant lower extremity swelling and edema. No current chest pain, likely more significantly swollen than normal with significant redness of the left lower extremity. No change in medications or other complaint. EKG sinus bradycardia at 50 bpm Chest x-ray: Cardiomegaly. Small posterior right and minimal left pleural effusions. Some minimal subsegmental atelectasis left base may represent mild subsegmental atelectasis at the right base. WBC 8.6, hemoglobin 14.3, platelet count 165. Sodium 135, potassium 4.8, BUN 77 creatinine 2.99 patient presented with a BUN is 76 and creatinine of 3.03. Troponin 0.125, 0.105, 0.116. Lactic acid 2.5. Phosphorus 5.6, magnesium 2.6, total bilirubin 1. or otherwise liver function tests are normal. Home cardiac medications: Amlodipine 7.5 mg daily, aspirin 81 mg daily, atorvastatin 10 mg at bedtime, Lasix 20 mg every 2 days as needed, Lopressor 25 mg twice daily, levothyroxine 100 g daily Echocardiogram performed 04/2022 revealed a difficult study, EF 50%, aortic sclerosis, mild mitral and moderate tricuspid insufficiency. 24 hour interval change 07/07/2022 Patient is seen and evaluated in room at bedside; reports feeling better today; denies any complaint of chest shortness of breath Over the course of her admission she was diuresed with high doses of IV Lasix. Limited echocardiogram shows LV function of 50%. RV enlargement with severe right ventricular hypertrophy. RVSP 72 mmHg -- Cardiology on board and recommending to transition to oral Lasix with plans to add Aldactone tomorrow if patient able to tolerate -- Continue to monitor strict JERRY's, daily weights, low salt and fluid restricted diet patient with bilateral lower extremity cellulitis in this patient admitted to the hospital with the fluid overload did have diffuse swelling to bilateral lower extremity likely from gram-positive skin shailesh such as strep, patient with renal insufficiency high risk of nephrotoxicity Patient to continue with Jimbo wrap from just above the toe to below the knee, to keep the swelling down patient to continue with cefazolin 2 g every 12 and monitor clinical course closely Resume the care of the patient on 07/08/2022 Patient is a pleasant 76 years old female was admitted with diastolic CHF and a cute hypoxic respiratory failure, her oxygen requirement went up significantly today to 15 L/m however through the day that came down to 12 L/m because of her significant hypoxia we consulted pulmonary, however clinically she looks not that bad, she is sitting up in bed and able to complicated with no difficulty talking due to hypoxia, she is mildly tachypneic with no use of accessory muscles. She is currently on Demadex as well as metolazone. She's continued on cefazolin for bilateral leg cellulitis, both legs with Jimbo wrap, they are slightly improved as per patient. We will keep monitoring Check chest x-ray in the morning 07/09/2022 Patient still hypoxic, improving slowly, today is on 12 L/m of oxygen via high flow nasal cannula. She still have significant leg swelling and cellulitis improving slowly as well Chest x-ray showing fluid overload but is improving she remains on torsemide and metolazone She remains on cefazolin 07/10/2022 Patient is hypoxic with oxygen saturation 12 L/m and saturation 90%, not much improvement and she is becoming hypotensive this morning which is as symptomatic I discussed with the bedside nurse to hold her diuretics and beta larry and to contact cardiac nurse practitioner for further recommendation -Patient has elements of COPD exacerbation although she never smoked however she has secondary smoking circumstances are her used to smoke in-house about half pack per day. There is limitation of air entry. There is no much this recommendation. I will start patient on Symbicort.. We will defer systemic steroids to the pulmonary team Creatinine 2.3. She remains on cefazolin 07/11/2022 Patient remains on extensive fluid overload as apparent on the CAT scan including subcutaneous edema She is also remains hypoxic requiring 14 L of oxygen via nasal cannula She remains on oral diuretics torsemide and metolazone Nephrology and pulmonary team on the case and other forms of diuresis may be considered further recommendation included intravenous diuresis versus renal replacement therapy Patient remains on IV cefazolin and her lower extremity cellulitis improving Objective - Vital Signs Vital signs: Vital Signs Temp 98.1 F 07/11/22 16:00 Pulse 61 07/11/22 16:00 Resp 20 07/11/22 16:00 BP 120/72 07/11/22 16:00 Pulse Ox 91 L 07/11/22 16:00 FiO2 Intake & Output 07/11/22 07/11/22 07/12/22 06:59 18:59 06:59 Intake Total 898 Output Total 500 Balance 398 Intake: Oral 898 Output: Urine 500 Other: Voiding Method External Catheter External Catheter # Voids 1 2 # Bowel Movements 1 1 - Exam GENERAL: The patient is alert and oriented x3, not in any acute distress. Well developed, well nourished. HEENT: Pupils are round and equally reacting to light. EOMI. No scleral icterus. No conjunctival pallor. Normocephalic, atraumatic. No pharyngeal erythema. No thyromegaly. CARDIOVASCULAR: S1 and S2 present. No murmurs, rubs, or gallops. -PULMONARY: Chest is clear to auscultation, no wheezing . Mild bilateral basal crackles. ABDOMEN: Soft, nontender, nondistended, normoactive bowel sounds. No palpable organomegaly. MUSCULOSKELETAL: No joint swelling or deformity. -EXTREMITIES: No cyanosis, clubbing, or pedal edema. Bilateral leg redness and swellin suspicious for cellulitis and fluid retention NEUROLOGICAL: Gross neurological examination did not reveal any focal deficits. SKIN: No rashes. no petechiae. - Labs CBC & Chem 7: 07/09/22 07:14 07/10/22 08:09 Assessment and Plan Assessment: Acute COPD exacerbation secondary to secondary smoking Acute on chronic diastolic heart failure Acute cellulitis bilateral lower extremities Hypertension Hyperlipidemia Hypothyroidism Acute kidney injury Chronic kidney disease stage IV Plan: Symbicort is a started. Patient may benefit from systemic steroids and is referred to pulmonary team We defer management of her tic Imitrex and torsemide and blood pressure m edications cardiac nurse practitioner team approach team Continue with cefazolin Continue with oxygen therapy Several consultants on the case including cardiac nurse practitioner, infectious disease and sheet heater, pulmonary services Labs and medication were reviewed.. Continue same treatment. Continue with symptomatic treatment. Resume home medication. Monitor labs and vitals. DVT and GI prophylaxis. Further recommendations as per clinical course of the patient DVT prophylaxis: Subcutaneous heparin GI Prophylaxis: Pepcid PT/OT: Pending Prognosis is guarded
[2022-07-12] MEDS: LEVOTHYROXINE 100 MCG TAB PO SCH (06:11)
[2022-07-12 06:45] LABS: Calcium 9.3 mg/dL (8.4-10.2); Magnesium 2.4 mg/dL (1.6-2.3); Potassium 3.7 mmol/L (3.5-5.1)
[2022-07-12] MEDS: HEPARIN SODIUM,PORCINE/PF 5,000 UNIT/0.5 ML SYRINGE SQ SCH ×2 (08:32→20:45)
[2022-07-12] MEDS: ACETAMINOPHEN TAB 325 MG TAB PO PRN (08:32)
[2022-07-12] MEDS: POTASSIUM CHLORIDE ER 20 MEQ TAB.ER PO SCH (08:32)
[2022-07-12] MEDS: ASPIRIN 81 MG PO SCH (08:32)
[2022-07-12] MEDS: FERROUS SULFATE 325 MG TAB PO SCH ×2 (08:33→20:46)
[2022-07-12] MEDS: CHOLECALCIFEROL 25 MCG (1000 IU) TABLET PO SCH (08:33)
[2022-07-12] MEDS: METOPROLOL TARTRATE 25 MG TAB PO SCH ×3 (08:33→20:53)
[2022-07-12] MEDS: FOLIC ACID 1 MG TAB PO SCH (08:33)
[2022-07-12] MEDS: allopurinoL 100 MG TAB PO SCH ×2 (08:33→20:46)
[2022-07-12] MEDS: TORSEMIDE 20 MG TAB PO SCH (08:34)
[2022-07-12] MEDS: metOLazone 5 MG TAB PO SCH (08:34)
[2022-07-12] MEDS: SYMBICORT 160-4.5 MCG INHALER INHALATION SCH ×2 (09:08→21:05)
[2022-07-12 11:05] LABS: Glucose,Whole Blood 158 mg/dL (70-110)
[2022-07-12] MEDS: FUROSEMIDE 10 MG/ML 10 ML VIAL IV SCH (11:30)
--- NOTE | 2022-07-12 11:40 | XR ---
EXAMINATION TYPE: XR chest 1V portable DATE OF EXAM: 07/12/2022 HISTORY: Shortness of breath. COMPARISON: 07/09/2022 TECHNIQUE: Single view of the chest is submitted. FINDINGS: Demonstrated are scattered senescent parenchymal change. Increasing pulmonary venous congestion with interstitial edema and small right greater than left pleu ral effusions. Correlate for congestive failure. Infiltrates of etiology not excluded. The heart is stable. Hilar and mediastinal structures are within normal limits. Degenerative changes are seen of the dorsal spine. IMPRESSION: 1. Increasing pulmonary venous congestion with interstitial edema and small right greater than left pleural effusions. Correlate for congestive failure. Infiltrates of etiology not excluded.
--- NOTE | 2022-07-12 12:06 | P.PN ---
Subjective Progress Note Date: 07/12/22 76-year-old female patient hospitalized for shortness of breath and lower extremity edema and decompensated heart failure. The patient is known to have diastolic failure with right sided failure and pulmonary hypertension. The patient also was noted to have increased lower oximetry cellulitis along with edema. Other comorbid conditions include hypertension, hyperlipidemia, stage IV chronic kidney disease and hypothyroidism. The patient is being seen by various consultants including cardiology and nephrology and a pulmonary consultation was also requested as the patient oxygen requirements progressively went up and the patient is currently on 15 L high flow oxygen. Note that last week, the patient was only at 8 L of oxygen by nasal cannula. The patient also has not had a recent chest x-ray. Most recent chest x-rays from 07/03/2022 showing thyromegaly and bilateral pleural effusion, more so on the right and minimal posterior left-sided pleural effusion is also present. The patient is currently on IV cefazolin Re: Bass the cellulitis. The patient is also on Zaroxolyn 5 mg by mouth daily and Demadex 80 mg by mouth daily. The blood work shows a WBC count of 8.3, hemoglobin 14 and platelet count of 149, BUN is 70 with a creatinine of 2.4 and a sodium level is at 138. On today's evaluation of 07/09/2021, the patient is still being diuresed. The patient is on 12 L of oxygen by nasal cannula with a pulse ox 94%. Urine output is adequate the renal function stable with a creatinine of 2.4. The ends of 79. Sodium levels of 135. The patient's white cell cause of 9.4 with a hemoglobin of 14.3. The patient is on IV cefazolin Re: Lower oximetry cellulitis. The patient is on Zaroxolyn 5 mg by mouth daily and Demadex 50 mg by mouth daily. Repeat chest x-ray showed cardiomegaly with mild pulmonary vessel congestion and some atelectasis of the lung bases. The patient is on subcu heparin for DVT prophylaxis. D-dimer level was at 0.64. On 07/10/2022, the patient is still hypoxic despite having a relatively clear lungs. The patient is currently on 12 L of O2 nasal cannula. The patient is on a combination of diuretics and the patient is currently on torsemide and Z aroxolyn. The patient is producing adequate amount of urine output. The BUN is at 82 with a creatinine of 2.3 and a sodium level is at 134. Potassium levels at 3.3. The patient otherwise is being treated for a left lower extremities. She continues to have some edema in the legs. She is on IV cefazolin. No other issues for now. No chest pain. No altered mentation. Based on her ongoing hyp oxemia, I ordered a CAT scan of the chest that was completed today and it showed moderate cardiomegaly with moderate to severe body wall anasarca mainly in the thoracoabdominal junction and in the upper abdominal area. There is obvious third spacing. There is a small right and trace left-sided pleural effusion. Diffuse haziness throughout the lungs probably related to pulmonary vessel congestion. As such, the clinical picture is consistent with CHF. I also ordered a Doppler of the lower extremities and the results of the pending for now. On today's evaluation of 2022, the patient remains on 12 L of oxygen by nasal cannula. I reviewed the CAT scan of the chest and was consistent with CHF and fluid overload. Based on that, the patient was started on diuretics and On diuretics and the patient remains on a combination of torsemide and Zaroxolyn. The Patient Remains in Negative Fluid Balance. Doppler of the Lower Extremities was completed yesterday and the results were negative. The patient remains on IV cefazolin Re: Brock the cellulitis. She is using the incentive sandy meter. She does have a chronic kidney disease and the creatinine remains unchanged at 2.3 with a BUN of 82 and a sodium level is at 134 with a potassium level of 3.3. Glucose at 166. Awake and alert. Tolerating diet. No other new complaints otherwise for now. On 07/12/2022, the patient is still struggling with her oxygenation. She remains on high flow oxygen at 4 L per minute nasal cannula. She remains on torsemide and Zaroxolyn. The patient herself denies having any new complaints. Her blood work shows a BUN of 89 with a creatinine of 2.3 and sodium levels of 135 with a potassium level of 3.7. She is using the incentive spirometer. She is in a negative fluid balance. She has no fever or chills. Pulse ox 90% on 14 L nasal cannula. She remains on IV cefazolin Re: Lower extremity cellulitis. Continues to have some edema lower extremities bilaterally. CAT scan of the chest was noted. Doppler of the lower extremity was noted. Objective - Vital Signs Vital signs: Vital Signs Temp 97.3 F L 07/12/22 08:42 Pulse 63 07/12/22 08:43 Resp 20 07/12/22 08:43 BP 108/67 07/12/22 08:42 Pulse Ox 92 L 07/12/22 09:10 FiO2 Intake & Output 07/11/22 07/12/22 07/12/22 18:59 06:59 18:59 Intake Total 898 0 Output Total 500 450 Balance 398 -450 0 Intake: Oral 898 0 Output: Urine 500 450 Other: Voiding Method External Catheter External Catheter External Catheter # Voids 2 1 # Bowel Movements 1 1 - Exam Gen: This is a frail-appearing 76-year-old female. She is resting , the patient is currently on 14 L of oxygen nasal cannula Head exam was generally normal. There was no scleral icterus or corneal arcus. Mucous membranes were moist. HEENT: Head is atraumatic, normocephalic. Pupils equal, round. Sclerae is anicteric. NECK: Supple. + JVD. LUNGS: Crackles at bilateral bases. No intercostal retractions. There is diminished breath on lung base bilaterally HEART: Regular rate and rhythm. No murmur. There is accentuation of the second heart sounds consistent with pulmonary hypertension. ABDOMEN: Abdominal exam revealed normal bowel sounds. The abdomen was soft, non- tender, and without masses, organomegaly, or appreciable enlargement of the abdominal aorta. EXTREMITIES: 23 plus edema to the bilateral lower extremities with erythema. NEUROLOGICAL: Neurologically, the patient is awake and alert and the patient does not have any focal neurological deficit. Cranial nerves are essentially intact. - Labs CBC & Chem 7: 07/09/22 07:14 07/12/22 06:11 Labs: Abnormal Lab Results - Last 24 Hours (Table) 07/12/22 Range/Units 06:11 Sodium 135 L (137-145) mmol/L Chloride 91 L (98-107) mmol/L Carbon Dioxide 34 H (22-30) mmol/L BUN 89 H (7-17) mg/dL Creatinine 2.33 H (0.52-1.04) mg/dL Glucose 120 H (74-99) mg/dL Magnesium 2.4 H (1.6-2.3) mg/dL Assessment and Plan Plan: Acute on chronic hypoxic respiratory failure, essentially related to CHF and fluid overload. The patient is on diuresis and the patient is receiving a combination of Demadex and Zaroxolyn. The CAT scan of the chest shows abdominal wall edema and anasarca and small pleural effusions and the patient had diffuse haziness bilaterally consistent with CHF. The patient remains hypoxic on 14 L of oxygen by nasal cannula, CAT scan of the chest was noted. Doppler of the lower extremity showed no evidence of any DVTs. No change in oxygenation over the past 2-3 days at least. Chronic diastolic heart failure with right-sided heart failure the patient has severe pulmonary hypertension with chronic lower extremity edema cellulitis of the lower extremities, currently on IV cefazolin Chronic kidney disease, stage IV with acute kidney injury, the patient is known to chronic hydronephrosis with previous double J ureteral stent insertion on the right, renal function is stable while the patient is being diuresed Hypertension Hyperlipidemia Hypothyroidism History of skin cancer Squamous cell carcinoma of the head and neck Plan Give the patient does of Lasix 80 mg IV Monitor urine output Continue torsemide and Zaroxolyn D-dimer level is low, and the Doppler of the lower extremity was negative CAT scan of the chest was noted, essentially consistent with anasarca and fluid overload and CHF Continue Demadex and continue the Zaroxolyn, may need to consider an IV form of diuretics. This will be discussed with nephrology. Monitor urine output Wean down FiO2 as tolerated to [facility] about 90% Continue IV cefazolin We'll continue to follow. Provide the patient incentive spirometer.
--- NOTE | 2022-07-12 15:10 | P.PN ---
Subjective Progress Note Date: 07/12/22 Follow-up for acute kidney injury. Draining of urinary retention, which is chronic and ongoing. No nausea vomiting diarrhea. Recommended urine output of 950 ML's in the last 24 hours. Objective - Vital Signs Vital signs: Vital Signs Temp 97.3 F L 07/12/22 08:42 Pulse 59 L 07/12/22 14:00 Resp 20 07/12/22 14:00 BP 102/67 07/12/22 12:00 Pulse Ox 89 L 07/12/22 12:00 FiO2 Intake & Output 07/11/22 07/12/22 07/12/22 18:59 06:59 18:59 Intake Total 898 120 Output Total 500 450 Balance 398 -450 120 Intake: Oral 898 120 Output: Urine 500 450 Other: Voiding Method External Catheter External Catheter External Catheter # Voids 2 1 # Bowel Movements 1 1 - Exam No acute distress S1-S2 heard Decreased breath sounds Abdomen soft Trace edema - Labs CBC & Chem 7: 07/09/22 07:14 07/12/22 06:11 Labs: Abnormal Lab Results - Last 24 Hours (Table) 07/12/22 07/12/22 Range/Units 06:11 11:02 Sodium 135 L (137-145) mmol/L Chloride 91 L (98-107) mmol/L Carbon Dioxide 34 H (22-30) mmol/L BUN 89 H (7-17) mg/dL Creatinine 2.33 H (0.52-1.04) mg/dL Glucose 120 H (74-99) mg/dL POC Glucose (mg/dL) 158 H (70-110) mg/dL Magnesium 2.4 H (1.6-2.3) mg/dL Assessment and Plan Assessment: #1 acute kidney injury secondary to ATN/CRS. #2 CK D stage IV secondary to nephrosclerosis with a baseline creatinine of 2.0- 2.5 MG per DL. #3 CHF with diastolic dysfunction and pulmonary hypertension. #4 hypertension with chronic kidney disease #5 anemia with chronic kidney disease. Plan: #1 renal function stable and improving. #2 continue on diuretics, Lasix and metolazone #3 avoid nephrotoxic agents and hypotensive episodes.
--- NOTE | 2022-07-12 16:07 | P.PN ---
Subjective Progress Note Date: 07/12/22 76 show female multiple complaints significant shortness of breath hypoxia here in the emergency department oxygen in the low to mid 80s despite supportive supplemental oxygen. Patient also complaining of significant lower extremity swelling and edema. No current chest pain, likely more significantly swollen than normal with significant redness of the left lower extremity. No change in medications or other complaint. EKG sinus bradycardia at 50 bpm Chest x-ray: Cardiomegaly. Small posterior right and minimal left pleural effusions. Some minimal subsegmental atelectasis left base may represent mild subsegmental atelectasis at the right base. WBC 8.6, hemoglobin 14.3, platelet count 165. Sodium 135, potassium 4.8, BUN 77 creatinine 2.99 patient presented with a BUN is 76 and creatinine of 3.03. Troponin 0.125, 0.105, 0.116. Lactic acid 2.5. Phosphorus 5.6, magnesium 2.6, total bilirubin 1. or otherwise liver function tests are normal. Home cardiac medications: Amlodipine 7.5 mg daily, aspirin 81 mg daily, atorvastatin 10 mg at bedtime, Lasix 20 mg every 2 days as needed, Lopressor 25 mg twice daily, levothyroxine 100 g daily Echocardiogram performed 04/2022 revealed a difficult study, EF 50%, aortic sclerosis, mild mitral and moderate tricuspid insufficiency. 07/07/2022 Patient is seen and evaluated in room at bedside; reports feeling better today; denies any complaint of chest shortness of breath Over the course of her admission she was diuresed with high doses of IV Lasix. Limited echocardiogram shows LV function of 50%. RV enlargement with severe right ventricular hypertrophy. RVSP 72 mmHg -- Cardiology on board and recommending to transition to oral Lasix with plans to add Aldactone tomorrow if patient able to tolerate -- Continue to monitor strict JERRY's, daily weights, low salt and fluid restricted diet patient with bilateral lower extremity cellulitis in this patient admitted to the hospital with the fluid overload did have diffuse swelling to bilateral lower extremity likely from gram-positive skin shailesh such as strep, patient with renal insufficiency high risk of nephrotoxicity Patient to continue with Jimbo wrap from just above the toe to below the knee, to keep the swelling down patient to continue with cefazolin 2 g every 12 and monitor clinical course closely Resume the care of the patient on 07/08/2022 Patient is a pleasant 76 years old female was admitted with diastolic CHF and acute hypoxic respiratory failure, her oxygen requirement went up significantly today to 15 L/m however through the day that came down to 12 L/m because of her significant hypoxia we consulted pulmonary, however clinically she looks not that bad, she is sitting up in bed and able to complicated with no difficulty talking due to hypoxia, she is mildly tachypneic with no use of accessory muscles. She is currently on Demadex as well as metolazone. She's continued on cefazolin for bilateral leg cellulitis, both legs with Jimbo wrap, they are slightly improved as per patient. We will keep monitoring Check chest x-ray in the morning 07/09/2022 Patient still hypoxic, improving slowly, today is on 12 L/m of oxygen via high flow nasal cannula. She still have significant leg swelling and cellulitis improving slowly as well Chest x-ray showing fluid overload but is improving she remains on torsemide and metolazone She remains on cefazolin 07/10/2022 Patient is hypoxic with oxygen saturation 12 L/m and saturation 90%, not much improvement and she is becoming hypotensive this morning which is as symptomatic I discussed with the bedside nurse to hold her diuretics and beta larry and to contact full charge bookkeeper for further recommendation -Patient has elements of COPD exacerbation although she never smoked however she has secondary smoking circumstances are her used to smoke in-house about half pack per day. There is limitation of air entry. There is no much this recommendation. I will start patient on Symbicort.. We will defer systemic steroids to the pulmonary team Creatinine 2.3. She remains on cefazolin 07/11/2022 Patient remains on extensive fluid overload as apparent on the CAT scan including subcutaneous edema She is also remains hypoxic requiring 14 L of oxygen via nasal cannula She remains on oral diuretics torsemide and metolazone Nephrology and pulmonary team on the case and other forms of diuresis may be considered further recommendation included intravenous diuresis versus renal replacement therapy Patient remains on IV cefazolin and her lower extremity cellulitis improving 07/12 Rapid called for Presyncope, Blood pressure low, held Lasix, Recovered while in bed RN notifed to Hold lasix , Give albumin Objective - Vital Signs Vital signs: Vital Signs Temp 97.4 F L 07/12/22 15:57 Pulse 64 07/12/22 15:57 Resp 20 07/12/22 15:57 BP 111/66 07/12/22 15:57 Pulse Ox 89 L 07/12/22 15:57 FiO2 Intake & Output 07/11/22 07/12/22 07/12/22 18:59 06:59 18:59 Intake Total 898 120 Output Total 500 450 Balance 398 -450 120 Intake: Oral 898 120 Output: Urine 500 450 Other: Voiding Method External Catheter External Catheter External Catheter # Voids 2 1 # Bowel Movements 1 1 - Exam GENERAL: The patient is alert and oriented x 3,Ill appearance,Nasal canulla in place HEENT: Pupils are round and equally reacting to light. EOMI. No scleral icterus. No conjunctival pallor. Normocephalic, atraumatic. No pharyngeal erythema. No thyromegaly. CARDIOVASCULAR: S1 and S2 present. 2 plus LE edema . PULMONARY: bilateral basal crackles, no use of accessory muscle ABDOMEN: Soft, nontender, nondistended, normoactive bowel sounds. No palpable organomegaly. MUSCULOSKELETAL: No joint swelling or deformity. EXTREMITIES: No cyanosis, clubbing, or pedal edema. Bilateral leg redness and swellingfor cellulitis and fluid retention NEUROLOGICAL: Gross neurological examination did not reveal any focal deficits. SKIN: No rashes. no petechiae. - Labs CBC & Chem 7: 07/09/22 07:14 07/12/22 06:11 Labs: Abnormal Lab Results - Last 24 Hours (Table) 07/12/22 07/12/22 Range/Units 06:11 11:02 Sodium 135 L (137-145) mmol/L Chloride 91 L (98-107) mmol/L Carbon Dioxide 34 H (22-30) mmol/L BUN 89 H (7-17) mg/dL Creatinine 2.33 H (0.52-1.04) mg/dL Glucose 120 H (74-99) mg/dL POC Glucose (mg/dL) 158 H (70-110) mg/dL Magnesium 2.4 H (1.6-2.3) mg/dL Assessment and Plan Assessment: Assessment: * Acute COPD exacerbation secondary to secondary smoking * Acute Hypoxic Resp failure * Acute on chronic diastolic heart failure * Syncope due to hypotension * Acute cellulitis bilateral lower extremities * Hypertension * Hyperlipidemia * HypothyroidismAcute kidney injury Chronic kidney disease stage IV Plan: Continue with cefazolin > ID following Continue with oxygen therapy consultants on the case including full charge bookkeeper, infectious disease and livestock farmers, pulmonary services For CHF on LAsix HELD 04/14 for hypotension>> Albumin Given For COPD continue Breathing treatments DVT prophylaxis: Subcutaneous heparin GI Prophylaxis: Pepcid
[2022-07-12] MEDS: ALBUMIN HUMAN 25% 50 ML in EMPTY BAG 1 BAG IVPB SCH ×2 (16:45→17:51)
--- NOTE | 2022-07-12 18:07 | P.PN ---
Subjective Progress Note Date: 07/12/22 PROGRESS NOTE The patient is a 76-year-old female with known history of chronic kidney disease, hypertension, hyperlipidemia who presented was progressive dyspnea and evidence of CHF. She is feeling better. She continues to have peripheral edema but improving. She continues to require high oxygen flow. Hemodynamically she is stable. She denies any chest discomfort, dizziness or palpitations. She is diuresing well. Her echocardiogram showed an ejection fraction of 50% with evidence of pulmonary hypertension Medications: Aspirin, Lipitor 10 mg daily, furosemide 80 mg IV daily, metolazone 5 mg daily, metoprolol tartrate 25 mg twice a day, PHYSICAL EXAMINATION: Blood pressure 111/60 heart rate 60 LUNGS: Clear to auscultation HEART: Regular rate and rhythm, S1, S2. No S3. systolic ejection murmur ABDOMEN: Soft, nontender, no organomegaly EXTREMETIES: +1 edema LAB: BUN 89, creatinine 2.33, potassium 3.7 IMPRESSION: 1. CHF was preserved systolic function and evidence of pulmonary hypertension and severe tricuspid regurgitation 2. Chronic kidney disease 3. Hyperlipidemia 4. Hypertension 5. History of cellulitis PLAN: 1. Continue present therapy 2. Follow renal functions 3. Increase physical activity 4. Depending on her progress further recommendations will be made Objective - Vital Signs Vital signs: Vital Signs Temp 97.4 F L 07/12/22 15:57 Pulse 64 07/12/22 15:57 Resp 20 07/12/22 15:57 BP 111/66 07/12/22 15:57 Pulse Ox 89 L 07/12/22 15:57 FiO2 Intake & Output 07/11/22 07/12/22 07/12/22 18:59 06:59 18:59 Intake Total 898 120 Output Total 500 450 750 Balance 398 450 -995 Intake: Oral 898 120 Output: Urine 500 450 750 Other: Voiding Method External Catheter External Catheter External Catheter # Voids 2 1 # Bowel Movements 1 1 - Labs CBC & Chem 7: 07/09/22 07:14 07/12/22 06:11 Labs: Abnormal Lab Results - Last 24 Hours (Table) 07/12/22 07/12/22 Range/Units 06:11 11:02 Sodium 135 L (137-145) mmol/L Chloride 91 L (98-107) mmol/L Carbon Dioxide 34 H (22-30) mmol/L BUN 89 H (7-17) mg/dL Creatinine 2.33 H (0.52-1.04) mg/dL Glucose 120 H (74-99) mg/dL POC Glucose (mg/dL) 158 H (70-110) mg/dL Magnesium 2.4 H (1.6-2.3) mg/dL
--- NOTE | 2022-07-12 19:47 | P.PN ---
Subjective Progress Note Date: 07/12/22 Principal diagnosis: Bilateral lower extremity cellulitis Patient is a 76-year-old female with a past medical history significant for hypertension hyperlipidemia chronic renal insufficiency presenting to the hospital 07/03/2022 for evaluation of increasing shortness of b reath, patient was have diffuse swelling and erythema to bilateral extremities concerning for cellulitis. On today's evaluation had that is 07/12/2022, the patient is afebrile, the patient c/o shortness of breath and is still requiring high flow nasal cannula oxygen currently at 14L, the patient denies chest pain and no cough or sputum production, the patient lower extremity swelling redness has decreased in intensity, the patient denies having any drainage no vomiting or diarrhea Objective - Vital Signs Vital signs: Vital Signs Temp 97.3 F L 07/12/22 08:42 Pulse 63 07/12/22 08:43 Resp 20 07/12/22 08:43 BP 108/67 07/12/22 08:42 Pulse Ox 92 L 07/12/22 09:10 FiO2 Intake & Output 07/11/22 07/12/22 07/12/22 18:59 06:59 18:59 Intake Total 898 0 Output Total 500 450 Balance 398 -450 0 Intake: Oral 898 0 Output: Urine 500 450 Other: Voiding Method External Catheter External Catheter External Catheter # Voids 2 1 # Bowel Movements 1 1 - Exam GENERAL DESCRIPTION: An elderly female up in the chair in no distress RESPIRATORY SYSTEM: Unlabored breathing , decreased breath sounds at bases HEART: S1 S2 regular rate and rhythm , ABDOMEN: Soft , no tenderness EXTREMITIES: Bilateral lower extremity wrapped in Jimbo wrap no drainage on the dressing - Labs CBC & Chem 7: 07/09/22 07:14 07/12/22 06:11 Labs: Abnormal Lab Results - Last 24 Hours (Table) 07/12/22 Range/Units 06:11 Sodium 135 L (137-145) mmol/L Chloride 91 L (98-107) mmol/L Carbon Dioxide 34 H (22-30) mmol/L BUN 89 H (7-17) mg/dL Creatinine 2.33 H (0.52-1.04) mg/dL Glucose 120 H (74-99) mg/dL Magnesium 2.4 H (1.6-2.3) mg/dL Assessment and Plan (1) Bilateral lower leg cellulitis Current Visit: Yes Status: Acute Code(s): L03.116 - CELLULITIS OF LEFT LOWER LIMB; L03.115 - CELLULITIS OF RIGHT LOWER LIMB SNOMED Code(s): 694149133 Plan: 1patient with bilateral lower extremity cellulitis in this patient admitted to the hospital with the fluid overload did have diffuse swelling to bilateral lower extremity likely from gram-positive skin shailesh such as strep, patient with renal insufficiency high risk of nephrotoxicity 2Patient to continue with Jimbo wrap from just above the toe to below the knee, to keep the swelling down 3patient is afebrile and white count is normal, 4-the patient has shown clinical improvement as for her lower extremity cellulitis is concerned , pt will continue with cefazolin , monitor clinical course closely Time with Patient: Less than 30
[2022-07-12] MEDS: MAGNESIUM OXIDE 400 MG TAB PO SCH (20:45)
[2022-07-12] MEDS: ATORVASTATIN 10 MG TAB PO SCH (20:46)
[2022-07-12] MEDS: FAMOTIDINE 20 MG TAB PO SCH (20:46)
[2022-07-13 05:30] LABS: Glucose,Whole Blood 150 mg/dL (70-110)
[2022-07-13] MEDS: LEVOTHYROXINE 100 MCG TAB PO SCH (06:09)
[2022-07-13 08:11] LABS: Anisocytosis Slight; HCT 45.1 % (34.0-46.0); HGB 14.1 gm/dL (11.4-16.0); Hypochromasia Slight; MCHC 31.3 g/dL (31.0-37.0); MCV 95.7 fL (80.0-100.0); Macrocytosis Slight; Mean Platelet Volume 10.8; Platelet Count 101 k/uL (150-450); RBC 4.71 m/uL (3.80-5.40); RDW 19.3 % (11.5-15.5); WBC 7.9 k/uL (3.8-10.6)
[2022-07-13 08:25] LABS: Calcium 9.3 mg/dL (8.4-10.2); Potassium 3.5 mmol/L (3.5-5.1)
[2022-07-13] MEDS: HEPARIN SODIUM,PORCINE/PF 5,000 UNIT/0.5 ML SYRINGE SQ SCH ×2 (09:39→20:44)
[2022-07-13] MEDS: metOLazone 5 MG TAB PO SCH (09:40)
[2022-07-13] MEDS: FUROSEMIDE 10 MG/ML 10 ML VIAL IV SCH (09:40)
[2022-07-13] MEDS: MIDODRINE 5 MG TAB PO SCH ×3 (09:40→17:32)
[2022-07-13] MEDS: POTASSIUM CHLORIDE ER 20 MEQ TAB.ER PO SCH (09:40)
[2022-07-13] MEDS: CHOLECALCIFEROL 25 MCG (1000 IU) TABLET PO SCH (09:40)
[2022-07-13] MEDS: METOPROLOL TARTRATE 25 MG TAB PO SCH ×2 (09:40→20:44)
[2022-07-13] MEDS: ASPIRIN 81 MG PO SCH (09:40)
[2022-07-13] MEDS: FOLIC ACID 1 MG TAB PO SCH (09:40)
[2022-07-13] MEDS: allopurinoL 100 MG TAB PO SCH ×2 (09:40→20:44)
[2022-07-13] MEDS: FERROUS SULFATE 325 MG TAB PO SCH ×2 (09:40→20:44)
[2022-07-13] MEDS: SYMBICORT 160-4.5 MCG INHALER INHALATION SCH ×2 (09:55→20:36)
--- NOTE | 2022-07-13 10:11 | XR ---
EXAMINATION TYPE: XR chest 1V portable DATE OF EXAM: 07/13/2022 HISTORY: Shortness of breath. COMPARISON: 07/12/2022 TECHNIQUE: Single view of the chest is submitted. FINDINGS: Demonstrated are scattered senescent parenchymal change. Cardiomegaly with pulmonary venous congestion scattered interstitial edema with small effusions noted . Hilar and mediastinal structures are within normal limits. Degenerative changes are seen of the dorsal spine. IMPRESSION: 1. Findings compatible with mild CHF.
--- NOTE | 2022-07-13 12:06 | P.PN ---
Subjective Progress Note Date: 07/13/22 76-year-old female patient hospitalized for shortness of breath and lower extremity edema and decompensated heart failure. The patient is known to have diastolic failure with right sided failure and pulmonary hypertension. The patient also was noted to have increased lower oximetry cellulitis along with edema. Other comorbid conditions include hypertension, hyperlipidemia, stage IV chronic kidney disease and hypothyroidism. The patient is being seen by various consultants including cardiology and nephrology and a pulmonary consultation was also requested as the patient oxygen requirements progressively went up and the patient is currently on 15 L high flow oxygen. Note that last week, the patient was only at 8 L of oxygen by nasal cannula. The patient also has not had a recent chest x-ray. Most recent chest x-rays from 07/03/2022 showing thyromegaly and bilateral pleural effusion, more so on the right and minimal posterior left-sided pleural effusion is also present. The patient is currently on IV cefazolin Re: Bass the cellulitis. The patient is also on Zaroxolyn 5 mg by mouth daily and Demadex 80 mg by mouth daily. The blood work shows a WBC count of 8.3, hemoglobin 14 and platelet count of 149, BUN is 70 with a creatinine of 2.4 and a sodium level is at 138. On today's evaluation of 07/09/2021, the patient is still being diuresed. The patient is on 12 L of oxygen by nasal cannula with a pulse ox 94%. Urine output is adequate the renal function stable with a creatinine of 2.4. The ends of 79. Sodium levels of 135. The patient's white cell cause of 9.4 with a hemoglobin of 14.3. The patient is on IV cefazolin Re: Lower oximetry cellulitis. The patient is on Zaroxolyn 5 mg by mouth daily and Demadex 50 mg by mouth daily. Repeat chest x-ray showed cardiomegaly with mild pulmonary vessel congestion and some atelectasis of the lung bases. The patient is on subcu heparin for DVT prophylaxis. D-dimer level was at 0.64. On 07/10/2022, the patient is still hypoxic despite having a relatively clear lungs. The patient is currently on 12 L of O2 nasal cannula. The patient is on a combination of diuretics and the patient is currently on torsemide and Z aroxolyn. The patient is producing adequate amount of urine output. The BUN is at 82 with a creatinine of 2.3 and a sodium level is at 134. Potassium levels at 3.3. The patient otherwise is being treated for a left lower extremities. She continues to have some edema in the legs. She is on IV cefazolin. No other issues for now. No chest pain. No altered mentation. Based on her ongoing hyp oxemia, I ordered a CAT scan of the chest that was completed today and it showed moderate cardiomegaly with moderate to severe body wall anasarca mainly in the thoracoabdominal junction and in the upper abdominal area. There is obvious third spacing. There is a small right and trace left-sided pleural effusion. Diffuse haziness throughout the lungs probably related to pulmonary vessel congestion. As such, the clinical picture is consistent with CHF. I also ordered a Doppler of the lower extremities and the results of the pending for now. On today's evaluation of 2022, the patient remains on 12 L of oxygen by nasal cannula. I reviewed the CAT scan of the chest and was consistent with CHF and fluid overload. Based on that, the patient was started on diuretics and On diuretics and the patient remains on a combination of torsemide and Zaroxolyn. The Patient Remains in Negative Fluid Balance. Doppler of the Lower Extremities was completed yesterday and the results were negative. The patient remains on IV cefazolin Re: Brock the cellulitis. She is using the incentive sandy meter. She does have a chronic kidney disease and the creatinine remains unchanged at 2.3 with a BUN of 82 and a sodium level is at 134 with a potassium level of 3.3. Glucose at 166. Awake and alert. Tolerating diet. No other new complaints otherwise for now. On 07/12/2022, the patient is still struggling with her oxygenation. She remains on high flow oxygen at 4 L per minute nasal cannula. She remains on torsemide and Zaroxolyn. The patient herself denies having any new complaints. Her blood work shows a BUN of 89 with a creatinine of 2.3 and sodium levels of 135 with a potassium level of 3.7. She is using the incentive spirometer. She is in a negative fluid balance. She has no fever or chills. Pulse ox 90% on 14 L nasal cannula. She remains on IV cefazolin Re: Lower extremity cellulitis. Continues to have some edema lower extremities bilaterally. CAT scan of the chest was noted. Doppler of the lower extremity was noted. On today's evaluation of 07/13/2022, the patient is on high flow oxygen with 50 L with an FiO2 of 90%. The patient had episodes of unresponsiveness and oxygen saturation yesterday. She was briefly placed on a BiPAP and later on physician to high flow oxygen. I made recommendations for this patient to be transferred to the intensive care unit. The chest x-ray is consistent with CHF. She is still diuretics and the patient is currently on a combination of Zaroxolyn and Lasix and I'm going to transfer this patient to Lasix drip. Her oxygenation is borderline. Pulse ox 92%. The patient's WBC count 7.5 with a hemoglobin of 14. BUN is at 91 with a creatinine of 2.37 and a sodium level is at 136. The blood cultures have been negative and the patient is afebrile. Objective - Vital Signs Vital signs: Vital Signs Temp 97.6 F 07/13/22 05:00 Pulse 61 07/13/22 05:45 Resp 22 07/13/22 05:45 BP 99/60 07/13/22 07:03 Pulse Ox 90 L 07/13/22 10:12 FiO2 89 07/13/22 10:12 Intake & Output 07/12/22 07/13/22 07/13/22 18:59 06:59 18:59 Intake Total 360 0 Output Total 750 1400 700 Balance -390 -1400 -700 Intake: Oral 360 0 Output: Urine 750 1400 700 Other: Voiding Method External Catheter External Catheter - Exam Gen: This is a frail-appearing 76-year-old female. She is resting , the patient is currently on high flow oxygen with 50 L with an FiO2 of 90% Head exam was generally normal. There was no scleral icterus or corneal arcus. Mucous membranes were moist. HEENT: Head is atraumatic, normocephalic. Pupils equal, round. Sclerae is anicteric. NECK: Supple. + JVD. LUNGS: Crackles at bilateral bases. No intercostal retractions. There is diminished breath on lung base bilaterally HEART: Regular rate and rhythm. No murmur. There is accentuation of the second heart sounds consistent with pulmonary hypertension. ABDOMEN: Abdominal exam revealed normal bowel sounds. The abdomen was soft, non- tender, and without masses, organomegaly, or appreciable enlargement of the abdominal aorta. EXTREMITIES: 23 plus edema to the bilateral lower extremities with erythema. NEUROLOGICAL: Neurologically, the patient is awake and alert and the patient does not have any focal neurological deficit. Cranial nerves are essentially intact. - Labs CBC & Chem 7: 07/13/22 07:20 07/13/22 07:20 Labs: Abnormal Lab Results - Last 24 Hours (Table) 07/12/22 07/13/22 07/13/22 Range/Units 11:02 05:27 07:20 RDW (11.5-15.5) % Plt Count (150-450) k/uL Sodium 136 L (137-145) mmol/L Chloride 87 L (98-107) mmol/L Carbon Dioxide 38 H (22-30) mmol/L BUN 91 H (7-17) mg/dL Creatinine 2.37 H (0.52-1.04) mg/dL Glucose 122 H (74-99) mg/dL POC Glucose (mg/dL) 158 H 150 H (70-110) mg/dL 07/13/22 Range/Units 07:20 RDW 19.3 H (11.5-15.5) % Plt Count 101 L (150-450) k/uL Sodium (137-145) mmol/L Chloride (98-107) mmol/L Carbon Dioxide (22-30) mmol/L BUN (7-17) mg/dL Creatinine (0.52-1.04) mg/dL Glucose (74-99) mg/dL POC Glucose (mg/dL) (70-110) mg/dL Assessment and Plan Plan: Acute on chronic hypoxic respiratory failure, essentially related to CHF and fluid overload. The patient is on diuresis and the patient is receiving a combi [place] of Demadex and Zaroxolyn. The CAT scan of the chest shows abdominal wall edema and anasarca and small pleural effusions and the patient had diffuse haziness bilaterally consistent with CHF. The patient remains hypoxic on high flow oxygen with an FiO2 of 90% and a flow of 50 L, CAT scan of the chest was noted. Doppler of the lower extremity showed no evidence of any DVTs. No change in oxygenation over the past 2-3 days at least. Chronic diastolic heart failure with right-sided heart failure the patient has severe pulmonary hypertension with chronic lower extremity edema cellulitis of the lower extremities, currently on IV cefazolin Chronic kidney disease, stage IV with acute kidney injury, the patient is known to chronic hydronephrosis with previous double J ureteral stent insertion on the right, renal function is stable while the patient is being diuresed Hypertension Hyperlipidemia Hypothyroidism History of skin cancer Squamous cell carcinoma of the head and neck Plan Transfer the patient to the ICU Start the patient on Lasix drip at 10 mg an hour Monitor urine output Continue Zaroxolyn Use BiPAP if needed D-dimer level is low, and the Doppler of the lower extremity was negative CAT scan of the chest was noted, essentially consistent with anasarca and fluid overload and CHF 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 Provide the patient incentive spirometer.
[2022-07-13 12:24] LABS: Glucose,Whole Blood 132 mg/dL (70-110)
[2022-07-13] MEDS: FUROSEMIDE 100 MG in SODIUM CHLORIDE 0.9% 90 ML IV SCH ×2 (13:08→20:45)
--- NOTE | 2022-07-13 14:29 | P.PN ---
Subjective Progress Note Date: 07/13/22 76 show female multiple complaints significant shortness of breath hypoxia here in the emergency department oxygen in the low to mid 80s despite supportive supplemental oxygen. Patient also complaining of significant lower extremity swelling and edema. No current chest pain, likely more significantly swollen than normal with significant redness of the left lower extremity. No change in medications or other complaint. EKG sinus bradycardia at 50 bpm Chest x-ray: Cardiomegaly. Small posterior right and minimal left pleural effusions. Some minimal subsegmental atelectasis left base may represent mild subsegmental atelectasis at the right base. WBC 8.6, hemoglobin 14.3, platelet count 165. Sodium 135, potassium 4.8, BUN 77 creatinine 2.99 patient presented with a BUN is 76 and creatinine of 3.03. Troponin 0.125, 0.105, 0.116. Lactic acid 2.5. Phosphorus 5.6, magnesium 2.6, total bilirubin 1. or otherwise liver function tests are normal. Home cardiac medications: Amlodipine 7.5 mg daily, aspirin 81 mg daily, atorvastatin 10 mg at bedtime, Lasix 20 mg every 2 days as needed, Lopressor 25 mg twice daily, levothyroxine 100 g daily Echocardiogram performed 04/2022 revealed a difficult study, EF 50%, aortic sclerosis, mild mitral and moderate tricuspid insufficiency. 07/07/2022 Patient is seen and evaluated in room at bedside; reports feeling better today; denies any complaint of chest shortness of breath Over the course of her admission she was diuresed with high doses of IV Lasix. Limited echocardiogram shows LV function of 50%. RV enlargement with severe right ventricular hypertrophy. RVSP 72 mmHg -- Cardiology on board and recommending to transition to oral Lasix with plans to add Aldactone tomorrow if patient able to tolerate -- Continue to monitor strict JERRY's, daily weights, low salt and fluid restricted diet patient with bilateral lower extremity cellulitis in this patient admitted to the hospital with the fluid overload did have diffuse swelling to bilateral lower extremity likely from gram-positive skin shailesh such as strep, patient with renal insufficiency high risk of nephrotoxicity Patient to continue with Jimbo wrap from just above the toe to below the knee, to keep the swelling down patient to continue with cefazolin 2 g every 12 and monitor clinical course closely Resume the care of the patient on 07/08/2022 Patient is a pleasant 76 years old female was admitted with diastolic CHF and acute hypoxic respiratory failure, her oxygen requirement went up significantly today to 15 L/m however through the day that came down to 12 L/m because of her significant hypoxia we consulted pulmonary, however clinically she looks not that bad, she is sitting up in bed and able to complicated with no difficulty talking due to hypoxia, she is mildly tachypneic with no use of accessory muscles. She is currently on Demadex as well as metolazone. She's continued on cefazolin for bilateral leg cellulitis, both legs with Jimbo wrap, they are slightly improved as per patient. We will keep monitoring Check chest x-ray in the morning 07/09/2022 Patient still hypoxic, improving slowly, today is on 12 L/m of oxygen via high flow nasal cannula. She still have significant leg swelling and cellulitis improving slowly as well Chest x-ray showing fluid overload but is improving she remains on torsemide and metolazone She remains on cefazolin 07/10/2022 Patient is hypoxic with oxygen saturation 12 L/m and saturation 90%, not much improvement and she is becoming hypotensive this morning which is as symptomatic I discussed with the bedside nurse to hold her diuretics and beta larry and to contact wheel lacer and truer for further recommendation -Patient has elements of COPD exacerbation although she never smoked however she has secondary smoking circumstances are her used to smoke in-house about half pack per day. There is limitation of air entry. There is no much this recommendation. I will start patient on Symbicort.. We will defer systemic steroids to the pulmonary team Creatinine 2.3. She remains on cefazolin 07/11/2022 Patient remains on extensive fluid overload as apparent on the CAT scan including subcutaneous edema She is also remains hypoxic requiring 14 L of oxygen via nasal cannula She remains on oral diuretics torsemide and metolazone Nephrology and pulmonary team on the case and other forms of diuresis may be considered further recommendation included intravenous diuresis versus renal replacement therapy Patient remains on IV cefazolin and her lower extremity cellulitis improving 07/12 Rapid called for Presyncope, Blood pressure low, held Lasix, Recovered while in bed RN notifed to Hold lasix , Give albumin 07/13 Continue to remain short of breath, High Oxygen demand, transferred to ICU, Pulm Following, Started on Midodrine Goals of Care discussed Full code Objective - Vital Signs Vital signs: Vital Signs Temp 97.6 F 07/13/22 05:00 Pulse 61 07/13/22 08:00 Resp 22 07/13/22 11:05 BP 97/60 07/13/22 11:05 Pulse Ox 97 07/13/22 12:24 FiO2 90 07/13/22 12:24 Intake & Output 07/12/22 07/13/22 07/13/22 18:59 06:59 18:59 Intake Total 360 40 Output Total 750 1400 925 Balance -390 -1400 885 Intake: IV 40 0.9 20 Furosemide 100 mg In 20 Sodium Chloride 0.9% 90 ml @ 10 MG/HR 10 mls/hr IV .Q10H [facility] Rx#: [id number] Oral 360 0 Output: Urine 750 1400 925 Other: Voiding Method External Catheter External Catheter External Catheter - Exam GENERAL: The patient is alert and oriented x 3,Ill appearance,Nasal canulla in place , ILL APPEARANCE HEENT: Pupils are round and equally reacting to light. EOMI. No scleral icterus. No conjunctival pallor. Normocephalic, atraumatic. No pharyngeal erythema. No thyromegaly. CARDIOVASCULAR: S1 and S2 present. 2 plus LE edema . PULMONARY: bilateral basal crackles, no use of accessory muscle , Decrease breath sounds ABDOMEN: Soft, nontender, nondistended, normoactive bowel sounds. No palpable organomegaly. MUSCULOSKELETAL: No joint swelling or deformity. EXTREMITIES: No cyanosis, clubbing, or pedal edema. Bilateral leg redness and swellingfor cellulitis and fluid retention NEUROLOGICAL: Gross neurological examination did not reveal any focal deficits. SKIN: No rashes. no petechiae. - Labs CBC & Chem 7: 07/13/22 07:20 07/13/22 07:20 Labs: Abnormal Lab Results - Last 24 Hours (Table) 07/13/22 07/13/22 07/13/22 Range/Units 05:27 07:20 07:20 RDW 19.3 H (11.5-15.5) % Plt Count 101 L (150-450) k/uL Sodium 136 L (137-145) mmol/L Chloride 87 L (98-107) mmol/L Carbon Dioxide 38 H (22-30) mmol/L BUN 91 H (7-17) mg/dL Creatinine 2.37 H (0.52-1.04) mg/dL Glucose 122 H (74-99) mg/dL POC Glucose (mg/dL) 150 H (70-110) mg/dL 07/13/22 Range/Units 12:22 RDW (11.5-15.5) % Plt Count (150-450) k/uL Sodium (137-145) mmol/L Chloride (98-107) mmol/L Carbon Dioxide (22-30) mmol/L BUN (7-17) mg/dL Creatinine (0.52-1.04) mg/dL Glucose (74-99) mg/dL POC Glucose (mg/dL) 132 H (70-110) mg/dL Assessment and Plan Assessment: Assessment: * Acute COPD exacerbation secondary to secondary smoking * Acute Hypoxic Resp failure * Acute on chronic diastolic heart failure/ Pulmonary hypertension * Syncope due to hypotension * Acute cellulitis bilateral lower extremities * Hypertension * Hyperlipidemia * HypothyroidismAcute kidney injury Chronic kidney disease stage IV Plan: Continue with cefazolin > ID following Continue with oxygen therapy>> on Heated High FLow consultants on the case including wheel lacer and truer, infectious disease and cad intern, pulmonary services For CHF Lasix Held today due to hypotension , Started Midodrine For COPD continue Breathing treatments > Pulm following DVT prophylaxis: Subcutaneous heparin GI Prophylaxis: Pepcid Time with Patient: Greater than 30
--- NOTE | 2022-07-13 15:27 | P.PN ---
Subjective Progress Note Date: 07/13/22 Follow-up for acute kidney injury. Transferred to ICU, for worsening shortness of breath. Currently on Lasix drip. Renal output of 2 L. Objective - Vital Signs Vital signs: Vital Signs Temp 97.6 F 07/13/22 05:00 Pulse 61 07/13/22 08:00 Resp 22 07/13/22 11:05 BP 97/60 07/13/22 11:05 Pulse Ox 92 L 07/13/22 15:14 FiO2 90 07/13/22 15:14 Intake & Output 07/12/22 07/13/22 07/13/22 18:59 06:59 18:59 Intake Total 360 40 Output Total 750 1400 925 Balance -390 -1400 -885 Intake: IV 40 0.9 20 Furosemide 100 mg In 20 Sodium Chloride 0.9% 90 ml @ 10 MG/HR 10 mls/hr IV .Q10H [facility] Rx#: [id number] Oral 360 0 Output: Urine 750 1400 925 Other: Voiding Method External Catheter External Catheter External Catheter - Exam No acute distress S1-S2 heard Decreased breath sounds Abdomen soft edema - Labs CBC & Chem 7: 07/13/22 07:20 07/13/22 07:20 Labs: Abnormal Lab Results - Last 24 Hours (Table) 07/13/22 07/13/22 07/13/22 Range/Units 05:27 07:20 07:20 RDW 19.3 H (11.5-15.5) % Plt Count 101 L (150-450) k/uL Sodium 136 L (137-145) mmol/L Chloride 87 L (98-107) mmol/L Carbon Dioxide 38 H (22-30) mmol/L BUN 91 H (7-17) mg/dL Creatinine 2.37 H (0.52-1.04) mg/dL Glucose 122 H (74-99) mg/dL POC Glucose (mg/dL) 150 H (70-110) mg/dL 07/13/22 Range/Units 12:22 RDW (11.5-15.5) % Plt Count (150-450) k/uL Sodium (137-145) mmol/L Chloride (98-107) mmol/L Carbon Dioxide (22-30) mmol/L BUN (7-17) mg/dL Creatinine (0.52-1.04) mg/dL Glucose (74-99) mg/dL POC Glucose (mg/dL) 132 H (70-110) mg/dL Assessment and Plan Assessment: #1 acute kidney injury secondary to ATN/CRS. #2 CK D stage IV secondary to nephrosclerosis with a baseline creatinine of 2.0-2.5 MG per DL. #3 CHF with diastolic dysfunction and pulmonary hypertension. #4 hypertension with chronic kidney disease #5 anemia with chronic kidney disease. #6 volume overload on diuretics Plan: #1 renal function stable. #2 continue on diuretics, on Lasix drip. #3 avoid nephrotoxic agents and hypotensive episodes.
--- NOTE | 2022-07-13 16:06 | P.PN ---
Subjective Progress Note Date: 07/13/22 PROGRESS NOTE The patient is a 76-year-old female with known history of chronic kidney disease, hypertension, hyperlipidemia who presented was progressive dyspnea and evidence of CHF. She is feeling better. She continues to have peripheral edema but improving. She continues to require high oxygen flow. Hemodynamically she is stable. She denies any chest discomfort, dizziness or palpitations. She is diuresing well. Her echocardiogram showed an ejection fraction of 50% with evidence of pulmonary hypertension July 13: The patient became more dyspneic, had a brief episode of unresponsiveness and a drop in her oxygen saturation. She is transferred to the ICU. She's feeling better now. She has been started on IV Lasix drip. Her chest x-ray was consistent with CHF. She denies any chest discomfort, dizziness or palpitations. She has no nausea. Medications: Aspirin, Lipitor 10 mg daily, furosemide drip, metolazone 5 mg daily, metoprolol tartrate 25 mg twice a day, PHYSICAL EXAMINATION: Blood pressure 92/60 heart rate 60 LUNGS: Scattered rhonchi HEART: Regular rate and rhythm, S1, S2. No S3. systolic ejection murmur ABDOMEN: Soft, nontender, no organomegaly EXTREMETIES: +1 to 2+ edema LAB: BUN 91, creatinine 2.37, potassium 3.5 IMPRESSION: 1. CHF with preserved systolic function and evidence of pulmonary hypertension and severe tricuspid regurgitation 2. Chronic kidney disease 3. Hyperlipidemia 4. Hypertension 5. History of cellulitis PLAN: 1. Continue present therapy 2. Follow renal functions 3. Follow blood pressure to see if there is room for further adjustment in her medical regimen 4. The patient is exhibiting signs of cardiorenal syndrome Objective - Vital Signs Vital signs: Vital Signs Temp 98.1 F 07/13/22 12:16 Pulse 60 07/13/22 14:00 Resp 15 07/13/22 15:00 BP 92/64 07/13/22 15:00 Pulse Ox 92 L 07/13/22 15:14 FiO2 90 07/13/22 15:14 Intake & Output 07/12/22 07/13/22 07/13/22 18:59 06:59 18:59 Intake Total 360 40 Output Total 750 1400 925 Balance -517 -1400 -041 Intake: IV 40 0.9 20 Furosemide 100 mg In 20 Sodium Chloride 0.9% 90 ml @ 10 MG/HR 10 mls/hr IV .Q10H [facility] Rx#: [id number] Oral 360 0 Output: Urine 750 1400 925 Other: Voiding Method External Catheter External Catheter External Catheter - Labs CBC & Chem 7: 07/13/22 07:20 07/13/22 14:48 Labs: Abnormal Lab Results - Last 24 Hours (Table) 07/13/22 07/13/22 07/13/22 Range/Units 05:27 07:20 07:20 RDW 19.3 H (11.5-15.5) % Plt Count 101 L (150-450) k/uL Sodium 136 L (137-145) mmol/L Chloride 87 L (98-107) mmol/L Carbon Dioxide 38 H (22-30) mmol/L BUN 91 H (7-17) mg/dL Creatinine 2.37 H (0.52-1.04) mg/dL Glucose 122 H (74-99) mg/dL POC Glucose (mg/dL) 150 H (70-110) mg/dL 07/13/22 Range/Units 12:22 RDW (11.5-15.5) % Plt Count (150-450) k/uL Sodium (137-145) mmol/L Chloride (98-107) mmol/L Carbon Dioxide (22-30) mmol/L BUN (7-17) mg/dL Creatinine (0.52-1.04) mg/dL Glucose (74-99) mg/dL POC Glucose (mg/dL) 132 H (70-110) mg/dL
[2022-07-13] MEDS: ACETAMINOPHEN TAB 325 MG TAB PO PRN (17:23)
[2022-07-13] MEDS: FAMOTIDINE 20 MG TAB PO SCH (20:44)
[2022-07-13] MEDS: MAGNESIUM OXIDE 400 MG TAB PO SCH (20:44)
[2022-07-13] MEDS: ATORVASTATIN 10 MG TAB PO SCH (20:44)
--- NOTE | 2022-07-13 22:18 | P.PN ---
Subjective Progress Note Date: 07/13/22 Principal diagnosis: Bilateral lower extremity cellulitis Patient is a 76-year-old female with a past medical history significant for hypertension hyperlipidemia chronic renal insufficiency presenting to the hospital 07/03/2022 for evaluation of increasing shortness of b reath, patient was have diffuse swelling and erythema to bilateral extremities concerning for cellulitis. On today's evaluation had that is 07/13/2022, the patient remains to be afebrile, the patient did have weakness and syncopal episode and has been transferred to ICU for close monitoring , pt denies any worsening shortness of breath and is still requiring high flow nasal cannula oxygen , the patient denies chest pain and no cough or sputum production, the patient lower extremity swelling redness has decreased in intensity, the patient denies having any drainage no vomiting or diarrhea Objective - Vital Signs Vital signs: Vital Signs Temp 97.6 F 07/13/22 05:00 Pulse 61 07/13/22 08:00 Resp 22 07/13/22 11:05 BP 97/60 07/13/22 11:05 Pulse Ox 97 07/13/22 12:24 FiO2 90 07/13/22 12:24 Intake & Output 07/12/22 07/13/22 07/13/22 18:59 06:59 18:59 Intake Total 360 0 Output Total 750 1400 700 Balance -390 -1400 -700 Intake: Oral 360 0 Output: Urine 750 1400 700 Other: Voiding Method External Catheter External Catheter External Catheter - Exam GENERAL DESCRIPTION: An elderly female up in the chair in no distress RESPIRATORY SYSTEM: Unlabored breathing , decreased breath sounds at bases HEART: S1 S2 regular rate and rhythm , ABDOMEN: Soft , no tenderness EXTREMITIES: Bilateral lower extremity wrapped in Jimbo wrap no drainage on the dressing - Labs CBC & Chem 7: 07/13/22 07:20 07/13/22 14:48 Labs: Abnormal Lab Results - Last 24 Hours (Table) 07/13/22 07/13/22 07/13/22 Range/Units 05:27 07:20 07:20 RDW 19.3 H (11.5-15.5) % Plt Count 101 L (150-450) k/uL Sodium 136 L (137-145) mmol/L Chloride 87 L (98-107) mmol/L Carbon Dioxide 38 H (22-30) mmol/L BUN 91 H (7-17) mg/dL Creatinine 2.37 H (0.52-1.04) mg/dL Glucose 122 H (74-99) mg/dL POC Glucose (mg/dL) 150 H (70-110) mg/dL 07/13/22 Range/Units 12:22 RDW (11.5-15.5) % Plt Count (150-450) k/uL Sodium (137-145) mmol/L Chloride (98-107) mmol/L Carbon Dioxide (22-30) mmol/L BUN (7-17) mg/dL Creatinine (0.52-1.04) mg/dL Glucose (74-99) mg/dL POC Glucose (mg/dL) 132 H (70-110) mg/dL Assessment and Plan (1) Bilateral lower leg cellulitis Current Visit: Yes Status: Acute Code(s): L03.116 - CELLULITIS OF LEFT LOWER LIMB; L03.115 - CELLULITIS OF RIGHT LOWER LIMB SNOMED Code(s): 511827469 Plan: 1patient with bilateral lower extremity cellulitis in this patient admitted to the hospital with the fluid overload did have diffuse swelling to bilateral lower extremity likely from gram-positive skin shailesh such as strep, patient with renal insufficiency high risk of nephrotoxicity 2Patient to continue with Jimbo wrap from just above the toe to below the knee, to keep the swelling down 3patient is afebrile and white count is normal, 4-the patient has shown clinical improvement as for her lower extremity cellulitis is concerned and has completed a 7 day course of cefazolin as of this morning and pt will be monitored closely off antibiotics Time with Patient: Less than 30
[2022-07-14] MEDS: ACETAMINOPHEN TAB 325 MG TAB PO PRN ×3 (04:33→20:22)
[2022-07-14 04:58] LABS: ALT 8 U/L (4-34); AST 36 U/L (14-36); African American GFR (CKD) 23 (>60 ml/min/1.73 sqM); Albumin 3.6 g/dL (3.5-5.0); Alkaline Phosphatase 74 U/L (38-126); Anion Gap 14 mmol/L; Blood Urea Nitrogen 92 mg/dL (7-17); C Reactive Protein 3.5 mg/dL (<1.0); Calcium 9.2 mg/dL (8.4-10.2); Carbon Dioxide 34 mmol/L (22-30); Chloride 87 mmol/L (98-107); Glucose 98 mg/dL (74-99); Non-African American GFR(CKD) 20 (>60 ml/min/1.73 sqM); Potassium 4.1 mmol/L (3.5-5.1); Sodium 135 mmol/L (137-145); Total Bilirubin 1.1 mg/dL (0.2-1.3); Total Protein 6.1 g/dL (6.3-8.2)
[2022-07-14 05:05] LABS: Anisocytosis Slight; Basophils % (A) 0 %; Eosinophils # (A) 0.1 k/uL (0-0.7); Eosinophils % (A) 1 %; HGB 14.5 gm/dL (11.4-16.0); Hypochromasia Slight; Lymphocytes # (A) 0.7 k/uL (1.0-4.8); Lymphocytes % (A) 9 %; MCH 30.2 pg (25.0-35.0); MCHC 31.5 g/dL (31.0-37.0); MCV 95.6 fL (80.0-100.0); Macrocytosis Slight; Mean Platelet Volume 11.8; Monocytes # (A) 0.5 k/uL (0-1.0); Monocytes % (A) 7 %; Neutrophils # (A) 5.8 k/uL (1.3-7.7); Neutrophils % (A) 81 %; Platelet Count 110 k/uL (150-450); RBC 4.81 m/uL (3.80-5.40); RDW 19.4 % (11.5-15.5); WBC 7.2 k/uL (3.8-10.6)
[2022-07-14] MEDS: FUROSEMIDE 100 MG in SODIUM CHLORIDE 0.9% 90 ML IV SCH ×2 (05:50→17:23)
--- NOTE | 2022-07-14 06:05 | XR ---
EXAMINATION TYPE: XR chest 1V DATE OF EXAM: 07/14/2022 CLINICAL HISTORY: Difficulty breathing and CHF progress study. TECHNIQUE: Single AP portable upright view of the chest is obtained. COMPARISON: Chest x-ray from one day earlier and older studies FINDINGS: Persistent cardiomegaly with central vascular congestion and bibasilar opacities. Osseous structures are intact. IMPRESSION: Findings consistent with CHF exacerbation remain present. No significant change from most recent study.
[2022-07-14] MEDS: LEVOTHYROXINE 100 MCG TAB PO SCH (06:50)
[2022-07-14] MEDS: MIDODRINE 5 MG TAB PO SCH ×3 (06:50→17:23)
[2022-07-14] MEDS: SYMBICORT 160-4.5 MCG INHALER INHALATION SCH ×2 (08:08→20:14)
[2022-07-14] MEDS: allopurinoL 100 MG TAB PO SCH ×2 (08:34→20:22)
[2022-07-14] MEDS: metOLazone 5 MG TAB PO SCH (08:34)
[2022-07-14] MEDS: FERROUS SULFATE 325 MG TAB PO SCH ×2 (08:34→20:21)
[2022-07-14] MEDS: CHOLECALCIFEROL 25 MCG (1000 IU) TABLET PO SCH (08:34)
[2022-07-14] MEDS: ASPIRIN 81 MG PO SCH (08:34)
[2022-07-14] MEDS: FOLIC ACID 1 MG TAB PO SCH (08:34)
[2022-07-14] MEDS: POTASSIUM CHLORIDE ER 20 MEQ TAB.ER PO SCH (08:35)
[2022-07-14] MEDS: HEPARIN SODIUM,PORCINE/PF 5,000 UNIT/0.5 ML SYRINGE SQ SCH ×2 (08:35→20:23)
[2022-07-14] MEDS: METOPROLOL TARTRATE 25 MG TAB PO SCH ×2 (08:35→20:23)
[2022-07-14] MEDS: SILDENAFIL 20 MG TAB PO SCH ×3 (10:42→23:14)
--- NOTE | 2022-07-14 11:05 | P.PN ---
Subjective Patient is seen for follow-up for acute kidney injury and top of chronic kidney disease. Maintained on Lasix drip Currently on high flow nasal cannula. Renal function is stable with serum creatinine staying at 2.3 mg/dL. Urine output at 2.4 L. Objective - Vital Signs Vital signs: Vital Signs Temp 97.2 F L 07/14/22 08:00 Pulse 57 L 07/14/22 10:00 Resp 22 07/14/22 10:00 BP 110/80 07/14/22 10:00 Pulse Ox 91 L 07/14/22 10:00 FiO2 90 07/14/22 08:08 Intake & Output 07/13/22 07/14/22 07/14/22 18:59 06:59 18:59 Intake Total 250 417.000 60 Output Total 1340 1140 224 Balance -1090 -723.000 -164 Weight 58.9 kg Intake: IV 120 250 60 0.9 60 130 30 Furosemide 100 mg In 60 120 30 Sodium Chloride 0.9% 90 ml @ 10 MG/HR 10 mls/hr IV .Q10H [facility]IA[facility] Rx#: [id number] Intake, IV Titration 167.000 Amount Furosemide 100 mg In 167.000 Sodium Chloride 0.9% 90 ml @ 10 MG/HR 10 mls/hr IV .Q10H [facility] Rx#: [id number] Oral 130 Output: Urine 1340 1140 224 Other: Voiding Method Indwelling Catheter Indwelling Catheter - Exam Awake, comfortable, no acute distress Examination of the heart S1 and S2 Examination of the lungs decreased breath sounds at the bases Abdomen is soft nontender Examination lower extremity shows no significant edema - Labs CBC & Chem 7: 07/14/22 03:05 07/14/22 03:05 Labs: Abnormal Lab Results - Last 24 Hours (Table) 07/13/22 07/14/22 07/14/22 Range/Units 12:22 03:05 03:05 RDW 19.4 H (11.5-15.5) % Plt Count 110 L (150-450) k/uL Lymphocytes # 0.7 L (1.0-4.8) k/uL Sodium 135 L (137-145) mmol/L Chloride 87 L (98-107) mmol/L Carbon Dioxide 34 H (22-30) mmol/L BUN 92 H (7-17) mg/dL Creatinine 2.32 H (0.52-1.04) mg/dL POC Glucose (mg/dL) 132 H (70-110) mg/dL C-Reactive Protein 3.5 H (<1.0) mg/dL Total Protein 6.1 L (6.3-8.2) g/dL Assessment and Plan Assessment: 1. Chronic kidney disease NKF stage IV secondary to nephrosclerosis NKF stage IV with baseline creatinine around 2 mg/dL 2. Acute kidney injury cardiorenal 3. Volume overload 4. 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 Acute on chronic CHF exacerbation with preserved ejection fraction. Ec hocardiogram on 04/22/2022 shows EF of 50% with moderate tricuspid regurgitation. 6. Hypervolemic hyponatremia Plan: Continue with Lasix drip Repeat labs in a.m.
--- NOTE | 2022-07-14 11:58 | P.PN ---
Subjective Progress Note Date: 07/14/22 76 show female multiple complaints significant shortness of breath hypoxia here in the emergency department oxygen in the low to mid 80s despite supportive supplemental oxygen. Patient also complaining of significant lower extremity swelling and edema. No current chest pain, likely more significantly swollen than normal with significant redness of the left lower extremity. No change in medications or other complaint. EKG sinus bradycardia at 50 bpm Chest x-ray: Cardiomegaly. Small posterior right and minimal left pleural effusions. Some minimal subsegmental atelectasis left base may represent mild subsegmental atelectasis at the right base. WBC 8.6, hemoglobin 14.3, platelet count 165. Sodium 135, potassium 4.8, BUN 77 creatinine 2.99 patient presented with a BUN is 76 and creatinine of 3.03. Troponin 0.125, 0.105, 0.116. Lactic acid 2.5. Phosphorus 5.6, magnesium 2.6, total bilirubin 1. or otherwise liver function tests are normal. Home cardiac medications: Amlodipine 7.5 mg daily, aspirin 81 mg daily, atorvastatin 10 mg at bedtime, Lasix 20 mg every 2 days as needed, Lopressor 25 mg twice daily, levothyroxine 100 g daily Echocardiogram performed 04/2022 revealed a difficult study, EF 50%, aortic sclerosis, mild mitral and moderate tricuspid insufficiency. 07/07/2022 Patient is seen and evaluated in room at bedside; reports feeling better today; denies any complaint of chest shortness of breath Over the course of her admission she was diuresed with high doses of IV Lasix. Limited echocardiogram shows LV function of 50%. RV enlargement with severe right ventricular hypertrophy. RVSP 72 mmHg -- Cardiology on board and recommending to transition to oral Lasix with plans to add Aldactone tomorrow if patient able to tolerate -- Continue to monitor strict JERRY's, daily weights, low salt and fluid restricted diet patient with bilateral lower extremity cellulitis in this patient admitted to the hospital with the fluid overload did have diffuse swelling to bilateral lower extremity likely from gram-positive skin shailesh such as strep, patient with renal insufficiency high risk of nephrotoxicity Patient to continue with Jimbo wrap from just above the toe to below the knee, to keep the swelling down patient to continue with cefazolin 2 g every 12 and monitor clinical course closely Resume the care of the patient on 07/08/2022 Patient is a pleasant 76 years old female was admitted with diastolic CHF and acute hypoxic respiratory failure, her oxygen requirement went up significantly today to 15 L/m however through the day that came down to 12 L/m because of her significant hypoxia we consulted pulmonary, however clinically she looks not that bad, she is sitting up in bed and able to complicated with no difficulty talking due to hypoxia, she is mildly tachypneic with no use of accessory muscles. She is currently on Demadex as well as metolazone. She's continued on cefazolin for bilateral leg cellulitis, both legs with Jimbo wrap, they are slightly improved as per patient. We will keep monitoring Check chest x-ray in the morning 07/09/2022 Patient still hypoxic, improving slowly, today is on 12 L/m of oxygen via high flow nasal cannula. She still have significant leg swelling and cellulitis improving slowly as well Chest x-ray showing fluid overload but is improving she remains on torsemide and metolazone She remains on cefazolin 07/10/2022 Patient is hypoxic with oxygen saturation 12 L/m and saturation 90%, not much improvement and she is becoming hypotensive this morning which is as symptomatic I discussed with the bedside nurse to hold her diuretics and beta larry and to contact cloth reeler for further recommendation -Patient has elements of COPD exacerbation although she never smoked however she has secondary smoking circumstances are her used to smoke in-house about half pack per day. There is limitation of air entry. There is no much this recommendation. I will start patient on Symbicort.. We will defer systemic steroids to the pulmonary team Creatinine 2.3. She remains on cefazolin 07/11/2022 Patient remains on extensive fluid overload as apparent on the CAT scan including subcutaneous edema She is also remains hypoxic requiring 14 L of oxygen via nasal cannula She remains on oral diuretics torsemide and metolazone Nephrology and pulmonary team on the case and other forms of diuresis may be considered further recommendation included intravenous diuresis versus renal replacement therapy Patient remains on IV cefazolin and her lower extremity cellulitis improving 07/12 Rapid called for Presyncope, Blood pressure low, held Lasix, Recovered while in bed RN notifed to Hold lasix , Give albumin 07/13 Continue to remain short of breath, High Oxygen demand, transferred to ICU, Pulm Following, Started on Midodrine Goals of Care discussed Full code 07/14 Patient monitored in ICU overnight, continue patient on Lasix drip, patient remains on heat and high flow 90% FiO2 50 L Patient states her breathing is little better Objective - Vital Signs Vital signs: Vital Signs Temp 97.2 F L 07/14/22 08:00 Pulse 55 L 07/14/22 11:00 Resp 17 07/14/22 11:00 BP 93/60 07/14/22 11:00 Pulse Ox 94 L 07/14/22 11:00 FiO2 90 07/14/22 08:08 Intake & Output 07/13/22 07/14/22 07/14/22 18:59 06:59 18:59 Intake Total 250 417.000 80 Output Total 1340 1140 259 Balance -1090 -723.000 -179 Weight 58.9 kg Intake: IV 120 250 80 0.9 60 130 40 Furosemide 100 mg In 60 120 40 Sodium Chloride 0.9% 90 ml @ 10 MG/HR 10 mls/hr IV .Q10H [facility] Rx#: [id number] Intake, IV Titration 167.000 Amount Furosemide 100 mg In 167.000 Sodium Chloride 0.9% 90 ml @ 10 MG/HR 10 mls/hr IV .Q10H [facility] Rx#: [id number] Oral 130 Output: Urine 1340 1140 259 Other: Voiding Method Indwelling Catheter Indwelling Catheter - Exam GENERAL: The patient is alert and oriented x 3,Ill appearance, high flow Nasal canulla in place , ILL APPEARANCE HEENT: Pupils are round and equally reacting to light. EOMI. No scleral icterus. No conjunctival pallor. Normocephalic, atraumatic. No pharyngeal erythema. No thyromegaly. CARDIOVASCULAR: S1 and S2 present. 2 plus LE edema . PULMONARY: bilateral basal crackles, no use of accessory muscle , Decrease breath sounds ABDOMEN: Soft, nontender, nondistended, normoactive bowel sounds. No palpable organomegaly. MUSCULOSKELETAL: No joint swelling or deformity. EXTREMITIES: No cyanosis, clubbing, or pedal edema. Bilateral leg redness and swelling for cellulitis and fluid retention, bilateral lower extremities wrapped NEUROLOGICAL: Gross neurological examination did not reveal any focal deficits. SKIN: No rashes. no petechiae. - Labs CBC & Chem 7: 07/14/22 03:05 07/14/22 03:05 Labs: Abnormal Lab Results - Last 24 Hours (Table) 07/13/22 07/14/22 07/14/22 Range/Units 12:22 03:05 03:05 RDW 19.4 H (11.5-15.5) % Plt Count 110 L (150-450) k/uL Lymphocytes # 0.7 L (1.0-4.8) k/uL Sodium 135 L (137-145) mmol/L Chloride 87 L (98-107) mmol/L Carbon Dioxide 34 H (22-30) mmol/L BUN 92 H (7-17) mg/dL Creatinine 2.32 H (0.52-1.04) mg/dL POC Glucose (mg/dL) 132 H (70-110) mg/dL C-Reactive Protein 3.5 H (<1.0) mg/dL Total Protein 6.1 L (6.3-8.2) g/dL Assessment and Plan Assessment: Assessment: * Acute COPD exacerbation secondary to secondary smoking * Acute Hypoxic Resp failure * Acute on chronic diastolic heart failure/ Pulmonary hypertension * Syncope due to hypotension * Acute cellulitis bilateral lower extremities * Hypertension * Hyperlipidemia * HypothyroidismAcute kidney injury Chronic kidney disease stage IV Plan: Patient received Ancef which has been discontinued completed course 07/06-07/13 Continue with oxygen therapy>> on Heated High FLow consultants on the case including cloth reeler, infectious disease and front desk clerk, pulmonary services For CHF> continue IV Lasix drip, metoprolol, midodrine, Zaroxolyn For COPD continue Breathing treatments > Pulm following DVT prophylaxis: Subcutaneous heparin GI Prophylaxis: Pepcid
--- NOTE | 2022-07-14 13:24 | P.PN ---
Subjective Progress Note Date: 07/14/22 Principal diagnosis: Acute hypoxic respiratory failure secondary to acute diastolic congestive heart failure 76-year-old female patient hospitalized for shortness of breath and lower extremity edema and decompensated heart failure. The patient is known to have diastolic failure with right sided failure and pulmonary hypertension. The patient also was noted to have increased lower oximetry cellulitis along with edema. Other comorbid conditions include hypertension, hyperlipidemia, stage IV chronic kidney disease and hypothyroidism. The patient is being seen by various consultants including cardiology and nephrology and a pulmonary consultation was also requested as the patient oxygen requirements progressively went up and the patient is currently on 15 L high flow oxygen. Note that last week, the patient was only at 8 L of oxygen by nasal cannula. The patient also has not had a recent chest x-ray. Most recent chest x-rays from 07/03/2022 showing thyromegaly and bilateral pleural effusion, more so on the right and minimal posterior left-sided pleural effusion is also present. The patient is currently on IV cefazolin Re: Bass the cellulitis. The patient is also on Zaroxolyn 5 mg by mouth daily and Demadex 80 mg by mouth daily. The blood work shows a WBC count of 8.3, hemoglobin 14 and platelet count of 149, BUN is 70 with a creatinine of 2.4 and a sodium level is at 138. On today's evaluation of 07/09/2021, the patient is still being diuresed. The patient is on 12 L of oxygen by nasal cannula with a pulse ox 94%. Urine output is adequate the renal function stable with a creatinine of 2.4. The ends of 79. Sodium levels of 135. The patient's white cell cause of 9.4 with a hemoglobin of 14.3. The patient is on IV cefazolin Re: Lower oximetry cellulitis. The patient is on Zaroxolyn 5 mg by mouth daily and Demadex 50 mg by mouth daily. Repeat chest x-ray showed cardiomegaly with mild pulmonary vessel congestion and some atelectasis of the lung bases. The patient is on subcu heparin for DVT prophylaxis. D-dimer level was at 0.64. On 07/10/2022, the patient is still hypoxic despite having a relatively clear lungs. The patient is currently on 12 L of O2 nasal cannula. The patient is on a combination of diuretics and the patient is currently on torsemide and Zaroxolyn. The patient is producing adequate amount of urine output. The BUN is at 82 with a creatinine of 2.3 and a sodium level is at 134. Potassium levels at 3.3. The patient otherwise is being treated for a left lower extremities. She continues to have some edema in the legs. She is on IV cefazolin. No other issues for now. No chest pain. No altered mentation. Based on her ongoing hypoxemia, I ordered a CAT scan of the chest that was completed today and it showed moderate cardiomegaly with moderate to severe body wall anasarca mainly in the thoracoabdominal junction and in the upper abdominal area. There is obvious third spacing. There is a small right and trace left- sided pleural effusion. Diffuse haziness throughout the lungs probably related to pulmonary vessel congestion. As such, the clinical picture is consistent with CHF. I also ordered a Doppler of the lower extremities and the results of the pending for now. On today's evaluation of 2022, the patient remains on 12 L of oxygen by nasal cannula. I reviewed the CAT scan of the chest and was consistent with CHF and fluid overload. Based on that, the patient was started on diuretics and On diuretics and the patient remains on a combination of torsemide and Zaroxolyn. The Patient Remains in Negative Fluid Balance. Doppler of the Lower Extremities was completed yesterday and the results were negative. The patient remains on IV cefazolin Re: Brock the cellulitis. She is using the incentive spirometer. She does have a chronic kidney disease and the creatinine remains unchanged at 2.3 with a BUN of 82 and a sodium level is at 134 with a potassium level of 3.3. Glucose at 166. Awake and alert. Tolerating diet. No other new complaints otherwise for now. On 07/12/2022, the patient is still struggling with her oxygenation. She remains on high flow oxygen at 4 L per minute nasal cannula. She remains on torsemide and Zaroxolyn. The patient herself denies having any new complaints. Her blood work shows a BUN of 89 with a creatinine of 2.3 and sodium levels of 135 with a potassium level of 3.7. She is using the incentive spirometer. She is in a n egative fluid balance. She has no fever or chills. Pulse ox 90% on 14 L nasal cannula. She remains on IV cefazolin Re: Lower extremity cellulitis. Continues to have some edema lower extremities bilaterally. CAT scan of the chest was noted. Doppler of the lower extremity was noted. On today's evaluation of 07/13/2022, the patient is on high flow oxygen with 50 L with an FiO2 of 90%. The patient had episodes of unresponsiveness and oxygen saturation yesterday. She was briefly placed on a BiPAP and later on physician to high flow oxygen. I made recommendations for this patient to be transferred to the intensive care unit. The chest x-ray is consistent with CHF. She is still diuretics and the patient is currently on a combination of Zaroxolyn and Lasix and I'm going to transfer this patient to Lasix drip. Her oxygenation is borderline. Pulse ox 92%. The patient's WBC count 7.5 with a hemoglobin of 14. BUN is at 91 with a creatinine of 2.37 and a sodium level is at 136. The blood cultures have been negative and the patient is afebrile. Reevaluated today on 07/14/2022, patient remains in the ICU, she was transferred directly to the ICU yesterday by Dr. Causey as she was noted to be in respiratory distress and worsening congestive heart failure. Patient is presently on Arava at 90% FiO2 and 50 L flow is also on Lasix at 10 mg per hour drip. Improving, and her FiO2 is being titrated down. Last night she was on BiPAP 10/5/100%. Patient is feeling better, breathing a bit easier today compared to yesterday. Chest x-ray this morning continues to show evidence of congestive heart failure, not much of a change in the last 24 hours. Labs were reviewed today, WBC 7.2 hemoglobin 14.5 Electrolytesenc normal BUN however is 92 creatinine 2.3 to basically about the same in spite of aggressive diuresis. Objective - Vital Signs Vital signs: Vital Signs Temp 97.2 F L 07/14/22 12:00 Pulse 51 L 07/14/22 13:00 Resp 12 07/14/22 13:00 BP 88/72 07/14/22 13:00 Pulse Ox 90 L 07/14/22 13:00 FiO2 90 07/14/22 12:34 Intake & Output 07/13/22 07/14/22 07/14/22 18:59 06:59 18:59 Intake Total 250 417.000 120 Output Total 1340 1140 319 Balance -1090 -723.000 -199 Weight 58.9 kg Intake: IV 120 250 120 0.9 60 130 60 Furosemide 100 mg In 60 120 60 Sodium Chloride 0.9% 90 ml @ 10 MG/HR 10 mls/hr IV .Q10H [facility] Rx#: [id number] Intake, IV Titration 167.000 Amount Furosemide 100 mg In 167.000 Sodium Chloride 0.9% 90 ml @ 10 MG/HR 10 mls/hr IV .Q10H [facility] Rx#: [id number] Oral 130 Output: Urine 1340 1140 319 Other: Voiding Method Indwelling Catheter Indwelling Catheter - Exam Physical Exam: Revealed 76-year-old female on airvo in no distress. HEENT:[Neck is supple.] [No neck masses.] [No thyromegaly.] [ Positive JVD.] Chest: [Symmetrical chest expansion, crackles at the bases. Cardiac Exam: [Normal S1 and S2, no S3 gallop, no murmur.] Abdomen: [Soft, nontender, no megaly, no rebound, no guarding, normal bowel sounds.] Extremities: [No clubbing, 2+ bipedal edema, no cyanosis.] Neurological Exam: [No focal neurologic deficit.] Alert oriented 3. Psychiatric: Normal mood affect and normal mental status examination. Skin: No rashes. - Labs CBC & Chem 7: 07/14/22 03:05 07/14/22 03:05 Labs: Abnormal Lab Results - Last 24 Hours (Table) 07/14/22 07/14/22 Range/Units 03:05 03:05 RDW 19.4 H (11.5-15.5) % Plt Count 110 L (150-450) k/uL Lymphocytes # 0.7 L (1.0-4.8) k/uL Sodium 135 L (137-145) mmol/L Chloride 87 L (98-107) mmol/L Carbon Dioxide 34 H (22-30) mmol/L BUN 92 H (7-17) mg/dL Creatinine 2.32 H (0.52-1.04) mg/dL C-Reactive Protein 3.5 H (<1.0) mg/dL Total Protein 6.1 L (6.3-8.2) g/dL Assessment and Plan Assessment: Impression: Acute on chronic hypoxic respiratory failure secondary to acute diastolic c ongestive heart failure. 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 Hypothyroidism Recommendation: Continue to monitor in the ICU Continue airvo/high flow and high FiO2 and titrate accordingly Continue Lasix drip at 10 mg per hour Continue to monitor urine output and eyes and nose Titrate oxygen accordingly Continue IV cefazolin Continue incentive spirometry Use BiPAP as needed Continue Zaroxolyn along with Lasix drip. We'll continue to follow Time with Patient: Less than 30
[2022-07-14] MEDS: ATORVASTATIN 10 MG TAB PO SCH (20:22)
[2022-07-14] MEDS: FAMOTIDINE 20 MG TAB PO SCH (20:22)
[2022-07-14] MEDS: MAGNESIUM OXIDE 400 MG TAB PO SCH (20:22)
[2022-07-15] MEDS: FUROSEMIDE 100 MG in SODIUM CHLORIDE 0.9% 90 ML IV SCH (03:25)
[2022-07-15] MEDS: MIDODRINE 5 MG TAB PO SCH ×3 (06:34→16:18)
[2022-07-15] MEDS: LEVOTHYROXINE 100 MCG TAB PO SCH (06:34)
[2022-07-15 07:13] LABS: Anisocytosis Slight; Basophils % (A) 0 %; Eosinophils # (A) 0.1 k/uL (0-0.7); Eosinophils % (A) 1 %; HCT 40.6 % (34.0-46.0); HGB 13.5 gm/dL (11.4-16.0); Hypochromasia Slight; Lymphocytes # (A) 0.9 k/uL (1.0-4.8); Lymphocytes % (A) 10 %; MCH 31.7 pg (25.0-35.0); MCHC 33.3 g/dL (31.0-37.0); MCV 95.2 fL (80.0-100.0); Macrocytosis Slight; Mean Platelet Volume 12.2; Monocytes # (A) 0.6 k/uL (0-1.0); Monocytes % (A) 7 %; Neutrophils # (A) 7.2 k/uL (1.3-7.7); Neutrophils % (A) 81 %; RBC 4.26 m/uL (3.80-5.40); RDW 19.5 % (11.5-15.5); WBC 8.9 k/uL (3.8-10.6)
[2022-07-15] MEDS: POTASSIUM CHLORIDE ER 20 MEQ TAB.ER PO SCH (07:59)
[2022-07-15] MEDS: FOLIC ACID 1 MG TAB PO SCH (07:59)
[2022-07-15] MEDS: allopurinoL 100 MG TAB PO SCH ×2 (07:59→20:42)
[2022-07-15] MEDS: ASPIRIN 81 MG PO SCH (07:59)
[2022-07-15] MEDS: HEPARIN SODIUM,PORCINE/PF 5,000 UNIT/0.5 ML SYRINGE SQ SCH ×2 (07:59→20:43)
[2022-07-15] MEDS: FERROUS SULFATE 325 MG TAB PO SCH ×2 (07:59→20:42)
[2022-07-15] MEDS: CHOLECALCIFEROL 25 MCG (1000 IU) TABLET PO SCH (08:00)
[2022-07-15] MEDS: ACETAMINOPHEN TAB 325 MG TAB PO PRN ×2 (08:00→20:41)
[2022-07-15] MEDS: metOLazone 5 MG TAB PO SCH (08:00)
[2022-07-15] MEDS: METOPROLOL TARTRATE 25 MG TAB PO SCH ×2 (08:02→20:44)
[2022-07-15] MEDS: SILDENAFIL 20 MG TAB PO SCH ×3 (08:02→20:53)
[2022-07-15 08:03] LABS: African American GFR (CKD) 22 (>60 ml/min/1.73 sqM); Anion Gap 8 mmol/L; Calcium 8.9 mg/dL (8.4-10.2); Carbon Dioxide 39 mmol/L (22-30); Chloride 86 mmol/L (98-107); Glucose 137 mg/dL (74-99); Magnesium 2.4 mg/dL (1.6-2.3); Non-African American GFR(CKD) 19 (>60 ml/min/1.73 sqM); Potassium 5.2 mmol/L (3.5-5.1); Sodium 133 mmol/L (137-145)
[2022-07-15 08:11] LABS: Blood Urea Nitrogen 103 mg/dL (7-17)
[2022-07-15] MEDS: SYMBICORT 160-4.5 MCG INHALER INHALATION SCH ×2 (08:25→20:38)
[2022-07-15 09:49] LABS: Platelet Count 86 k/uL (150-450)
--- NOTE | 2022-07-15 09:56 | P.PN ---
Subjective PROGRESS NOTE The patient is a 76-year-old female with known history of chronic kidney disease, hypertension, hyperlipidemia who presented was progressive dyspnea and evidence of CHF. She is feeling better. She continues to have peripheral edema but improving. She continues to require high oxygen flow. Hemodynamically she is stable. She denies any chest discomfort, dizziness or palpitations. She is diuresing well. Her echocardiogram showed an ejection fraction of 50% with evidence of pulmonary hypertension July 13: The patient became more dyspneic, had a brief episode of unresponsiveness and a drop in her oxygen saturation. She is transferred to the ICU. She's feeling better now. She has been started on IV Lasix drip. Her chest x-ray was consistent with CHF. She denies any chest discomfort, dizziness or palpitations. She has no nausea. 07/14 Patient seen and examined. Continues on Lasix drip at 10 with good urine output. Metoprolol was held this morning secondary to bradycardia heart rates in the 50s in sinus rhythm. Denies any chest pain or pressure. She states her lower extremity edema has been improving however still has significant thigh and buttocks edema. Her lower extremities have been wraps. PHYSICAL EXAMINATION: Vitals reviewed LUNGS: Scattered rhonchi HEART: Regular rate and rhythm, S1, S2. No S3. systolic ejection murmur ABDOMEN: Soft, nontender, no organomegaly EXTREMETIES: +1 to 2+ edema IMPRESSION: 1. CHF with preserved systolic function and evidence of pulmonary hypertension and severe tricuspid regurgitation, mainly right sided 2. Chronic kidney disease 3. Hyperlipidemia 4. Hypertension 5. History of cellulitis 6. Severe tricuspid regurgitation PLAN: Continue with diuretics with Lasix drip as well as Zaroxolyn. Lower extremity edema appears to be improving. Mainly having right-sided heart failure. Patient with severe pulmonary hypertension with right-sided heart failure. May consider further workup with heart catheterization as an outpatient. Start Revatio however patient would likely benefit from pulmonary hypertension specialist Objective - Vital Signs Vital signs: Vital Signs Temp 97.2 F L 07/14/22 08:00 Pulse 60 07/14/22 08:00 Resp 19 07/14/22 08:00 BP 73/56 07/14/22 08:00 Pulse Ox 90 L 07/14/22 08:08 FiO2 90 07/14/22 08:08 Intake & Output 07/13/22 07/14/22 07/14/22 18:59 06:59 18:59 Intake Total 250 417.000 20 Output Total 1340 1140 50 Balance -1090 -723.000 -30 Weight 58.9 kg Intake: IV 120 250 20 0.9 60 130 10 Furosemide 100 mg In 60 120 10 Sodium Chloride 0.9% 90 ml @ 10 MG/HR 10 mls/hr IV .Q10H [facility] Rx#: [id number] Intake, IV Titration 167.000 Amount Furosemide 100 mg In 167.000 Sodium Chloride 0.9% 90 ml @ 10 MG/HR 10 mls/hr IV .Q10H [facility] Rx#: [id number] Oral 130 Output: Urine 1340 1140 50 Other: Voiding Method Indwelling Catheter Indwelling Catheter - Labs CBC & Chem 7: 07/14/22 03:05 07/14/22 03:05 Labs: Abnormal Lab Results - Last 24 Hours (Table) 07/13/22 07/14/22 07/14/22 Range/Units 12:22 03:05 03:05 RDW 19.4 H (11.5-15.5) % Plt Count 110 L (150-450) k/uL Lymphocytes # 0.7 L (1.0-4.8) k/uL Sodium 135 L (137-145) mmol/L Chloride 87 L (98-107) mmol/L Carbon Dioxide 34 H (22-30) mmol/L BUN 92 H (7-17) mg/dL Creatinine 2.32 H (0.52-1.04) mg/dL POC Glucose (mg/dL) 132 H (70-110) mg/dL C-Reactive Protein 3.5 H (<1.0) mg/dL Total Protein 6.1 L (6.3-8.2) g/dL
--- NOTE | 2022-07-15 10:01 | P.PN ---
Subjective PROGRESS NOTE The patient is a 76-year-old female with known history of chronic kidney disease, hypertension, hyperlipidemia who presented was progressive dyspnea and evidence of CHF. She is feeling better. She continues to have peripheral edema but improving. She continues to require high oxygen flow. Hemodynamically she is stable. She denies any chest discomfort, dizziness or palpitations. She is diuresing well. Her echocardiogram showed an ejection fraction of 50% with evidence of pulmonary hypertension July 13: The patient became more dyspneic, had a brief episode of unresponsiveness and a drop in her oxygen saturation. She is transferred to the ICU. She's feeling better now. She has been started on IV Lasix drip. Her chest x-ray was consistent with CHF. She denies any chest discomfort, dizziness or palpitations. She has no nausea. 07/14 Patient seen and examined. Continues on Lasix drip at 10 with good urine output. Metoprolol was held this morning secondary to bradycardia heart rates in the 50s in sinus rhythm. Denies any chest pain or pressure. She states her lower extremity edema has been improving however still has significant thigh and buttocks edema. Her lower extremities have been wraps. 07/15 Patient seen and examined. Patient started on Revatio for pulmonary hypertension yesterday. Denies any chest pain or pressure. Has a good urine output on Lasix drip. BUN increasing however creatinine stable. Still has significant lower extremity edema. Potassium noted to be elevated this morning. PHYSICAL EXAMINATION: Vitals reviewed LUNGS: Scattered rhonchi HEART: Regular rate and rhythm, S1, S2. No S3. systolic ejection murmur ABDOMEN: Soft, nontender, no organomegaly EXTREMETIES: +1 to 2+ edema IMPRESSION: 1. CHF with preserved systolic function and evidence of pulmonary hypertension and severe tricuspid regurgitation, mainly right sided 2. Chronic kidney disease 3. Hyperlipidemia 4. Hypertension 5. History of cellulitis 6. Severe tricuspid regurgitation 7. Severe pulmonary hypertension PLAN: BUN increasing however still has significant lower extremity edema. Revatio added for severe pulm hypertension. May consider RHC and will need followup with pulmonary hypertension specialist. Objective - Vital Signs Vital signs: Vital Signs Temp 97.5 F L 07/15/22 08:00 Pulse 65 07/15/22 08:00 Resp 16 07/15/22 08:00 BP 95/51 07/15/22 08:00 Pulse Ox 90 L 07/15/22 08:26 FiO2 90 07/15/22 08:26 Intake & Output 07/14/22 07/15/22 07/15/22 18:59 06:59 18:59 Intake Total 420 340 40 Output Total 628 1020 225 Balance -208 -680 -185 Weight 56.8 kg Intake: IV 220 240 40 0.9 160 240 40 Furosemide 100 mg In 60 Sodium Chloride 0.9% 90 ml @ 10 MG/HR 10 mls/hr IV .Q10H [facility] Rx#: [id number] Intake, IV Titration 100 100 Amount Furosemide 100 mg In 100 100 Sodium Chloride 0.9% 90 ml @ 10 MG/HR 10 mls/hr IV .Q10H [facility] Rx#: [id number] Oral 100 Output: Urine 628 1020 225 Other: Voiding Method Indwelling Catheter Indwelling Catheter Indwelling Catheter - Labs CBC & Chem 7: 07/15/22 04:59 07/15/22 06:49 Labs: Abnormal Lab Results - Last 24 Hours (Table) 07/15/22 07/15/22 Range/Units 04:59 06:49 RDW 19.5 H (11.5-15.5) % Plt Count 86 L (150-450) k/uL Lymphocytes # 0.9 L (1.0-4.8) k/uL Sodium 133 L (137-145) mmol/L Potassium 5.2 H (3.5-5.1) mmol/L Chloride 86 L (98-107) mmol/L Carbon Dioxide 39 H (22-30) mmol/L BUN 103 H* (7-17) mg/dL Creatinine 2.41 H (0.52-1.04) mg/dL Glucose 137 H (74-99) mg/dL Magnesium 2.4 H (1.6-2.3) mg/dL
[2022-07-15] MEDS: FUROSEMIDE 10 MG/ML 10 ML VIAL IV SCH ×2 (10:57→20:43)
--- NOTE | 2022-07-15 11:30 | P.PN ---
Subjective Patient is seen for follow-up for acute kidney injury on top of chronic kidney disease. Maintained on Lasix drip Oxygen requirements have increased Serum creatinine at 2.4 today from 2.3 yesterday. BUN increased to 103. Urine output at 1.6 L. Objective - Vital Signs Vital signs: Vital Signs Temp 97.5 F L 07/15/22 08:00 Pulse 57 L 07/15/22 11:00 Resp 18 07/15/22 11:00 BP 90/50 07/15/22 11:00 Pulse Ox 95 07/15/22 11:00 FiO2 90 07/15/22 08:26 Intake & Output 07/14/22 07/15/22 07/15/22 18:59 06:59 18:59 Intake Total 420 340 275 Output Total 628 1020 725 Balance -208 -093 -450 Weight 56.8 kg Intake: IV 220 240 80 0.9 160 240 80 Furosemide 100 mg In 60 Sodium Chloride 0.9% 90 ml @ 10 MG/HR 10 mls/hr IV .Q10H [facility] Rx#: [id number] Intake, IV Titration 100 100 75 Amount Furosemide 100 mg In 100 100 75 Sodium Chloride 0.9% 90 ml @ 10 MG/HR 10 mls/hr IV .Q10H [facility] Rx#: [id number] Oral 100 120 Output: Urine 628 1020 725 Other: Voiding Method Indwelling Catheter Indwelling Catheter Indwelling Catheter # Bowel Movements 1 - Exam Awake, comfortable, no acute distress, short of breath Examination of the heart S1 and S2 Examination of the lungs decreased breath sounds at the bases Abdomen is soft nontender Examination lower extremity shows no significant edema - Labs CBC & Chem 7: 07/15/22 04:59 07/15/22 06:49 Labs: Abnormal Lab Results - Last 24 Hours (Table) 07/15/22 07/15/22 Range/Units 04:59 06:49 RDW 19.5 H (11.5-15.5) % Plt Count 86 L (150-450) k/uL Lymphocytes # 0.9 L (1.0-4.8) k/uL Sodium 133 L (137-145) mmol/L Potassium 5.2 H (3.5-5.1) mmol/L Chloride 86 L (98-107) mmol/L Carbon Dioxide 39 H (22-30) mmol/L BUN 103 H* (7-17) mg/dL Creatinine 2.41 H (0.52-1.04) mg/dL Glucose 137 H (74-99) mg/dL Magnesium 2.4 H (1.6-2.3) mg/dL Assessment and Plan Assessment: 1. Chronic kidney disease NKF stage IV secondary to nephrosclerosis NKF stage IV with baseline creatinine around 2 mg/dL. Mild acute kidney injury mostly cardiorenal. 2. Acute kidney injury cardiorenal and due to low blood pressure. Disproportionately elevated B UN. Patient is not on steroids, no evidence of GI bleed. Diuretics will be decreased 3. Volume overload 4. 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 Acute on chronic CHF exacerbation with preserved ejection fraction. Echocardiogram on 04/22/2022 shows EF of 50% with moderate tricuspid regurgitation. 6. Hypervolemic hyponatremia Plan: Switch to IV push Lasix Increase midodrine as blood pressure remains low Repeat labs in a.m.
--- NOTE | 2022-07-15 12:07 | P.PN ---
Subjective Progress Note Date: 07/15/22 76 show female multiple complaints significant shortness of breath hypoxia here in the emergency department oxygen in the low to mid 80s despite supportive supplemental oxygen. Patient also complaining of significant lower extremity swelling and edema. No current chest pain, likely more significantly swollen than normal with significant redness of the left lower extremity. No change in medications or other complaint. EKG sinus bradycardia at 50 bpm Chest x-ray: Cardiomegaly. Small posterior right and minimal left pleural effusions. Some minimal subsegmental atelectasis left base may represent mild subsegmental atelectasis at the right base. WBC 8.6, hemoglobin 14.3, platelet count 165. Sodium 135, potassium 4.8, BUN 77 creatinine 2.99 patient presented with a BUN is 76 and creatinine of 3.03. Troponin 0.125, 0.105, 0.116. Lactic acid 2.5. Phosphorus 5.6, magnesium 2.6, total bilirubin 1. or otherwise liver function tests are normal. Home cardiac medications: Amlodipine 7.5 mg daily, aspirin 81 mg daily, atorvastatin 10 mg at bedtime, Lasix 20 mg every 2 days as needed, Lopressor 25 mg twice daily, levothyroxine 100 g daily Echocardiogram performed 04/2022 revealed a difficult study, EF 50%, aortic sclerosis, mild mitral and moderate tricuspid insufficiency. 07/07/2022 Patient is seen and evaluated in room at bedside; reports feeling better today; denies any complaint of chest shortness of breath Over the course of her admission she was diuresed with high doses of IV Lasix. Limited echocardiogram shows LV function of 50%. RV enlargement with severe right ventricular hypertrophy. RVSP 72 mmHg -- Cardiology on board and recommending to transition to oral Lasix with plans to add Aldactone tomorrow if patient able to tolerate -- Continue to monitor strict JERRY's, daily weights, low salt and fluid restricted diet patient with bilateral lower extremity cellulitis in this patient admitted to the hospital with the fluid overload did have diffuse swelling to bilateral lower extremity likely from gram-positive skin shailesh such as strep, patient with renal insufficiency high risk of nephrotoxicity Patient to continue with Jimbo wrap from just above the toe to below the knee, to keep the swelling down patient to continue with cefazolin 2 g every 12 and monitor clinical course closely Resume the care of the patient on 07/08/2022 Patient is a pleasant 76 years old female was admitted with diastolic CHF and acute hypoxic respiratory failure, her oxygen requirement went up significantly today to 15 L/m however through the day that came down to 12 L/m because of her significant hypoxia we consulted pulmonary, however clinically she looks not that bad, she is sitting up in bed and able to complicated with no difficulty talking due to hypoxia, she is mildly tachypneic with no use of accessory muscles. She is currently on Demadex as well as metolazone. She's continued on cefazolin for bilateral leg cellulitis, both legs with Jimbo wrap, they are slightly improved as per patient. We will keep monitoring Check chest x-ray in the morning 07/09/2022 Patient still hypoxic, improving slowly, today is on 12 L/m of oxygen via high flow nasal cannula. She still have significant leg swelling and cellulitis improving slowly as well Chest x-ray showing fluid overload but is improving she remains on torsemide and metolazone She remains on cefazolin 07/10/2022 Patient is hypoxic with oxygen saturation 12 L/m and saturation 90%, not much improvement and she is becoming hypotensive this morning which is as symptomatic I discussed with the bedside nurse to hold her diuretics and beta larry and to contact windrower operator for further recommendation -Patient has elements of COPD exacerbation although she never smoked however she has secondary smoking circumstances are her used to smoke in-house about half pack per day. There is limitation of air entry. There is no much this recommendation. I will start patient on Symbicort.. We will defer systemic steroids to the pulmonary team Creatinine 2.3. She remains on cefazolin 07/11/2022 Patient remains on extensive fluid overload as apparent on the CAT scan including subcutaneous edema She is also remains hypoxic requiring 14 L of oxygen via nasal cannula She remains on oral diuretics torsemide and metolazone Nephrology and pulmonary team on the case and other forms of diuresis may be considered further recommendation included intravenous diuresis versus renal replacement therapy Patient remains on IV cefazolin and her lower extremity cellulitis improving 07/12 Rapid called for Presyncope, Blood pressure low, held Lasix, Recovered while in bed RN notifed to Hold lasix , Give albumin 07/13 Continue to remain short of breath, High Oxygen demand, transferred to ICU, Pulm Following, Started on Midodrine Goals of Care discussed Full code 07/14 Patient monitored in ICU overnight, continue patient on Lasix drip, patient remains on heat and high flow 90% FiO2 50 L Patient states her breathing is little better 07/15 Patient is seen and evaluated and bedside. change from IV Lasix to IV push Lasix, potassium supplementation discontinued Continue to remain on high oxygen requirement on heat high flow Objective - Vital Signs Vital signs: Vital Signs Temp 97.5 F L 07/15/22 08:00 Pulse 57 L 07/15/22 11:00 Resp 18 07/15/22 11:00 BP 90/50 07/15/22 11:00 Pulse Ox 95 07/15/22 11:00 FiO2 90 07/15/22 11:46 Intake & Output 07/14/22 07/15/22 07/15/22 18:59 06:59 18:59 Intake Total 420 340 275 Output Total 628 1020 725 Balance -208 -680 -450 Weight 56.8 kg Intake: IV 220 240 80 0.9 160 240 80 Furosemide 100 mg In 60 Sodium Chloride 0.9% 90 ml @ 10 MG/HR 10 mls/hr IV .Q10H [facility] Rx#: [id number] Intake, IV Titration 100 100 75 Amount Furosemide 100 mg In 100 100 75 Sodium Chloride 0.9% 90 ml @ 10 MG/HR 10 mls/hr IV .Q10H [facility] Rx#: [id number] Oral 100 120 Output: Urine 628 1020 725 Other: Voiding Method Indwelling Catheter Indwelling Catheter Indwelling Catheter # Bowel Movements 1 - Exam GENERAL: The patient is alert and oriented x 3,Ill appearance, high flow Nasal canulla in place , ILL APPEARANCE HEENT: Pupils are round and equally reacting to light. EOMI. No scleral icterus. No conjunctival pallor. Normocephalic, atraumatic. No pharyngeal erythema. No thyromegaly. CARDIOVASCULAR: S1 and S2 present. 2 plus LE edema . PULMONARY: bilateral basal crackles, no use of accessory muscle , Decrease breath sounds ABDOMEN: Soft, nontender, nondistended, normoactive bowel sounds. No palpable organomegaly. MUSCULOSKELETAL: No joint swelling or deformity. EXTREMITIES: No cyanosis, clubbing, or pedal edema. Bilateral leg redness and swelling for cellulitis and fluid retention, bilateral lower extremities wrapped NEUROLOGICAL: Gross neurological examination did not reveal any focal deficits. SKIN: No rashes. no petechiae. - Labs CBC & Chem 7: 07/15/22 04:59 07/15/22 06:49 Labs: Abnormal Lab Results - Last 24 Hours (Table) 07/15/22 07/15/22 Range/Units 04:59 06:49 RDW 19.5 H (11.5-15.5) % Plt Count 86 L (150-450) k/uL Lymphocytes # 0.9 L (1.0-4.8) k/uL Sodium 133 L (137-145) mmol/L Potassium 5.2 H (3.5-5.1) mmol/L Chloride 86 L (98-107) mmol/L Carbon Dioxide 39 H (22-30) mmol/L BUN 103 H* (7-17) mg/dL Creatinine 2.41 H (0.52-1.04) mg/dL Glucose 137 H (74-99) mg/dL Magnesium 2.4 H (1.6-2.3) mg/dL Assessment and Plan Assessment: Assessment: * Acute COPD exacerbation secondary to secondary smoking * Acute Hypoxic Resp failure * Acute on chronic diastolic heart failure/ Pulmonary hypertension * Syncope due to hypotension * Acute cellulitis bilateral lower extremities * Hypertension * Hyperlipidemia * Hypothyroidism * Acute kidney injury Chronic kidney disease stage IV Plan: Patient received Ancef which has been discontinued completed course 07/06-07/13 Continue with oxygen therapy>> on Heated High FLow consultants on the case including windrower operator, infectious disease and furnace hand, pulmonary services For CHF> Change IV Lasix drip>> IV PUSH 60mg BID , metoprolol, midodrine, Zaroxolyn For COPD continue Breathing treatments > Pulm following DVT prophylaxis: Subcutaneous heparin GI Prophylaxis: Pepcid
--- NOTE | 2022-07-15 13:33 | P.PN ---
Subjective Progress Note Date: 07/15/22 Principal diagnosis: Acute hypoxic respiratory failure secondary to acute diastolic congestive heart failure 76-year-old female patient hospitalized for shortness of breath and lower extremity edema and decompensated heart failure. The patient is known to have diastolic failure with right sided failure and pulmonary hypertension. The patient also was noted to have increased lower oximetry cellulitis along with edema. Other comorbid conditions include hypertension, hyperlipidemia, stage IV chronic kidney disease and hypothyroidism. The patient is being seen by various consultants including cardiology and nephrology and a pulmonary consultation was also requested as the patient oxygen requirements progressively went up and the patient is currently on 15 L high flow oxygen. Note that last week, the patient was only at 8 L of oxygen by nasal cannula. The patient also has not had a recent chest x-ray. Most recent chest x-rays from 07/03/2022 showing thyromegaly and bilateral pleural effusion, more so on the right and minimal posterior left-sided pleural effusion is also present. The patient is currently on IV cefazolin Re: Bass the cellulitis. The patient is also on Zaroxolyn 5 mg by mouth daily and Demadex 80 mg by mouth daily. The blood work shows a WBC count of 8.3, hemoglobin 14 and platelet count of 149, BUN is 70 with a creatinine of 2.4 and a sodium level is at 138. On today's evaluation of 07/09/2021, the patient is still being diuresed. The patient is on 12 L of oxygen by nasal cannula with a pulse ox 94%. Urine output is adequate the renal function stable with a creatinine of 2.4. The ends of 79. Sodium levels of 135. The patient's white cell cause of 9.4 with a hemoglobin of 14.3. The patient is on IV cefazolin Re: Lower oximetry cellulitis. The patient is on Zaroxolyn 5 mg by mouth daily and Demadex 50 mg by mouth daily. Repeat chest x-ray showed cardiomegaly with mild pulmonary vessel congestion and some atelectasis of the lung bases. The patient is on subcu heparin for DVT prophylaxis. D-dimer level was at 0.64. On 07/10/2022, the patient is still hypoxic despite having a relatively clear lungs. The patient is currently on 12 L of O2 nasal cannula. The patient is on a combination of diuretics and the patient is currently on torsemide and Zaroxolyn. The patient is producing adequate amount of urine output. The BUN is at 82 with a creatinine of 2.3 and a sodium level is at 134. Potassium levels at 3.3. The patient otherwise is being treated for a left lower extremities. She continues to have some edema in the legs. She is on IV cefazolin. No other issues for now. No chest pain. No altered mentation. Based on her ongoing hypoxemia, I ordered a CAT scan of the chest that was completed today and it showed moderate cardiomegaly with moderate to severe body wall anasarca mainly in the thoracoabdominal junction and in the upper abdominal area. There is obvious third spacing. There is a small right and trace left- sided pleural effusion. Diffuse haziness throughout the lungs probably related to pulmonary vessel congestion. As such, the clinical picture is consistent with CHF. I also ordered a Doppler of the lower extremities and the results of the pending for now. On today's evaluation of 2022, the patient remains on 12 L of oxygen by nasal cannula. I reviewed the CAT scan of the chest and was consistent with CHF and fluid overload. Based on that, the patient was started on diuretics and On diuretics and the patient remains on a combination of torsemide and Zaroxolyn. The Patient Remains in Negative Fluid Balance. Doppler of the Lower Extremities was completed yesterday and the results were negative. The patient remains on IV cefazolin Re: Brock the cellulitis. She is using the incentive spirometer. She does have a chronic kidney disease and the creatinine remains unchanged at 2.3 with a BUN of 82 and a sodium level is at 134 with a potassium level of 3.3. Glucose at 166. Awake and alert. Tolerating diet. No other new complaints otherwise for now. On 07/12/2022, the patient is still struggling with her oxygenation. She remains on high flow oxygen at 4 L per minute nasal cannula. She remains on torsemide and Zaroxolyn. The patient herself denies having any new complaints. Her blood work shows a BUN of 89 with a creatinine of 2.3 and sodium levels of 135 with a potassium level of 3.7. She is using the incentive spirometer. She is in a n egative fluid balance. She has no fever or chills. Pulse ox 90% on 14 L nasal cannula. She remains on IV cefazolin Re: Lower extremity cellulitis. Continues to have some edema lower extremities bilaterally. CAT scan of the chest was noted. Doppler of the lower extremity was noted. On today's evaluation of 07/13/2022, the patient is on high flow oxygen with 50 L with an FiO2 of 90%. The patient had episodes of unresponsiveness and oxygen saturation yesterday. She was briefly placed on a BiPAP and later on physician to high flow oxygen. I made recommendations for this patient to be transferred to the intensive care unit. The chest x-ray is consistent with CHF. She is still diuretics and the patient is currently on a combination of Zaroxolyn and Lasix and I'm going to transfer this patient to Lasix drip. Her oxygenation is borderline. Pulse ox 92%. The patient's WBC count 7.5 with a hemoglobin of 14. BUN is at 91 with a creatinine of 2.37 and a sodium level is at 136. The blood cultures have been negative and the patient is afebrile. Reevaluated today on 07/14/2022, patient remains in the ICU, she was transferred directly to the ICU yesterday by Dr. Causey as she was noted to be in respiratory distress and worsening congestive heart failure. Patient is presently on Arava at 90% FiO2 and 50 L flow is also on Lasix at 10 mg per hour drip. Improving, and her FiO2 is being titrated down. Last night she was on BiPAP 10/5/100%. Patient is feeling better, breathing a bit easier today compared to yesterday. Chest x-ray this morning continues to show evidence of congestive heart failure, not much of a change in the last 24 hours. Labs were reviewed today, WBC 7.2 hemoglobin 14.5 Electrolytesenc normal BUN however is 92 creatinine 2.3 to basically about the same in spite of aggressive diuresis. 300 today on , patient remains in the ICU, remains on airvo, 90% and 50 L flow, responded well to diuretics, she is almost -6 L in the last couple of days, her renal functioning is showing some worsening, and she was transitioned from Lasix infusion to Lasix 60 mg IV push every 12 hours by nephrology. Patient is intermittently on BiPAP with IPAP of 10 and EPAP of 500%. Patient likes airvo much better than BiPAP. Labs from today were all reviewed, her BUN is up to 103 creatinine is up to 2.4, patient is being followed by nephrology regarding her renal failure. Objective - Vital Signs Vital signs: Vital Signs Temp 98 F 07/15/22 12:00 Pulse 59 L 07/15/22 12:00 Resp 18 07/15/22 12:00 BP 97/63 07/15/22 12:00 Pulse Ox 94 L 07/15/22 12:00 FiO2 90 07/15/22 12:00 Intake & Output 07/14/22 07/15/22 07/15/22 18:59 06:59 18:59 Intake Total 420 340 275 Output Total 628 1020 555 Balance -208 -680 -280 Weight 56.8 kg Intake: IV 220 240 80 0.9 160 240 80 Furosemide 100 mg In 60 Sodium Chloride 0.9% 90 ml @ 10 MG/HR 10 mls/hr IV .Q10H [facility] Rx#: [id number] Intake, IV Titration 100 100 75 Amount Furosemide 100 mg In 100 100 75 Sodium Chloride 0.9% 90 ml @ 10 MG/HR 10 mls/hr IV .Q10H [facility] Rx#: [id number] Oral 100 120 Output: Urine 628 1020 555 Other: Voiding Method Indwelling Catheter Indwelling Catheter Indwelling Catheter # Bowel Movements 1 - Exam Physical Exam: Revealed 76-year-old female on airvo in no distress. HEENT:[Neck is supple.] [No neck masses.] [No thyromegaly.] [ Positive JVD.] Chest: [Symmetrical chest expansion, crackles at the bases. Cardiac Exam: [Normal S1 and S2, no S3 gallop, no murmur.] Abdomen: [Soft, nontender, no megaly, no rebound, no guarding, normal bowel sounds.] Extremities: [No clubbing, 2+ bipedal edema, no cyanosis.] Neurological Exam: [No focal neurologic deficit.] Alert oriented 3. Psychiatric: Normal mood affect and normal mental status examination. Skin: No rashes. - Labs CBC & Chem 7: 07/15/22 04:59 07/15/22 06:49 Labs: Abnormal Lab Results - Last 24 Hours (Table) 07/15/22 07/15/22 Range/Units 04:59 06:49 RDW 19.5 H (11.5-15.5) % Plt Count 86 L (150-450) k/uL Lymphocytes # 0.9 L (1.0-4.8) k/uL Sodium 133 L (137-145) mmol/L Potassium 5.2 H (3.5-5.1) mmol/L Chloride 86 L (98-107) mmol/L Carbon Dioxide 39 H (22-30) mmol/L BUN 103 H* (7-17) mg/dL Creatinine 2.41 H (0.52-1.04) mg/dL Glucose 137 H (74-99) mg/dL Magnesium 2.4 H (1.6-2.3) mg/dL Assessment and Plan Assessment: Impression: Acute on chronic hypoxic respiratory failure secondary to acute diastolic congestive heart failure. Off Lasix infusion, patient is on Lasix now IV push. 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 Hypothyroidism Recommendation: Continue to monitor in the ICU Continue airvo/high flow and high FiO2 and titrate accordingly Continue Lasix IV push Continue to monitor urine Titrate oxygen accordingly Continue IV cefazolin Continue incentive spirometry Use BiPAP as needed We'll continue to follow
[2022-07-15] MEDS: FAMOTIDINE 20 MG TAB PO SCH (20:41)
[2022-07-15] MEDS: MAGNESIUM OXIDE 400 MG TAB PO SCH (20:42)
[2022-07-15] MEDS: ATORVASTATIN 10 MG TAB PO SCH (20:43)
[2022-07-16 06:04] LABS: Anisocytosis Slight; HCT 42.7 % (34.0-46.0); HGB 13.2 gm/dL (11.4-16.0); Hypochromasia Moderate; MCH 30.4 pg (25.0-35.0); Macrocytosis Slight; Mean Platelet Volume 9.6; RBC 4.35 m/uL (3.80-5.40); RDW 19.3 % (11.5-15.5); WBC 9.9 k/uL (3.8-10.6)
[2022-07-16] MEDS: MIDODRINE 5 MG TAB PO SCH ×3 (06:23→16:41)
[2022-07-16] MEDS: LEVOTHYROXINE 100 MCG TAB PO SCH (06:23)
--- NOTE | 2022-07-16 06:27 | XR ---
EXAMINATION TYPE: XR chest 1V portable DATE OF EXAM: 07/16/2022 CLINICAL HISTORY: Difficulty breathing progress study. TECHNIQUE: Single AP portable upright view of the chest is obtained. COMPARISON: Chest x-ray from today's earlier FINDINGS: Persistent cardiomegaly with bilateral central increased opacites. Osseous structures are intact. IMPRESSION: Findings consistent with CHF exacerbation are suspected. No significant change from most recent study.
[2022-07-16 06:28] LABS: African American GFR (CKD) 18 (>60 ml/min/1.73 sqM); Anion Gap 10 mmol/L; Calcium 9.2 mg/dL (8.4-10.2); Carbon Dioxide 38 mmol/L (22-30); Chloride 85 mmol/L (98-107); Glucose 111 mg/dL (74-99); Non-African American GFR(CKD) 16 (>60 ml/min/1.73 sqM); Potassium 3.9 mmol/L (3.5-5.1); Sodium 133 mmol/L (137-145)
[2022-07-16 06:52] LABS: Platelet Count 132 k/uL (150-450)
[2022-07-16 06:59] LABS: Blood Urea Nitrogen 111 mg/dL (7-17)
[2022-07-16] MEDS: SYMBICORT 160-4.5 MCG INHALER INHALATION SCH ×2 (08:31→20:41)
[2022-07-16] MEDS ORDERED: ALPRAZolam 0.25 MG TAB PO PRN (09:10)
[2022-07-16] MEDS ORDERED: ASPIRIN 325 MG TAB PO STA (09:10)
[2022-07-16] MEDS ORDERED: ALPRAZolam 0.5 MG TAB PO PRN (09:10)
--- NOTE | 2022-07-16 09:10 | P.PN ---
Subjective PROGRESS NOTE The patient is a 76-year-old female with known history of chronic kidney disease, hypertension, hyperlipidemia who presented was progressive dyspnea and evidence of CHF. She is feeling better. She continues to have peripheral edema but improving. She continues to require high oxygen flow. Hemodynamically she is stable. She denies any chest discomfort, dizziness or palpitations. She is diuresing well. Her echocardiogram showed an ejection fraction of 50% with evidence of pulmonary hypertension July 13: The patient became more dyspneic, had a brief episode of unresponsiveness and a drop in her oxygen saturation. She is transferred to the ICU. She's feeling better now. She has been started on IV Lasix drip. Her chest x-ray was consistent with CHF. She denies any chest discomfort, dizziness or palpitations. She has no nausea. 07/14 Patient seen and examined. Continues on Lasix drip at 10 with good urine output. Metoprolol was held this morning secondary to bradycardia heart rates in the 50s in sinus rhythm. Denies any chest pain or pressure. She states her lower extremity edema has been improving however still has significant thigh and buttocks edema. Her lower extremities have been wraps. 07/15 Patient seen and examined. Patient started on Revatio for pulmonary hypertension yesterday. Denies any chest pain or pressure. Has a good urine output on Lasix drip. BUN increasing however creatinine stable. Still has significant lower extremity edema. Potassium noted to be elevated this morning. 07/16 Patient seen and examined. Patient was transitioned from IV Lasix drip to IV Lasix. Creatinine going up as well as BUN. She continues require significant amount of oxygen. She admits to not really having a history of any COPD prior to when she was placed on oxygen in April. Still has trace to 1+ lower extremity and buttocks edema. PHYSICAL EXAMINATION: Vitals reviewed LUNGS: Scattered rhonchi HEART: Regular rate and rhythm, S1, S2. No S3. systolic ejection murmur ABDOMEN: Soft, nontender, no organomegaly EXTREMETIES: +1 to 2+ edema IMPRESSION: 1. CHF with preserved systolic function and evidence of pulmonary hypertension and severe tricuspid regurgitation, mainly right sided 2. Chronic kidney disease 3. Hyperlipidemia 4. Hypertension 5. History of cellulitis 6. Severe tricuspid regurgitation 7. Severe pulmonary hypertension PLAN: Patient with increasing BUN and creatinine with diuresis. May be related to right-sided heart failure not supplying enough blood to the left heart. Discussed definitive evaluation with right heart catheterization as well as to assess pulmonary hypertension and cardiac output. Patient agreeable. Right heart catheterization today and possible transfer to [facility] for further pulmonary hypertension workup pending results. Objective - Vital Signs Vital signs: Vital Signs Temp 96.7 F L 07/16/22 09:00 Pulse 65 07/16/22 09:00 Resp 26 H 07/16/22 09:00 BP 110/64 07/16/22 09:00 Pulse Ox 93 L 07/16/22 09:00 FiO2 89 07/16/22 09:00 Intake & Output 07/15/22 07/16/22 07/16/22 18:59 06:59 18:59 Intake Total 275 Output Total 1080 1275 100 Balance -805 -1275 -100 Weight 56.6 kg Intake: IV 80 0.9 80 Intake, IV Titration 75 Amount Furosemide 100 mg In 75 Sodium Chloride 0.9% 90 ml @ 10 MG/HR 10 mls/hr IV .Q10H [facility] Rx#: [id number] Oral 120 Output: Urine 1080 1275 100 Other: Voiding Method Indwelling Catheter Indwelling Catheter # Bowel Movements 1 - Labs CBC & Chem 7: 07/16/22 05:32 07/16/22 05:32 Labs: Abnormal Lab Results - Last 24 Hours (Table) 07/15/22 07/16/22 07/16/22 Range/Units 04:59 05:32 05:32 RDW 19.3 H (11.5-15.5) % Plt Count 86 L 132 L D (150-450) k/uL Lymphocytes # 0.9 L (1.0-4.8) k/uL Sodium 133 L (137-145) mmol/L Chloride 85 L (98-107) mmol/L Carbon Dioxide 38 H (22-30) mmol/L BUN 111 H* (7-17) mg/dL Creatinine 2.78 H (0.52-1.04) mg/dL Glucose 111 H (74-99) mg/dL
[2022-07-16] MEDS: HEPARIN SODIUM,PORCINE/PF 5,000 UNIT/0.5 ML SYRINGE SQ SCH ×2 (09:13→20:19)
[2022-07-16] MEDS: SILDENAFIL 20 MG TAB PO SCH ×3 (09:16→20:19)
[2022-07-16] MEDS: ASPIRIN 81 MG PO SCH (09:16)
[2022-07-16] MEDS: FERROUS SULFATE 325 MG TAB PO SCH ×2 (09:16→20:19)
[2022-07-16] MEDS: FOLIC ACID 1 MG TAB PO SCH (09:17)
[2022-07-16] MEDS: METOPROLOL TARTRATE 25 MG TAB PO SCH ×2 (09:17→20:19)
[2022-07-16] MEDS: FUROSEMIDE 10 MG/ML 10 ML VIAL IV SCH ×2 (09:17→21:45)
[2022-07-16] MEDS: CHOLECALCIFEROL 25 MCG (1000 IU) TABLET PO SCH (09:17)
[2022-07-16] MEDS: allopurinoL 100 MG TAB PO SCH ×2 (09:17→20:19)
[2022-07-16] MEDS: metOLazone 5 MG TAB PO SCH (09:23)
--- NOTE | 2022-07-16 11:12 | P.PN ---
Subjective Patient is seen for follow-up for acute kidney injury on top of chronic kidney disease. Patient is being diuresed for volume overload. Lasix drip has been discontinued and switched to IV push Lasix 60 mg every 12 hours. 24 hour urine output at 2.3 L. Patient remains with high oxygen requirement also not increased from yesterday. She is also short of breath. Serum creatinine increased to 2.7 and BUN is 111. Patient does have left arm AV fistula and she is agreeable to start dialysis. We will plan for first treatment tomorrow with ultrafiltration of about 1-2 L as tolerated. Cardiology is considering cardiac catheterization. Objective - Vital Signs Vital signs: Vital Signs Temp 96.7 F L 07/16/22 09:00 Pulse 59 L 07/16/22 11:00 Resp 17 07/16/22 11:00 BP 138/88 07/16/22 11:00 Pulse Ox 94 L 07/16/22 11:00 FiO2 89 07/16/22 09:00 Intake & Output 07/15/22 07/16/22 07/16/22 18:59 06:59 18:59 Intake Total 275 100 Output Total 1080 1275 575 Balance -805 -1275 -860 Weight 56.6 kg Intake: IV 80 0.9 80 Intake, IV Titration 75 Amount Furosemide 100 mg In 75 Sodium Chloride 0.9% 90 ml @ 10 MG/HR 10 mls/hr IV .Q10H [facility] Rx#: [id number] Oral 120 100 Output: Urine 1080 1275 575 Other: Voiding Method Indwelling Catheter Indwelling Catheter # Bowel Movements 1 - Exam Awake, comfortable, no acute distress, short of breath Examination of the heart S1 and S2 Examination of the lungs decreased breath sounds at the bases Abdomen is soft nontender Examination lower extremity shows no significant edema Left arm AV fistula is intact [facility] [employer]SP[facility] NURSE exam grossly intact - Labs CBC & Chem 7: 07/16/22 05:32 07/16/22 05:32 Labs: Abnormal Lab Results - Last 24 Hours (Table) 07/16/22 07/16/22 Range/Units 05:32 05:32 RDW 19.3 H (11.5-15.5) % Plt Count 132 L D (150-450) k/uL Sodium 133 L (137-145) mmol/L Chloride 85 L (98-107) mmol/L Carbon Dioxide 38 H (22-30) mmol/L BUN 111 H* (7-17) mg/dL Creatinine 2.78 H (0.52-1.04) mg/dL Glucose 111 H (74-99) mg/dL Assessment and Plan Assessment: 1. Chronic kidney disease NKF stage IV secondary to nephrosclerosis NKF stage IV with baseline creatinine around 2 mg/dL. patient has a left arm AV fistula 2. Acute kidney injury cardiorenal and due to low blood pressure. Disproportionately elevated B UN. Patient is not on steroids, no evidence of GI bleed. Diuretics have been decreased. BUN is further elevated at 111 today with elevated creatinine at 2.7. I will proceed with renal replacement therapy and plan for first treatment tomorrow. 3. Volume overload 4. 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 Acute on chronic CHF exacerbation with preserved ejection fraction. Ec hocardiogram on 04/22/2022 shows EF of 50% with moderate tricuspid regurgitation. 6. Hypervolemic hyponatremia Plan: Continue current dose of IV Lasix No blood pressure cuff all blood draws in left arm because of AV fistula First treatment of hemodialysis tomorrow. Use midodrine if blood pressure is low. Goal UF about 1-2 L as tolerated.
--- NOTE | 2022-07-16 11:48 | P.PN ---
Subjective Progress Note Date: 07/16/22 76 show female multiple complaints significant shortness of breath hypoxia here in the emergency department oxygen in the low to mid 80s despite supportive supplemental oxygen. Patient also complaining of significant lower extremity swelling and edema. No current chest pain, likely more significantly swollen than normal with significant redness of the left lower extremity. No change in medications or other complaint. EKG sinus bradycardia at 50 bpm Chest x-ray: Cardiomegaly. Small posterior right and minimal left pleural effusions. Some minimal subsegmental atelectasis left base may represent mild subsegmental atelectasis at the right base. WBC 8.6, hemoglobin 14.3, platelet count 165. Sodium 135, potassium 4.8, BUN 77 creatinine 2.99 patient presented with a BUN is 76 and creatinine of 3.03. Troponin 0.125, 0.105, 0.116. Lactic acid 2.5. Phosphorus 5.6, magnesium 2.6, total bilirubin 1. or otherwise liver function tests are normal. Home cardiac medications: Amlodipine 7.5 mg daily, aspirin 81 mg daily, atorvastatin 10 mg at bedtime, Lasix 20 mg every 2 days as needed, Lopressor 25 mg twice daily, levothyroxine 100 g daily Echocardiogram performed 04/2022 revealed a difficult study, EF 50%, aortic sclerosis, mild mitral and moderate tricuspid insufficiency. 07/07/2022 Patient is seen and evaluated in room at bedside; reports feeling better today; denies any complaint of chest shortness of breath Over the course of her admission she was diuresed with high doses of IV Lasix. Limited echocardiogram shows LV function of 50%. RV enlargement with severe right ventricular hypertrophy. RVSP 72 mmHg -- Cardiology on board and recommending to transition to oral Lasix with plans to add Aldactone tomorrow if patient able to tolerate -- Continue to monitor strict JERRY's, daily weights, low salt and fluid restricted diet patient with bilateral lower extremity cellulitis in this patient admitted to the hospital with the fluid overload did have diffuse swelling to bilateral lower extremity likely from gram-positive skin shailesh such as strep, patient with renal insufficiency high risk of nephrotoxicity Patient to continue with Jimbo wrap from just above the toe to below the knee, to keep the swelling down patient to continue with cefazolin 2 g every 12 and monitor clinical course closely Resume the care of the patient on 07/08/2022 Patient is a pleasant 76 years old female was admitted with diastolic CHF and acute hypoxic respiratory failure, her oxygen requirement went up significantly today to 15 L/m however through the day that came down to 12 L/m because of her significant hypoxia we consulted pulmonary, however clinically she looks not that bad, she is sitting up in bed and able to complicated with no difficulty talking due to hypoxia, she is mildly tachypneic with no use of accessory muscles. She is currently on Demadex as well as metolazone. She's continued on cefazolin for bilateral leg cellulitis, both legs with Jimbo wrap, they are slightly improved as per patient. We will keep monitoring Check chest x-ray in the morning 07/09/2022 Patient still hypoxic, improving slowly, today is on 12 L/m of oxygen via high flow nasal cannula. She still have significant leg swelling and cellulitis improving slowly as well Chest x-ray showing fluid overload but is improving she remains on torsemide and metolazone She remains on cefazolin 07/10/2022 Patient is hypoxic with oxygen saturation 12 L/m and saturation 90%, not much improvement and she is becoming hypotensive this morning which is as symptomatic I discussed with the bedside nurse to hold her diuretics and beta larry and to contact mining manager for further recommendation -Patient has elements of COPD exacerbation although she never smoked however she has secondary smoking circumstances are her used to smoke in-house about half pack per day. There is limitation of air entry. There is no much this recommendation. I will start patient on Symbicort.. We will defer systemic steroids to the pulmonary team Creatinine 2.3. She remains on cefazolin 07/11/2022 Patient remains on extensive fluid overload as apparent on the CAT scan including subcutaneous edema She is also remains hypoxic requiring 14 L of oxygen via nasal cannula She remains on oral diuretics torsemide and metolazone Nephrology and pulmonary team on the case and other forms of diuresis may be considered further recommendation included intravenous diuresis versus renal replacement therapy Patient remains on IV cefazolin and her lower extremity cellulitis improving 07/12 Rapid called for Presyncope, Blood pressure low, held Lasix, Recovered while in bed RN notifed to Hold lasix , Give albumin 07/13 Continue to remain short of breath, High Oxygen demand, transferred to ICU, Pulm Following, Started on Midodrine Goals of Care discussed Full code 07/14 Patient monitored in ICU overnight, continue patient on Lasix drip, patient remains on heat and high flow 90% FiO2 50 L Patient states her breathing is little better 07/15 Patient is seen and evaluated and bedside. change from IV Lasix to IV push Lasix, potassium supplementation discontinued Continue to remain on high oxygen requirement on heat high flow 07/16 Patient seen and evaluated and bedside, cardiology planning cardiac catheterization will monitor postprocedure. Continue patient on Lasix patient s tates breathing seems to be better however nausea requirements have been unchanged on 90% FiO2 50 L Objective - Vital Signs Vital signs: Vital Signs Temp 96.7 F L 07/16/22 09:00 Pulse 59 L 07/16/22 11:00 Resp 17 07/16/22 11:00 BP 138/88 07/16/22 11:00 Pulse Ox 94 L 07/16/22 11:00 FiO2 89 07/16/22 09:00 Intake & Output 07/15/22 07/16/22 07/16/22 18:59 06:59 18:59 Intake Total 275 100 Output Total 1080 1275 575 Balance -805 -1275 -475 Weight 56.6 kg Intake: IV 80 0.9 80 Intake, IV Titration 75 Amount Furosemide 100 mg In 75 Sodium Chloride 0.9% 90 ml @ 10 MG/HR 10 mls/hr IV .Q10H [facility] Rx#: [id number] Oral 120 100 Output: Urine 1080 1275 575 Other: Voiding Method Indwelling Catheter Indwelling Catheter # Bowel Movements 1 - Exam GENERAL: The patient is alert and oriented x 3,Ill appearance, high flow Nasal canulla in place , ILL APPEARANCE HEENT: Pupils are round and equally reacting to light. EOMI. No scleral icterus. No conjunctival pallor. Normocephalic, atraumatic. No pharyngeal erythema. No thyromegaly. CARDIOVASCULAR: S1 and S2 present. 2 plus LE edema . PULMONARY: bilateral basal crackles, no use of accessory muscle , Decrease breath sounds ABDOMEN: Soft, nontender, nondistended, normoactive bowel sounds. No palpable organomegaly. MUSCULOSKELETAL: No joint swelling or deformity. EXTREMITIES: No cyanosis, clubbing, or pedal edema. Bilateral leg redness and swelling for cellulitis and fluid retention, bilateral lower extremities wrapped NEUROLOGICAL: Gross neurological examination did not reveal any focal deficits. SKIN: No rashes. no petechiae. - Labs CBC & Chem 7: 07/16/22 05:32 07/16/22 05:32 Labs: Abnormal Lab Results - Last 24 Hours (Table) 07/16/22 07/16/22 Range/Units 05:32 05:32 RDW 19.3 H (11.5-15.5) % Plt Count 132 L D (150-450) k/uL Sodium 133 L (137-145) mmol/L Chloride 85 L (98-107) mmol/L Carbon Dioxide 38 H (22-30) mmol/L BUN 111 H* (7-17) mg/dL Creatinine 2.78 H (0.52-1.04) mg/dL Glucose 111 H (74-99) mg/dL Assessment and Plan Assessment: Assessment: * Acute COPD exacerbation secondary to secondary smoking * Acute Hypoxic Resp failure * Acute on chronic diastolic heart failure/ Pulmonary hypertension * Syncope due to hypotension * Acute cellulitis bilateral lower extremities treated * Hypertension * Hyperlipidemia * Hypothyroidism * Acute kidney injury Chronic kidney disease stage IV Plan: Patient received Ancef which has been discontinued completed course 07/06-07/13 Continue with oxygen therapy>> on Heated High FLow consultants on the case including mining manager, infectious disease and dope worker, pulmonary services For CHF> Change IV Lasix drip>> IV PUSH 60mg BID , metoprolol, midodrine, Zaroxolyn>> cardiology planning right heart catheterization to check for stability upon we hypertension For COPD continue Breathing treatments > Pulm following DVT prophylaxis: Subcutaneous heparin GI Prophylaxis: Pepcid
[2022-07-16 12:49] LABS: Glucose,Whole Blood 137 mg/dL (70-110)
[2022-07-16] MEDS ORDERED: SODIUM CHLORIDE 0.9% 500 ML 500 ML IV ONE (13:55)
--- NOTE | 2022-07-16 14:00 | P.PN ---
Subjective Progress Note Date: 07/16/22 Principal diagnosis: Bilateral lower extremity cellulitis Patient is a 76-year-old female with a past medical history significant for hypertension hyperlipidemia chronic renal insufficiency presenting to the hospital 07/03/2022 for evaluation of increasing shortness of b reath, patient was have diffuse swelling and erythema to bilateral extremities concerning for cellulitis. On today's evaluation had that is 07/16/2022, the patient denies any fever or any chills, the patient is breathing comfortably however still requiring high flow oxygen currently down to 85 % FiO2, the patient denies any worsening shortness of breath or cough or sputum production, the patient lower extremity swelling has decreased and denies pain to the lower extremity, the patient denies having any drainage no vomiting or diarrhea Objective - Vital Signs Vital signs: Vital Signs Temp 96.7 F L 07/16/22 09:00 Pulse 59 L 07/16/22 11:00 Resp 17 07/16/22 11:00 BP 138/88 07/16/22 11:00 Pulse Ox 94 L 07/16/22 11:00 FiO2 89 07/16/22 09:00 Intake & Output 07/15/22 07/16/22 07/16/22 18:59 06:59 18:59 Intake Total 275 100 Output Total 1080 1275 575 Balance -531 -3722 -469 Weight 56.6 kg Intake: IV 80 0.9 80 Intake, IV Titration 75 Amount Furosemide 100 mg In 75 Sodium Chloride 0.9% 90 ml @ 10 MG/HR 10 mls/hr IV .Q10H [facility] Rx#: [id number] Oral 120 100 Output: Urine 1080 1275 575 Other: Voiding Method Indwelling Catheter Indwelling Catheter Indwelling Catheter # Bowel Movements 1 - Exam GENERAL DESCRIPTION: An elderly female up in the chair in no distress RESPIRATORY SYSTEM: Unlabored breathing , decreased breath sounds at bases HEART: S1 S2 regular rate and rhythm , ABDOMEN: Soft , no tenderness EXTREMITIES: Bilateral lower extremity wrapped in Jimbo wrap no drainage on the dressing - Labs CBC & Chem 7: 07/16/22 05:32 07/16/22 05:32 Labs: Abnormal Lab Results - Last 24 Hours (Table) 07/16/22 07/16/22 Range/Units 05:32 05:32 RDW 19.3 H (11.5-15.5) % Plt Count 132 L D (150-450) k/uL Sodium 133 L (137-145) mmol/L Chloride 85 L (98-107) mmol/L Carbon Dioxide 38 H (22-30) mmol/L BUN 111 H* (7-17) mg/dL Creatinine 2.78 H (0.52-1.04) mg/dL Glucose 111 H (74-99) mg/dL Assessment and Plan (1) Bilateral lower leg cellulitis Current Visit: Yes Status: Acute Code(s): L03.116 - CELLULITIS OF LEFT LOWER LIMB; L03.115 - CELLULITIS OF RIGHT LOWER LIMB SNOMED Code(s): 861177625 Plan: 1patient with bilateral lower extremity cellulitis in this patient admitted to the hospital with the fluid overload did have diffuse swelling to bilateral lowe r extremity likely from gram-positive skin shailesh such as strep, patient with renal insufficiency high risk of nephrotoxicity 2Patient to continue with Jimbo wrap from just above the toe to below the knee, to keep the swelling down 3patient is afebrile and white count remains to be normal 4-the patient has received adequate antibiotic therapy for her lower extremity cellulitis, and no other focus of infection currently will be monitored closely off antibiotic therapy Time with Patient: Less than 30
[2022-07-16] MEDS ORDERED: LIDOCAINE 1% INJ 10MG/ML (5 ML VIAL-PF) SQ ONE (14:07)
[2022-07-16] MEDS ORDERED: LIDOCAINE 1% INJ 10MG/ML (20 ML MDV) ONE (14:10)
--- NOTE | 2022-07-16 14:22 | P.PN ---
Subjective Progress Note Date: 07/16/22 Principal diagnosis: Acute hypoxic respiratory failure secondary to acute diastolic congestive heart failure 76-year-old female patient hospitalized for shortness of breath and lower extremity edema and decompensated heart failure. The patient is known to have diastolic failure with right sided failure and pulmonary hypertension. The patient also was noted to have increased lower oximetry cellulitis along with edema. Other comorbid conditions include hypertension, hyperlipidemia, stage IV chronic kidney disease and hypothyroidism. The patient is being seen by various consultants including cardiology and nephrology and a pulmonary consultation was also requested as the patient oxygen requirements progressively went up and the patient is currently on 15 L high flow oxygen. Note that last week, the patient was only at 8 L of oxygen by nasal cannula. The patient also has not had a recent chest x-ray. Most recent chest x-rays from 07/03/2022 showing thyromegaly and bilateral pleural effusion, more so on the right and minimal posterior left-sided pleural effusion is also present. The patient is currently on IV cefazolin Re: Bass the cellulitis. The patient is also on Zaroxolyn 5 mg by mouth daily and Demadex 80 mg by mouth daily. The blood work shows a WBC count of 8.3, hemoglobin 14 and platelet count of 149, BUN is 70 with a creatinine of 2.4 and a sodium level is at 138. On today's evaluation of 07/09/2021, the patient is still being diuresed. The patient is on 12 L of oxygen by nasal cannula with a pulse ox 94%. Urine output is adequate the renal function stable with a creatinine of 2.4. The ends of 79. Sodium levels of 135. The patient's white cell cause of 9.4 with a hemoglobin of 14.3. The patient is on IV cefazolin Re: Lower oximetry cellulitis. The patient is on Zaroxolyn 5 mg by mouth daily and Demadex 50 mg by mouth daily. Repeat chest x-ray showed cardiomegaly with mild pulmonary vessel congestion and some atelectasis of the lung bases. The patient is on subcu heparin for DVT prophylaxis. D-dimer level was at 0.64. On 07/10/2022, the patient is still hypoxic despite having a relatively clear lungs. The patient is currently on 12 L of O2 nasal cannula. The patient is on a combination of diuretics and the patient is currently on torsemide and Zaroxolyn. The patient is producing adequate amount of urine output. The BUN is at 82 with a creatinine of 2.3 and a sodium level is at 134. Potassium levels at 3.3. The patient otherwise is being treated for a left lower extremities. She continues to have some edema in the legs. She is on IV cefazolin. No other issues for now. No chest pain. No altered mentation. Based on her ongoing hypoxemia, I ordered a CAT scan of the chest that was completed today and it showed moderate cardiomegaly with moderate to severe body wall anasarca mainly in the thoracoabdominal junction and in the upper abdominal area. There is obvious third spacing. There is a small right and trace left- sided pleural effusion. Diffuse haziness throughout the lungs probably related to pulmonary vessel congestion. As such, the clinical picture is consistent with CHF. I also ordered a Doppler of the lower extremities and the results of the pending for now. On today's evaluation of 2022, the patient remains on 12 L of oxygen by nasal cannula. I reviewed the CAT scan of the chest and was consistent with CHF and fluid overload. Based on that, the patient was started on diuretics and On diuretics and the patient remains on a combination of torsemide and Zaroxolyn. The Patient Remains in Negative Fluid Balance. Doppler of the Lower Extremities was completed yesterday and the results were negative. The patient remains on IV cefazolin Re: Brock the cellulitis. She is using the incentive spirometer. She does have a chronic kidney disease and the creatinine remains unchanged at 2.3 with a BUN of 82 and a sodium level is at 134 with a potassium level of 3.3. Glucose at 166. Awake and alert. Tolerating diet. No other new complaints otherwise for now. On 07/12/2022, the patient is still struggling with her oxygenation. She remains on high flow oxygen at 4 L per minute nasal cannula. She remains on torsemide and Zaroxolyn. The patient herself denies having any new complaints. Her blood work shows a BUN of 89 with a creatinine of 2.3 and sodium levels of 135 with a potassium level of 3.7. She is using the incentive spirometer. She is in a n egative fluid balance. She has no fever or chills. Pulse ox 90% on 14 L nasal cannula. She remains on IV cefazolin Re: Lower extremity cellulitis. Continues to have some edema lower extremities bilaterally. CAT scan of the chest was noted. Doppler of the lower extremity was noted. On today's evaluation of 07/13/2022, the patient is on high flow oxygen with 50 L with an FiO2 of 90%. The patient had episodes of unresponsiveness and oxygen saturation yesterday. She was briefly placed on a BiPAP and later on physician to high flow oxygen. I made recommendations for this patient to be transferred to the intensive care unit. The chest x-ray is consistent with CHF. She is still diuretics and the patient is currently on a combination of Zaroxolyn and Lasix and I'm going to transfer this patient to Lasix drip. Her oxygenation is borderline. Pulse ox 92%. The patient's WBC count 7.5 with a hemoglobin of 14. BUN is at 91 with a creatinine of 2.37 and a sodium level is at 136. The blood cultures have been negative and the patient is afebrile. Reevaluated today on 07/14/2022, patient remains in the ICU, she was transferred directly to the ICU yesterday by Dr. Causey as she was noted to be in respiratory distress and worsening congestive heart failure. Patient is presently on Arava at 90% FiO2 and 50 L flow is also on Lasix at 10 mg per hour drip. Improving, and her FiO2 is being titrated down. Last night she was on BiPAP 10/5/100%. Patient is feeling better, breathing a bit easier today compared to yesterday. Chest x-ray this morning continues to show evidence of congestive heart failure, not much of a change in the last 24 hours. Labs were reviewed today, WBC 7.2 hemoglobin 14.5 Electrolytesenc normal BUN however is 92 creatinine 2.3 to basically about the same in spite of aggressive diuresis. 300 today on , patient remains in the ICU, remains on airvo, 90% and 50 L flow, responded well to diuretics, she is almost -6 L in the last couple of days, her renal functioning is showing some worsening, and she was transitioned from Lasix infusion to Lasix 60 mg IV push every 12 hours by nephrology. Patient is intermittently on BiPAP with IPAP of 10 and EPAP of 500%. Patient likes airvo much better than BiPAP. Labs from today were all reviewed, her BUN is up to 103 creatinine is up to 2.4, patient is being followed by nephrology regarding her renal failure. Reevaluated today on 07/16/2022, remains in the ICU, remains on relatively high FiO2 in spite of significant diuresis and negative fluid balance. Patient may undergo a right-sided cardiac catheterization as noted by cardiology. My only concern is her renal status she has a creatinine of 2.78. Patient is being followed by nephrology on the case. Has we'll schedule 9.9 hemoglobin 13.2, patient does not seem in distress but nonetheless she is requiring significantly high FiO2. She is on 90% FiO2 and 50 L flow via airvo. Patient had -2 L in the last 24 hours chest x-ray continues to be consistent with CHF and interstitial edema Objective - Vital Signs Vital signs: Vital Signs Temp 97.0 F L 07/16/22 12:00 Pulse 57 L 07/16/22 12:20 Resp 15 07/16/22 12:20 BP 93/54 07/16/22 12:20 Pulse Ox 92 L 07/16/22 12:29 FiO2 85 07/16/22 12:29 Intake & Output 07/15/22 07/16/22 07/16/22 18:59 06:59 18:59 Intake Total 275 100 Output Total 1080 1275 675 Balance -805 -1275 -575 Weight 56.6 kg Intake: IV 80 0.9 80 Intake, IV Titration 75 Amount Furosemide 100 mg In 75 Sodium Chloride 0.9% 90 ml @ 10 MG/HR 10 mls/hr IV .Q10H [facility] Rx#: [id number] Oral 120 100 Output: Urine 1080 1275 675 Other: Voiding Method Indwelling Catheter Indwelling Catheter Indwelling Catheter # Bowel Movements 1 - Exam Physical Exam: Revealed 76-year-old female on airvo in no distress. On airvo relatively high flow oxygen and high FiO2 HEENT:[Neck is supple.] [No neck masses.] [No thyromegaly.] [ Positive JVD.] Chest: [Symmetrical chest expansion, crackles at the bases. Cardiac Exam: [Normal S1 and S2, no S3 gallop, no murmur.] Abdomen: [Soft, nontender, no megaly, no rebound, no guarding, normal bowel sounds.] Extremities: [No clubbing, 2+ bipedal edema, no cyanosis.] Neurological Exam: [No focal neurologic deficit.] Alert oriented 3. Psychiatric: Normal mood affect and normal mental status examination. Skin: No rashes. - Labs CBC & Chem 7: 07/16/22 05:32 07/16/22 05:32 Labs: Abnormal Lab Results - Last 24 Hours (Table) 07/16/22 07/16/22 07/16/22 Range/Units 05:32 05:32 12:47 RDW 19.3 H (11.5-15.5) % Plt Count 132 L D (150-450) k/uL Sodium 133 L (137-145) mmol/L Chloride 85 L (98-107) mmol/L Carbon Dioxide 38 H (22-30) mmol/L BUN 111 H* (7-17) mg/dL Creatinine 2.78 H (0.52-1.04) mg/dL Glucose 111 H (74-99) mg/dL POC Glucose (mg/dL) 137 H (70-110) mg/dL Assessment and Plan Assessment: Impression: Acute on chronic hypoxic respiratory failure secondary to acute diastolic congestive heart failure. Remains in negative fluid balance. Anasarca and small bilateral pleural effusions improving based on chest x-ray but not resolved. 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 Hypothyroidism Recommendation: Patient may undergo right-sided cardiac catheterization as noted from the note by cardiology. Continue to monitor in the ICU Continue airvo/high flow and high FiO2 and titrate accordingly Continue Lasix IV push Continue to monitor urine Titrate oxygen accordingly Continue incentive spirometry Use BiPAP as needed We'll continue to follow Time with Patient: Less than 30
[2022-07-16 14:44] LABS: O2 Sat Blood Gas 50.3 %
[2022-07-16 14:47] LABS: O2 Sat Blood Gas 56.9 %
[2022-07-16] MEDS: MAGNESIUM OXIDE 400 MG TAB PO SCH (20:19)
[2022-07-16] MEDS: FAMOTIDINE 20 MG TAB PO SCH (20:19)
[2022-07-16] MEDS: ATORVASTATIN 10 MG TAB PO SCH (20:19)
--- NOTE | 2022-07-16 22:04 | P.PCN ---
Description of Procedure: PROCEDURES PERFORMED: Right heart catheterization INDICATION: Pulmonary hypertension, RV failure CONSENT:I have discussed the risks, benefits and alternative therapies for the above-mentioned procedure and for both sedation/analgesia as well as necessary blood product administration, if indicated, as they pertain to this patient. The patient has indicated understanding and acceptance of the risks and procedures discussed. PROCEDURE: After the risks, benefits and alternatives of the above mentioned procedure explained in detail with the patient, informed consent was obtained. Patient was taken to the catheterization lab and prepped and draped in usual fashion. 1% lidocaine was used to anesthetize the right brachial area. A peripheral IV had been placed in the right brachial vein previous to procedure. A 6-[place] sheath was exchanged for the peripheral IV. A 6Fr [place] Tran catheter was advanced into the RA, RV, PA, PCWP position and pressure measurement and PA and RA oxygen saturations were obtained. Thermodilution was performed. The catheter was removed. The right brachial sheath was removed and a pressure held with hemostasis achieved. The patient tolerated the procedure well. Patient was transported back to the post catheterization holding area in stable condition. Conscious Sedation: Patient was monitored under the direct supervision of myself for conscious sedation using Versed and fentanyl for a total duration of 28 minutes HEMODYNAMICS: RA: 9 RV: 81/3 PA: 89/22 PCWP: 8 PA oxygen saturation: 57% RA oxygen saturation: 50% Pulse ox on 50L High Flow: 87% Cardiac outpt by DAVON: 3.23 L/min Cardiac index by DAVON: 2.11 L/min/m2 Cardiac outpt by thermodilution: 2.78 L/min Cardiac index by thermodilution: 1.82 L/min/m2 FINAL IMPRESSION: 1. Normal left and mildly elevated right sided filling pressures 2. Precapillary pulmonary hypertension 3. Decreased cardiac outpt/cardiac index 4. Mild step up from RA to RV
--- NOTE | 2022-07-16 22:09 | P.PN ---
Progress Note - Text Right heart cath showing normal left sided filling pressures and minimally elevated right sided pressures and decrease Lasix to maintenance dose. Patient with significant hypoxia despite normal left sided filling pressures. Severe pulmonary hypertension is precapillary with decreased cardiac outpt likely causing cardio renal syndrome. No obvious right to left shunt on echo to suggest Eisenmingers sydrome as cause of continued hypoxia despite high oxygen. We will check VQ scan to evaluate for CTEPH. Patient needs more aggressive pulmonary vasodilators not on formulary at hospital and would benefit from transfer and workup of pulmonary hypertension and RV failure at tertiary center.
[2022-07-16] MEDS ORDERED: BENZOCAINE/MENTHOL LOZENG 1 EACH LOZENGE MUCOUS MEM PRN (22:44)
[2022-07-17 04:43] LABS: Anisocytosis Slight; HCT 42.4 % (34.0-46.0); HGB 13.1 gm/dL (11.4-16.0); Hypochromasia Slight; MCH 29.5 pg (25.0-35.0); MCHC 30.9 g/dL (31.0-37.0); MCV 95.7 fL (80.0-100.0); Macrocytosis Slight; Mean Platelet Volume 10.4; Platelet Count 125 k/uL (150-450); RBC 4.43 m/uL (3.80-5.40); RDW 19.6 % (11.5-15.5); WBC 11.1 k/uL (3.8-10.6)
[2022-07-17 05:00] LABS: African American GFR (CKD) 19 (>60 ml/min/1.73 sqM); Calcium 9.5 mg/dL (8.4-10.2); Chloride 81 mmol/L (98-107); Glucose 114 mg/dL (74-99); Non-African American GFR(CKD) 17 (>60 ml/min/1.73 sqM); Potassium 3.4 mmol/L (3.5-5.1); Sodium 132 mmol/L (137-145)
[2022-07-17 05:06] LABS: Anion Gap 13 mmol/L
[2022-07-17 05:56] LABS: Blood Urea Nitrogen 111 mg/dL (7-17)
[2022-07-17 05:57] LABS: Carbon Dioxide 38 mmol/L (22-30)
[2022-07-17] MEDS: LEVOTHYROXINE 100 MCG TAB PO SCH (06:27)
[2022-07-17] MEDS: MIDODRINE 5 MG TAB PO SCH ×3 (06:27→18:06)
[2022-07-17] MEDS: ACETAMINOPHEN TAB 325 MG TAB PO PRN ×2 (06:27→21:20)
--- NOTE | 2022-07-17 08:01 | XR ---
EXAMINATION TYPE: XR chest 1V portable DATE OF EXAM: 07/17/2022 6:42 AM COMPARISON: Chest radiographs from 07/16/2022 TECHNIQUE: XR chest 1V portable Portable AP radiograph of the chest. CLINICAL INDICATION:Female, 76 years old with history of dyspnea; FINDINGS: Lungs/Pleura: Blunting of the bilateral costophrenic angles. Bibasilar patchy airspace opacities. No pneumothorax. Pulmonary vascularity: Pulmonary vascular congestion. Heart/mediastinum: Cardiomediastinal silhouette is enlarged and stable. Atherosclerotic calcificatio ns are seen in the aorta. Musculoskeletal: No acute osseous pathology. IMPRESSION: Similar findings of suspected CHF exacerbation with cardiomegaly, pulmonary vascular congestion, and small bilateral pleural effusions. Superimposed infectious process is not excluded.
[2022-07-17] MEDS: SYMBICORT 160-4.5 MCG INHALER INHALATION SCH ×2 (09:25→21:09)
--- NOTE | 2022-07-17 10:26 | P.PN ---
Subjective Patient is seen for follow-up for acute kidney injury on top of chronic kidney disease. Patient is being diuresed for volume overload. Lasix drip has been discontinued and switched to IV push Lasix 60 mg every 12 hours. 24 hour urine output at 2.1 L. Patient remains with high oxygen requirement. Status post right heart cath yesterday which showed significant pulmonary hypertension with dilated right ventricle. Left-sided filling pressures were normal. Discussed with cardiology and patient is being considered for possible transfer to [facility] [place] for aggressive pulmonary vasodilators. Component of fluid overload not significant at this time. Patient is being dialyzed today. Blood pressure remains low. BUN had been elevated at 111 and serum creatinine at 2.7 mg/dL. Objective - Vital Signs Vital signs: Vital Signs Temp 97.7 F 07/17/22 08:00 Pulse 59 L 07/17/22 09:00 Resp 18 07/17/22 09:00 BP 108/78 07/17/22 09:00 Pulse Ox 91 L 07/17/22 09:23 FiO2 93 07/17/22 09:23 Intake & Output 07/16/22 07/17/22 07/17/22 18:59 06:59 18:59 Intake Total 758 350 Output Total 1000 1155 150 Balance -242 -805 -150 Weight 57.3 kg Intake: IV 50 Oral 708 350 Output: Urine 1000 1155 150 Other: Voiding Method Indwelling Catheter Indwelling Catheter - Exam Awake, comfortable, no acute distress, short of breath Examination of the heart S1 and S2 Examination of the lungs decreased breath sounds at the bases Abdomen is soft nontender Examination lower extremity shows no significant edema Left arm AV fistula is intact REGRINDER OPERATOR exam grossly intact - Labs CBC & Chem 7: 07/17/22 04:02 07/17/22 04:02 Labs: Abnormal Lab Results - Last 24 Hours (Table) 07/16/22 07/17/22 07/17/22 Range/Units 12:47 04:02 04:02 WBC 11.1 H (3.8-10.6) k/uL MCHC 30.9 L (31.0-37.0) g/dL RDW 19.6 H (11.5-15.5) % Plt Count 125 L (150-450) k/uL Sodium 132 L (137-145) mmol/L Potassium 3.4 L (3.5-5.1) mmol/L Chloride 81 L (98-107) mmol/L Carbon Dioxide 38 H (22-30) mmol/L BUN 111 H* (7-17) mg/dL Creatinine 2.66 H (0.52-1.04) mg/dL Glucose 114 H (74-99) mg/dL POC Glucose (mg/dL) 137 H (70-110) mg/dL Assessment and Plan Assessment: 1. Chronic kidney disease NKF stage IV secondary to nephrosclerosis NKF stage IV with baseline creatinine around 2 mg/dL. patient has a left arm AV fistula. 2. Acute kidney injury cardiorenal and due to low blood pressure. Disproportionately elevated B UN. Patient is not on steroids, no evidence of GI bleed. Diuretics have been decreased. BUN is further elevated at 111 today with elevated creatinine at 2.6. I will proceed with renal replacement therapy and plan for first treatment today. 3. Volume overload, mostly right-sided heart failure with dilated right ventricle and pulmonary hypertension 4. 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 Acute on chronic CHF exacerbation with preserved ejection fraction. Echocardiogram on 04/22/2022 shows EF of 50% with moderate tricuspid regurgitation. 6. Hypervolemic hyponatremia Plan: Hemodialysis today. We may not be able to at much ultrafiltration and after cardiac catheterization from yesterday we may not need as much UF. Continue with midodrine. Patient is being considered for possible transfer to [facility] [place] for aggressive pulmonary vasodilators.
--- NOTE | 2022-07-17 10:42 | P.PN ---
Subjective PROGRESS NOTE The patient is a 76-year-old female with known history of chronic kidney disease, hypertension, hyperlipidemia who presented was progressive dyspnea and evidence of CHF. She is feeling better. She continues to have peripheral edema but improving. She continues to require high oxygen flow. Hemodynamically she is stable. She denies any chest discomfort, dizziness or palpitations. She is diuresing well. Her echocardiogram showed an ejection fraction of 50% with evidence of pulmonary hypertension July 13: The patient became more dyspneic, had a brief episode of unresponsiveness and a drop in her oxygen saturation. She is transferred to the ICU. She's feeling better now. She has been started on IV Lasix drip. Her chest x-ray was consistent with CHF. She denies any chest discomfort, dizziness or palpitations. She has no nausea. 07/14 Patient seen and examined. Continues on Lasix drip at 10 with good urine output. Metoprolol was held this morning secondary to bradycardia heart rates in the 50s in sinus rhythm. Denies any chest pain or pressure. She states her lower extremity edema has been improving however still has significant thigh and buttocks edema. Her lower extremities have been wraps. 07/15 Patient seen and examined. Patient started on Revatio for pulmonary hypertension yesterday. Denies any chest pain or pressure. Has a good urine output on Lasix drip. BUN increasing however creatinine stable. Still has significant lower extremity edema. Potassium noted to be elevated this morning. 07/16 Patient seen and examined. Patient was transitioned from IV Lasix drip to IV Lasix. Creatinine going up as well as BUN. She continues require significant amount of oxygen. She admits to not really having a history of any COPD prior to when she was placed on oxygen in April. Still has trace to 1+ lower extremity and buttocks edema. 07/17 Patient seen and examined. Patient underwent right heart catheterization yesterday with findings of low to normal left-sided filling pressures and mildly elevated right-sided filling pressures, relatively normal given degree of right- sided heart failure, tricuspid regurgitation. Her Lasix was discontinued. Nephrology place patient on dialysis this morning secondary to increased BUN, as ischemia. Pulmonary hypertension consistent with precapillary pulmonary hypertension, likely Group 1 however awaiting VQ scan. Unclear patient will be able lay flat for a VQ scan PHYSICAL EXAMINATION: Vitals reviewed LUNGS: Scattered rhonchi HEART: Regular rate and rhythm, S1, S2. No S3. systolic ejection murmur ABDOMEN: Soft, nontender, no organomegaly EXTREMETIES: +1 edema IMPRESSION: 1. CHF with preserved systolic function and evidence of pulmonary hypertension and severe tricuspid regurgitation, mainly right sided 2. Chronic kidney disease 3. Hyperlipidemia 4. Hypertension 5. History of cellulitis 6. Severe tricuspid regurgitation 7. Severe pulmonary hypertension, precapillary, possible group 1 PLAN: Right heart catheterization shows low normal left-sided filling pressures likely related to decreased right-sided output to the left side. Patient having decreased cardiac output likely mainly related to right-sided heart failure. Patient's volume status appears normal to somewhat low and hold on further diuretics. Patient being dialyzed per nephrology for azotemia. Discussed recommendations for transfer to tertiary center for more pulmonary vasodilators which are not available currently at this hospital. There is a mild step up however no shunt noted on prior echo to suggest Eisenmenger's syndrome on echo. Objective - Vital Signs Vital signs: Vital Signs Temp 97.7 F 07/17/22 08:00 Pulse 59 L 07/17/22 09:00 Resp 18 07/17/22 09:00 BP 108/78 07/17/22 09:00 Pulse Ox 91 L 07/17/22 09:23 FiO2 93 07/17/22 09:23 Intake & Output 07/16/22 07/17/22 07/17/22 18:59 06:59 18:59 Intake Total 758 350 Output Total 1000 1155 150 Balance -242 -805 -150 Weight 57.3 kg Intake: IV 50 Oral 708 350 Output: Urine 1000 1155 150 Other: Voiding Method Indwelling Catheter Indwelling Catheter Indwelling Catheter - Labs CBC & Chem 7: 07/17/22 04:02 07/17/22 04:02 Labs: Abnormal Lab Results - Last 24 Hours (Table) 07/16/22 07/17/22 07/17/22 Range/Units 12:47 04:02 04:02 WBC 11.1 H (3.8-10.6) k/uL MCHC 30.9 L (31.0-37.0) g/dL RDW 19.6 H (11.5-15.5) % Plt Count 125 L (150-450) k/uL Sodium 132 L (137-145) mmol/L Potassium 3.4 L (3.5-5.1) mmol/L Chloride 81 L (98-107) mmol/L Carbon Dioxide 38 H (22-30) mmol/L BUN 111 H* (7-17) mg/dL Creatinine 2.66 H (0.52-1.04) mg/dL Glucose 114 H (74-99) mg/dL POC Glucose (mg/dL) 137 H (70-110) mg/dL
--- NOTE | 2022-07-17 12:20 | P.PN ---
Subjective Progress Note Date: 07/17/22 76 show female multiple complaints significant shortness of breath hypoxia here in the emergency department oxygen in the low to mid 80s despite supportive supplemental oxygen. Patient also complaining of significant lower extremity swelling and edema. No current chest pain, likely more significantly swollen than normal with significant redness of the left lower extremity. No change in medications or other complaint. EKG sinus bradycardia at 50 bpm Chest x-ray: Cardiomegaly. Small posterior right and minimal left pleural effusions. Some minimal subsegmental atelectasis left base may represent mild subsegmental atelectasis at the right base. WBC 8.6, hemoglobin 14.3, platelet count 165. Sodium 135, potassium 4.8, BUN 77 creatinine 2.99 patient presented with a BUN is 76 and creatinine of 3.03. Troponin 0.125, 0.105, 0.116. Lactic acid 2.5. Phosphorus 5.6, magnesium 2.6, total bilirubin 1. or otherwise liver function tests are normal. Home cardiac medications: Amlodipine 7.5 mg daily, aspirin 81 mg daily, atorvastatin 10 mg at bedtime, Lasix 20 mg every 2 days as needed, Lopressor 25 mg twice daily, levothyroxine 100 g daily Echocardiogram performed 04/2022 revealed a difficult study, EF 50%, aortic sclerosis, mild mitral and moderate tricuspid insufficiency. 07/07/2022 Patient is seen and evaluated in room at bedside; reports feeling better today; denies any complaint of chest shortness of breath Over the course of her admission she was diuresed with high doses of IV Lasix. Limited echocardiogram shows LV function of 50%. RV enlargement with severe right ventricular hypertrophy. RVSP 72 mmHg -- Cardiology on board and recommending to transition to oral Lasix with plans to add Aldactone tomorrow if patient able to tolerate -- Continue to monitor strict JERRY's, daily weights, low salt and fluid restricted diet patient with bilateral lower extremity cellulitis in this patient admitted to the hospital with the fluid overload did have diffuse swelling to bilateral lower extremity likely from gram-positive skin shailesh such as strep, patient with renal insufficiency high risk of nephrotoxicity Patient to continue with Jimbo wrap from just above the toe to below the knee, to keep the swelling down patient to continue with cefazolin 2 g every 12 and monitor clinical course closely Resume the care of the patient on 07/08/2022 Patient is a pleasant 76 years old female was admitted with diastolic CHF and acute hypoxic respiratory failure, her oxygen requirement went up significantly today to 15 L/m however through the day that came down to 12 L/m because of her significant hypoxia we consulted pulmonary, however clinically she looks not that bad, she is sitting up in bed and able to complicated with no difficulty talking due to hypoxia, she is mildly tachypneic with no use of accessory muscles. She is currently on Demadex as well as metolazone. She's continued on cefazolin for bilateral leg cellulitis, both legs with Jimbo wrap, they are slightly improved as per patient. We will keep monitoring Check chest x-ray in the morning 07/09/2022 Patient still hypoxic, improving slowly, today is on 12 L/m of oxygen via high flow nasal cannula. She still have significant leg swelling and cellulitis improving slowly as well Chest x-ray showing fluid overload but is improving she remains on torsemide and metolazone She remains on cefazolin 07/10/2022 Patient is hypoxic with oxygen saturation 12 L/m and saturation 90%, not much improvement and she is becoming hypotensive this morning which is as symptomatic I discussed with the bedside nurse to hold her diuretics and beta larry and to contact labor custodian for further recommendation -Patient has elements of COPD exacerbation although she never smoked however she has secondary smoking circumstances are her used to smoke in-house about half pack per day. There is limitation of air entry. There is no much this recommendation. I will start patient on Symbicort.. We will defer systemic steroids to the pulmonary team Creatinine 2.3. She remains on cefazolin 07/11/2022 Patient remains on extensive fluid overload as apparent on the CAT scan including subcutaneous edema She is also remains hypoxic requiring 14 L of oxygen via nasal cannula She remains on oral diuretics torsemide and metolazone Nephrology and pulmonary team on the case and other forms of diuresis may be considered further recommendation included intravenous diuresis versus renal replacement therapy Patient remains on IV cefazolin and her lower extremity cellulitis improving 07/12 Rapid called for Presyncope, Blood pressure low, held Lasix, Recovered while in bed RN notifed to Hold lasix , Give albumin 07/13 Continue to remain short of breath, High Oxygen demand, transferred to ICU, Pulm Following, Started on Midodrine Goals of Care discussed Full code 07/14 Patient monitored in ICU overnight, continue patient on Lasix drip, patient remains on heat and high flow 90% FiO2 50 L Patient states her breathing is little better 07/15 Patient is seen and evaluated and bedside. change from IV Lasix to IV push Lasix, potassium supplementation discontinued Continue to remain on high oxygen requirement on heat high flow 07/16 Patient seen and evaluated and bedside, cardiology planning cardiac catheterization will monitor postprocedure. Continue patient on Lasix patient s tates breathing seems to be better however nausea requirements have been unchanged on 90% FiO2 50 L 07/17 > patient continued to remain in ICU, underwent right heart catheterization showed normal left-sided filling pressures elevated right-sided filling pressure. He'll plan discussed with cardiology recommended transfer to [facility]. Called M line to initiate transfer the already have thin for however they wanted to speak with cardiology. We'll continue to work on transferring patient to tertiary [facility].. Spoke with Dr. Saldana and notified about request from [facility] to talk to cardiology Objective - Vital Signs Vital signs: Vital Signs Temp 97.7 F 07/17/22 08:00 Pulse 55 L 07/17/22 11:30 Resp 12 07/17/22 11:30 BP 88/55 07/17/22 11:30 Pulse Ox 94 L 07/17/22 11:27 FiO2 93 07/17/22 11:27 Intake & Output 07/16/22 07/17/22 07/17/22 18:59 06:59 18:59 Intake Total 758 350 Output Total 1000 1155 390 Balance -242 -805 -390 Weight 57.3 kg Intake: IV 50 Oral 708 350 Output: Urine 1000 1155 390 Other: Voiding Method Indwelling Catheter Indwelling Catheter Indwelling Catheter - Exam GENERAL: The patient is alert and oriented x 3,Ill appearance, high flow Nasal canulla in place , ILL APPEARANCE HEENT: Pupils are round and equally reacting to light. EOMI. No scleral icterus. No conjunctival pallor. Normocephalic, atraumatic. No pharyngeal erythema. No thyromegaly. CARDIOVASCULAR: S1 and S2 present. 2 plus LE edema . PULMONARY: bilateral basal crackles, no use of accessory muscle , Decrease breath sounds ABDOMEN: Soft, nontender, nondistended, normoactive bowel sounds. No palpable organomegaly. MUSCULOSKELETAL: No joint swelling or deformity. EXTREMITIES: No cyanosis, clubbing, or pedal edema. Bilateral leg redness and swelling for cellulitis and fluid retention, bilateral lower extremities wrapped NEUROLOGICAL: Gross neurological examination did not reveal any focal deficits. SKIN: No rashes. no petechiae. - Labs CBC & Chem 7: 07/17/22 04:02 07/17/22 04:02 Labs: Abnormal Lab Results - Last 24 Hours (Table) 07/16/22 07/17/22 07/17/22 Range/Units 12:47 04:02 04:02 WBC 11.1 H (3.8-10.6) k/uL MCHC 30.9 L (31.0-37.0) g/dL RDW 19.6 H (11.5-15.5) % Plt Count 125 L (150-450) k/uL Sodium 132 L (137-145) mmol/L Potassium 3.4 L (3.5-5.1) mmol/L Chloride 81 L (98-107) mmol/L Carbon Dioxide 38 H (22-30) mmol/L BUN 111 H* (7-17) mg/dL Creatinine 2.66 H (0.52-1.04) mg/dL Glucose 114 H (74-99) mg/dL POC Glucose (mg/dL) 137 H (70-110) mg/dL Assessment and Plan Assessment: Assessment: * Acute on chronic diastolic heart failure/ severe Pulmonary hypertension * Acute COPD exacerbation secondary to secondary smoking * Acute Hypoxic Resp failure * Syncope due to hypotension * Acute cellulitis bilateral lower extremities treated * Hypertension * Hyperlipidemia * Hypothyroidism * Acute kidney injury Chronic kidney disease stage IV>> initiated renal replacement therapy Plan: Patient received Ancef which has been discontinued completed course 07/06-07/13 Continue with oxygen therapy>> on Heated High FLow consultants on the case including labor custodian, infectious disease and director of radio services, pulmonary services For CHF> Change IV Lasix drip>> IV PUSH 60mg BID , metoprolol, midodrine, Zaroxolyn>> cardiology for right heart catheterization that showed elevated right ventricular pressure, nephrology following started with hemodialysis, started renal replacement therapy with first treatment given 07/17 For COPD continue Breathing treatments > Pulm following DVT prophylaxis: Subcutaneous heparin GI Prophylaxis: Pepcid Call [facility] to initiate transfer, they would like to speak with cardiology, Dr. Saldana notified Time with Patient: Greater than 30
--- NOTE | 2022-07-17 12:39 | P.PN ---
Subjective Progress Note Date: 07/17/22 Principal diagnosis: Acute hypoxic respiratory failure secondary to acute diastolic congestive heart failure 76-year-old female patient hospitalized for shortness of breath and lower extremity edema and decompensated heart failure. The patient is known to have diastolic failure with right sided failure and pulmonary hypertension. The patient also was noted to have increased lower oximetry cellulitis along with edema. Other comorbid conditions include hypertension, hyperlipidemia, stage IV chronic kidney disease and hypothyroidism. The patient is being seen by various consultants including cardiology and nephrology and a pulmonary consultation was also requested as the patient oxygen requirements progressively went up and the patient is currently on 15 L high flow oxygen. Note that last week, the patient was only at 8 L of oxygen by nasal cannula. The patient also has not had a recent chest x-ray. Most recent chest x-rays from 07/03/2022 showing thyromegaly and bilateral pleural effusion, more so on the right and minimal posterior left-sided pleural effusion is also present. The patient is currently on IV cefazolin Re: Bass the cellulitis. The patient is also on Zaroxolyn 5 mg by mouth daily and Demadex 80 mg by mouth daily. The blood work shows a WBC count of 8.3, hemoglobin 14 and platelet count of 149, BUN is 70 with a creatinine of 2.4 and a sodium level is at 138. On today's evaluation of 07/09/2021, the patient is still being diuresed. The patient is on 12 L of oxygen by nasal cannula with a pulse ox 94%. Urine output is adequate the renal function stable with a creatinine of 2.4. The ends of 79. Sodium levels of 135. The patient's white cell cause of 9.4 with a hemoglobin of 14.3. The patient is on IV cefazolin Re: Lower oximetry cellulitis. The patient is on Zaroxolyn 5 mg by mouth daily and Demadex 50 mg by mouth daily. Repeat chest x-ray showed cardiomegaly with mild pulmonary vessel congestion and some atelectasis of the lung bases. The patient is on subcu heparin for DVT prophylaxis. D-dimer level was at 0.64. On 07/10/2022, the patient is still hypoxic despite having a relatively clear lungs. The patient is currently on 12 L of O2 nasal cannula. The patient is on a combination of diuretics and the patient is currently on torsemide and Zaroxolyn. The patient is producing adequate amount of urine output. The BUN is at 82 with a creatinine of 2.3 and a sodium level is at 134. Potassium levels at 3.3. The patient otherwise is being treated for a left lower extremities. She continues to have some edema in the legs. She is on IV cefazolin. No other issues for now. No chest pain. No altered mentation. Based on her ongoing hypoxemia, I ordered a CAT scan of the chest that was completed today and it showed moderate cardiomegaly with moderate to severe body wall anasarca mainly in the thoracoabdominal junction and in the upper abdominal area. There is obvious third spacing. There is a small right and trace left- sided pleural effusion. Diffuse haziness throughout the lungs probably related to pulmonary vessel congestion. As such, the clinical picture is consistent with CHF. I also ordered a Doppler of the lower extremities and the results of the pending for now. On today's evaluation of 2022, the patient remains on 12 L of oxygen by nasal cannula. I reviewed the CAT scan of the chest and was consistent with CHF and fluid overload. Based on that, the patient was started on diuretics and On diuretics and the patient remains on a combination of torsemide and Zaroxolyn. The Patient Remains in Negative Fluid Balance. Doppler of the Lower Extremities was completed yesterday and the results were negative. The patient remains on IV cefazolin Re: Brock the cellulitis. She is using the incentive spirometer. She does have a chronic kidney disease and the creatinine remains unchanged at 2.3 with a BUN of 82 and a sodium level is at 134 with a potassium level of 3.3. Glucose at 166. Awake and alert. Tolerating diet. No other new complaints otherwise for now. On 07/12/2022, the patient is still struggling with her oxygenation. She remains on high flow oxygen at 4 L per minute nasal cannula. She remains on torsemide and Zaroxolyn. The patient herself denies having any new complaints. Her blood work shows a BUN of 89 with a creatinine of 2.3 and sodium levels of 135 with a potassium level of 3.7. She is using the incentive spirometer. She is in a n egative fluid balance. She has no fever or chills. Pulse ox 90% on 14 L nasal cannula. She remains on IV cefazolin Re: Lower extremity cellulitis. Continues to have some edema lower extremities bilaterally. CAT scan of the chest was noted. Doppler of the lower extremity was noted. On today's evaluation of 07/13/2022, the patient is on high flow oxygen with 50 L with an FiO2 of 90%. The patient had episodes of unresponsiveness and oxygen saturation yesterday. She was briefly placed on a BiPAP and later on physician to high flow oxygen. I made recommendations for this patient to be transferred to the intensive care unit. The chest x-ray is consistent with CHF. She is still diuretics and the patient is currently on a combination of Zaroxolyn and Lasix and I'm going to transfer this patient to Lasix drip. Her oxygenation is borderline. Pulse ox 92%. The patient's WBC count 7.5 with a hemoglobin of 14. BUN is at 91 with a creatinine of 2.37 and a sodium level is at 136. The blood cultures have been negative and the patient is afebrile. Reevaluated today on 07/14/2022, patient remains in the ICU, she was transferred directly to the ICU yesterday by Dr. Causey as she was noted to be in respiratory distress and worsening congestive heart failure. Patient is presently on Arava at 90% FiO2 and 50 L flow is also on Lasix at 10 mg per hour drip. Improving, and her FiO2 is being titrated down. Last night she was on BiPAP 10/5/100%. Patient is feeling better, breathing a bit easier today compared to yesterday. Chest x-ray this morning continues to show evidence of congestive heart failure, not much of a change in the last 24 hours. Labs were reviewed today, WBC 7.2 hemoglobin 14.5 Electrolytesenc normal BUN however is 92 creatinine 2.3 to basically about the same in spite of aggressive diuresis. 300 today on , patient remains in the ICU, remains on airvo, 90% and 50 L flow, responded well to diuretics, she is almost -6 L in the last couple of days, her renal functioning is showing some worsening, and she was transitioned from Lasix infusion to Lasix 60 mg IV push every 12 hours by nephrology. Patient is intermittently on BiPAP with IPAP of 10 and EPAP of 500%. Patient likes airvo much better than BiPAP. Labs from today were all reviewed, her BUN is up to 103 creatinine is up to 2.4, patient is being followed by nephrology regarding her renal failure. Reevaluated today on 07/16/2022, remains in the ICU, remains on relatively high FiO2 in spite of significant diuresis and negative fluid balance. Patient may undergo a right-sided cardiac catheterization as noted by cardiology. My only concern is her renal status she has a creatinine of 2.78. Patient is being followed by nephrology on the case. Has we'll schedule 9.9 hemoglobin 13.2, patient does not seem in distress but nonetheless she is requiring significantly high FiO2. She is on 90% FiO2 and 50 L flow via airvo. Patient had -2 L in the last 24 hours chest x-ray continues to be consistent with CHF and interstitial edema Reevaluated today on , patient remains in the ICU, today she will be started on hemodialysis, had a right-sided cardiac catheterization report was noted, clearly the patient has severe pulmonary hypertension, possibly group 1, cardiology is recommending potentially transferring the patient to [facility]. Admitting physician to address that issue with cardiology and decide on transfer if possible. In the meantime the patient is still relatively high FiO2, she is on airvo at 93% FiO2 and 60 L flow, marginal at best. WBC count is 11 hemoglobin is 13.1. Normal BUN is 111 creatinine 2.66. BNP level remains high at 55,100 Objective - Vital Signs Vital signs: Vital Signs Temp 97.7 F 07/17/22 08:00 Pulse 55 L 07/17/22 11:30 Resp 12 07/17/22 11:30 BP 88/55 07/17/22 11:30 Pulse Ox 94 L 07/17/22 11:27 FiO2 93 07/17/22 11:27 Intake & Output 07/16/22 07/17/22 07/17/22 18:59 06:59 18:59 Intake Total 758 350 Output Total 1000 1155 390 Balance -242 -805 -390 Weight 57.3 kg Intake: IV 50 Oral 708 350 Output: Urine 1000 1155 390 Other: Voiding Method Indwelling Catheter Indwelling Catheter Indwelling Catheter - Exam Physical Exam: Revealed 76-year-old female on airvo in no distress. On airvo relatively high flow oxygen and high FiO2 HEENT:[Neck is supple.] [No neck masses.] [No thyromegaly.] [ Positive JVD.] Chest: [Symmetrical chest expansion, crackles at the bases. Cardiac Exam: [Normal S1 and S2, no S3 gallop, no murmur.] Abdomen: [Soft, nontender, no megaly, no rebound, no guarding, normal bowel sounds.] Extremities: [No clubbing, 2+ bipedal edema, no cyanosis.] Neurological Exam: [No focal neurologic deficit.] Alert oriented 3. Psychiatric: Normal mood affect and normal mental status examination. Skin: No rashes. - Labs CBC & Chem 7: 07/17/22 04:02 07/17/22 04:02 Labs: Abnormal Lab Results - Last 24 Hours (Table) 07/16/22 07/17/22 07/17/22 Range/Units 12:47 04:02 04:02 WBC 11.1 H (3.8-10.6) k/uL MCHC 30.9 L (31.0-37.0) g/dL RDW 19.6 H (11.5-15.5) % Plt Count 125 L (150-450) k/uL Sodium 132 L (137-145) mmol/L Potassium 3.4 L (3.5-5.1) mmol/L Chloride 81 L (98-107) mmol/L Carbon Dioxide 38 H (22-30) mmol/L BUN 111 H* (7-17) mg/dL Creatinine 2.66 H (0.52-1.04) mg/dL Glucose 114 H (74-99) mg/dL POC Glucose (mg/dL) 137 H (70-110) mg/dL Assessment and Plan Assessment: Impression: Acute on chronic hypoxic respiratory failure secondary to acute diastolic congestive heart failure. Anasarca and small bilateral pleural effusions improving based on chest x-ray but not resolved. 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 Hypothyroidism Recommendation: Agree with possible transfer to the [facility] if accepted by their facility. Reviewed the results of her right-sided cardiac catheterization. Continue to monitor in the ICU Continue airvo/high flow and high FiO2 and titrate accordingly Patient will be started on hemodialysis today and she remains on diuretics Continue to monitor urine Titrate oxygen accordingly Continue incentive spirometry Use BiPAP as needed We'll continue to follow Time with Patient: Less than 30
[2022-07-17] MEDS: ASPIRIN 81 MG PO SCH (13:59)
[2022-07-17] MEDS: POTASSIUM CHLORIDE ER 20 MEQ TAB.ER PO SCH ×2 (13:59→15:56)
[2022-07-17] MEDS: FOLIC ACID 1 MG TAB PO SCH (13:59)
[2022-07-17] MEDS: FERROUS SULFATE 325 MG TAB PO SCH ×2 (13:59→21:21)
[2022-07-17] MEDS: CHOLECALCIFEROL 25 MCG (1000 IU) TABLET PO SCH (14:00)
[2022-07-17] MEDS: FUROSEMIDE 10 MG/ML 10 ML VIAL IV SCH ×2 (14:00→21:20)
[2022-07-17] MEDS: allopurinoL 100 MG TAB PO SCH ×2 (14:00→21:21)
[2022-07-17] MEDS: METOPROLOL TARTRATE 25 MG TAB PO SCH ×2 (14:01→21:21)
[2022-07-17] MEDS: HEPARIN SODIUM,PORCINE/PF 5,000 UNIT/0.5 ML SYRINGE SQ SCH ×2 (14:01→21:21)
[2022-07-17] MEDS: metOLazone 5 MG TAB PO SCH (14:03)
[2022-07-17] MEDS: SILDENAFIL 20 MG TAB PO SCH ×3 (14:03→22:35)
[2022-07-17] MEDS: MAGNESIUM OXIDE 400 MG TAB PO SCH (21:20)
[2022-07-17] MEDS: FAMOTIDINE 20 MG TAB PO SCH (21:21)
[2022-07-17] MEDS: ATORVASTATIN 10 MG TAB PO SCH (21:21)
--- NOTE | 2022-07-17 22:00 | P.PN ---
Subjective Progress Note Date: 07/17/22 Principal diagnosis: Bilateral lower extremity cellulitis Patient is a 76-year-old female with a past medical history significant for hypertension hyperlipidemia chronic renal insufficiency presenting to the hospital 07/03/2022 for evaluation of increasing shortness of b reath, patient was have diffuse swelling and erythema to bilateral extremities concerning for cellulitis. On today's evaluation had that is 07/17/2022, the patient remains to be afebrile, the patient is breathing comfortably however still requiring high flow oxygen currently at 80 % FiO2, the patient denies any worsening shortness of breath or cough and no sputum production, the patient lower extremity swelling has decreased and denies pain to the lower extremity, the patient is currently undergoing hemodialysis and noticed to have significant pulmonary hypertension on cardiac cath Objective - Vital Signs Vital signs: Vital Signs Temp 97.7 F 07/17/22 08:00 Pulse 55 L 07/17/22 11:30 Resp 12 07/17/22 11:30 BP 88/55 07/17/22 11:30 Pulse Ox 94 L 07/17/22 11:27 FiO2 93 07/17/22 11:27 Intake & Output 07/16/22 07/17/22 07/17/22 18:59 06:59 18:59 Intake Total 758 350 Output Total 1000 1155 390 Balance -242 -805 -390 Weight 57.3 kg Intake: IV 50 Oral 708 350 Output: Urine 1000 1155 390 Other: Voiding Method Indwelling Catheter Indwelling Catheter Indwelling Catheter - Exam GENERAL DESCRIPTION: An elderly female up in the chair in no distress RESPIRATORY SYSTEM: Unlabored breathing , decreased breath sounds at bases HEART: S1 S2 regular rate and rhythm , ABDOMEN: Soft , no tenderness EXTREMITIES: Bilateral lower extremity wrapped in Jimbo wrap no drainage on the dressing - Labs CBC & Chem 7: 07/17/22 04:02 07/17/22 04:02 Labs: Abnormal Lab Results - Last 24 Hours (Table) 07/16/22 07/17/22 07/17/22 Range/Units 12:47 04:02 04:02 WBC 11.1 H (3.8-10.6) k/uL MCHC 30.9 L (31.0-37.0) g/dL RDW 19.6 H (11.5-15.5) % Plt Count 125 L (150-450) k/uL Sodium 132 L (137-145) mmol/L Potassium 3.4 L (3.5-5.1) mmol/L Chloride 81 L (98-107) mmol/L Carbon Dioxide 38 H (22-30) mmol/L BUN 111 H* (7-17) mg/dL Creatinine 2.66 H (0.52-1.04) mg/dL Glucose 114 H (74-99) mg/dL POC Glucose (mg/dL) 137 H (70-110) mg/dL Assessment and Plan (1) Bilateral lower leg cellulitis Current Visit: Yes Status: Acute Code(s): L03.116 - CELLULITIS OF LEFT LOWER LIMB; L03.115 - CELLULITIS OF RIGHT LOWER LIMB SNOMED Code(s): 526777274 Plan: 1patient with bilateral lower extremity cellulitis in this patient admitted to the hospital with the fluid overload did have diffuse swelling to bilateral lower extremity likely from gram-positive skin shailesh such as strep, patient with renal insufficiency high risk of nephrotoxicity 2Patient to continue with Jimbo wrap from just above the toe to below the knee, to keep the swelling down 3patient is afebrile and white count is mildly elevated at 11.1 thousand today 4-the patient has received adequate antibiotic therapy for her lower extremity cellulitis, and the patient will be monitored closely off antibiotic therapy Time with Patient: Less than 30
[2022-07-18 04:38] LABS: Hepatitis BE Antibody Nonreactive (Nonreactive); Hepatitis BE Antigen Nonreactive (Nonreactive)
[2022-07-18 06:07] LABS: Anisocytosis Slight; HCT 39.7 % (34.0-46.0); HGB 12.4 gm/dL (11.4-16.0); Hypochromasia Moderate; MCH 30.4 pg (25.0-35.0); MCHC 31.1 g/dL (31.0-37.0); MCV 97.5 fL (80.0-100.0); Macrocytosis Slight; Mean Platelet Volume 9.5; Platelet Count 142 k/uL (150-450); RBC 4.07 m/uL (3.80-5.40); RDW 19.6 % (11.5-15.5); WBC 10.2 k/uL (3.8-10.6)
[2022-07-18 06:17] LABS: African American GFR (CKD) 25 (>60 ml/min/1.73 sqM); Anion Gap 6 mmol/L; Blood Urea Nitrogen 60 mg/dL (7-17); Calcium 9.1 mg/dL (8.4-10.2); Carbon Dioxide 38 mmol/L (22-30); Chloride 89 mmol/L (98-107); Glucose 104 mg/dL (74-99); Non-African American GFR(CKD) 22 (>60 ml/min/1.73 sqM); Potassium 4.3 mmol/L (3.5-5.1); Sodium 133 mmol/L (137-145)
[2022-07-18] MEDS: LEVOTHYROXINE 100 MCG TAB PO SCH (06:38)
[2022-07-18] MEDS: MIDODRINE 5 MG TAB PO SCH ×2 (06:38→15:06)
[2022-07-18 09:03] VITALS: TEMP 97.7
[2022-07-18] MEDS: FUROSEMIDE 10 MG/ML 10 ML VIAL IV SCH (09:07)
[2022-07-18] MEDS: SYMBICORT 160-4.5 MCG INHALER INHALATION SCH (09:08)
[2022-07-18] MEDS: metOLazone 5 MG TAB PO SCH (09:11)
[2022-07-18] MEDS: HEPARIN SODIUM,PORCINE/PF 5,000 UNIT/0.5 ML SYRINGE SQ SCH (09:12)
[2022-07-18] MEDS: allopurinoL 100 MG TAB PO SCH (09:12)
[2022-07-18] MEDS: SILDENAFIL 20 MG TAB PO SCH (09:12)
[2022-07-18] MEDS: FERROUS SULFATE 325 MG TAB PO SCH (09:12)
[2022-07-18] MEDS: ASPIRIN 81 MG PO SCH (09:13)
[2022-07-18] MEDS: FOLIC ACID 1 MG TAB PO SCH (09:18)
[2022-07-18] MEDS: CHOLECALCIFEROL 25 MCG (1000 IU) TABLET PO SCH (09:18)
--- NOTE | 2022-07-18 11:19 | P.PN ---
Subjective Patient is seen for follow-up for acute kidney injury on top of chronic kidney disease. Patient is being diuresed for volume overload. Patient remains with high oxygen requirement. Status post right heart cath which showed significant pulmonary hypertension with dilated right ventricle. Left-sided filling pressures were normal. Discussed with cardiology and patient is being considered for possible transfer to [facility] for aggressive pulmonary vasodilators. Component of fluid overload not significant at this time. Dialysis was attempted yesterday however patient was significantly hypotensive and we did not get any UF. Patient had prolonged bleeding as well from the arterial site after hemodialysis. She was evaluated by vascular surgery and if patient needs to continue with hemodialysis she will need an IJ permacath placed. Patient has had good urine output with about 2.2 L for 24 hours. Objective - Vital Signs Vital signs: Vital Signs Temp 97.7 F 07/18/22 09:00 Pulse 61 07/18/22 11:00 Resp 18 07/18/22 11:00 BP 110/64 07/18/22 11:00 Pulse Ox 94 L 07/18/22 11:00 FiO2 94 07/18/22 11:11 Intake & Output 07/17/22 07/18/22 07/18/22 18:59 06:59 18:59 Intake Total 1200 450 Output Total 1340 1135 535 Balance -140 -685 -535 Weight 52.9 kg Intake: IV 340 0.9 340 Oral 450 Tube Feeding 10 Hemodialysis 850 Output: Urine 1090 1135 535 Hemodialysis 250 Other: Voiding Method Indwelling Catheter Indwelling Catheter # Bowel Movements 1 - Exam Awake, comfortable, no acute distress, short of breath Examination of the heart S1 and S2 Examination of the lungs decreased breath sounds at the bases Abdomen is soft nontender Examination lower extremity shows no significant edema Left arm AV fistula is intact [employer] exam grossly intact - Labs CBC & Chem 7: 07/18/22 05:56 07/18/22 05:56 Labs: Abnormal Lab Results - Last 24 Hours (Table) 07/18/22 07/18/22 Range/Units 05:56 05:56 RDW 19.6 H (11.5-15.5) % Plt Count 142 L (150-450) k/uL Sodium 133 L (137-145) mmol/L Chloride 89 L (98-107) mmol/L Carbon Dioxide 38 H (22-30) mmol/L BUN 60 H (7-17) mg/dL Creatinine 2.15 H (0.52-1.04) mg/dL Glucose 104 H (74-99) mg/dL Assessment and Plan Assessment: 1. Chronic kidney disease NKF stage IV secondary to nephrosclerosis NKF stage IV with baseline creatinine around 2 mg/dL. patient has a left arm AV fistula. 2. Acute kidney injury cardiorenal and due to low blood pressure. Disproportionately elevated B UN. Patient is not on steroids, no evidence of GI bleed. Diuretics have been decreased. Attempted first hemodialysis treatment yesterday however patient's blood pressure was significantly low and there was prolonged bleeding from the arterial side after treatment. No UF. Patient has been evaluated by vascular surgery and she will need an IJ permacath placed for continued dialysis. At this time urine output is at about 2.2 L and we will co ntinue to monitor off of dialysis. 3. Volume overload, mostly right-sided heart failure with dilated right ventricle and pulmonary hypertension 4. 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 Acute on chronic CHF exacerbation with preserved ejection fraction. Echocardiogram on 04/22/2022 shows EF of 50% with moderate tricuspid regurgitation. 6. Hypervolemic hyponatremia Plan: Hold dialysis for now. Continue with the current dose of Lasix. Patient will need an IJ permacath placed if she needs to to be dialyzed. We will continue to assess on a daily basis.
--- NOTE | 2022-07-18 11:20 | P.PN ---
Subjective PROGRESS NOTE The patient is a 76-year-old female with known history of chronic kidney disease, hypertension, hyperlipidemia who presented was progressive dyspnea and evidence of CHF. She is feeling better. She continues to have peripheral edema but improving. She continues to require high oxygen flow. Hemodynamically she is stable. She denies any chest discomfort, dizziness or palpitations. She is diuresing well. Her echocardiogram showed an ejection fraction of 50% with evidence of pulmonary hypertension July 13: The patient became more dyspneic, had a brief episode of unresponsiveness and a drop in her oxygen saturation. She is transferred to the ICU. She's feeling better now. She has been started on IV Lasix drip. Her chest x-ray was consistent with CHF. She denies any chest discomfort, dizziness or palpitations. She has no nausea. 07/14 Patient seen and examined. Continues on Lasix drip at 10 with good urine output. Metoprolol was held this morning secondary to bradycardia heart rates in the 50s in sinus rhythm. Denies any chest pain or pressure. She states her lower extremity edema has been improving however still has significant thigh and buttocks edema. Her lower extremities have been wraps. 07/15 Patient seen and examined. Patient started on Revatio for pulmonary hypertension yesterday. Denies any chest pain or pressure. Has a good urine output on Lasix drip. BUN increasing however creatinine stable. Still has significant lower extremity edema. Potassium noted to be elevated this morning. 07/16 Patient seen and examined. Patient was transitioned from IV Lasix drip to IV Lasix. Creatinine going up as well as BUN. She continues require significant amount of oxygen. She admits to not really having a history of any COPD prior to when she was placed on oxygen in April. Still has trace to 1+ lower extremity and buttocks edema. 07/17 Patient seen and examined. Patient underwent right heart catheterization yesterday with findings of low to normal left-sided filling pressures and mildly elevated right-sided filling pressures, relatively normal given degree of right- sided heart failure, tricuspid regurgitation. Her Lasix was discontinued. Nephrology place patient on dialysis this morning secondary to increased BUN, as ischemia. Pulmonary hypertension consistent with precapillary pulmonary hypertension, likely Group 1 however awaiting VQ scan. Unclear patient will be able lay flat for a VQ scan 07/18 Patient seen and examined. Patient attempted on dialysis, ultrafiltration yes terday however hypotensive and therefore taken off. Creatinine improved to 2.1 and BUN improved at 60. Long discussion regarding pulmonary hypertension, decreased cardiac output, continued hypoxia without any real improvement. and both realizing she has been steadily declining at times has had she just wanted by in the past. Discussed options of attempting transfer, continue medical therapy or palliative approach and and leaning more towards palliative approach. PHYSICAL EXAMINATION: Vitals reviewed LUNGS: Scattered rhonchi HEART: Regular rate and rhythm, S1, S2. No S3. systolic ejection murmur ABDOMEN: Soft, nontender, no organomegaly EXTREMETIES: +1 edema IMPRESSION: 1. CHF with preserved systolic function and evidence of pulmonary hypertension and severe tricuspid regurgitation, mainly right sided 2. Chronic kidney disease 3. Hyperlipidemia 4. Hypertension 5. History of cellulitis 6. Severe tricuspid regurgitation 7. Severe pulmonary hypertension, precapillary, possible group 1 8. Cor pulmonale 9. Cardiogenic shock, mainly related to RV failure 10. Cardiorenal syndrome PLAN: Long discussion with patient and regarding continued hypoxia not entirely explained by degree of pulmonary hypertension and pulmonary hypertension with RV failure. Ideally pulmonary vasodilators such as epoprostenol and transfer to tertiary center however requiring severe amounts of oxygen. Cannot lay flat for VQ scan and requiring increasing amounts of oxygen. Patient and leaning more towards palliative approach which is reasonable. Continue with current supportive care. Objective - Vital Signs Vital signs: Vital Signs Temp 97.7 F 07/18/22 09:00 Pulse 61 07/18/22 11:00 Resp 18 07/18/22 11:00 BP 110/64 07/18/22 11:00 Pulse Ox 94 L 07/18/22 11:00 FiO2 94 07/18/22 11:11 Intake & Output 07/17/22 07/18/22 07/18/22 18:59 06:59 18:59 Intake Total 1200 450 Output Total 1340 1135 535 Balance -140 -685 -535 Weight 52.9 kg Intake: IV 340 0.9 340 Oral 450 Tube Feeding 10 Hemodialysis 850 Output: Urine 1090 1135 535 Hemodialysis 250 Other: Voiding Method Indwelling Catheter Indwelling Catheter # Bowel Movements 1 - Labs CBC & Chem 7: 07/18/22 05:56 07/18/22 05:56 Labs: Abnormal Lab Results - Last 24 Hours (Table) 07/18/22 07/18/22 Range/Units 05:56 05:56 RDW 19.6 H (11.5-15.5) % Plt Count 142 L (150-450) k/uL Sodium 133 L (137-145) mmol/L Chloride 89 L (98-107) mmol/L Carbon Dioxide 38 H (22-30) mmol/L BUN 60 H (7-17) mg/dL Creatinine 2.15 H (0.52-1.04) mg/dL Glucose 104 H (74-99) mg/dL
[2022-07-18] MEDS: METOPROLOL TARTRATE 25 MG TAB PO SCH (11:26)
--- NOTE | 2022-07-18 12:10 | P.PN ---
Subjective Progress Note Date: 07/18/22 76 show female multiple complaints significant shortness of breath hypoxia here in the emergency department oxygen in the low to mid 80s despite supportive supplemental oxygen. Patient also complaining of significant lower extremity swelling and edema. No current chest pain, likely more significantly swollen than normal with significant redness of the left lower extremity. No change in medications or other complaint. EKG sinus bradycardia at 50 bpm Chest x-ray: Cardiomegaly. Small posterior right and minimal left pleural effusions. Some minimal subsegmental atelectasis left base may represent mild subsegmental atelectasis at the right base. WBC 8.6, hemoglobin 14.3, platelet count 165. Sodium 135, potassium 4.8, BUN 77 creatinine 2.99 patient presented with a BUN is 76 and creatinine of 3.03. Troponin 0.125, 0.105, 0.116. Lactic acid 2.5. Phosphorus 5.6, magnesium 2.6, total bilirubin 1. or otherwise liver function tests are normal. Home cardiac medications: Amlodipine 7.5 mg daily, aspirin 81 mg daily, atorvastatin 10 mg at bedtime, Lasix 20 mg every 2 days as needed, Lopressor 25 mg twice daily, levothyroxine 100 g daily Echocardiogram performed 04/2022 revealed a difficult study, EF 50%, aortic sclerosis, mild mitral and moderate tricuspid insufficiency. 07/07/2022 Patient is seen and evaluated in room at bedside; reports feeling better today; denies any complaint of chest shortness of breath Over the course of her admission she was diuresed with high doses of IV Lasix. Limited echocardiogram shows LV function of 50%. RV enlargement with severe right ventricular hypertrophy. RVSP 72 mmHg -- Cardiology on board and recommending to transition to oral Lasix with plans to add Aldactone tomorrow if patient able to tolerate -- Continue to monitor strict JERRY's, daily weights, low salt and fluid restricted diet patient with bilateral lower extremity cellulitis in this patient admitted to the hospital with the fluid overload did have diffuse swelling to bilateral lower extremity likely from gram-positive skin shailesh such as strep, patient with renal insufficiency high risk of nephrotoxicity Patient to continue with Jimbo wrap from just above the toe to below the knee, to keep the swelling down patient to continue with cefazolin 2 g every 12 and monitor clinical course closely Resume the care of the patient on 07/08/2022 Patient is a pleasant 76 years old female was admitted with diastolic CHF and acute hypoxic respiratory failure, her oxygen requirement went up significantly today to 15 L/m however through the day that came down to 12 L/m because of her significant hypoxia we consulted pulmonary, however clinically she looks not that bad, she is sitting up in bed and able to complicated with no difficulty talking due to hypoxia, she is mildly tachypneic with no use of accessory muscles. She is currently on Demadex as well as metolazone. She's continued on cefazolin for bilateral leg cellulitis, both legs with Jimbo wrap, they are slightly improved as per patient. We will keep monitoring Check chest x-ray in the morning 07/09/2022 Patient still hypoxic, improving slowly, today is on 12 L/m of oxygen via high flow nasal cannula. She still have significant leg swelling and cellulitis improving slowly as well Chest x-ray showing fluid overload but is improving she remains on torsemide and metolazone She remains on cefazolin 07/10/2022 Patient is hypoxic with oxygen saturation 12 L/m and saturation 90%, not much improvement and she is becoming hypotensive this morning which is as symptomatic I discussed with the bedside nurse to hold her diuretics and beta larry and to contact dry wall sprayer for further recommendation -Patient has elements of COPD exacerbation although she never smoked however she has secondary smoking circumstances are her used to smoke in-house about half pack per day. There is limitation of air entry. There is no much this recommendation. I will start patient on Symbicort.. We will defer systemic steroids to the pulmonary team Creatinine 2.3. She remains on cefazolin 07/11/2022 Patient remains on extensive fluid overload as apparent on the CAT scan including subcutaneous edema She is also remains hypoxic requiring 14 L of oxygen via nasal cannula She remains on oral diuretics torsemide and metolazone Nephrology and pulmonary team on the case and other forms of diuresis may be considered further recommendation included intravenous diuresis versus renal replacement therapy Patient remains on IV cefazolin and her lower extremity cellulitis improving 07/12 Rapid called for Presyncope, Blood pressure low, held Lasix, Recovered while in bed RN notifed to Hold lasix , Give albumin 07/13 Continue to remain short of breath, High Oxygen demand, transferred to [facility], Pulm Following, Started on Midodrine Goals of Care discussed Full code 07/14 Patient monitored in ICU overnight, continue patient on Lasix drip, patient remains on heat and high flow 90% FiO2 50 L Patient states her breathing is little better 07/15 Patient is seen and evaluated and bedside. change from IV Lasix to IV push Lasix, potassium supplementation discontinued Continue to remain on high oxygen requirement on heat high flow 07/16 Patient seen and evaluated and bedside, cardiology planning cardiac catheterization will monitor postprocedure. Continue patient on Lasix patient states breathing seems to be better however nausea requirements have been unchanged on 90% FiO2 50 L 07/17 > patient continued to remain in ICU, underwent right heart catheterization showed normal left-sided filling pressures elevated right-sided filling pressure. He'll plan discussed with cardiology recommended transfer to [facility]. Called M line to initiate transfer the already have thin for however they wanted to speak with cardiology. We'll continue to work on transferring patient to [facility].. Spoke with Dr. Saldana and notified about request from [facility] to talk to cardiology>> [facility] called back stating that patient is not stable for discharge or cross was consulted and high amount of oxygen this suggested patient to be intubated patient is no code at this time, they wanted patient to be optimized prior to transfer 07/18>> patient seen and evaluated bedside alert and oriented 3 goals of care discussed with patient in detail patient explained if intubated she might not be able to, ventilator. Patient is requesting to speak with hospice, she does state her breathing has improved a little better Objective - Vital Signs Vital signs: Vital Signs Temp 97.7 F 07/18/22 09:00 Pulse 59 L 07/18/22 12:00 Resp 19 07/18/22 12:00 BP 113/69 07/18/22 12:00 Pulse Ox 92 L 07/18/22 12:00 FiO2 100 07/18/22 12:00 Intake & Output 07/17/22 07/18/22 07/18/22 18:59 06:59 18:59 Intake Total 1200 450 50 Output Total 1340 1135 635 Balance -140 -685 -585 Weight 52.9 kg Intake: IV 340 0.9 340 Oral 450 50 Tube Feeding 10 Hemodialysis 850 Output: Urine 1090 1135 635 Hemodialysis 250 Other: Voiding Method Indwelling Catheter Indwelling Catheter # Bowel Movements 1 - Exam GENERAL: The patient is alert and oriented x 3,Ill appearance, high flow Nasal canulla in place , ILL APPEARANCE HEENT: Pupils are round and equally reacting to light. EOMI. No scleral icterus. No conjunctival pallor. Normocephalic, atraumatic. No pharyngeal erythema. No thyromegaly. CARDIOVASCULAR: S1 and S2 present. 2 plus LE edema . , Hemodialysis access noted left arm PULMONARY: bilateral basal crackles, no use of accessory muscle , Decrease breath sounds ABDOMEN: Soft, nontender, nondistended, normoactive bowel sounds. No palpable organomegaly. MUSCULOSKELETAL: No joint swelling or deformity. EXTREMITIES: No cyanosis, clubbing, or pedal edema. Bilateral leg redness and swelling for cellulitis and fluid retention, bilateral lower extremities wrapped NEUROLOGICAL: Gross neurological examination did not reveal any focal deficits. SKIN: No rashes. no petechiae. - Labs CBC & Chem 7: 07/18/22 05:56 07/18/22 05:56 Labs: Abnormal Lab Results - Last 24 Hours (Table) 07/18/22 07/18/22 Range/Units 05:56 05:56 RDW 19.6 H (11.5-15.5) % Plt Count 142 L (150-450) k/uL Sodium 133 L (137-145) mmol/L Chloride 89 L (98-107) mmol/L Carbon Dioxide 38 H (22-30) mmol/L BUN 60 H (7-17) mg/dL Creatinine 2.15 H (0.52-1.04) mg/dL Glucose 104 H (74-99) mg/dL Assessment and Plan Assessment: Assessment: * Acute on chronic diastolic heart failure/ severe Pulmonary hypertension * Acute COPD exacerbation secondary to secondary smoking * Acute Hypoxic Resp failure * Syncope due to hypotension * Acute cellulitis bilateral lower extremities treated * Hypertension * Hyperlipidemia * Hypothyroidism * Acute kidney injury Chronic kidney disease stage IV>> initiated renal replacement therapy Plan: Patient received Ancef which has been discontinued completed course 07/06-07/13 Continue with oxygen therapy>> on Heated High FLow consultants on the case including dry wall sprayer, infectious disease and deli clerk, pulmonary services For CHF> Change IV Lasix drip>> IV PUSH 60mg BID , metoprolol, midodrine, Zaroxolyn>> cardiology for right heart catheterization that showed elevated right ventricular pressure, nephrology following started with hemodialysis however patient did not tolerate ultrafiltration, started renal replacement therapy with first treatment given 07/17, however did not tolerate ultrafiltration noted to have hypotension For COPD continue Breathing treatments > Pulm following DVT prophylaxis: Subcutaneous heparin GI Prophylaxis: Pepcid Patient not accepted for transfer to [facility], patient explained not stable for transfer. Patient wanting to speak with hospice Time with Patient: Greater than 30
--- NOTE | 2022-07-18 14:19 | P.PN ---
Subjective Progress Note Date: 07/18/22 Principal diagnosis: Acute hypoxic respiratory failure secondary to acute diastolic congestive heart failure 76-year-old female patient hospitalized for shortness of breath and lower extremity edema and decompensated heart failure. The patient is known to have diastolic failure with right sided failure and pulmonary hypertension. The patient also was noted to have increased lower oximetry cellulitis along with edema. Other comorbid conditions include hypertension, hyperlipidemia, stage IV chronic kidney disease and hypothyroidism. The patient is being seen by various consultants including cardiology and nephrology and a pulmonary consultation was also requested as the patient oxygen requirements progressively went up and the patient is currently on 15 L high flow oxygen. Note that last week, the patient was only at 8 L of oxygen by nasal cannula. The patient also has not had a recent chest x-ray. Most recent chest x-rays from 07/03/2022 showing thyromegaly and bilateral pleural effusion, more so on the right and minimal posterior left-sided pleural effusion is also present. The patient is currently on IV cefazolin Re: Bass the cellulitis. The patient is also on Zaroxolyn 5 mg by mouth daily and Demadex 80 mg by mouth daily. The blood work shows a WBC count of 8.3, hemoglobin 14 and platelet count of 149, BUN is 70 with a creatinine of 2.4 and a sodium level is at 138. On today's evaluation of 07/09/2021, the patient is still being diuresed. The patient is on 12 L of oxygen by nasal cannula with a pulse ox 94%. Urine output is adequate the renal function stable with a creatinine of 2.4. The ends of 79. Sodium levels of 135. The patient's white cell cause of 9.4 with a hemoglobin of 14.3. The patient is on IV cefazolin Re: Lower oximetry cellulitis. The patient is on Zaroxolyn 5 mg by mouth daily and Demadex 50 mg by mouth daily. Repeat chest x-ray showed cardiomegaly with mild pulmonary vessel congestion and some atelectasis of the lung bases. The patient is on subcu heparin for DVT prophylaxis. D-dimer level was at 0.64. On 07/10/2022, the patient is still hypoxic despite having a relatively clear lungs. The patient is currently on 12 L of O2 nasal cannula. The patient is on a combination of diuretics and the patient is currently on torsemide and Zaroxolyn. The patient is producing adequate amount of urine output. The BUN is at 82 with a creatinine of 2.3 and a sodium level is at 134. Potassium levels at 3.3. The patient otherwise is being treated for a left lower extremities. She continues to have some edema in the legs. She is on IV cefazolin. No other issues for now. No chest pain. No altered mentation. Based on her ongoing hypoxemia, I ordered a CAT scan of the chest that was completed today and it showed moderate cardiomegaly with moderate to severe body wall anasarca mainly in the thoracoabdominal junction and in the upper abdominal area. There is obvious third spacing. There is a small right and trace left- sided pleural effusion. Diffuse haziness throughout the lungs probably related to pulmonary vessel congestion. As such, the clinical picture is consistent with CHF. I also ordered a Doppler of the lower extremities and the results of the pending for now. On today's evaluation of 2022, the patient remains on 12 L of oxygen by nasal cannula. I reviewed the CAT scan of the chest and was consistent with CHF and fluid overload. Based on that, the patient was started on diuretics and On diuretics and the patient remains on a combination of torsemide and Zaroxolyn. The Patient Remains in Negative Fluid Balance. Doppler of the Lower Extremities was completed yesterday and the results were negative. The patient remains on IV cefazolin Re: Brock the cellulitis. She is using the incentive spirometer. She does have a chronic kidney disease and the creatinine remains unchanged at 2.3 with a BUN of 82 and a sodium level is at 134 with a potassium level of 3.3. Glucose at 166. Awake and alert. Tolerating diet. No other new complaints otherwise for now. On 07/12/2022, the patient is still struggling with her oxygenation. She remains on high flow oxygen at 4 L per minute nasal cannula. She remains on torsemide and Zaroxolyn. The patient herself denies having any new complaints. Her blood work shows a BUN of 89 with a creatinine of 2.3 and sodium levels of 135 with a potassium level of 3.7. She is using the incentive spirometer. She is in a n egative fluid balance. She has no fever or chills. Pulse ox 90% on 14 L nasal cannula. She remains on IV cefazolin Re: Lower extremity cellulitis. Continues to have some edema lower extremities bilaterally. CAT scan of the chest was noted. Doppler of the lower extremity was noted. On today's evaluation of 07/13/2022, the patient is on high flow oxygen with 50 L with an FiO2 of 90%. The patient had episodes of unresponsiveness and oxygen saturation yesterday. She was briefly placed on a BiPAP and later on physician to high flow oxygen. I made recommendations for this patient to be transferred to the intensive care unit. The chest x-ray is consistent with CHF. She is still diuretics and the patient is currently on a combination of Zaroxolyn and Lasix and I'm going to transfer this patient to Lasix drip. Her oxygenation is borderline. Pulse ox 92%. The patient's WBC count 7.5 with a hemoglobin of 14. BUN is at 91 with a creatinine of 2.37 and a sodium level is at 136. The blood cultures have been negative and the patient is afebrile. Reevaluated today on 07/14/2022, patient remains in the ICU, she was transferred directly to the ICU yesterday by Dr. Causey as she was noted to be in respiratory distress and worsening congestive heart failure. Patient is presently on Arava at 90% FiO2 and 50 L flow is also on Lasix at 10 mg per hour drip. Improving, and her FiO2 is being titrated down. Last night she was on BiPAP 10/5/100%. Patient is feeling better, breathing a bit easier today compared to yesterday. Chest x-ray this morning continues to show evidence of congestive heart failure, not much of a change in the last 24 hours. Labs were reviewed today, WBC 7.2 hemoglobin 14.5 Electrolytesenc normal BUN however is 92 creatinine 2.3 to basically about the same in spite of aggressive diuresis. 300 today on , patient remains in the ICU, remains on airvo, 90% and 50 L flow, responded well to diuretics, she is almost -6 L in the last couple of days, her renal functioning is showing some worsening, and she was transitioned from Lasix infusion to Lasix 60 mg IV push every 12 hours by nephrology. Patient is intermittently on BiPAP with IPAP of 10 and EPAP of 500%. Patient likes airvo much better than BiPAP. Labs from today were all reviewed, her BUN is up to 103 creatinine is up to 2.4, patient is being followed by nephrology regarding her renal failure. Reevaluated today on 07/16/2022, remains in the ICU, remains on relatively high FiO2 in spite of significant diuresis and negative fluid balance. Patient may undergo a right-sided cardiac catheterization as noted by cardiology. My only concern is her renal status she has a creatinine of 2.78. Patient is being followed by nephrology on the case. Has we'll schedule 9.9 hemoglobin 13.2, patient does not seem in distress but nonetheless she is requiring significantly high FiO2. She is on 90% FiO2 and 50 L flow via airvo. Patient had -2 L in the last 24 hours chest x-ray continues to be consistent with CHF and interstitial edema Reevaluated today on , patient remains in the ICU, today she will be started on hemodialysis, had a right-sided cardiac catheterization report was noted, clearly the patient has severe pulmonary hypertension, possibly group 1, cardiology is recommending potentially transferring the patient to the [facility]. Admitting physician to address that issue with cardiology and decide on transfer if possible. In the meantime the patient is still relatively high FiO2, she is on airvo at 93% FiO2 and 60 L flow, marginal at best. WBC count is 11 hemoglobin is 13.1. Normal BUN is 111 creatinine 2.66. BNP level remains high at 55,100 Reevaluated today on 07/18/2022, patient could not tolerate hemodialysis yesterday because she was hypotensive. Continues to diurese, responding to Lasix, apparently the patient was accepted that the numerous admissions in for transfer, but the recommendation was to place the patient on mechanical ventilation prior to transfer. And the patient clearly does not want to be on life-support machinery. I would be willing to intubate the patient and place on mechanical ventilation prior to transfer, but the patient clearly does not want to do so. In the meantime I believe the patient is being considered for palliative approach and she is going to discuss this more with her Objective - Vital Signs Vital signs: Vital Signs Temp 97.7 F 07/18/22 09:00 Pulse 65 07/18/22 13:00 Resp 17 07/18/22 13:00 BP 102/61 07/18/22 13:00 Pulse Ox 94 L 07/18/22 13:00 FiO2 93 07/18/22 13:00 Intake & Output 07/17/22 07/18/22 07/18/22 18:59 06:59 18:59 Intake Total 1200 450 50 Output Total 1340 1135 635 Balance -140 -685 -585 Weight 52.9 kg Intake: IV 340 0.9 340 Oral 450 50 Tube Feeding 10 Hemodialysis 850 Output: Urine 1090 1135 635 Hemodialysis 250 Other: Voiding Method Indwelling Catheter Indwelling Catheter Indwelling Catheter # Bowel Movements 1 - Exam Physical Exam: Revealed 76-year-old female on airvo in no distress. On airvo relatively high flow oxygen and high FiO2, 90% FiO2 and 60 L flow HEENT:[Neck is supple.] [No neck masses.] [No thyromegaly.] [ Positive JVD.] Chest: [Symmetrical chest expansion, crackles at the bases. Cardiac Exam: [Normal S1 and S2, no S3 gallop, no murmur.] Abdomen: [Soft, nontender, no megaly, no rebound, no guarding, normal bowel xiao nds.] Extremities: [No clubbing, 2+ bipedal edema, no cyanosis.] Neurological Exam: [No focal neurologic deficit.] Alert oriented 3. Psychiatric: Normal mood affect and normal mental status examination. Skin: No rashes. - Labs CBC & Chem 7: 07/18/22 05:56 07/18/22 05:56 Labs: Abnormal Lab Results - Last 24 Hours (Table) 07/18/22 07/18/22 Range/Units 05:56 05:56 RDW 19.6 H (11.5-15.5) % Plt Count 142 L (150-450) k/uL Sodium 133 L (137-145) mmol/L Chloride 89 L (98-107) mmol/L Carbon Dioxide 38 H (22-30) mmol/L BUN 60 H (7-17) mg/dL Creatinine 2.15 H (0.52-1.04) mg/dL Glucose 104 H (74-99) mg/dL Assessment and Plan Assessment: Impression: Acute on chronic hypoxic respiratory failure secondary to acute diastolic congestive heart failure. Anasarca and small bilateral pleural effusions improving based on chest x-ray but not resolved. 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 Hypothyroidism Recommendation: Agree with possible transfer to the [facility] however the [facility] is recommending intubation and mechanical ventilation and the patient refuses to do so. Should consider palliative care. Patient will discuss with her Continue to monitor in the ICU Continue airvo/high flow and high FiO2 and titrate accordingly Patient did not tolerate hemodialysis Continue to monitor urine Titrate oxygen accordingly Continue incentive spirometry Use BiPAP as needed Overall prognosis is extremely poor and guarded We'll continue to follow Time with Patient: Less than 30
[2022-07-18 15:40] VITALS: BP 110/62; PULSE 70; RESP 23
--- NOTE | 2022-07-18 15:44 | P.PN ---
Subjective Progress Note Date: 07/18/22 Principal diagnosis: Bilateral lower extremity cellulitis Patient is a 76-year-old female with a past medical history significant for hypertension hyperlipidemia chronic renal insufficiency presenting to the hospital 07/03/2022 for evaluation of increasing shortness of b reath, patient was have diffuse swelling and erythema to bilateral extremities concerning for cellulitis. On today's evaluation had that is 07/18/2022, the patient continues to be afebrile, the patient is breathing comfortably and is requiring high flow oxygen however FiO2 is down to 60%, the patient denies any worsening shortness of breath or cough and no sputum production, the patient lower extremity swelling has decreased and denies pain to the lower extremity, Objective - Vital Signs Vital signs: Vital Signs Temp 97.7 F 07/18/22 09:00 Pulse 61 07/18/22 11:00 Resp 18 07/18/22 11:00 BP 110/64 07/18/22 11:00 Pulse Ox 94 L 07/18/22 11:00 FiO2 94 07/18/22 11:11 Intake & Output 07/17/22 07/18/22 07/18/22 18:59 06:59 18:59 Intake Total 1200 450 Output Total 1340 1135 535 Balance -140 -685 -535 Weight 52.9 kg Intake: IV 340 0.9 340 Oral 450 Tube Feeding 10 Hemodialysis 850 Output: Urine 1090 1135 535 Hemodialysis 250 Other: Voiding Method Indwelling Catheter Indwelling Catheter # Bowel Movements 1 - Exam GENERAL DESCRIPTION: An elderly female up in the chair in no distress RESPIRATORY SYSTEM: Unlabored breathing , decreased breath sounds at bases HEART: S1 S2 regular rate and rhythm , ABDOMEN: Soft , no tenderness EXTREMITIES: Bilateral lower extremity wrapped in Jimbo wrap no drainage on the dressing - Labs CBC & Chem 7: 07/18/22 05:56 07/18/22 05:56 Labs: Abnormal Lab Results - Last 24 Hours (Table) 07/18/22 07/18/22 Range/Units 05:56 05:56 RDW 19.6 H (11.5-15.5) % Plt Count 142 L (150-450) k/uL Sodium 133 L (137-145) mmol/L Chloride 89 L (98-107) mmol/L Carbon Dioxide 38 H (22-30) mmol/L BUN 60 H (7-17) mg/dL Creatinine 2.15 H (0.52-1.04) mg/dL Glucose 104 H (74-99) mg/dL Assessment and Plan (1) Bilateral lower leg cellulitis Current Visit: Yes Status: Acute Code(s): L03.116 - CELLULITIS OF LEFT LOWER LIMB; L03.115 - CELLULITIS OF RIGHT LOWER LIMB SNOMED Code(s): 068860266 Plan: 1patient with bilateral lower extremity cellulitis in this patient admitted to the hospital with the fluid overload did have diffuse swelling to bilateral lower extremity likely from gram-positive skin shailesh such as strep, patient with renal insufficiency high risk of nephrotoxicity 2Patient to continue with Jimbo wrap from just above the toe to below the knee, to keep the swelling down 3patient is afebrile and white count is down to normal today without anybody therapy 4-the patient has received adequate antibiotic therapy for her lower extremity cellulitis, and the patient will be monitored closely off antibiotic therapy and continue supportive care Time with Patient: Less than 30
== END 2022-07-18 15:49 | disposition hospice, inpatient (51) | DRG 286 ==
LOC: EC 14:29 → 3SCARD 17:22 → 2SICU 07-13 12:24
PROVIDERS: ADMIT Hospitalist; ATTEND Hospitalist
PROC: 5A09357 Assistance with Respiratory Ventilation, Less than 24 Consecutive Hours, Continuous Positive Airway Pressure (ICD-10-PCS; 2022-07-13)
PROC: 4A023N6 Measurement of Cardiac Sampling and Pressure, Right Heart, Percutaneous Approach (ICD-10-PCS; principal; 2022-07-16 12:55)
PROC: 5A1D70Z Performance of Urinary Filtration, Intermittent, Less than 6 Hours Per Day (ICD-10-PCS; 2022-07-17)
DX: I13.0 Hypertensive heart and chronic kidney disease with heart failure and stage 1 through stage 4 chronic kidney disease, or unspecified chronic kidney disease (principal); I50.43 Acute on chronic combined systolic (congestive) and diastolic (congestive) heart failure; J96.21 Acute and chronic respiratory failure with hypoxia; N17.0 Acute kidney failure with tubular necrosis; R57.0 Cardiogenic shock; E87.1 Hypo-osmolality and hyponatremia; E87.20 Acidosis, unspecified; J44.1 Chronic obstructive pulmonary disease with (acute) exacerbation; J98.11 Atelectasis; L03.115 Cellulitis of right lower limb; L03.116 Cellulitis of left lower limb; N18.4 Chronic kidney disease, stage 4 (severe); Z51.5 Encounter for palliative care; Z66 Do not resuscitate; I08.3 Combined rheumatic disorders of mitral, aortic and tricuspid valves; Z99.81 Dependence on supplemental oxygen; I50.82 Biventricular heart failure; I95.89 Other hypotension; I27.81 Cor pulmonale (chronic); E83.9 Disorder of mineral metabolism, unspecified; I27.29 Other secondary pulmonary hypertension; E78.5 Hyperlipidemia, unspecified; E03.9 Hypothyroidism, unspecified; D63.1 Anemia in chronic kidney disease; K21.9 Gastro-esophageal reflux disease without esophagitis; T50.3X5A Adverse effect of electrolytic, caloric and water-balance agents, initial encounter; R33.9 Retention of urine, unspecified; E87.6 Hypokalemia; R77.8 Other specified abnormalities of plasma proteins; T50.2X5A Adverse effect of carbonic-anhydrase inhibitors, benzothiadiazides and other diuretics, initial encounter; Z79.82 Long term (current) use of aspirin; Z79.890 Hormone replacement therapy; Z79.899 Other long term (current) drug therapy; Z82.49 Family history of ischemic heart disease and other diseases of the circulatory system; Z85.828 Personal history of other malignant neoplasm of skin; Z92.21 Personal history of antineoplastic chemotherapy; Z85.068 Personal history of other malignant neoplasm of small intestine
CPT/HCPCS: 36415; 71045; 71046; 71250; 80048; 80053; 82810; 83605; 83735; 83880; 84100; 84132; 84484; 85018; 85025; 85027; 85379; 85610; 85730; 86140; 86707; 87040; 87340; 87350; 90935; 93005; 93308; 93451; 93970; 94640; 94660; 94760; 96365; 96375; 99291

== ENCOUNTER 2022-07-18 15:10 | Inpatient (IN) | payer MEDICAID ==
[2022-07-18] MEDS ORDERED: MORPHINE SULFATE 2 MG/ML SYRINGE IV PRN (15:38)
[2022-07-18] MEDS ORDERED: GLYCOPYRROLATE 0.2 MG/ML 2 ML VIAL IVP PRN (15:38)
[2022-07-18] MEDS ORDERED: LORazepam 2 MG/ML INJ IV PRN (15:38)
[2022-07-18] MEDS ORDERED: ACETAMINOPHEN SUPPOSITORY 650 MG SUPP RECTAL PRN (15:38)
[2022-07-18] MEDS ORDERED: ATROPINE OPHTH SOLN 1% 5ML BTL SUBLINGUAL PRN (15:38)
[2022-07-18] MEDS ORDERED: ONDANSETRON 4 MG/2 ML VIAL IVP PRN (15:38)
[2022-07-18] MEDS: MORPHINE SULFATE (100 MG/2 ML) 100 MG in SODIUM CHLORIDE 0.9% 100 ML IV SCH (18:45)
[2022-07-18] MEDS: METOPROLOL TARTRATE 25 MG TAB PO SCH (21:11)
[2022-07-18] MEDS: FUROSEMIDE 10 MG/ML 10 ML VIAL IV SCH (21:11)
[2022-07-19] MEDS: SCOPOLAMINE 1 MG/72 HR PATCH TRANSDERM SCH (06:23)
[2022-07-19] MEDS: metOLazone 5 MG TAB PO SCH (10:11)
[2022-07-19] MEDS: METOPROLOL TARTRATE 25 MG TAB PO SCH ×2 (10:11→19:48)
[2022-07-19] MEDS: FUROSEMIDE 10 MG/ML 10 ML VIAL IV SCH ×2 (10:11→19:48)
[2022-07-19] MEDS: MORPHINE SULFATE (100 MG/2 ML) 100 MG in SODIUM CHLORIDE 0.9% 100 ML IV SCH (16:16)
[2022-07-19] MEDS ORDERED: BENZOCAINE/MENTHOL LOZENG 1 EACH LOZENGE MUCOUS MEM PRN (22:32)
--- NOTE | 2022-07-20 12:29 | P.HPIM ---
History of Present Illness H&P Date: 07/19/22 Chief Complaint: Shortness of breath 76 show female multiple complaints significant shortness of breath hypoxia here in the emergency department oxygen in the low to mid 80s despite supportive supplemental oxygen. Patient also complaining of significant lower extremity swelling and edema. No current chest pain, likely more significantly swollen than normal with significant redness of the left lower extremity. No change in medications or other complaint. EKG sinus bradycardia at 50 bpm Chest x-ray: Cardiomegaly. Small posterior right and minimal left pleural effusions. Some minimal subsegmental atelectasis left base may represent mild subsegmental atelectasis at the right base. WBC 8.6, hemoglobin 14.3, platelet count 165. Sodium 135, potassium 4.8, BUN 77 creatinine 2.99 patient presented with a BUN is 76 and creatinine of 3.03. Troponin 0.125, 0.105, 0.116. Lactic acid 2.5. Phosphorus 5.6, magnesium 2.6, total bilirubin 1. or otherwise liver function tests are normal. Home cardiac medications: Amlodipine 7.5 mg daily, aspirin 81 mg daily, atorvastatin 10 mg at bedtime, Lasix 20 mg every 2 days as needed, Lopressor 25 mg twice daily, levothyroxine 100 g daily Echocardiogram performed 04/2022 revealed a difficult study, EF 50%, aortic sclerosis, mild mitral and moderate tricuspid insufficiency - Patient was admitted with acute hypoxic respiratory failure related to acute diastolic CHF and acute exacerbation of COPD -- Despite optimal management patient respiratory status we'll to improve -- On 07/28/2022 patient's condition was discussed in great detail and patient opted for hospice care Patient is admitted to hospice for pain and symptom management Review of Systems REVIEW OF SYSTEMS: CONSTITUTIONAL: No fever, no malaise, no fatigue. HEENT: No recent visual problems or hearing problems. Denied any sore throat. CARDIOVASCULAR: No chest pain, orthopnea, PND, no palpitations, no syncope. PULMONARY: shortness of breath, no cough, no hemoptysis. GASTROINTESTINAL: No diarrhea, no nausea, no vomiting, no abdominal pain. NEUROLOGICAL: No headaches, no weakness, no numbness. HEMATOLOGICAL: Denies any bleeding or petechiae. GENITOURINARY: Denies any burning micturition, frequency, or urgency. MUSCULOSKELETAL/RHEUMATOLOGICAL: Denies any joint pain, swelling, or any muscle pain. ENDOCRINE: Denies any polyuria or polydipsia. The rest of the 14-point review of systems is negative. Past Medical History Past Medical History: Cancer, GERD/Reflux, Hyperlipidemia, Hypertension, Renal Disease, Thyroid Disorder Additional Past Medical History / Comment(s): stage 4 kidney disease-has not needed dialysis yet 2 point away of stage 3, still has urine production, anemia, HIGH URIC ACID LEVELS. HX CANCEROUS POLYP BURST IN SMALL INTESTINE 2010-being tx. w/chemo, skin cancer scalp July 2017 History of Any Multi-Drug Resistant Organisms: None Reported Past Surgical History: Bowel Resection, Orthopedic Surgery, Tonsillectomy Additional Past Surgical History / Comment(s): LAPARATOMY, PARATHYROID SURGERY, ORIF LEFT ANKLE., biopsy of scalp 07/27,AV fistula left arm,peritoneal dialysis attempt Past Anesthesia/Blood Transfusion Reactions: No Reported Reaction Past Psychological History: No Psychological Hx Reported Smoking Status: Never smoker Past Alcohol Use History: None Reported Past Drug Use History: None Reported - Past Family History Mother Family Medical History: Cancer, Coronary Artery Disease (CAD) Father Family Medical History: Coronary Artery Disease (CAD) Brother(s) Family Medical History: Coronary Artery Disease (CAD) Medications and Allergies Home Medications Medication Instructions Recorded Confirmed Type Atorvastatin [Lipitor] 10 mg PO HS 09/11/14 07/03/22 History allopurinoL [Zyloprim] 100 mg PO BID 01/17/15 07/03/22 History Ferrous Sulfate [Iron (65 MG 325 mg PO BID 03/03/18 07/03/22 History Elemental)] Folic Acid 0.8 mg PO DAILY 03/03/18 07/03/22 History Magnesium 400 mg PO HS 03/03/18 07/03/22 History Cholecalciferol [Vitamin D3 (25 25 mcg PO DAILY 06/13/20 07/03/22 History Mcg = 1000 Iu)] Famotidine 20 mg PO HS 06/13/20 07/03/22 History Furosemide [Lasix] 20 mg PO Q2D PRN 04/21/22 07/03/22 History amLODIPine [Norvasc] 7.5 mg PO DAILY 04/21/22 07/03/22 History calcitrioL [Calcitriol] 0.25 mcg PO MOWEFR 04/21/22 07/03/22 History Aspirin 81 mg PO DAILY #30 tab 04/24/22 07/03/22 Rx Levothyroxine Sodium [Synthroid] 100 mcg PO AC-BRKFST 07/03/22 07/03/22 History Metoprolol Tartrate [Lopressor] 25 mg PO BID 07/03/22 07/03/22 History Allergies Allergy/AdvReac Type Severity Reaction Status Date / Time No Known Allergies Allergy Verified 07/03/22 17:31 Physical Exam Vitals: Vital Signs Temp Pulse Pulse Resp BP BP Pulse Ox 07/19/22 08:51 07/19/22 08:00 98.2 F 70 20 113/70 89 L 07/19/22 03:10 07/19/22 02:00 98.2 F 71 111/74 91 L 07/18/22 23:06 07/18/22 19:33 07/18/22 18:00 73 18 119/66 92 L 07/18/22 17:47 76 18 93 L FiO2 07/19/22 08:51 93 07/19/22 08:00 93 07/19/22 03:10 93 07/19/22 02:00 90 07/18/22 23:06 93 07/18/22 19:33 94 07/18/22 18:00 07/18/22 17:47 Intake and Output 07/18/22 07/19/22 07/19/22 22:59 06:59 14:59 Output Total 150 1050 200 Balance -150 -1050 -200 Output: Urine 150 1050 200 Other: Voiding Method Indwelling Catheter # Bowel Movements 1 Weight 52.9 kg 61.4 kg GENERAL: The patient is alert and oriented x 3,Ill appearance, high flow Nasal canulla in place , ILL APPEARANCE HEENT: Pupils are round and equally reacting to light. EOMI. No scleral icterus. No conjunctival pallor. Normocephalic, atraumatic. No pharyngeal erythema. No thyromegaly. CARDIOVASCULAR: S1 and S2 present. 2 plus LE edema . , Hemodialysis access noted left arm PULMONARY: bilateral basal crackles, no use of accessory muscle , Decrease breath sounds ABDOMEN: Soft, nontender, nondistended, normoactive bowel sounds. No palpable organomegaly. MUSCULOSKELETAL: No joint swelling or deformity. EXTREMITIES: No cyanosis, clubbing, or pedal edema. Bilateral leg redness and swelling for cellulitis and fluid retention, bilateral lower extremities wrapped NEUROLOGICAL: Gross neurological examination did not reveal any focal deficits. SKIN: No rashes. no petechiae. Assessment and Plan Assessment: Acute on chronic diastolic heart failure/ severe Pulmonary hypertension Acute COPD exacerbation secondary to secondary smoking Acute Hypoxic Resp failure Syncope due to hypotension Acute cellulitis bilateral lower extremities treated Hypertension Hyperlipidemia Hypothyroidism Acute kidney injury Chronic kidney disease stage IV>> initiated renal replacement therapy Patient received Ancef which has been discontinued completed course 07/06-07/13 Continue with oxygen therapy>> on Heated High FLow Hospice care for pain and symptom management
[2022-07-20] MEDS: FUROSEMIDE 10 MG/ML 10 ML VIAL IV SCH ×2 (13:26→21:01)
[2022-07-20] MEDS: METOPROLOL TARTRATE 25 MG TAB PO SCH ×2 (13:27→21:02)
[2022-07-20] MEDS: metOLazone 5 MG TAB PO SCH (13:27)
[2022-07-20] MEDS: MORPHINE SULFATE (100 MG/2 ML) 100 MG in SODIUM CHLORIDE 0.9% 100 ML IV SCH (18:44)
[2022-07-21] MEDS: metOLazone 5 MG TAB PO SCH (10:06)
[2022-07-21] MEDS: METOPROLOL TARTRATE 25 MG TAB PO SCH (10:07)
[2022-07-21] MEDS: FUROSEMIDE 10 MG/ML 10 ML VIAL IV SCH (10:07)
[2022-07-21] MEDS: SCOPOLAMINE 1 MG/72 HR PATCH TRANSDERM SCH (14:52)
--- NOTE | 2022-07-21 14:56 | P.PN ---
Subjective Progress Note Date: 07/21/22 This is a pleasant 76 year old female admitted to the hospital for CHF exacerbation requiring airvo 60% currently patient is monitored in the intensive care unit. Patient is currently being evaluated by hospice mandeep for GIP was evaluated on 07/18/22 and plans to initiate comfort care orders tomorrow. Sj alfredo is currently awake alert and breathing comfortably on the airvo, has no acute complaints currently a do not resuscitate/do not intubate. Review of Systems Constitutional: Denied any fatigue denied any fever. Cardio vascular: denied any chest pain, palpitations Gastrointestinal: denied any nausea, vomiting, diarrhea Pulmonary: Denied any shortness of breath cough Neurologic denied any new focal deficits All inpatient medications were reviewed and appropriate changes in these medications as dictated in the interval history and assessment and plan. PHYSICAL EXAMINATION: GENERAL: The patient is alert and oriented x3, not in any acute distress. Well developed, well nourished. Currently in intensive care unit on airvo with 60% FiO2. HEENT: Pupils are round and equally reacting to light. EOMI. No scleral icterus. No conjunctival pallor. Normocephalic, atraumatic. No pharyngeal erythema. No thyromegaly. CARDIOVASCULAR: S1 and S2 present. No murmurs, rubs, or gallops. PULMONARY: Chest is clear to auscultation, no wheezing or crackles. ABDOMEN: Soft, nontender, nondistended, normoactive bowel sounds. No palpable organomegaly. MUSCULOSKELETAL: No joint swelling or deformity. EXTREMITIES: No cyanosis, clubbing, or pedal edema. NEUROLOGICAL: Gross neurological examination did not reveal any focal deficits. Diffuse generalized weakness. SKIN: No rashes. Assessment Acute on chronic diastolic heart failure/ severe Pulmonary hypertension Acute COPD exacerbation secondary to continued smoking Acute Hypoxic Respiratory failure currently on 60% Airvo. Syncope due to hypotension Acute cellulitis bilateral lower extremities treated History of hypertension, currently hypotensive Hyperlipidemia Hypothyroidism Acute kidney injury Chronic kidney disease stage IV>> initiated renal replacement therapy underwent HD on 07/17/22. Do Not Resuscitate/Do Not Intubate Plan Patient remains in intensive care unit currently on airvo oxygen support Patient is being following by hospice services with plans to initiate comfort care orders tomorrow Continues on IV lasix Q12 with indwelling catheter in place to continue until tomorrow The impression and plan of care has been dictated by Michelle Ivey, Nurse Practitioner as directed. Dr. Evie MD I have performed a history and physical examination and medical decision making of this patient, discussed the same with the dictator, and agree with the dictators assessment and plan as written, documented as a scribe. Based on total visit time, I have performed more than 50% of this visit. Objective - Vital Signs Vital signs: Vital Signs Temp 98.4 F 07/20/22 20:00 Pulse 72 07/21/22 02:00 Resp 17 07/21/22 02:00 BP 92/66 07/21/22 02:00 Pulse Ox 92 L 07/21/22 07:55 FiO2 94 07/21/22 07:55 Intake & Output 07/20/22 07/21/22 07/21/22 18:59 06:59 18:59 Intake Total 300 Output Total 225 300 Balance -225 0 Weight 51.3 kg Intake: Oral 300 Output: Urine 225 300 Other: Voiding Method Indwelling Catheter Indwelling Catheter Assessment and Plan Time with Patient: Less than 30
[2022-07-21 15:09] VITALS: PULSE 66
[2022-07-21] MEDS: MORPHINE SULFATE (100 MG/2 ML) 100 MG in SODIUM CHLORIDE 0.9% 100 ML IV SCH (16:21)
[2022-07-21 20:44] VITALS: BP 90/46; RESP 22; TEMP 98.5
--- NOTE | 2022-07-22 00:07 | P.DS ---
Providers Date of admission: 07/18/22 15:51 Attending physician: Ankur Humphrey Primary care physician: Tori Reeves [facility] Course: Final Diagnosis Acute on chronic diastolic heart failure/ severe Pulmonary hypertension Acute Hypoxic Respiratory failure currently on 60L Airvo. Acute kidney injury cardiorenal etiology Chronic kidney disease stage IV>> initiated renal replacement therapy and attempted HD on 07/17/22, patient did not tolerate well. Hypervolemic hyponatremia Acute COPD exacerbation secondary to continued smoking Acute cellulitis bilateral lower extremities treated Syncopal episode due to hypotension and hypoxemia History of hypertension, currently hypotensive Hyperlipidemia Hypothyroidism Chronic hydronephrosis with history of ureteral stent placement Do Not Resuscitate/Do Not Intubate Patient on 07/21/2022 at 2006 in the intensive care unit. Preliminary cause of acute diastolic heart failure and cardiorenal syndrome. Hospital Course This is a pleasant 76 year old female admitted to the hospital for CHF ex acerbation requiring airvo 60L with 90% FiO2 currently patient is monitored in the intensive care unit, patient is transitioned to hospice GIP services and started on morphine infusion. Patient has past medical history of hyeprtension, hypothyroidism, GERD, chronic kidney disease stage IV, anemia, cancerous polyp with bowel resection, heart failure. Patient admitted to the hospital on 07/03/22 for shortness of breath and lower extremity swelling and cellulitis. Patient had troponin elevation. Patient admitted to the hospital for CHF exacerbation with cardiology consultation. Infectious disease evaluated the patient for the lower extremity cellulitis and patient was treated with IV antibiotics. Limited echocardiogram on admission revealed severe right ventricular hypertrophy with global RV hypokinesis, compressed left ventricle on acct of elevated right-sided pressures. Flattening of the interventricular septum consistent with severe pulmonary hypertension. EF 50%. Patient required high flow nasal cannula oxygen support. Patient was treated with IV lasix. Had a syncopal episode and unresponsive which patient was then transferred to ICU was hypotensive and bradycardic, worsening hypoxemia. Patient was followed by cardiology, nephrology and pulmonary orange peel operator. Patient underwent attempted renal replacement therapy on 07/17/22 and did not tolerate well due to hypotension and ultra filtration not achieved. Patient continued to require high flow oxygen and ICU care with lasix gtt. Had right sided heart cath showing normal left sided filling pressures. Patient was considered for transfer to [facility] for aggressive pulmonary vasodilators was not accepted for transfer as too unstable. Patient requested hospice consultation and was transitioned to [facility]. Placed on morphine gtt and began weaning patient off high flow oxygen support. Patient on 07/21/20222006. Thank you for allowing us to participate in the care of this patient. The impression and plan of care has been dictated by Michelle Ivey, Nurse Practitioner as directed. Dr. Evie MD I have performed a history and physical examination and medical decision making of this patient, discussed the same with the dictator, and agree with the dictators assessment and plan as written, documented as a scribe. Based on total visit time, I have performed more than 50% of this visit. Plan - Discharge Summary New Discharge Prescriptions: No Action Atorvastatin [Lipitor] 10 mg PO HS allopurinoL [Zyloprim] 100 mg PO BID Ferrous Sulfate [Iron (65 MG Elemental)] 325 mg PO BID Magnesium 400 mg PO HS Folic Acid 0.8 mg PO DAILY Famotidine 20 mg PO HS Cholecalciferol [Vitamin D3 (25 Mcg = 1000 Iu)] 25 mcg PO DAILY Furosemide [Lasix] 20 mg PO Q2D PRN PRN Reason: Edema calcitrioL [Calcitriol] 0.25 mcg PO MOWEFR Aspirin 81 mg PO DAILY #30 tab Levothyroxine Sodium [Synthroid] 100 mcg PO AC-BRKFST amLODIPine [Norvasc] 7.5 mg PO DAILY Metoprolol Tartrate [Lopressor] 25 mg PO BID Discharge Medication List Atorvastatin [Lipitor] 10 mg PO HS 09/11/14 [History] allopurinoL [Zyloprim] 100 mg PO BID 01/17/15 [History] Ferrous Sulfate [Iron (65 MG Elemental)] 325 mg PO BID 03/03/18 [History] Folic Acid 0.8 mg PO DAILY 03/03/18 [History] Magnesium 400 mg PO HS 03/03/18 [History] Cholecalciferol [Vitamin D3 (25 Mcg = 1000 Iu)] 25 mcg PO DAILY 06/13/20 [History] Famotidine 20 mg PO HS 06/13/20 [History] Furosemide [Lasix] 20 mg PO Q2D PRN 04/21/22 [History] amLODIPine [Norvasc] 7.5 mg PO DAILY 04/21/22 [History] calcitrioL [Calcitriol] 0.25 mcg PO MOWEFR 04/21/22 [History] Aspirin 81 mg PO DAILY #30 tab 03/16/23 [Rx] Levothyroxine Sodium [Synthroid] 100 mcg PO AC-BRKFST 07/03/22 [History] Metoprolol Tartrate [Lopressor] 25 mg PO BID 07/03/22 [History]
== END 2022-07-21 20:50 | disposition expired | DRG 951 ==
LOC: 2SICU 15:51
PROVIDERS: ADMIT Hospitalist; ATTEND Hospitalist
DX: Z51.5 Encounter for palliative care (principal); I50.33 Acute on chronic diastolic (congestive) heart failure; J96.01 Acute respiratory failure with hypoxia; N18.6 End stage renal disease; E87.1 Hypo-osmolality and hyponatremia; I13.0 Hypertensive heart and chronic kidney disease with heart failure and stage 1 through stage 4 chronic kidney disease, or unspecified chronic kidney disease; J44.1 Chronic obstructive pulmonary disease with (acute) exacerbation; L03.116 Cellulitis of left lower limb; L03.115 Cellulitis of right lower limb; N13.30 Unspecified hydronephrosis; N17.9 Acute kidney failure, unspecified; I95.9 Hypotension, unspecified; E03.9 Hypothyroidism, unspecified; E78.5 Hyperlipidemia, unspecified; F17.210 Nicotine dependence, cigarettes, uncomplicated; I08.1 Rheumatic disorders of both mitral and tricuspid valves; I27.20 Pulmonary hypertension, unspecified; Z79.82 Long term (current) use of aspirin; Z79.890 Hormone replacement therapy; Z79.899 Other long term (current) drug therapy; Z82.49 Family history of ischemic heart disease and other diseases of the circulatory system; Z85.828 Personal history of other malignant neoplasm of skin; Z66 Do not resuscitate